=== PATIENT | male | born 1985 | race Two or more races ===

== ENCOUNTER 2016-08-27 23:44 | Emergency (ER) | payer SELFPAY | END 2016-08-28 00:45 | disposition left against medical advice (07) | LOC: ER 23:44 | DX: Z53.9 Procedure and treatment not carried out, unspecified reason (principal); R52 Pain, unspecified ==

== ENCOUNTER 2018-11-28 02:16 | Emergency (ER) | payer SELFPAY ==
[2018-11-28] MEDS ORDERED: NORMAL SALINE 1000 ML 1,000 ML IV ONE ×2 (03:05→04:45)
--- NOTE | 2018-11-28 03:53 | ER Document Report ---
ED General - General Chief Complaint: High Blood Sugar Stated Complaint: POSS OVERDOSE Time Seen by Provider: 11/28/18 02:30 Primary Care Provider: ANG COHN MD [Primary Care Provider] - Follow up in 3-5 days Notes: Patient is a 33-year-old male with history of opiate abuse disorder that presents to the emergency department for chief complaint of heroin overdose. Patient was apparently using heroin this evening, and had accidentally overdosed, was given 4 mg of intranasal Narcan, and 4 mg of IV Narcan. Patient is now alert and oriented, stating that he "almost ", he is not overdose in the past according to the patient, he did not do this intentionally, denies any suicidal homicidal ideations, denies any delusions, or hallucinations at this time. He denies having any chest pain, shortness of breath, difficulty breathing. He denies any use of other illicit drugs in the last several days. Denies any alcohol use this evening. Past Medical History: Opiate abuse disorder, hepatitis C Past Surgical History: Denies surgical history Social History: Admits to smoking cigarettes, and using heroin on a regular basis, denies regular alcohol use. Family History: Reviewed and noncontributory for presenting illness Allergies: Reviewed, see documented allergy list. REVIEW OF SYSTEMS: Other than noted above, the 12 point review of systems was reviewed with the patient and were negative, all pertinent findings are included in the HPI. PHYSICAL EXAMINATION: Vital signs reviewed, nursing noted reviewed. GENERAL: Patient is somnolent, but easily arousable, answering questions appropriately, no acute distress HEAD: Atraumatic, normocephalic. EYES: Eyes appear normal, extraocular movements intact, sclera anicteric, conjunctiva are normal. ENT: nares patent, oropharynx clear without exudates. Moist mucous membranes. NECK: Normal range of motion, supple without lymphadenopathy LUNGS: Breath sounds clear to auscultation bilaterally and equal. No wheezes rales or rhonchi. HEART: Regular rate and rhythm without murmurs ABDOMEN: Soft, nontender, normoactive bowel sounds. No rebound, guarding, or rigidity. No masses appreciated. EXTREMITIES: Nontender, good range of motion, no pitting or edema. NEUROLOGICAL: No focal neurological deficits. Moves all extremities spontane ously Motor and sensory grossly intact on exam. PSYCH: Normal mood, normal affect. SKIN: Warm, Dry, normal turgor, no rashes or lesions noted on exposed skin TRAVEL OUTSIDE OF THE [place] IN LAST 30 DAYS: No - Related Data Allergies/Adverse Reactions: acetaminophen [From Tylenol] Adverse Reaction (Verified 03/21/16 13:58) Generalized Itching Past Medical History - Social History Smoking Status: Current Every Day Smoker Family History: Reviewed & Not Pertinent Endocrine Medical History: Reports: Hx Diabetes Mellitus Type 2 Musculoskeletal Medical History: Reports Hx Musculoskeletal Trauma - Clavicle Traumatic Medical History: Reports: Hx Fractures - Clavicle, nose Past Surgical History: Reports: Hx Nose Surgery - Immunizations Hx Diphtheria, Pertussis, Tetanus Vaccination: No Hx Pneumococcal Vaccination: 06/04/14 Physical Exam - Vital signs Vitals: Resp Pulse Ox 16 93 11/28/18 02:22 11/28/18 02:22 Course - Re-evaluation Re-evalutation: Patient seen and examined vital signs reviewed. Laboratory data and/or imaging were ordered as appropriate for the patient's presenting symptoms and complaint, with consideration of any critical or life threatening conditions that may be associated with their obtained history and exam as noted above. Patient was treated with IV fluids, noted to be hyperglycemic, blood work was ordered. Results were reviewed when available and demonstrated hyperglycemia, without aci dosis, patient given 2 L of IV fluids, and 10 units of IV insulin The patient was re-evaluated and was stable, easily arousable, and agreeable to plan of care Evaluation was most consistent with heroin overdose, unintentional, and hyperglycemia, patient encouraged to use his diabetic medications, to avoid any illicit drugs in the future. Results were discussed with the patient at this point, after careful consideration I feel that that patient can be discharged from the emergency department, the patient was educated treatments and reasons to return to the emergency department based on their presumed diagnosis as noted above, they were advised to followup with a primary care physician in 2-3 days. Patient was agreeable to plan of care. *Note is created using voice recognition software and may contain spelling, syntax or grammatical errors. Laboratory 11/28/18 11/28/18 11/28/18 02:39 02:40 02:40 WBC 9.9 RBC 4.56 Hgb 13.9 Hct 41.1 MCV 90 MCH 30.5 MCHC 33.9 RDW 13.1 Plt Count 210 Seg Neutrophils % 73.0 Lymphocytes % 18.6 Monocytes % 7.0 Eosinophils % 1.1 Basophils % 0.3 Absolute Neutrophils 7.2 Absolute Lymphocytes 1.8 Absolute Monocytes 0.7 Absolute Eosinophils 0.1 Absolute Basophils 0.0 Sodium 132.4 L Potassium 4.0 Chloride 98 Carbon Dioxide 24 Anion Gap 10 BUN 11 Creatinine 0.94 Est GFR ( Amer) > 60 Est GFR (Non-Af Amer) > 60 Glucose 478 H* POC Glucose 431 H* Calcium 8.6 11/28/18 05:04 WBC RBC Hgb Hct MCV MCH MCHC RDW Plt Count Seg Neutrophils % Lymphocytes % Monocytes % Eosinophils % Basophils % Absolute Neutrophils Absolute Lymphocytes Absolute Monocytes Absolute Eosinophils Absolute Basophils Sodium Potassium Chloride Carbon Dioxide Anion Gap BUN Creatinine Est GFR ( Amer) Est GFR (Non-Af Amer) Glucose POC Glucose 400 H Calcium Chest X-Ray 11/28/18 03:05 IMPRESSION: 1. No acute pulmonary process identified. - Vital Signs Vital signs: Temp Pulse Resp BP Pulse Ox 98.1 F 17 102/55 L 97 11/28/18 03:07 11/28/18 04:01 11/28/18 04:01 11/28/18 04:01 - Laboratory Result Diagrams: 11/28/18 02:40 11/28/18 02:40 Laboratory results interpreted by me: 11/28/18 11/28/18 11/28/18 02:39 02:40 05:01 Sodium 132.4 L Glucose 478 H* POC Glucose 431 H* Urine Protein 30 H Urine Glucose (UA) >=500 H 11/28/18 05:04 Sodium Glucose POC Glucose 400 H Urine Protein Urine Glucose (UA) - EKG Interpretation by Me Additional EKG results interpreted by me: EKG demonstrates sinus rhythm with a ventricular rate of 87 bpm, normal axis, normal intervals, no evidence of acute ischemia in this EKG, no ST elevation, compared with prior EKG from 12/10/2015, at that time patient was noted to be tachycardic, otherwise no acute changes. Critical Care Note - Critical Care Note Total time excluding time spent on procedures (mins): 35 Comments: Critical care time 35 minutes exclusive from separate billable procedures for a patient requiring complex medical decision making, and high potential for clinical deterioration. In a patient now status post opiate overdose, after receiving IV Narcan, requiring close monitoring and repeat evaluations. Time spent obtaining history from patient or surrogate, discussions with consultants, development of treatment plan with patient or surrogate, evaluation of patient's response to treatment, examination of patient, ordering and performing treatments and interventions, ordering and review of laboratory studies, re- evaluation of patient's condition, ordering and review of radiographic studies and review of old charts Discharge - Discharge Clinical Impression: Opiate overdose, Hyperglycemia Condition: Stable Disposition: HOME, SELF-CARE Instructions: Instructions for Home Care Following a Drug Overdose ([facility]) Additional Instructions: Please take your diabetic medications, as previously directed and follow-up with the primary care physician, if you do not have one currently, one has been li sted with your paperwork. Please avoid using any illegal drugs, or any drugs that are not prescribed to you, or abuse any drugs that have been prescribed to you, as this can be fatal. Referrals: ANG COHN MD [Primary Care Provider] - Follow up in 3-5 days
--- NOTE | 2018-11-28 04:06 | RADIOLOGY REPORT (SQ) ---
EXAM DESCRIPTION: XR CHEST 1 VIEW COMPLETED DATE/TME: 11/28/2018 03:05 CLINICAL HISTORY: overdose COMPARISON: 02/09/2016 FINDINGS: Single frontal view of the chest. Cardiomediastinal silhouette: Normal size and contour. Lungs: No consolidation, pneumothorax, or pleural effusion. Bones: No acute osseous abnormality. Leads overlie the chest. Upper abdomen: No abnormality identified. IMPRESSION: 1. No acute pulmonary process identified.
[2018-11-28 04:24] LABS: ABSOLUTE EOSINOPHILS # (AUTO) 0.1 10^3/uL (0.0-0.6); ABSOLUTE LYMPHOCYTES (AUTO) 1.8 10^3/uL (0.5-4.7); ABSOLUTE MONOCYTES (AUTO) 0.7 10^3/uL (0.1-1.4); ABSOLUTE NEUT (AUTO) 7.2 10^3/uL (1.7-8.2); BASOPHILS % (AUTO) 0.3 % (0-2); EOSINOPHILS % (AUTO) 1.1 % (0-6); HEMATOCRIT 41.1 % (37.9-51.0); HEMOGLOBIN 13.9 g/dL (13.5-17.0); LYMPHOCYTES % (AUTO) 18.6 % (13-45); MEAN CORPUSCULAR HEMOGLOBIN 30.5 pg (27.0-33.4); MEAN CORPUSCULAR HGB CONC 33.9 g/dL (32.0-36.0); MEAN CORPUSCULAR VOLUME 90 fl (80-97); PLATELET COUNT 210 10^3/uL (150-450); RED BLOOD COUNT 4.56 10^6/uL (4.35-5.55); RED CELL DISTRIBUTION WIDTH 13.1 % (11.5-14.0); TOTAL CELLS COUNTED % (AUTO) 100 %; WHITE BLOOD COUNT 9.9 10^3/uL (4.0-10.5)
[2018-11-28 04:31] LABS: ANION GAP 10 (5-19); BLOOD UREA NITROGEN 11 mg/dL (7-20); CALCIUM 8.6 mg/dL (8.4-10.2); CARBON DIOXIDE 24 mmol/L (22-30); CHLORIDE 98 mmol/L (98-107)
[2018-11-28 04:39] LABS: GLUCOSE 478 mg/dL (75-110)
[2018-11-28] MEDS ORDERED: INSULIN REG, HUMAN 100 UNIT/ML 3 ML VIAL (PYX) IV ONE (04:45)
[2018-11-28 05:34] LABS: APPEARANCE,URINE CLEAR; BILIRUBIN,URINE NEGATIVE (NEGATIVE); COLOR,URINE STRAW; GLUCOSE, URINE >=500 mg/dL (NEGATIVE); KETONES,URINE NEGATIVE (NEGATIVE); LEUKOCYTE ESTERASE,URINE NEGATIVE (NEGATIVE); NITRITE,URINE NEGATIVE (NEGATIVE); PROTEIN,URINE 30 mg/dL (NEGATIVE); URINE SPECIFIC GRAVITY 1.035; UROBILINOGEN,URINE NEGATIVE mg/dL (<2.0)
[2018-11-28 05:50] LABS: URINE AMPHETAMINES SCREEN UNCONFIRMED POSITIVE; URINE BARBITURATES SCREEN NEGATIVE; URINE BENZODIAZEPINES SCREEN NEGATIVE; URINE COCAINE SCREEN NEGATIVE; URINE MARIJUANA (THC) SCREEN UNCONFIRMED POSITIVE; URINE METHADONE SCREEN NEGATIVE; URINE PHENCYCLIDINE SCREEN NEGATIVE
[2018-11-28 08:09] VITALS: BP 101/55
--- NOTE | 2018-11-29 20:36 | EKG REPORT ---
SEVERITY:- NORMAL ECG - SINUS RHYTHM : Confirmed by: Rainer Negron 29-Nov-2018 20:35:48
== END 2018-11-28 08:28 | disposition home or self-care (01) ==
LOC: ER 02:16
DX: T40.1X1A Poisoning by heroin, accidental (unintentional), initial encounter (principal); E11.65 Type 2 diabetes mellitus with hyperglycemia; F17.210 Nicotine dependence, cigarettes, uncomplicated
CPT/HCPCS: 93005; 99285; 96360; 36415; 82962; 85025; 80048; 81001; 80307; 71045; 93010; J1815; J7030; 96361

== ENCOUNTER 2018-12-03 12:15 | Emergency (ER) | payer SELFPAY ==
--- NOTE | 2018-12-03 12:33 | ER Document Report ---
HPI - HPI Time Seen by Provider: 12/03/18 12:31 Pain Level: 0 Notes: Patient is a 33-year-old male with a history of type 2 diabetes, Opiate abuse disorder (with recent OD), hepatitis C who presents complaining of feeling fatigue, increased thirst, and increased urination. Patient states that he has been out of his medicines for a while now. He is usually on Humulin 70/30 12 units twice a day as well as metformin 500 mg twice daily. He has been able to eat and drink without difficulty. He is having normal bowel movements. No other concerns or complaints at this time. Denies any headache, fever, neck pain, changes in vision/speech/mentation/hearing, URI, sore throat, chest pain, palpitations, syncope, cough, shortness of breath, wheeze, dyspnea, abdominal pain, nausea/vomiting/diarrhea, urinary retention, dysuria, hematuria, or rash. PHYSICAL EXAMINATION: GENERAL: Well-appearing, well-nourished and in no acute distress. HEAD: Atraumatic, normocephalic. EYES: Pupils equal round and reactive to light, extraocular movements intact, sclera anicteric, conjunctiva are normal. ENT: Nares patent and without discharge. oropharynx clear without exudates. No tonsilar hypertrophy or erythema. Moist mucous membranes. NECK: Normal range of motion, supple without lymphadenopathy LUNGS: Breath sounds clear to auscultation bilaterally and equal. No wheezes rales or rhonchi. HEART: Regular rate and rhythm without murmurs, rubs, gallops. ABDOMEN: Soft, nontender, nondistended abdomen. No guarding, no rebound. Normal bowel sounds present. No CVA tenderness bilaterally. Musculoskeletal: FROM to passive/active. Strength 5+/5. Extremities: No cyanosis, clubbing, or edema b/l. Peripheral pulses 2+. Capillary refill less than 3 seconds. NEUROLOGICAL: Cranial nerves grossly intact. Normal speech, normal gait. Normal sensory, motor exams PSYCH: Normal mood, normal affect. SKIN: Warm, Dry, normal turgor, no rashes or lesions noted. - REPRODUCTIVE Reproductive: DENIES: : Past Medical History - Social History Family History: Reviewed & Not Pertinent Endocrine Medical History: Reports: Hx Diabetes Mellitus Type 2 Renal/ Medical History: Denies: Hx Peritoneal Dialysis Musculoskeletal Medical History: Reports Hx Musculoskeletal Trauma - Clavicle Traumatic Medical History: Reports: Hx Fractures - Clavicle, nose Past Surgical History: Reports: Hx Nose Surgery - Immunizations Hx Diphtheria, Pertussis, Tetanus Vaccination: No Hx Pneumococcal Vaccination: 06/04/14 Vertical Provider Document - INFECTION CONTROL TRAVEL OUTSIDE OF THE [place] IN LAST 30 DAYS: No Course - Vital Signs Vital signs: Temp Pulse Resp BP Pulse Ox 97.5 F 80 16 135/62 H 96 12/03/18 12:21 12/03/18 12:21 12/03/18 12:21 12/03/18 12:21 12/03/18 12:21 Discharge - Discharge Referrals: ANG COHN MD [Primary Care Provider] - Follow up as needed
[2018-12-03] MEDS ORDERED: NORMAL SALINE 1000 ML 1,000 ML IV PRN (12:38)
--- NOTE | 2018-12-03 12:38 | ER Document Report ---
ED Medical Screen (RME) - General Chief Complaint: High Blood Sugar Stated Complaint: BLOOD SUGAR PROBLEMS Time Seen by Provider: 12/03/18 12:31 Primary Care Provider: ANG COHN MD [Primary Care Provider] - Follow up as needed TRAVEL OUTSIDE OF THE [place] IN LAST 30 DAYS: No - HPI Notes: 12/03/18 12:37 Patient is a 33-year-old male with a history of type 2 diabetes, Opiate abuse disorder (with recent OD), hepatitis C who presents complaining of feeling fatigue, increased thirst, and increased urination. Patient states that he has been out of his medicines for a while now. He is usually on Humulin 70/30 12 units twice a day as well as metformin 500 mg twice daily. He has been able to eat and drink without difficulty. He is having normal bowel movements. No other concerns or complaints at this time. Denies any headache, fever, neck pain, changes in vision/speech/mentation/hearing, URI, sore throat, chest pain, palpitations, syncope, cough, shortness of breath, wheeze, dyspnea, abdominal pain, nausea/vomiting/diarrhea, urinary retention, dysuria, hematuria, or rash. I have treated and performed a rapid initial assessment of this patient. A comprehensive ED assessment and evaluation of the patient, analysis of test results and completion of medical decision making process will be conducted by additional ED providers. PHYSICAL EXAMINATION: GENERAL: Well-appearing, well-nourished and in no acute distress. A&Ox4. Answers questions appropriately. LUNGS: Breath sounds clear to auscultation bilaterally and equal. No wheezes rales or rhonchi. HEART: Regular rate and rhythm without murmurs, rubs, gallops. ABDOMEN: Soft, nondistended abdomen. No guarding, no rebound. Normal bowel sounds present. No CVA tenderness bilaterally. Grossly nontender (cannot elicit thorough abd exam w/o bed, however). Extremities: No cyanosis, clubbing, or edema b/l. NEUROLOGICAL: Normal speech, normal gait. PSYCH: Normal mood, normal affect. - Related Data Allergies/Adverse Reactions: acetaminophen [From Tylenol] Adverse Reaction (Verified 03/21/16 13:58) Generalized Itching Past Medical History - Social History Family history: CAD, DM, Hyperlipidemia, Hypertension, Thyroid Disfunction Endocrine Medical History: Reports: Hx Diabetes Mellitus Type 2 Renal/ Medical History: Denies: Hx Peritoneal Dialysis Musculoskeltal Medical History: Reports Hx Musculoskeletal Trauma - Clavicle Traumatic Medical History: Reports: Hx Fractures - Clavicle, nose Past Surgical History: Reports: Hx Nose Surgery - Immunizations Hx Diphtheria, Pertussis, Tetanus Vaccination: No Physical Exam - Vital signs Vitals: Temp Pulse Resp BP Pulse Ox 97.5 F 80 16 135/62 H 96 12/03/18 12:21 12/03/18 12:21 12/03/18 12:21 12/03/18 12:21 12/03/18 12:21 Course - Vital Signs Vital signs: Temp Pulse Resp BP Pulse Ox 97.5 F 80 16 135/62 H 96 12/03/18 12:21 12/03/18 12:21 12/03/18 12:21 12/03/18 12:21 12/03/18 12:21 Doctor's Discharge - Discharge Referrals: ANG COHN MD [Primary Care Provider] - Follow up as needed
[2018-12-03 13:18] LABS: VENOUS BLOOD BASE EXCESS 3.8 mmol/L; VENOUS BLOOD HCO3 31.5 mmol/L (20-32); VENOUS BLOOD PCO2 60.2 mmHg (35-63); VENOUS BLOOD PH 7.34 (7.30-7.42)
[2018-12-03 13:20] LABS: APPEARANCE,URINE CLEAR; BILIRUBIN,URINE NEGATIVE (NEGATIVE); COLOR,URINE STRAW; GLUCOSE, URINE >=500 mg/dL (NEGATIVE); KETONES,URINE NEGATIVE (NEGATIVE); LEUKOCYTE ESTERASE,URINE NEGATIVE (NEGATIVE); NITRITE,URINE NEGATIVE (NEGATIVE); PROTEIN,URINE NEGATIVE (NEGATIVE); URINE SPECIFIC GRAVITY 1.038; UROBILINOGEN,URINE NEGATIVE mg/dL (<2.0)
[2018-12-03 13:21] LABS: ABSOLUTE EOSINOPHILS # (AUTO) 0.1 10^3/uL (0.0-0.6); ABSOLUTE LYMPHOCYTES (AUTO) 1.8 10^3/uL (0.5-4.7); ABSOLUTE MONOCYTES (AUTO) 0.5 10^3/uL (0.1-1.4); ABSOLUTE NEUT (AUTO) 4.1 10^3/uL (1.7-8.2); BASOPHILS % (AUTO) 0.7 % (0-2); EOSINOPHILS % (AUTO) 1.8 % (0-6); HEMATOCRIT 43.4 % (37.9-51.0); HEMOGLOBIN 14.7 g/dL (13.5-17.0); LYMPHOCYTES % (AUTO) 27.5 % (13-45); MEAN CORPUSCULAR HEMOGLOBIN 30.4 pg (27.0-33.4); MEAN CORPUSCULAR HGB CONC 33.8 g/dL (32.0-36.0); MEAN CORPUSCULAR VOLUME 90 fl (80-97); MONOCYTES % (AUTO) 7.7 % (3-13); PLATELET COUNT 255 10^3/uL (150-450); RED BLOOD COUNT 4.83 10^6/uL (4.35-5.55); RED CELL DISTRIBUTION WIDTH 12.9 % (11.5-14.0); SEGMENTED NEUTROPHILS % (AUTO) 62.3 % (42-78); TOTAL CELLS COUNTED % (AUTO) 100 %; WHITE BLOOD COUNT 6.6 10^3/uL (4.0-10.5)
[2018-12-03 13:43] LABS: ALANINE AMINOTRANSFERASE 32 U/L (21-72); ALBUMIN 4.1 g/dL (3.5-5.0); ALKALINE PHOSPHATASE 89 U/L (38-126); ANION GAP 9 (5-19); ASPARTATE AMINO TRANSFERASE 27 U/L (17-59); BILIRUBIN,DIRECT 0.2 mg/dL (0.0-0.4); BILIRUBIN,TOTAL 0.4 mg/dL (0.2-1.3); BLOOD UREA NITROGEN 12 mg/dL (7-20); CALCIUM 9.5 mg/dL (8.4-10.2); CARBON DIOXIDE 31 mmol/L (22-30); CHLORIDE 94 mmol/L (98-107); POTASSIUM 5.3 mmol/L (3.6-5.0); TOTAL PROTEIN 7.2 g/dL (6.3-8.2)
[2018-12-03 13:51] LABS: GLUCOSE 436 mg/dL (75-110)
--- NOTE | 2018-12-03 14:16 | ER Document Report ---
ED General - General Chief Complaint: High Blood Sugar Stated Complaint: BLOOD SUGAR PROBLEMS Time Seen by Provider: 12/03/18 12:31 Primary Care Provider: ANG COHN MD [Primary Care Provider] - Follow up tomorrow (call for appointment. ) Notes: Patient is a 33-year-old male with diabetes mellitus, type II that presents to the emergency department for chief complaint of lightheadedness, and elevated blood sugar. Patient states his been noncompliant with his medication for about 1 month, he was on 70/30 insulin 12 units twice daily, as well as metformin, he has not follow-up with his primary care in some time as well. He states that usually when his blood sugar is high, he is lightheaded, he denies having any nausea, vomiting, but has had some polyuria and polydipsia. Denies having any chest pain, shortness of breath, difficulty breathing. Patient was recently in the emergency department after an unintentional heroin overdose, since then he has not used any further heroin according to the patient. He has no other complaints at this time, and denies having any pain. Past Medical History: Diabetes mellitus Past Surgical History: Denies surgical history Social History: Admits to intermittent heroin use, denies alcohol use. Family History: Reviewed and noncontributory for presenting illness Allergies: Reviewed, see documented allergy list. REVIEW OF SYSTEMS: Other than noted above, the 12 point review of systems was reviewed with the patient and were negative, all pertinent findings are included in the HPI. PHYSICAL EXAMINATION: Vital signs reviewed, nursing noted reviewed. GENERAL: Well-appearing, well-nourished and in no acute distress. HEAD: Atraumatic, normocephalic. EYES: Eyes appear normal, extraocular movements intact, sclera anicteric, conjunctiva are normal. ENT: nares patent, oropharynx clear without exudates. Moist mucous membranes. NECK: Normal range of motion, supple without lymphadenopathy LUNGS: Breath sounds clear to auscultation bilaterally and equal. No wheezes rales or rhonchi. HEART: Regular rate and rhythm without murmurs ABDOMEN: Soft, nontender, normoactive bowel sounds. No rebound, guarding, or rigidity. No masses appreciated. EXTREMITIES: Nontender, good range of motion, no pitting or edema. NEUROLOGICAL: No focal neurological deficits. Moves all extremities spontaneously Motor and sensory grossly intact on exam. PSYCH: Normal mood, normal affect. SKIN: Warm, Dry, normal turgor, no rashes or lesions noted on exposed skin TRAVEL OUTSIDE OF THE [place] IN LAST 30 DAYS: No - Related Data Allergies/Adverse Reactions: acetaminophen [From Tylenol] Adverse Reaction (Verified 03/21/16 13:58) Generalized Itching Past Medical History - Social History Smoking Status: Never Smoker Chew tobacco use (# tins/day): No Frequency of alcohol use: Occasional Drug Abuse: Marijuana Family History: Reviewed & Not Pertinent Patient has suicidal ideation: No Patient has homicidal ideation: No Endocrine Medical History: Reports: Hx Diabetes Mellitus Type 2 Renal/ Medical History: Denies: Hx Peritoneal Dialysis Musculoskeletal Medical History: Reports Hx Musculoskeletal Trauma - Clavicle Traumatic Medical History: Reports: Hx Fractures - Clavicle, nose Past Surgical History: Reports: Hx Nose Surgery - Immunizations Hx Diphtheria, Pertussis, Tetanus Vaccination: No Hx Pneumococcal Vaccination: 06/04/14 Physical Exam - Vital signs Vitals: Temp Pulse Resp BP Pulse Ox 97.5 F 80 16 135/62 H 96 12/03/18 12:21 12/03/18 12:21 12/03/18 12:21 12/03/18 12:21 12/03/18 12:21 Course - Re-evaluation Re-evalutation: Patient seen and examined vital signs reviewed. Laboratory data and/or imaging were ordered as appropriate for the patient's presenting symptoms and complaint, with consideration of any critical or life threatening conditions that may be associated with their obtained history and ex am as noted above. Patient was treated with IV fluid bolusing, 2 L, and 6 units of IV insulin Results were reviewed when available and demonstrated hyperglycemia, without acidosis, normal anion gap The patient was re-evaluated and was improved clinically, his blood glucose came down to 211, advised that he start metformin again, given prescription, and follow-up with his primary care to resume insulin that he had been on in the past. Evaluation was most consistent with hyperglycemia in a diabetic patient Results were discussed with the patient at this point, after careful consideration I feel that that patient can be discharged from the emergency department, the patient was educated treatments and reasons to return to the emergency department based on their presumed diagnosis as noted above, they were advised to followup with a primary care physician in 2-3 days. Patient was agreeable to plan of care. *Note is created using voice recognition software and may contain spelling, syn tax or grammatical errors. Laboratory 12/03/18 12/03/18 12/03/18 12:36 12:55 12:55 WBC 6.6 RBC 4.83 Hgb 14.7 Hct 43.4 MCV 90 MCH 30.4 MCHC 33.8 RDW 12.9 Plt Count 255 Seg Neutrophils % 62.3 Lymphocytes % 27.5 Monocytes % 7.7 Eosinophils % 1.8 Basophils % 0.7 Absolute Neutrophils 4.1 Absolute Lymphocytes 1.8 Absolute Monocytes 0.5 Absolute Eosinophils 0.1 Absolute Basophils 0.0 VBG pH VBG pCO2 VBG HCO3 VBG Base Excess Sodium 134.0 L Potassium 5.3 H Chloride 94 L Carbon Dioxide 31 H Anion Gap 9 BUN 12 Creatinine 0.72 Est GFR ( Amer) > 60 Est GFR (Non-Af Amer) > 60 Glucose 436 H* POC Glucose 434 H* Calcium 9.5 Total Bilirubin 0.4 Direct Bilirubin 0.2 Neonat Total Bilirubin Not Reportable Neonat Direct Bilirubin Not Reportable Neonat Indirect Bili Not Reportable AST 27 ALT 32 Alkaline Phosphatase 89 Total Protein 7.2 Albumin 4.1 Urine Color Urine Appearance Urine pH Ur Specific [place] Urine Protein Urine Glucose (UA) Urine Ketones Urine Blood Urine Nitrite Urine Bilirubin Urine Urobilinogen Ur Leukocyte Esterase Urine WBC (Auto) Urine RBC (Auto) Squamous Epi Cells Auto Urine Mucus (Auto) Urine Ascorbic Acid 12/03/18 12/03/18 12/03/18 12:55 12:55 12:59 WBC RBC Hgb Hct MCV MCH MCHC RDW Plt Count Seg Neutrophils % Lymphocytes % Monocytes % Eosinophils % Basophils % Absolute Neutrophils Absolute Lymphocytes Absolute Monocytes Absolute Eosinophils Absolute Basophils VBG pH 7.34 VBG pCO2 60.2 VBG HCO3 31.5 VBG Base Excess 3.8 Sodium Potassium Chloride Carbon Dioxide Anion Gap BUN Creatinine Est GFR ( Amer) Est GFR (Non-Af Amer) Glucose POC Glucose 416 H* Calcium Total Bilirubin Direct Bilirubin Neonat Total Bilirubin Neonat Direct Bilirubin Neonat Indirect Bili AST ALT Alkaline Phosphatase Total Protein Albumin Urine Color STRAW Urine Appearance CLEAR Urine pH 5.0 Ur Specific [place] 1.038 Urine Protein NEGATIVE Urine Glucose (UA) >=500 H Urine Ketones NEGATIVE Urine Blood NEGATIVE Urine Nitrite NEGATIVE Urine Bilirubin NEGATIVE Urine Urobilinogen NEGATIVE Ur Leukocyte Esterase NEGATIVE Urine WBC (Auto) 1 Urine RBC (Auto) 0 Squamous Epi Cells Auto <1 Urine Mucus (Auto) RARE Urine Ascorbic Acid NEGATIVE 12/03/18 12/03/18 14:46 17:14 WBC RBC Hgb Hct MCV MCH MCHC RDW Plt Count Seg Neutrophils % Lymphocytes % Monocytes % Eosinophils % Basophils % Absolute Neutrophils Absolute Lymphocytes Absolute Monocytes Absolute Eosinophils Absolute Basophils VBG pH VBG pCO2 VBG HCO3 VBG Base Excess Sodium Potassium Chloride Carbon Dioxide Anion Gap BUN Creatinine Est GFR ( Amer) Est GFR (Non-Af Amer) Glucose POC Glucose 336 H 211 H Calcium Total Bilirubin Direct Bilirubin Neonat Total Bilirubin Neonat Direct Bilirubin Neonat Indirect Bili AST ALT Alkaline Phosphatase Total Protein Albumin Urine Color Urine Appearance Urine pH Ur Specific [place] Urine Protein Urine Glucose (UA) Urine Ketones Urine Blood Urine Nitrite Urine Bilirubin Urine Urobilinogen Ur Leukocyte Esterase Urine WBC (Auto) Urine RBC (Auto) Squamous Epi Cells Auto Urine Mucus (Auto) Urine Ascorbic Acid - Vital Signs Vital signs: Temp Pulse Resp BP Pulse Ox 98.2 F 58 L 16 108/73 100 12/03/18 16:20 12/03/18 16:20 12/03/18 16:20 12/03/18 16:20 12/03/18 16:20 - Laboratory Result Diagrams: 12/03/18 12:55 12/03/18 12:55 Laboratory results interpreted by me: 12/03/18 12/03/18 12/03/18 12:36 12:55 12:55 Sodium 134.0 L Potassium 5.3 H Chloride 94 L Carbon Dioxide 31 H Glucose 436 H* POC Glucose 434 H* Urine Glucose (UA) >=500 H 12/03/18 12/03/18 12/03/18 12:59 14:46 17:14 Sodium Potassium Chloride Carbon Dioxide Glucose POC Glucose 416 H* 336 H 211 H Urine Glucose (UA) Discharge - Discharge Clinical Impression: Hyperglycemia Condition: Stable Disposition: HOME, SELF-CARE Instructions: Hyperglycemia ([facility]) Additional Instructions: Please start taking the metformin as prescribed, then follow-up with Dr. Cohn, as you will need prescriptions for insulin, to better control your diabetes. Prescriptions: RX: Metformin HCl [Glucophage 500 mg Tablet] 500 mg PO BID #30 tablet Referrals: ANG COHN MD [Primary Care Provider] - Follow up tomorrow (call for appointment. )
[2018-12-03] MEDS ORDERED: INSULIN REG, HUMAN 100 UNIT/ML 3 ML VIAL (PYX) IV ONE (14:54)
[2018-12-03 16:22] VITALS: BP 108/73
== END 2018-12-03 15:20 | disposition home or self-care (01) ==
LOC: ER 12:15
DX: E11.65 Type 2 diabetes mellitus with hyperglycemia (principal); R42 Dizziness and giddiness; Z91.14 Patient's other noncompliance with medication regimen; F11.90 Opioid use, unspecified, uncomplicated
CPT/HCPCS: 99284; 96360; 36415; 82962; 85025; 80053; 81001; 82803; J1815; J7030

== ENCOUNTER 2019-04-03 23:27 | Inpatient (IN) | payer SELFPAY ==
[2019-04-04] MEDS ORDERED: NORMAL SALINE 1000 ML 1,000 ML IV ONE ×2 (01:35→02:59)
[2019-04-04] MEDS ORDERED: CLINDAMYCIN 600 MG/D5W RTU 600 MG/50 ML RTUPB IV ONE (01:35)
--- NOTE | 2019-04-04 01:48 | ER Document Report ---
ED Extremity Problem, Lower - General Chief Complaint: Abscess Stated Complaint: POSS SKIN INFECTION Time Seen by Provider: 04/04/19 01:22 Primary Care Provider: ANG COHN MD [Primary Care Provider] - Follow up as needed Mode of Arrival: Ambulatory Information source: Patient, Relative - Sister Notes: Patient is a 34-year-old male with history of diabetes presenting to the emergency department with concern for abscess to his right leg. He has a history of IV drug abuse and states that he was shooting up near this area. He denies any fevers. He reports that the abscess has been there for several days and has been draining. He also reports he has not been taking his insulin for quite some time. He denies any nausea, vomiting, diarrhea or recent illness. TRAVEL OUTSIDE OF THE [place] IN LAST 30 DAYS: No - Related Data Allergies/Adverse Reactions: aspirin Adverse Reaction (Verified 04/04/19 00:18) Past Medical History - General Information source: Patient - Social History Smoking Status: Current Every Day Smoker Frequency of alcohol use: None Drug Abuse: Marijuana Family History: Reviewed & Not Pertinent Patient has suicidal ideation: No Patient has homicidal ideation: No Endocrine Medical History: Reports: Hx Diabetes Mellitus Type 2 Renal/ Medical History: Denies: Hx Peritoneal Dialysis Musculoskeletal Medical History: Reports Hx Musculoskeletal Trauma - Clavicle Traumatic Medical History: Reports: Hx Fractures - Clavicle, nose Past Surgical History: Reports: Hx Nose Surgery - Immunizations Hx Diphtheria, Pertussis, Tetanus Vaccination: No Hx Pneumococcal Vaccination: 06/04/14 Review of Systems - Review of Systems Constitutional: denies: Fever EENT: No symptoms reported Cardiovascular: No symptoms reported Respiratory: No symptoms reported Gastrointestinal: No symptoms reported Genitourinary: No symptoms reported Male Genitourinary: No symptoms reported Musculoskeletal: No symptoms reported Skin: See HPI Physical Exam - Vital signs Vitals: Temp Pulse Resp BP Pulse Ox 98.5 F 118 H 18 131/78 H 95 04/03/19 23:32 04/03/19 23:32 04/03/19 23:32 04/03/19 23:32 04/03/19 23:32 - Notes Notes: PHYSICAL EXAMINATION: GENERAL: Disheveled. HEAD: Atraumatic, normocephalic. EYES: Pupils equal round and reactive to light, extraocular movements intact, sclera anicteric, conjunctiva are normal. ENT: Nares patent, oropharynx clear without exudates. Moist mucous membranes. NECK: Normal range of motion, supple without lymphadenopathy LUNGS: Breath sounds clear to auscultation bilaterally and equal. No wheezes rales or rhonchi. HEART: Regular rate and rhythm without murmurs ABDOMEN: Soft, nontender, nondistended abdomen. No guarding, no rebound. No masses appreciated. Musculoskeletal: Normal range of motion, no pitting or edema. No cyanosis. Strong dorsalis pedis pulse bilaterally. NEUROLOGICAL: Cranial nerves grossly intact. Slurred speech. Normal sensory, motor exams PSYCH: Appears to be under the influence of a substance. SKIN: Area of induration and erythema noted to right medial knee with extension up into right medial thigh. Course - Re-evaluation Re-evalutation: Laboratory 04/04/19 04/04/19 04/04/19 02:04 02:04 02:04 WBC 13.2 H RBC 4.56 Hgb 13.6 Hct 40.2 MCV 88 MCH 29.9 MCHC 33.9 RDW 12.4 Plt Count 313 Lymph % (Auto) 20.1 [place] % (Auto) 7.1 Eos % (Auto) 0.7 Baso % (Auto) 1.0 Absolute Neuts (auto) 9.4 H Absolute Lymphs (auto) 2.7 Absolute Monos (auto) 0.9 Absolute Eos (auto) 0.1 Absolute Basos (auto) 0.1 Seg Neutrophils % 71.1 VBG pH VBG pCO2 VBG HCO3 VBG Base Excess Sodium 135.2 L Potassium 4.0 Chloride 90 L Carbon Dioxide 34 H Anion Gap 11 BUN 13 Creatinine 0.77 Est GFR ( Amer) > 60 Est GFR (MDRD) Non-Af > 60 Glucose 558 H* POC Glucose Lactic Acid Cancelled Lactic Acid (Sepsis) Calcium 9.8 Total Bilirubin 0.8 Direct Bilirubin 0.2 Neonat Total Bilirubin Not Reportable Neonat Direct Bilirubin Not Reportable Neonat Indirect Bili Not Reportable AST 26 ALT 25 Alkaline Phosphatase 175 H Total Protein 7.5 Albumin 3.9 Urine Color Urine Appearance Urine pH Ur Specific [place] Urine Protein Urine Glucose (UA) Urine Ketones Urine Blood Urine Nitrite (Reflex) Urine Bilirubin Urine Urobilinogen Leukocyte Esterase Rfl Urine RBC (Auto) Urine WBC (Reflex) Urine Ascorbic Acid Urine Opiates Screen Urine Methadone Screen Ur Barbiturates Screen Ur Phencyclidine Scrn Ur Amphetamines Screen U Benzodiazepines Scrn Urine Cocaine Screen U Marijuana (THC) Screen Serum Alcohol 04/04/19 04/04/19 04/04/19 02:04 02:04 02:04 WBC RBC Hgb Hct MCV MCH MCHC RDW Plt Count Lymph % (Auto) [place] % (Auto) Eos % (Auto) Baso % (Auto) Absolute Neuts (auto) Absolute Lymphs (auto) Absolute Monos (auto) Absolute Eos (auto) Absolute Basos (auto) Seg Neutrophils % VBG pH 7.39 VBG pCO2 55.9 VBG HCO3 32.8 H VBG Base Excess 6.1 Sodium Potassium Chloride Carbon Dioxide Anion Gap BUN Creatinine Est GFR ( Amer) Est GFR (MDRD) Non-Af Glucose POC Glucose Lactic Acid Lactic Acid (Sepsis) 1.5 Calcium Total Bilirubin Direct Bilirubin Neonat Total Bilirubin Neonat Direct Bilirubin Neonat Indirect Bili AST ALT Alkaline Phosphatase Total Protein Albumin Urine Color Urine Appearance Urine pH Ur Specific [place] Urine Protein Urine Glucose (UA) Urine Ketones Urine Blood Urine Nitrite (Reflex) Urine Bilirubin Urine Urobilinogen Leukocyte Esterase Rfl Urine RBC (Auto) Urine WBC (Reflex) Urine Ascorbic Acid Urine Opiates Screen Urine Methadone Screen Ur Barbiturates Screen Ur Phencyclidine Scrn Ur Amphetamines Screen U Benzodiazepines Scrn Urine Cocaine Screen U Marijuana (THC) Screen Serum Alcohol < 10 04/04/19 04/04/19 04/04/19 03:31 03:31 05:34 WBC RBC Hgb Hct MCV MCH MCHC RDW Plt Count Lymph % (Auto) [place] % (Auto) Eos % (Auto) Baso % (Auto) Absolute Neuts (auto) Absolute Lymphs (auto) Absolute Monos (auto) Absolute Eos (auto) Absolute Basos (auto) Seg Neutrophils % VBG pH VBG pCO2 VBG HCO3 VBG Base Excess Sodium Potassium Chloride Carbon Dioxide Anion Gap BUN Creatinine Est GFR ( Amer) Est GFR (MDRD) Non-Af Glucose POC Glucose 335 H Lactic Acid Lactic Acid (Sepsis) Calcium Total Bilirubin Direct Bilirubin Neonat Total Bilirubin Neonat Direct Bilirubin Neonat Indirect Bili AST ALT Alkaline Phosphatase Total Protein Albumin Urine Color STRAW Urine Appearance CLEAR Urine pH 8.0 Ur Specific Alfred 1.031 Urine Protein NEGATIVE Urine Glucose (UA) >=500 H Urine Ketones TRACE H Urine Blood NEGATIVE Urine Nitrite (Reflex) NEGATIVE Urine Bilirubin NEGATIVE Urine Urobilinogen 2.0 H Leukocyte Esterase Rfl NEGATIVE Urine RBC (Auto) 0 Urine WBC (Reflex) 1 Urine Ascorbic Acid NEGATIVE Urine Opiates Screen UNCONFIRMED POSITIVE Urine Methadone Screen NEGATIVE Ur Barbiturates Screen NEGATIVE Ur Phencyclidine Scrn NEGATIVE Ur Amphetamines Screen UNCONFIRMED POSITIVE U Benzodiazepines Scrn NEGATIVE Urine Cocaine Screen NEGATIVE U Marijuana (THC) Screen UNCONFIRMED POSITIVE Serum Alcohol Knee X-Ray 04/04/19 01:36 IMPRESSION: No evidence of acute osseous injury involving the right knee. There is no radiopaque foreign body identified on this study. Patient with evidence of hyperglycemia without diabetic ketoacidosis. Patient was given 2 L of fluids as well as IV insulin. His blood glucose level has come down. He did appear to be acutely under the influence of some type of substance. His drug screen came back positive for opiates, amphetamines and marijuana. He he was given a dose of IV clindamycin here in the emergency department. X-ray shows no retained foreign body. CT lower extremity still pending. Plan to consult for admission. 04/04/19 07:55 Consulted hospitalist for admission of this patient, he came to the bedside and patient and family member stated that indeed Dr. Cohn was his last primary care provider. I went and spoke with the patient, patient reports he has not seen Dr. Cohn since at least 2014. I called on-call for Dr. Cohn which is Dr. Schrader and he said that this would be a hospitalist admission, Dr. Schrader also called to Dr. Cohn personally and Dr. Cohn said that this is not his patient at this time. 04/04/19 08:04 Hospitalist Don Day accepting patient for admission. - Vital Signs Vital signs: Temp Pulse Resp BP Pulse Ox 98.5 F 118 H 20 124/83 100 04/03/19 23:32 04/03/19 23:32 04/04/19 06:01 04/04/19 06:00 04/04/19 06:00 - Laboratory Result Diagrams: 04/04/19 02:04 04/04/19 02:04 Laboratory results interpreted by me: 04/04/19 04/04/19 04/04/19 02:04 02:04 02:04 WBC 13.2 H Absolute Neuts (auto) 9.4 H VBG HCO3 32.8 H Sodium 135.2 L Chloride 90 L Carbon Dioxide 34 H Glucose 558 H* POC Glucose Alkaline Phosphatase 175 H Urine Glucose (UA) Urine Ketones Urine Urobilinogen 04/04/19 04/04/19 03:31 05:34 WBC Absolute Neuts (auto) VBG HCO3 Sodium Chloride Carbon Dioxide Glucose POC Glucose 335 H Alkaline Phosphatase Urine Glucose (UA) >=500 H Urine Ketones TRACE H Urine Urobilinogen 2.0 H Discharge - Discharge Clinical Impression: IV drug user, Abscess of right leg, Hyperglycemia, Nonadherence to medication Uncontrolled diabetes mellitus Qualifiers: Diabetes mellitus type: type 2 Glycemic state: with hyperglycemia Qualified Code(s): E11.65 - Type 2 diabetes mellitus with hyperglycemia Condition: Stable Disposition: ADMITTED INPATIENT Admitting Provider: Irina (Hospitalist) - [facility] Unit Admitted: Medical Floor Referrals: ANG COHN MD [Primary Care Provider] - Follow up as needed
[2019-04-04 02:16] LABS: ABSOLUTE BASOPHILS # (AUTO) 0.1 10^3/uL (0.0-0.2); ABSOLUTE EOSINOPHILS # (AUTO) 0.1 10^3/uL (0.0-0.6); ABSOLUTE LYMPHOCYTES (AUTO) 2.7 10^3/uL (0.5-4.7); ABSOLUTE MONOCYTES (AUTO) 0.9 10^3/uL (0.1-1.4); ABSOLUTE NEUT (AUTO) 9.4 10^3/uL (1.7-8.2); EOSINOPHILS % (AUTO) 0.7 % (0-6); HEMATOCRIT 40.2 % (37.9-51.0); HEMOGLOBIN 13.6 g/dL (13.5-17.0); LYMPHOCYTES % (AUTO) 20.1 % (13-45); MEAN CORPUSCULAR HEMOGLOBIN 29.9 pg (27.0-33.4); MEAN CORPUSCULAR HGB CONC 33.9 g/dL (32.0-36.0); MEAN CORPUSCULAR VOLUME 88 fl (80-97); MONOCYTES % (AUTO) 7.1 % (3-13); PLATELET COUNT 313 10^3/uL (150-450); RED BLOOD COUNT 4.56 10^6/uL (4.35-5.55); RED CELL DISTRIBUTION WIDTH 12.4 % (11.5-14.0); SEGMENTED NEUTROPHILS % (AUTO) 71.1 % (42-78); TOTAL CELLS COUNTED % (AUTO) 100 %; WHITE BLOOD COUNT 13.2 10^3/uL (4.0-10.5)
[2019-04-04 02:20] LABS: VENOUS BLOOD BASE EXCESS 6.1 mmol/L; VENOUS BLOOD HCO3 32.8 mmol/L (20-32); VENOUS BLOOD PCO2 55.9 mmHg (35-63); VENOUS BLOOD PH 7.39 (7.30-7.42)
[2019-04-04 02:36] LABS: ALBUMIN 3.9 g/dL (3.5-5.0); ALKALINE PHOSPHATASE 175 U/L (38-126); ANION GAP 11 (5-19); ASPARTATE AMINO TRANSFERASE 26 U/L (17-59); BILIRUBIN,DIRECT 0.2 mg/dL (0.0-0.4); BILIRUBIN,TOTAL 0.8 mg/dL (0.2-1.3); BLOOD UREA NITROGEN 13 mg/dL (7-20); CALCIUM 9.8 mg/dL (8.4-10.2); CARBON DIOXIDE 34 mmol/L (22-30); CHLORIDE 90 mmol/L (98-107); TOTAL PROTEIN 7.5 g/dL (6.3-8.2)
[2019-04-04 02:47] LABS: GLUCOSE 558 mg/dL (75-110)
--- NOTE | 2019-04-04 02:47 | RADIOLOGY REPORT (SQ) ---
EXAM: X-ray knee two views CLINICAL DATA: 34-year-old male, evaluate for retained foreign body, needle TECHNICAL DATA: Two x-ray views of the right knee were performed on 04/04/2019 at 2:12 AM. COMPARISONS: None FINDINGS: There is no evidence of fracture or dislocation. There is no significant arthritis or degenerative change. No focal lytic or sclerotic bone lesions are seen. Bone mineralization is normal. No focal soft tissue abnormalities are identified. No definite radiopaque foreign body is identified within the soft tissues. There is no evidence of subcutaneous emphysema. IMPRESSION: No evidence of acute osseous injury involving the right knee. There is no radiopaque foreign body identified on this study.
[2019-04-04] MEDS ORDERED: INSULIN REG, HUMAN 100 UNIT/ML 3 ML VIAL (PYX) IV ONE ×2 (03:00→06:07)
[2019-04-04 04:12] LABS: APPEARANCE,URINE CLEAR; BILIRUBIN,URINE NEGATIVE (NEGATIVE); COLOR,URINE STRAW; GLUCOSE, URINE >=500 mg/dL (NEGATIVE); KETONES,URINE TRACE mg/dL (NEGATIVE); PROTEIN,URINE NEGATIVE (NEGATIVE); URINE SPECIFIC GRAVITY 1.031
[2019-04-04 04:34] LABS: URINE BARBITURATES SCREEN NEGATIVE; URINE BENZODIAZEPINES SCREEN NEGATIVE; URINE COCAINE SCREEN NEGATIVE; URINE METHADONE SCREEN NEGATIVE; URINE PHENCYCLIDINE SCREEN NEGATIVE
[2019-04-04 04:36] LABS: URINE AMPHETAMINES SCREEN UNCONFIRMED POSITIVE; URINE MARIJUANA (THC) SCREEN UNCONFIRMED POSITIVE
[2019-04-04] MEDS ORDERED: ONDANSETRON HCL INJ/PF 4 MG/2 ML SDV IV PRN (08:06)
[2019-04-04] MEDS ORDERED: ACETAMINOPHEN 325 MG TABLET PO PRN (08:06)
[2019-04-04] MEDS ORDERED: MAG HYDROX/AL HYDROX/SIMETH SUSP 30 ML UDCUP PO PRN (08:06)
[2019-04-04] MEDS ORDERED: VANCOMYCIN HCL 0 MG in DEXTROSE 5%-WATER 250 ML IV NR (08:15)
[2019-04-04] MEDS ORDERED: DEXTROSE 40% GEL 15 GM TUBE PO PRN ×4 (08:18→09:42)
[2019-04-04] MEDS ORDERED: DEXTROSE 50%-WATER 25 GM/50 ML DISP.SYRIN IV PRN ×4 (08:18→09:42)
[2019-04-04] MEDS ORDERED: GLUCAGON,HUMAN RECOMB 1 MG INJ IM PRN (08:18)
--- NOTE | 2019-04-04 08:18 | PDOC H&P ---
History of Present Illness Admission Date/PCP: 04/04/2019 No primary care Patient complains of: Abscess right lower extremity History of Present Illness: SUDHA BEGUM is a 34 year old male who presented to ER with history of IV drug abuse. Patient was concern for abscess in his right lower leg just above his knee on the lateral aspect. Patient is a noncompliant diabetic insulin-dependent. He has had no treatment to arrival no true aggravating factors. Past Medical History Cardiac Medical History: Reports: None Pulmonary Medical History: Reports: None EENT Medical History: Reports: None Neurological Medical History: Reports: None Endocrine Medical History: Reports: Diabetes Mellitus Type 2 Renal/ Medical History: Reports: None Malignancy Medical History: Reports: None GI Medical History: Reports: None Musculoskeltal Medical History: Reports: None Skin Medical History: Reports: None Psychiatric Medical History: Reports: None Traumatic Medical History: Reports: None Hematology: Reports: None Infectious Medical History: Reports: None Past Surgical History Past Surgical History: Reports: None Social History Information Source: Patient Lives with: Family Smoking Status: Current Every Day Smoker Frequency of Alcohol Use: None Hx Recreational Drug Use: Yes Drugs: Heroin, Marijuana Hx Prescription Drug Abuse: No - Advance Directive Resuscitation Status: Full Code Family History Family History: Reviewed & Not Pertinent Parental Family History Reviewed: Yes Children Family History Reviewed: Yes Sibling(s) Family History Reviewed.: Yes Medication/Allergy Allergies/Adverse Reactions: aspirin Adverse Reaction (Verified 04/04/19 00:18) Review of Systems Constitutional: ABSENT: chills, fever(s), headache(s), weight gain, weight loss Eyes: ABSENT: visual disturbances Ears: ABSENT: hearing changes Cardiovascular: ABSENT: chest pain, dyspnea on exertion, edema, orthropnea, palpitations Respiratory: ABSENT: cough, hemoptysis Gastrointestinal: ABSENT: abdominal pain, constipation, diarrhea, hematemesis, hematochezia, nausea, vomiting Genitourinary: ABSENT: dysuria, hematuria Musculoskeletal: ABSENT: joint swelling Integumentary: PRESENT: other - Abscess right lower extremity. ABSENT: rash, wounds Neurological: ABSENT: abnormal gait, abnormal speech, confusion, dizziness, focal weakness, syncope Psychiatric: ABSENT: anxiety, depression, homidical ideation, suicidal ideation Endocrine: ABSENT: cold intolerance, heat intolerance, polydipsia, polyuria Hematologic/Lymphatic: ABSENT: easy bleeding, easy bruising Physical Exam Vital Signs: Temp Pulse Resp BP Pulse Ox 98.5 F 118 H 20 124/83 100 04/03/19 23:32 04/03/19 23:32 04/04/19 06:01 04/04/19 06:00 04/04/19 06:00 Intake & Output 04/03/19 04/04/19 04/05/19 06:59 06:59 06:59 Intake Total 2049 Balance 2049 Weight 75.9 kg General appearance: PRESENT: no acute distress, well-developed, well-nourished Head exam: PRESENT: atraumatic, normocephalic Eye exam: PRESENT: conjunctiva pink, EOMI, PERRLA. ABSENT: scleral icterus Ear exam: PRESENT: normal external ear exam Mouth exam: PRESENT: moist, tongue midline Neck exam: ABSENT: carotid bruit, JVD, lymphadenopathy, thyromegaly Respiratory exam: PRESENT: clear to auscultation fran. ABSENT: rales, rhonchi, wheezes Cardiovascular exam: PRESENT: RRR. ABSENT: diastolic murmur, rubs, systolic murmur Pulses: PRESENT: normal dorsalis pedis pul Vascular exam: PRESENT: normal capillary refill GI/Abdominal exam: PRESENT: normal bowel sounds, soft. ABSENT: distended, guarding, mass, organolmegaly, rebound, tenderness Rectal exam: PRESENT: deferred Extremities exam: PRESENT: full ROM. ABSENT: calf tenderness, clubbing, pedal edema Neurological exam: PRESENT: alert, awake, oriented to person, oriented to place, oriented to time, oriented to situation, CN II-XII grossly intact. ABSENT: motor sensory deficit Psychiatric exam: PRESENT: appropriate affect, normal mood. ABSENT: homicidal ideation, suicidal ideation Skin exam: PRESENT: dry, intact, warm, other - Abscess about half inch in diameter with cellulitic area around on the medial aspect of right lower extremity just above his knee. ABSENT: cyanosis, rash Results Laboratory Results: 04/04/19 02:04 04/04/19 02:04 04/04/19 04/04/19 04/04/19 02:04 02:04 02:04 WBC 13.2 H RBC 4.56 Hgb 13.6 Hct 40.2 MCV 88 MCH 29.9 MCHC 33.9 RDW 12.4 Plt Count 313 Seg Neutrophils % 71.1 VBG pH VBG pCO2 VBG HCO3 VBG Base Excess Sodium 135.2 L Potassium 4.0 Chloride 90 L Carbon Dioxide 34 H Anion Gap 11 BUN 13 Creatinine 0.77 Est GFR ( Amer) > 60 Glucose 558 H* Lactic Acid Cancelled Calcium 9.8 Total Bilirubin 0.8 AST 26 Alkaline Phosphatase 175 H Total Protein 7.5 Albumin 3.9 Urine Color Urine Appearance Urine pH Ur Specific [place] Urine Protein Urine Glucose (UA) Urine Ketones Urine Blood Urine RBC (Auto) 04/04/19 04/04/19 02:04 03:31 WBC RBC Hgb Hct MCV MCH MCHC RDW Plt Count Seg Neutrophils % VBG pH 7.39 VBG pCO2 55.9 VBG HCO3 32.8 H VBG Base Excess 6.1 Sodium Potassium Chloride Carbon Dioxide Anion Gap BUN Creatinine Est GFR ( Amer) Glucose Lactic Acid Calcium Total Bilirubin AST Alkaline Phosphatase Total Protein Albumin Urine Color STRAW Urine Appearance CLEAR Urine pH 8.0 Ur Specific [place] 1.031 Urine Protein NEGATIVE Urine Glucose (UA) >=500 H Urine Ketones TRACE H Urine Blood NEGATIVE Urine RBC (Auto) 0 Impressions: Knee X-Ray 04/04/19 01:36 IMPRESSION: No evidence of acute osseous injury involving the right knee. There is no radiopaque foreign body identified on this study. Assessment and Plan - Diagnosis (1) Abscess of right leg Is this a current diagnosis for this admission?: Yes Plan: 04/04/2019-IV vancomycin and Zosyn per pharmacy dosing. Await cultures. Surgery has been consulted for possible surgical I&D. Knee does not look septic at this time. (2) Tobacco abuse Is this a current diagnosis for this admission?: Yes Plan: 04/04/2019-continue to educate about the positive benefits of smoking cessation (3) IV drug user Is this a current diagnosis for this admission?: Yes Plan: 04/04/2019-continue educated about the positive benefits of heroin cessation (4) Type 2 diabetes mellitus, uncontrolled Is this a current diagnosis for this admission?: Yes Plan: 04/04/[id number] blood sugars before meals and at bedtime sliding scale insulin. Carbohydrate controlled diet. A1c. Treat as appropriate - Time Time Spent with patient: 35 or more minutes - Inpatient Certification Based on my medical assessment, after consideration of the patient's comor bidities, presenting symptoms, or acuity I expect that the services needed warrant INPATIENT care.: Yes I certify that my determination is in accordance with my understanding of Medicare's requirements for reasonable and necessary INPATIENT services [42 CFR 412.3e].: Yes Medical Necessity: Need for IV Antibiotics
--- NOTE | 2019-04-04 08:29 | RADIOLOGY REPORT (SQ) ---
EXAM DESCRIPTION: CT RT LOWER EXTREMITY WITHOUT COMPLETED DATE/TIME: 04/04/2019 6:45 am REASON FOR STUDY: eval for abscess/osteomeylitis COMPARISON: Plain radiographs TECHNIQUE: Axial imaging performed through the right knee with reformatted coronal and sagittal imag ing windowed for bone and soft tissues. Images saved to PACS. 3D IMAGING: Were 3D images as MIP, SSD, or volume rendering performed at the work station? No All CT scanners at this facility use dose modulation, iterative reconstruction, and/or weight based d osing when appropriate to reduce radiation dose to as low as reasonably achievable (ALARA). [facility]: Dose Right [facility]: CareDose [facility]: Dose Right [facility]: Teradose 4D [facility]: Smart MovingWorlds LIMITATIONS: CT is of limited value to assess for soft tissue abscess RADIATION DOSE: CT Rad equipment meets quality standard of care and radiation dose reduction techniq ues were employed. CTDIvol: 4.1 mGy. DLP: 110 mGy-cm. mGy. FINDINGS: SOFT TISSUES: There is generalized subcutaneous soft tissue swelling. There is a more foc alized area of soft tissue density at the level of the medial femoral condyles measuring 2.4 x 2.2 by 3.8 cm. This could possibly represent abscess. There is also a thin linear area of low density re p to the fascia of both the medial and lateral calf muscles. This concerning for deep soft tissue in fection. BONES: No acute fracture. No dislocation. No obvious areas of bone destruction. MINERALIZATION: Normal. OTHER: No other significant finding. IMPRESSION: Possible subcutaneous abscess medially. Somewhat worrisome the an area of low density deep to the fascia of both the medial and lateral calf muscles. Concerning for deep soft tissue infection. No osteomyelitis. COMMENT: Recommend MRI with contrast. TECHNICAL DOCUMENTATION: JOB ID: [id number] Quality ID # [id number]: Final reports with documentation of one or more dose reduction techniques (e.g., Au tomated exposure control, adjustment of the mA and/or kV according to patient size, use of iterative reconstruction technique) 2010 [employer]- All Rights Reserved Reading location - IP/workstation name: [email or web address]
--- NOTE | 2019-04-04 09:01 | PDOC CONSULTATION ---
Consultation Consult Date: 04/04/19 Provider Consulted: RITA GO Consult reason:: Evaluate right leg wound History of Present Illness Admission Date/PCP: 04/04/19 08:33 ANG COHN MD Patient complains of: Right leg pain History of Present Illness: SUDHA BEGUM is a 34 year old male with history of diabetes and IV drug abuse presenting with several day history of progressively worsening swelling and redness and pain at the right medial aspect of his leg just above the knee. Patient has had some drainage in the last day. Still has pain. No fever. No chills. Prior history of soft tissue infection in the past but he denies any history of MRSA. He denies injections into his right leg. Past Medical History Cardiac Medical History: Reports: None Pulmonary Medical History: Reports: None EENT Medical History: Reports: None Neurological Medical History: Reports: None Endocrine Medical History: Reports: Diabetes Mellitus Type 2 Renal/ Medical History: Reports: None Malignancy Medical History: Reports: None GI Medical History: Reports: None Musculoskeltal Medical History: Reports: None Skin Medical History: Reports: None Psychiatric Medical History: Reports: None Traumatic Medical History: Reports: None Hematology: Reports: None Infectious Medical History: Reports: None Past Surgical History Past Surgical History: Reports: None Social History Lives with: Family Smoking Status: Current Every Day Smoker Frequency of Alcohol Use: Rare Hx Recreational Drug Use: Yes Drugs: Heroin, Marijuana Hx Prescription Drug Abuse: No - Advance Directive Resuscitation Status: Full Code Family History Family History: Reviewed & Not Pertinent Parental Family History Reviewed: No Children Family History Reviewed: No Sibling(s) Family History Reviewed.: No Medication/Allergy Allergies/Adverse Reactions: aspirin Adverse Reaction (Verified 04/04/19 00:18) Physical Exam Vital Signs: Temp Pulse Resp BP Pulse Ox 98.5 F 118 H 20 124/83 100 04/03/19 23:32 04/03/19 23:32 04/04/19 06:01 04/04/19 06:00 04/04/19 06:00 Intake & Output 04/03/19 04/04/19 04/05/19 06:59 06:59 06:59 Intake Total 2049 Balance 2049 Weight 75.9 kg General appearance: PRESENT: no acute distress, cooperative Eye exam: PRESENT: conjunctiva pink Neck exam: PRESENT: other - Supple with no masses and no tenderness Respiratory exam: PRESENT: clear to auscultation fran Cardiovascular exam: PRESENT: RRR GI/Abdominal exam: PRESENT: other - Soft, nondistended, nontender to palpation Extremities exam: PRESENT: other - Right medial aspect of the leg just above the knee with approximately 8 cm region of erythema with central fluctuance and induration. Does not appear to be involving the knee joint with no ballotable patella and no swelling at the knee joint and no pain in the knee joint itself. Neurological exam: PRESENT: alert, awake Psychiatric exam: PRESENT: appropriate affect Results Laboratory Results: 04/04/19 02:04 04/04/19 02:04 04/04/19 04/04/19 04/04/19 02:04 02:04 02:04 WBC 13.2 H RBC 4.56 Hgb 13.6 Hct 40.2 MCV 88 MCH 29.9 MCHC 33.9 RDW 12.4 Plt Count 313 Seg Neutrophils % 71.1 VBG pH VBG pCO2 VBG HCO3 VBG Base Excess Sodium 135.2 L Potassium 4.0 Chloride 90 L Carbon Dioxide 34 H Anion Gap 11 BUN 13 Creatinine 0.77 Est GFR ( Amer) > 60 Glucose 558 H* Lactic Acid Cancelled Calcium 9.8 Total Bilirubin 0.8 AST 26 Alkaline Phosphatase 175 H Total Protein 7.5 Albumin 3.9 Urine Color Urine Appearance Urine pH Ur Specific [place] Urine Protein Urine Glucose (UA) Urine Ketones Urine Blood Urine RBC (Auto) 04/04/19 04/04/19 02:04 03:31 WBC RBC Hgb Hct MCV MCH MCHC RDW Plt Count Seg Neutrophils % VBG pH 7.39 VBG pCO2 55.9 VBG HCO3 32.8 H VBG Base Excess 6.1 Sodium Potassium Chloride Carbon Dioxide Anion Gap BUN Creatinine Est GFR ( Amer) Glucose Lactic Acid Calcium Total Bilirubin AST Alkaline Phosphatase Total Protein Albumin Urine Color STRAW Urine Appearance CLEAR Urine pH 8.0 Ur Specific [place] 1.031 Urine Protein NEGATIVE Urine Glucose (UA) >=500 H Urine Ketones TRACE H Urine Blood NEGATIVE Urine RBC (Auto) 0 Impressions: Knee X-Ray 04/04/19 01:36 IMPRESSION: No evidence of acute osseous injury involving the right knee. There is no radiopaque foreign body identified on this study. Lower Extremity CT 04/04/19 06:16 IMPRESSION: Possible subcutaneous abscess medially. Somewhat worrisome the an area of low density deep to the fascia of both the medial and lateral calf muscles. Concerning for deep soft tissue infection. No osteomyelitis. Assessment & Plan - Diagnosis (1) Abscess of right leg Is this a current diagnosis for this admission?: Yes Plan: Abscess of the right leg. We will plan surgical debridement in the operating room. Unfortunately patient ate and drank in the emergency department and therefore will need to wait till this afternoon to undergo surgery. In the meantime will be admitted on IV antibiotics. Discussed with the patient the risk and benefits of the procedure including risk of infection spreading, poor wound healing, bleeding, adjacent structure injury. Patient understands and agrees to proceed.
[2019-04-04] MEDS ORDERED: GLUCAGON,HUMAN RECOMB 1 MG INJ SUBCUT PRN (09:42)
[2019-04-04] MEDS ORDERED: INSULIN REG, HUMAN 100 UNIT/ML 3 ML VIAL (PYX) SUBCUT SCH ×2 (11:00→14:00)
[2019-04-04] MEDS: NORMAL SALINE 1000 ML 1,000 ML IV PRN ×2 (11:07→18:07)
[2019-04-04] MEDS: VANCOMYCIN HCL 1,000 MG in DEXTROSE 5%-WATER 250 ML IV SCH ×2 (11:08→18:05)
[2019-04-04] MEDS ORDERED: PIPERACILLIN SODIUM/TAZOBACTAM 3.375 GM in NORMAL SALINE 100 ML IV SCH (12:00)
[2019-04-04] MEDS ORDERED: LIDOCAINE 1%/EPINEPHRINE INJ 20 ML VIAL ONE ×2 (14:26→15:21)
[2019-04-04] MEDS ORDERED: BUPIVACAINE HCL 0.25 % INJ/PF (2.5 MG/1 ML) 30 ML VIAL ONE (14:26)
[2019-04-04] MEDS ORDERED: FENTANYL CITRATE INJ/PF 100 MCG/2 ML AMPUL ONE (14:43)
[2019-04-04] MEDS ORDERED: PROPOFOL INJ 200 MG/20 ML VIAL IV ONE (14:44)
[2019-04-04] MEDS ORDERED: MORPHINE SULFATE 10 MG/ML INJ ONE (14:44)
[2019-04-04] MEDS ORDERED: MIDAZOLAM 2 MG/2 ML INJ ONE (14:44)
[2019-04-04] MEDS ORDERED: ONDANSETRON HCL INJ/PF 4 MG/2 ML SDV ONE (14:44)
[2019-04-04] MEDS ORDERED: KETOROLAC TROMETHAMINE INJ/PF 30 MG/1 ML SDV IV PRN (15:47)
--- NOTE | 2019-04-04 15:47 | Operative Report ---
Operative Report DATE OF SURGERY: 04/04/19 PREOPERATIVE DIAGNOSIS: Right leg abscess POSTOPERATIVE DIAGNOSIS: Right leg abscess OPERATION: Right leg abscess debridement SURGEON: RITA GO ANESTHESIA: LMAC TISSUE REMOVED OR ALTERED: Pus sent for Gram stain and culture COMPLICATIONS: None ESTIMATED BLOOD LOSS: 5 cc INTRAOPERATIVE FINDINGS: Approximately 3 x 3 cm abscess cavity at the right leg just above the knee at the medial aspect with pus and debris. PROCEDURE: Informed consent was obtained. Patient was brought to the operating room placed on the operating table in the supine position. The procedure was done under LMAC. Patient's right leg was prepped and draped in usual sterile fashion. The region of infection involved just above the knee medially on the right leg. Local anesthetic was administered. A longitudinally oriented incision was made overlying the region of maximal fluctuance entering an approximately 3 x 3 cm abscess cavity filled with debris and pus. The pus was evacuated and swabbed for Gram stain and culture. The abscess cavity was then curetted. Hemostasis appeared to be reasonable. The abscess cavity was then irrigated and it was packed with gauze. Patient tolerated procedure well with no apparent complications and was taken to the recovery area in stable condition.
[2019-04-04] MEDS ORDERED: INFLUENZA QUAD (6MOS+) 2019-20 VAC 0.5 ML SYR IM ONE (17:07)
[2019-04-04] MEDS: PIPERACILLIN SODIUM/TAZOBACTAM 3.375 GM in NORMAL SALINE 100 ML IV SCH ×2 (17:48→22:04)
[2019-04-04] MEDS ORDERED: INSULIN REG, HUMAN 100 UNIT/ML 3 ML VIAL (PYX) SUBCUT ONE (18:00)
[2019-04-04] MEDS: OXYCODONE-ACETAMINOPHEN 5-325 MG TABLET PO PRN ×2 (18:14→23:53)
[2019-04-04] MEDS: INSULIN REG, HUMAN 100 UNIT/ML 3 ML VIAL (PYX) SUBCUT SCH (22:05)
[2019-04-05] MEDS: PIPERACILLIN SODIUM/TAZOBACTAM 3.375 GM in NORMAL SALINE 100 ML IV SCH ×4 (02:17→21:20)
[2019-04-05] MEDS: VANCOMYCIN HCL 1,000 MG in DEXTROSE 5%-WATER 250 ML IV SCH ×3 (05:43→21:33)
[2019-04-05] MEDS: OXYCODONE-ACETAMINOPHEN 5-325 MG TABLET PO PRN (05:43)
[2019-04-05 06:51] LABS: ANION GAP 8 (5-19); BLOOD UREA NITROGEN 12 mg/dL (7-20); CALCIUM 8.4 mg/dL (8.4-10.2); CARBON DIOXIDE 29 mmol/L (22-30); CHLORIDE 98 mmol/L (98-107); PHOSPHORUS 4.2 mg/dL (2.5-4.5); POTASSIUM 4.6 mmol/L (3.6-5.0)
[2019-04-05 07:00] LABS: GLUCOSE 420 mg/dL (75-110)
[2019-04-05 07:14] LABS: HEMATOCRIT 37.6 % (37.9-51.0); HEMOGLOBIN 12.7 g/dL (13.5-17.0); MEAN CORPUSCULAR HEMOGLOBIN 29.8 pg (27.0-33.4); MEAN CORPUSCULAR HGB CONC 33.8 g/dL (32.0-36.0); MEAN CORPUSCULAR VOLUME 88 fl (80-97); PLATELET COUNT 279 10^3/uL (150-450); RED BLOOD COUNT 4.26 10^6/uL (4.35-5.55); RED CELL DISTRIBUTION WIDTH 12.7 % (11.5-14.0); WHITE BLOOD COUNT 7.9 10^3/uL (4.0-10.5)
[2019-04-05 08:06] LABS: ABSOLUTE LYMPHOCYTES# (MANUAL) 1.8 10^3/uL (0.5-4.7); ABSOLUTE MONOCYTES # (MANUAL) 0.9 10^3/uL (0.1-1.4); BAND NEUTROPHILS % (MANUAL) 1 % (3-5); BASOPHILS % (MANUAL) 2 % (0-2); EOSINOPHILS % (MANUAL) 1 % (0-6); LYMPHOCYTES % (MANUAL) 23 % (13-45); MONOCYTES % (MANUAL) 11 % (3-13); PLATELET COMMENT ADEQUATE; RBC MORPHOLOGY COMMENT NORMO-CYTIC/CHROMIC; SEGMENTED NEUTROPHILS % (MAN) 62 % (42-78); TOTAL CELLS COUNTED 100
[2019-04-05] MEDS ORDERED: DEXTROSE 40% GEL 15 GM TUBE PO PRN ×2 (08:41)
[2019-04-05] MEDS ORDERED: DEXTROSE 50%-WATER 25 GM/50 ML DISP.SYRIN IV PRN ×2 (08:41)
[2019-04-05] MEDS ORDERED: GLUCAGON,HUMAN RECOMB 1 MG INJ IM PRN (08:41)
--- NOTE | 2019-04-05 08:45 | PDOC PROGRESS REPORT ---
Subjective Progress Note for:: 04/05/19 Subjective:: 04/05/2019-no complaints this a.m. Reason For Visit: CELLULITIS Physical Exam Vital Signs: Temp Pulse Resp BP Pulse Ox 97.6 F 81 16 122/70 99 04/05/19 08:13 04/05/19 08:13 04/05/19 08:13 04/05/19 08:13 04/05/19 08:13 Intake & Output 04/04/19 04/05/19 04/06/19 06:59 06:59 06:59 Intake Total 2049 6214 Output Total 2064 Balance 2049 1837 Weight 75.9 kg 81.3 kg General appearance: PRESENT: no acute distress, well-developed, well-nourished Head exam: PRESENT: atraumatic, normocephalic Eye exam: PRESENT: conjunctiva pink, EOMI, PERRLA. ABSENT: scleral icterus Ear exam: PRESENT: normal external ear exam Mouth exam: PRESENT: moist, tongue midline Neck exam: ABSENT: carotid bruit, JVD, lymphadenopathy, thyromegaly Respiratory exam: PRESENT: clear to auscultation fran. ABSENT: rales, rhonchi, wheezes Cardiovascular exam: PRESENT: RRR. ABSENT: diastolic murmur, rubs, systolic murmur Pulses: PRESENT: normal dorsalis pedis pul Vascular exam: PRESENT: normal capillary refill GI/Abdominal exam: PRESENT: normal bowel sounds, soft. ABSENT: distended, guarding, mass, organolmegaly, rebound, tenderness Rectal exam: PRESENT: deferred Extremities exam: PRESENT: full ROM. ABSENT: calf tenderness, clubbing, pedal edema Neurological exam: PRESENT: alert, awake, oriented to person, oriented to place, oriented to time, oriented to situation, CN II-XII grossly intact. ABSENT: motor sensory deficit Psychiatric exam: PRESENT: appropriate affect, normal mood. ABSENT: homicidal ideation, suicidal ideation Skin exam: PRESENT: dry, intact, warm, other - Open lesion to right medial aspect of lower leg just above the knee approximately 1 inch in length and 1/2 inch in depth. This was surgical I&D.. ABSENT: cyanosis, rash Results Laboratory Results: 04/05/19 04:32 04/05/19 04:32 04/05/19 04/05/19 04/05/19 04:32 04:32 04:32 WBC 7.9 Cancelled RBC 4.26 L Cancelled Hgb 12.7 L Cancelled Hct 37.6 L Cancelled MCV 88 Cancelled MCH 29.8 Cancelled MCHC 33.8 Cancelled RDW 12.7 Cancelled Plt Count 279 Cancelled Seg Neutrophils % Not Reportable Cancelled Sodium 134.8 L Potassium 4.6 Chloride 98 Carbon Dioxide 29 Anion Gap 8 BUN 12 Creatinine 0.63 Est GFR ( Amer) > 60 Glucose 420 H* Calcium 8.4 Phosphorus 4.2 Magnesium 1.7 Impressions: Knee X-Ray 04/04/19 01:36 IMPRESSION: No evidence of acute osseous injury involving the right knee. There is no radiopaque foreign body identified on this study. Lower Extremity CT 04/04/19 06:16 IMPRESSION: Possible subcutaneous abscess medially. Somewhat worrisome the an area of low density deep to the fascia of both the medial and lateral calf muscles. Concerning for deep soft tissue infection. No osteomyelitis. Assessment and Plan - Diagnosis (1) Abscess of right leg Is this a current diagnosis for this admission?: Yes Plan: 04/04/2019-IV vancomycin and Zosyn per pharmacy dosing. Await cultures. Surgery has been consulted for possible surgical I&D. Knee does not look septic at this time. 04/05/2019-vancomycin and Zosyn continues. Cultures await. Patient did undergo surgical I&D yesterday. Wound is clean dry and intact (2) Tobacco abuse Is this a current diagnosis for this admission?: Yes Plan: 04/04/2019-continue to educate about the positive benefits of smoking cessation 04/05/2019-continue tobacco cessation education (3) IV drug user Is this a current diagnosis for this admission?: Yes Plan: 04/04/2019-continue educated about the positive benefits of heroin cessation 04/05/2019-continue education about IV drug abuse cessation (4) Type 2 diabetes mellitus, uncontrolled Is this a current diagnosis for this admission?: Yes Plan: 04/04/[id number] blood sugars before meals and at bedtime sliding scale insulin. Carbohydrate controlled diet. A1c. Treat as appropriate 04/05/2019-A1c returned greater than 14. Patient remains in the 400 range on his blood sugars. Continue sliding scale of added metformin 500 mg p.o. twice daily and glipizide 5 mill grams p.o. twice daily. Patient has no insurance or other means to get long-acting insulin so on discharge I will place him on a sliding scale with 70/30 - Time Time Spent with patient: 15-24 minutes - Inpatient Certification Based on my medical assessment, after consideration of the patient's comorbidities, presenting symptoms, or acuity I expect that the services needed warrant INPATIENT care.: Yes I certify that my determination is in accordance with my understanding of Medicare's requirements for reasonable and necessary INPATIENT services [42 CFR 412.3e].: Yes Medical Necessity: Need for Pain Control, Need for IV Antibiotics
--- NOTE | 2019-04-05 08:54 | PDOC PROGRESS REPORT ---
Subjective Progress Note for:: 04/05/19 Subjective:: Feels better less pain. Reason For Visit: CELLULITIS Physical Exam Vital Signs: Temp Pulse Resp BP Pulse Ox 97.6 F 81 16 122/70 99 04/05/19 08:13 04/05/19 08:13 04/05/19 08:13 04/05/19 08:13 04/05/19 08:13 Intake & Output 04/04/19 04/05/19 04/06/19 06:59 06:59 06:59 Intake Total 2049 62 Output Total 2064 Balance 2049 4149 Weight 75.9 kg 81.3 kg General appearance: PRESENT: no acute distress, cooperative Respiratory exam: PRESENT: clear to auscultation fran Cardiovascular exam: PRESENT: RRR Extremities exam: PRESENT: other - Leg wound is clean. No purulent drainage. There is however surrounding erythema and induration. Packing was removed and redressed. Results Laboratory Results: 04/05/19 04:32 04/05/19 04:32 04/05/19 04/05/19 04/05/19 04:32 04:32 04:32 WBC 7.9 Cancelled RBC 4.26 L Cancelled Hgb 12.7 L Cancelled Hct 37.6 L Cancelled MCV 88 Cancelled MCH 29.8 Cancelled MCHC 33.8 Cancelled RDW 12.7 Cancelled Plt Count 279 Cancelled Seg Neutrophils % Not Reportable Cancelled Sodium 134.8 L Potassium 4.6 Chloride 98 Carbon Dioxide 29 Anion Gap 8 BUN 12 Creatinine 0.63 Est GFR ( Amer) > 60 Glucose 420 H* Calcium 8.4 Phosphorus 4.2 Magnesium 1.7 Impressions: Knee X-Ray 04/04/19 01:36 IMPRESSION: No evidence of acute osseous injury involving the right knee. There is no radiopaque foreign body identified on this study. Lower Extremity CT 04/04/19 06:16 IMPRESSION: Possible subcutaneous abscess medially. Somewhat worrisome the an area of low density deep to the fascia of both the medial and lateral calf muscles. Concerning for deep soft tissue infection. No osteomyelitis. Assessment & Plan - Diagnosis (1) Abscess of right leg Is this a current diagnosis for this admission?: Yes Plan: Status post debridement. Continue broad-spectrum antibiotics until cultures return. Patient still has significant cellulitic component in the surrounding tissues. Recommend keeping the patient in the hospital and at least until the cultures return. We will do normal saline wet-to-dry dressings. - Time Time Spent with patient: Less than 15 minutes
[2019-04-05] MEDS: INSULIN REG, HUMAN 100 UNIT/ML 3 ML VIAL (PYX) SUBCUT SCH ×4 (09:03→21:30)
--- NOTE | 2019-04-05 13:07 | Progress Note ---
Provider Note Provider Note: Physical exam performed on the patient. Right lower extremity is soft, without significant induration or tenderness to palpation. Specifically, the calf is without evidence of continued infection. Continue with antibiotics, blood sugar control, and observation.
[2019-04-05 13:52] LABS: VANCOMYCIN,TROUGH 7.6 ug/mL (5.0-20.0)
[2019-04-05] MEDS: NORMAL SALINE 1000 ML 1,000 ML IV PRN (14:18)
[2019-04-05] MEDS ORDERED: GLIPIZIDE 5 MG TABLET PO SCH (16:00)
[2019-04-05] MEDS: METFORMIN HCL 500 MG TABLET PO SCH (17:20)
[2019-04-05 20:02] LABS: VANCOMYCIN,TROUGH 10.5 ug/mL (5.0-20.0)
[2019-04-05] MEDS: VANCOMYCIN HCL 1,250 MG in DEXTROSE 5%-WATER 250 ML IV SCH (22:26)
[2019-04-06] MEDS: PIPERACILLIN SODIUM/TAZOBACTAM 3.375 GM in NORMAL SALINE 100 ML IV SCH (03:26)
[2019-04-06] MEDS: VANCOMYCIN HCL 1,250 MG in DEXTROSE 5%-WATER 250 ML IV SCH (05:28)
[2019-04-06] MEDS: NORMAL SALINE 1000 ML 1,000 ML IV PRN ×2 (05:31→18:41)
[2019-04-06 06:58] LABS: HEMATOCRIT 41.4 % (37.9-51.0); HEMOGLOBIN 13.9 g/dL (13.5-17.0); MEAN CORPUSCULAR HEMOGLOBIN 29.9 pg (27.0-33.4); MEAN CORPUSCULAR HGB CONC 33.5 g/dL (32.0-36.0); MEAN CORPUSCULAR VOLUME 89 fl (80-97); PLATELET COUNT 316 10^3/uL (150-450); RED BLOOD COUNT 4.64 10^6/uL (4.35-5.55); RED CELL DISTRIBUTION WIDTH 12.8 % (11.5-14.0); WHITE BLOOD COUNT 8.6 10^3/uL (4.0-10.5)
[2019-04-06 07:16] LABS: ANION GAP 10 (5-19); BLOOD UREA NITROGEN 11 mg/dL (7-20); CALCIUM 9.5 mg/dL (8.4-10.2); CARBON DIOXIDE 29 mmol/L (22-30); CHLORIDE 97 mmol/L (98-107); POTASSIUM 4.5 mmol/L (3.6-5.0)
[2019-04-06 07:26] LABS: GLUCOSE 409 mg/dL (75-110)
[2019-04-06] MEDS: INSULIN REG, HUMAN 100 UNIT/ML 3 ML VIAL (PYX) SUBCUT SCH ×4 (08:12→21:30)
[2019-04-06] MEDS: METFORMIN HCL 500 MG TABLET PO SCH ×2 (08:12→17:18)
--- NOTE | 2019-04-06 08:45 | PDOC DISCHARGE SUMMARY ---
Impression - Admit/DC Date/PCP Admission Date/Primary Care Provider: 04/04/19 08:33 ANG COHN MD Discharge Date: 04/06/19 - Discharge Diagnosis (1) Abscess of right leg Is this a current diagnosis for this admission?: Yes (2) Tobacco abuse Is this a current diagnosis for this admission?: Yes (3) IV drug user Is this a current diagnosis for this admission?: Yes (4) Type 2 diabetes mellitus, uncontrolled Is this a current diagnosis for this admission?: Yes - Additional Information Resuscitation Status: Full Code Discharge Diet: As Tolerated Discharge Activity: Activity As Tolerated Referrals: [facility] [Provider Group] ANG COHN MD [Primary Care Provider] - Follow up as needed Prescriptions: Glipizide [Glipizide Xl] 5 mg PO BID #60 tab.er.24 Levofloxacin [Levaquin 750 mg Tablet] 750 mg PO DAILY #10 tab Metformin HCl 1,000 mg PO BID #120 tablet Home Medications: Glipizide [Glipizide Xl] 5 mg PO BID #60 tab.er.24 04/06/19 Levofloxacin [Levaquin 750 mg Tablet] 750 mg PO DAILY #10 tab 04/06/19 Metformin HCl 1,000 mg PO BID #120 tablet 04/06/19 History of Present Illiness History of Present Illness: SUDHA BEGUM is a 34 year old male who presented to ER with history of IV drug abuse. Patient was concern for abscess in his right lower leg just above his knee on the lateral aspect. Patient is a noncompliant diabetic insulin- dependent. He has had no treatment to arrival no true aggravating factors. Hospital Course Hospital Course: Patient is a 34-year-old known IV drug abuser. Presented to the ER with a abscess of the right lower extremity in the lateral aspect just above his knee. He was placed on medical surgical floor started on IV vancomycin and Zosyn. Patient underwent surgical I&D with cultures returning showing susceptibility to Levaquin. At this time patient will be sent home with Levaquin 750 mg p.o. daily x10 days. Patient also shows poor glucose control with type 2 diabetes mellitus. His A1c was greater than 14. Patient is noncompliant with me dications. I did place patient on metformin 1000 mill grams p.o. twice daily, glipizide XL 5 mg p.o. twice daily and patient will follow-up with primary care and be placed on appropriate insulin therapy for which patient cannot afford as he has no insurance at this time. Patient need to continue aggressive therapy to get his blood sugar under control. I have also educated patient on bleach baths at home to help decrease the chance of further abscesses. Patient states agrees with plan of hand and understanding of instructions. Physical Exam Vital Signs: Temp Pulse Resp BP Pulse Ox 98.7 F 83 17 113/81 99 04/05/19 23:12 04/05/19 23:12 04/05/19 23:12 04/05/19 23:12 04/05/19 19:38 Intake & Output 04/05/19 04/06/19 04/07/19 06:59 06:59 06:59 Intake Total 6214 3810 Output Total 2065 Balance 4149 3810 Weight 81.3 kg 82.2 kg General appearance: PRESENT: no acute distress, well-developed, well-nourished Head exam: PRESENT: atraumatic, normocephalic Eye exam: PRESENT: conjunctiva pink, EOMI, PERRLA. ABSENT: scleral icterus Ear exam: PRESENT: normal external ear exam Mouth exam: PRESENT: moist, tongue midline Neck exam: ABSENT: carotid bruit, JVD, lymphadenopathy, thyromegaly Respiratory exam: PRESENT: clear to auscultation fran. ABSENT: rales, rhonchi, wheezes Cardiovascular exam: PRESENT: RRR. ABSENT: diastolic murmur, rubs, systolic murmur Pulses: PRESENT: normal dorsalis pedis pul Vascular exam: PRESENT: normal capillary refill GI/Abdominal exam: PRESENT: normal bowel sounds, soft. ABSENT: distended, guarding, mass, organolmegaly, rebound, tenderness Rectal exam: PRESENT: deferred Extremities exam: PRESENT: full ROM. ABSENT: calf tenderness, clubbing, pedal edema Neurological exam: PRESENT: alert, awake, oriented to person, oriented to place, oriented to time, oriented to situation, CN II-XII grossly intact. ABSENT: motor sensory deficit Psychiatric exam: PRESENT: appropriate affect, normal mood. ABSENT: homicidal ideation, suicidal ideation Skin exam: PRESENT: dry, intact, warm, other - Draining abscess right lower extremity lateral just above his knee probably 1 inch in length by about half inch in depth.. ABSENT: cyanosis, rash Results Laboratory Results: WBC 8.6 10^3/uL (4.0-10.5) 04/06/19 06:28 RBC 4.64 10^6/uL (4.35-5.55) 04/06/19 06:28 Hgb 13.9 g/dL (13.5-17.0) 04/06/19 06:28 Hct 41.4 % (37.9-51.0) 04/06/19 06:28 MCV 89 fl (80-97) 04/06/19 06:28 MCH 29.9 pg (27.0-33.4) 04/06/19 06:28 MCHC 33.5 g/dL (32.0-36.0) 04/06/19 06:28 RDW 12.8 % (11.5-14.0) 04/06/19 06:28 Plt Count 316 10^3/uL (150-450) 04/06/19 06:28 Lymph % (Auto) Cancelled 04/05/19 04:32 Lymph % (Auto) Not Reportable 04/05/19 04:32 Pepin % (Auto) Cancelled 04/05/19 04:32 Pepin % (Auto) Not Reportable 04/05/19 04:32 Eos % (Auto) Cancelled 04/05/19 04:32 Eos % (Auto) Not Reportable 04/05/19 04:32 Baso % (Auto) Cancelled 04/05/19 04:32 Baso % (Auto) Not Reportable 04/05/19 04:32 Absolute Neuts (auto) Cancelled 04/05/19 04:32 Absolute Neuts (auto) Not Reportable 04/05/19 04:32 Absolute Lymphs (auto) Cancelled 04/05/19 04:32 Absolute Lymphs (auto) Not Reportable 04/05/19 04:32 Absolute Monos (auto) Cancelled 04/05/19 04:32 Absolute Monos (auto) Not Reportable 04/05/19 04:32 Absolute Eos (auto) Cancelled 04/05/19 04:32 Absolute Eos (auto) Not Reportable 04/05/19 04:32 Absolute Basos (auto) Cancelled 04/05/19 04:32 Absolute Basos (auto) Not Reportable 04/05/19 04:32 Total Counted 100 04/05/19 04:32 Seg Neutrophils % Cancelled 04/05/19 04:32 Seg Neutrophils % Not Reportable 04/05/19 04:32 Seg Neuts % (Manual) 62 % (42-78) 04/05/19 04:32 Band Neutrophils % 1 % (3-5) L 04/05/19 04:32 Lymphocytes % (Manual) 23 % (13-45) 04/05/19 04:32 Monocytes % (Manual) 11 % (3-13) 04/05/19 04:32 Eosinophils % (Manual) 1 % (0-6) 04/05/19 04:32 Basophils % (Manual) 2 % (0-2) 04/05/19 04:32 Abs Neuts (Manual) 5.0 10^3/uL (1.7-8.2) 04/05/19 04:32 Abs Lymphs (Manual) 1.8 10^3/uL (0.5-4.7) 04/05/19 04:32 Abs Monocytes (Manual) 0.9 10^3/uL (0.1-1.4) 04/05/19 04:32 Absolute Eos (Manual) 0.1 10^3/uL (0.0-0.6) 04/05/19 04:32 Abs Basophils (Manual) 0.2 10^3/uL (0.0-0.2) 04/05/19 04:32 Platelet Estimate Cancelled 04/05/19 04:32 Platelet Comment ADEQUATE 04/05/19 04:32 RBC Morph Comment NORMO-CYTIC/CHROMIC 04/05/19 04:32 VBG pH 7.39 (7.30-7.42) 04/04/19 02:04 VBG pCO2 55.9 mmHg (35-63) 04/04/19 02:04 VBG HCO3 32.8 mmol/L (20-32) H 04/04/19 02:04 VBG Base Excess 6.1 mmol/L 04/04/19 02:04 Sodium 135.6 mmol/L (137-145) L 04/06/19 06:28 Potassium 4.5 mmol/L (3.6-5.0) 04/06/19 06:28 Chloride 97 mmol/L (98-107) L 04/06/19 06:28 Carbon Dioxide 29 mmol/L (22-30) 04/06/19 06:28 Anion Gap 10 (5-19) 04/06/19 06:28 BUN 11 mg/dL (7-20) 04/06/19 06:28 Creatinine 0.78 mg/dL (0.52-1.25) 04/06/19 06:28 Est GFR ( Amer) > 60 (>60) 04/06/19 06:28 Est GFR (MDRD) Non-Af > 60 (>60) 04/06/19 06:28 Glucose 409 mg/dL (75-110) H* 04/06/19 06:28 POC Glucose 362 mg/dL (70-110) H 04/06/19 06:39 Hemoglobin A1c % > 14.0 % (4.7-6.0) H 04/05/19 04:32 Lactic Acid Cancelled 04/04/19 02:04 Lactic Acid (Sepsis) 1.5 mmol/L (0.7-2.1) 04/04/19 02:04 Calcium 9.5 mg/dL (8.4-10.2) 04/06/19 06:28 Phosphorus 4.2 mg/dL (2.5-4.5) 04/05/19 04:32 Magnesium 1.7 mg/dL (1.6-2.3) 04/05/19 04:32 Total Bilirubin 0.8 mg/dL (0.2-1.3) 04/04/19 02:04 Direct Bilirubin 0.2 mg/dL (0.0-0.4) 04/04/19 02:04 Neonat Total Bilirubin Not Reportable 04/04/19 02:04 Neonat Direct Bilirubin Not Reportable 04/04/19 02:04 Neonat Indirect Bili Not Reportable 04/04/19 02:04 AST 26 U/L (17-59) 04/04/19 02:04 ALT 25 U/L (<50) 04/04/19 02:04 Alkaline Phosphatase 175 U/L (38-126) H 04/04/19 02:04 Total Protein 7.5 g/dL (6.3-8.2) 04/04/19 02:04 Albumin 3.9 g/dL (3.5-5.0) 04/04/19 02:04 Urine Color STRAW 04/04/19 03:31 Urine Appearance CLEAR 04/04/19 03:31 Urine pH 8.0 (5.0-9.0) 04/04/19 03:31 Ur Specific [place] 1.031 04/04/19 03:31 Urine Protein NEGATIVE mg/dL (NEGATIVE) 04/04/19 03:31 Urine Glucose (UA) >=500 mg/dL (NEGATIVE) H 04/04/19 03:31 Urine Ketones TRACE mg/dL (NEGATIVE) H 04/04/19 03:31 Urine Blood NEGATIVE (NEGATIVE) 04/04/19 03:31 Urine Nitrite (Reflex) NEGATIVE (NEGATIVE) 04/04/19 03:31 Urine Bilirubin NEGATIVE (NEGATIVE) 04/04/19 03:31 Urine Urobilinogen 2.0 mg/dL (<2.0) H 04/04/19 03:31 Leukocyte Esterase Rfl NEGATIVE (NEGATIVE) 04/04/19 03:31 Urine RBC (Auto) 0 /HPF 04/04/19 03:31 Urine WBC (Reflex) 1 /HPF 04/04/19 03:31 Urine Ascorbic Acid NEGATIVE (NEGATIVE) 04/04/19 03:31 Time Trough Drawn 191604/05/19 19:17 Vancomycin Trough 10.5 ug/mL (5.0-20.0) 04/05/19 19:17 Urine Opiates Screen UNCONFIRMED POSITIVE 04/04/19 03:31 Urine Methadone Screen NEGATIVE 04/04/19 03:31 Ur Barbiturates Screen NEGATIVE 04/04/19 03:31 Ur Phencyclidine Scrn NEGATIVE 04/04/19 03:31 Ur Amphetamines Screen UNCONFIRMED POSITIVE 04/04/19 03:31 U Benzodiazepines Scrn NEGATIVE 04/04/19 03:31 Urine Cocaine Screen NEGATIVE 04/04/19 03:31 U Marijuana (THC) Screen UNCONFIRMED POSITIVE 04/04/19 03:31 Serum Alcohol < 10 mg/dL (NONE DETECTED) 04/04/19 02:04 Slides for Path Review Cancelled 04/05/19 04:32 Impressions: Knee X-Ray 04/04/19 01:36 IMPRESSION: No evidence of acute osseous injury involving the right knee. There is no radiopaque foreign body identified on this study. Lower Extremity CT 04/04/19 06:16 IMPRESSION: Possible subcutaneous abscess medially. Somewhat worrisome the an area of low density deep to the fascia of both the medial and lateral calf muscles. Concerning for deep soft tissue infection. No osteomyelitis. Plan Time Spent: Greater than 30 Minutes Stroke Is this a Stroke Patient?: No Acute Heart Failure - Is this a Heart Failure Patient?: No
--- NOTE | 2019-04-06 09:15 | PDOC PROGRESS REPORT ---
Subjective Progress Note for:: 04/06/19 Subjective:: No complaints Reason For Visit: CELLULITIS Physical Exam Vital Signs: Temp Pulse Resp BP Pulse Ox 98.7 F 83 17 113/81 99 04/05/19 23:12 04/05/19 23:12 04/05/19 23:12 04/05/19 23:12 04/05/19 19:38 Intake & Output 04/05/19 04/06/19 04/07/19 06:59 06:59 06:59 Intake Total 6214 3810 Output Total 2065 Balance 4149 3810 Weight 81.3 kg 82.2 kg Extremities exam: PRESENT: other - Wound with no purulent drainage with no fluctuance however patient still has surrounding erythema and induration. Results Laboratory Results: 04/06/19 06:28 04/06/19 06:28 04/06/19 04/06/19 06:28 06:28 WBC 8.6 RBC 4.64 Hgb 13.9 Hct 41.4 MCV 89 MCH 29.9 MCHC 33.5 RDW 12.8 Plt Count 316 Sodium 135.6 L Potassium 4.5 Chloride 97 L Carbon Dioxide 29 Anion Gap 10 BUN 11 Creatinine 0.78 Est GFR ( Amer) > 60 Glucose 409 H* Calcium 9.5 04/04/19 15:21 Knee - Abscess Gram Stain - Final 04/04/19 15:21 Knee - Abscess Wound Culture - Final Strep Mitis/Oralis Grp Prevotella Species Anaerococcus (Peptostrep) Sp. 04/04/19 00:40 Knee - Abscess Gram Stain - Final 04/04/19 00:40 Knee - Abscess Wound Culture - Final Strep Mitis/Oralis Grp Prevotella Species Anaerococcus (Peptostrep) Sp. Impressions: Knee X-Ray 04/04/19 01:36 IMPRESSION: No evidence of acute osseous injury involving the right knee. There is no radiopaque foreign body identified on this study. Lower Extremity CT 04/04/19 06:16 IMPRESSION: Possible subcutaneous abscess medially. Somewhat worrisome the an area of low density deep to the fascia of both the medial and lateral calf muscles. Concerning for deep soft tissue infection. No osteomyelitis. Assessment & Plan - Diagnosis (1) Abscess of right leg Is this a current diagnosis for this admission?: Yes Plan: Abscess has resolved but he still has significant cellulitic component. Based on his cultures Levaquin was added. Hopefully he has response. Recommend discharging patient home when the erythema and induration show evidence of improvement. Nothing more to add from surgery standpoint. Recommend washing the wound once a day at home gently with soap and water and applying antibiotic ointment and a Band-Aid. Recommend follow-up at [facility] in 1 week. Surgical service signing off. Please call us for any questions or concerns. - Time Time Spent with patient: Less than 15 minutes
[2019-04-06] MEDS: LEVOFLOXACIN 750 MG/D5W RTU 750 MG/150 ML RTUPB IV SCH (09:17)
[2019-04-07 05:34] LABS: HEMATOCRIT 36.9 % (37.9-51.0); HEMOGLOBIN 12.4 g/dL (13.5-17.0); MEAN CORPUSCULAR HEMOGLOBIN 29.9 pg (27.0-33.4); MEAN CORPUSCULAR HGB CONC 33.7 g/dL (32.0-36.0); MEAN CORPUSCULAR VOLUME 89 fl (80-97); PLATELET COUNT 306 10^3/uL (150-450); RED BLOOD COUNT 4.16 10^6/uL (4.35-5.55); RED CELL DISTRIBUTION WIDTH 12.8 % (11.5-14.0)
[2019-04-07 05:57] LABS: ANION GAP 5 (5-19); BLOOD UREA NITROGEN 12 mg/dL (7-20); CALCIUM 8.5 mg/dL (8.4-10.2); CARBON DIOXIDE 26 mmol/L (22-30); CHLORIDE 103 mmol/L (98-107); GLUCOSE 290 mg/dL (75-110); POTASSIUM 4.6 mmol/L (3.6-5.0)
[2019-04-07] MEDS: NORMAL SALINE 1000 ML 1,000 ML IV PRN (06:14)
[2019-04-07] MEDS: INSULIN REG, HUMAN 100 UNIT/ML 3 ML VIAL (PYX) SUBCUT SCH (08:05)
[2019-04-07] MEDS: METFORMIN HCL 500 MG TABLET PO SCH (08:05)
[2019-04-07] MEDS: LEVOFLOXACIN 750 MG/D5W RTU 750 MG/150 ML RTUPB IV SCH (09:23)
[2019-04-07 10:50] VITALS: BP 131/78
== END 2019-04-07 12:17 | disposition home or self-care (01) | DRG 603 ==
LOC: ER 23:27 → EH 04-04 08:33 → 4N 04-04 16:03
PROVIDERS: ADMIT Internal Medicine; ATTEND Internal Medicine
PROC: 0HDKXZZ Extraction of Right Lower Leg Skin, External Approach (ICD-10-PCS; principal; 2019-04-04 15:00)
PROC: 3E0234Z Introduction of Serum, Toxoid and Vaccine into Muscle, Percutaneous Approach (ICD-10-PCS; 2019-04-07)
DX: L02.415 Cutaneous abscess of right lower limb (principal); E11.65 Type 2 diabetes mellitus with hyperglycemia; F12.10 Cannabis abuse, uncomplicated; F17.210 Nicotine dependence, cigarettes, uncomplicated; B95.4 Other streptococcus as the cause of diseases classified elsewhere; B96.89 Other specified bacterial agents as the cause of diseases classified elsewhere; Z23 Encounter for immunization; Z91.14 Patient's other noncompliance with medication regimen
CPT/HCPCS: 00400; 36415; 80048; 80053; 80202; 80307; 81001; 82803; 82962; 83036; 83605; 83735; 84100; 85025; 85027; 87040; 87070; 87075; 87077; 87186; 87205; 90686; 96360; 96361; 99285; J1815; J1885; J1956; J2250; J2270; J2405; J2543; J2704; J3010; J3370; J3490; J7030; J7050; J7060

== ENCOUNTER 2019-09-27 13:14 | Inpatient (IN) | payer OTHER ==
[2019-09-27] MEDS ORDERED: VANCOMYCIN HCL INJ 1000 MG VIAL IV ONE (13:29)
[2019-09-27] MEDS ORDERED: NORMAL SALINE IV ONE (13:29)
--- NOTE | 2019-09-27 13:35 | ER Document Report ---
ED Medical Screen (RME) - General Stated Complaint: LEFT ARM PAIN Time Seen by Provider: 09/27/19 13:24 Primary Care Provider: ANG COHN MD [Primary Care Provider] - Follow up as needed Mode of Arrival: Medic Information source: Patient, Emergency Med Personnel Notes: 34-year-old diabetic IV drug user presents to the emergency department with reports he just did not feel well. Patient is a poor historian at this time. patient reports he last injected into his left thenar area today. Left arm swollen with erythema, tight. He injected into his left antecubital arm yesterday. Patient reports he uses heroin. Patient also has darkening area to his right medial foot. He reports he is extremely thirsty. Heart rate in the 130s. Patient had temperature of 102.5 per EMS and was provided with 975 mg of Tylenol and bolus of 500 ml normal saline. Accu-Chek in PIT is reading high I have greeted and performed a rapid initial assessment of this patient. A comprehensive ED assessment and evaluation of the patient, analysis of test results and completion of the medical decision making process will be conducted by additional ED providers. TRAVEL OUTSIDE OF THE [place] IN LAST 30 DAYS: No - Related Data Allergies/Adverse Reactions: acetaminophen Adverse Reaction (Verified 04/04/19 14:47) Past Medical History - Social History Family history: CAD, DM, Hyperlipidemia, Hypertension, Thyroid Disfunction Endocrine Medical History: Reports: Hx Diabetes Mellitus Type 2 Renal/ Medical History: Denies: Hx Peritoneal Dialysis Musculoskeltal Medical History: Reports Hx Musculoskeletal Trauma - Clavicle Psychiatric Medical History: Reports: Hx Depression Traumatic Medical History: Reports: Hx Fractures - Clavicle, nose Past Surgical History: Reports: Hx Nose Surgery - Immunizations Hx Diphtheria, Pertussis, Tetanus Vaccination: No Physical Exam - Vital signs Vitals: Temp Pulse Resp BP Pulse Ox 101.4 F H 128 H 16 141/79 H 96 09/27/19 13:18 09/27/19 13:18 09/27/19 13:18 09/27/19 13:18 09/27/19 13:18 Course - Vital Signs Vital signs: Temp Pulse Resp BP Pulse Ox 101.4 F H 128 H 16 141/79 H 96 09/27/19 13:18 09/27/19 13:18 09/27/19 13:18 09/27/19 13:18 09/27/19 13:18 Doctor's Discharge - Discharge Referrals: ANG COHN MD [Primary Care Provider] - Follow up as needed
[2019-09-27] MEDS ORDERED: PIPERACILLIN/TAZOBACTAM 3.375 GM VIAL IV ONE (14:01)
[2019-09-27] MEDS ORDERED: ACETAMINOPHEN 325 MG TABLET PO ONE (14:04)
--- NOTE | 2019-09-27 14:07 | ER Document Report ---
ED General - General Chief Complaint: High Blood Sugar Stated Complaint: LEFT ARM PAIN Time Seen by Provider: 09/27/19 13:24 Primary Care Provider: ANG COHN MD [Primary Care Provider] - Follow up as needed Mode of Arrival: Medic Notes: HPI: 34-year-old male who states he has not taken his insulin for 2 weeks until today and states that he has been injecting methamphetamine to his left arm and has had some left arm swelling and a fever. He denies any headache, chest pain, abdominal pain, cough, leg swelling, vomiting, or diarrhea. He has not checked his sugar recently. ROS: See HPI All other review of systems reviewed and otherwise negative Reviewed vital signs and nursing note as charted by RN. PHYSICAL EXAM: CONSTITUTIONAL: Patient is sleeping but arousable. He does answer questions appropriately. HEAD: Normocephalic; atraumatic EYES: PERRL; Conjunctivae clear, sclerae non-icteric; no nystagmus ENT: Normal nose; no rhinorrhea; moist mucous membranes; pharynx without lesions noted NECK: Supple without meningismus; non-tender; no cervical lymphadenopathy, no masses CARD: Tachycardic and regular; no murmurs; symmetric distal pulses RESP: Normal chest excursion without splinting or tachypnea; breath sounds clear and equal bilaterally; no wheezes, no rhonchi, no rales ABD/GI: Normal bowel sounds; non-distended; soft, non-tender; no palpable organo megaly or masses BACK: The back appears normal and is non-tender to palpation EXT: Patient has some erythema with tenderness with no fluctuance or induration to the left proximal forearm. Injection sites are present. It is not circumferential and does not past the antecubital fossa and does not extend to the wrist. Strong distal pulses are present to both upper and lower extremities SKIN: See above NEURO: CN 2-12 intact; 5/5 bilateral upper and lower extremity strength with sensation intact to light touch PSYCH: The patient's mood and manner are appropriate. Grooming and personal hygiene are appropriate. TRAVEL OUTSIDE OF THE [place] IN LAST 30 DAYS: No - Related Data Allergies/Adverse Reactions: acetaminophen Adverse Reaction (Verified 04/04/19 14:47) Past Medical History - General Information source: Patient, Emergency Med Personnel - Social History Smoking Status: Current Every Day Smoker Frequency of alcohol use: None Drug Abuse: Heroin Family History: Reviewed & Not Pertinent Patient has homicidal ideation: No Endocrine Medical History: Reports: Hx Diabetes Mellitus Type 2 Renal/ Medical History: Denies: Hx Peritoneal Dialysis Musculoskeletal Medical History: Reports Hx Musculoskeletal Trauma - Clavicle Psychiatric Medical History: Reports: Hx Depression Traumatic Medical History: Reports: Hx Fractures - Clavicle, nose Past Surgical History: Reports: Hx Nose Surgery - Immunizations Hx Diphtheria, Pertussis, Tetanus Vaccination: No Hx Pneumococcal Vaccination: 06/04/14 Physical Exam - Vital signs Vitals: Temp Pulse Resp BP Pulse Ox 101.4 F H 128 H 16 141/79 H 96 09/27/19 13:18 09/27/19 13:18 09/27/19 13:18 09/27/19 13:18 09/27/19 13:18 Course - Re-evaluation Re-evalutation: Given the above history and physical, sepsis protocol was ordered, vancomycin and Zosyn will provided, fluids and repeat Accu-Cheks as well as acetaminophen were given. Blood cultures have been sent. I have ordered an ultrasound of the extremity to evaluate for an abscess although I do believe this is most likely cellulitis. 09/27/19 14:08 EKG showed a heart of 114, sinus tachycardia, normal axis, no ST elevation or depression 09/27/19 15:19 Labs as recorded. The patient's glucose as recorded. I will start the patient on insulin drip. Antibiotics have been provided. I did consult the general surgeon to evaluate the arm. Patient will be admitted to the hospitalist. - Vital Signs Vital signs: Temp Pulse Resp BP Pulse Ox 101.4 F H 128 H 16 141/79 H 95 09/27/19 13:23 09/27/19 13:18 09/27/19 13:18 09/27/19 13:18 09/27/19 13:53 - Laboratory Result Diagrams: 09/27/19 14:07 09/27/19 14:07 Laboratory results interpreted by me: 09/27/19 09/27/19 14:07 14:07 WBC 17.9 H Seg Neuts % (Manual) 89 H Lymphocytes % (Manual) 2 L Abs Neuts (Manual) 16.8 H Abs Lymphs (Manual) 0.4 L Sodium 126.6 L Potassium 5.4 H Chloride 92 L Glucose 810 H* AST 16 L Critical Care Note - Critical Care Note Total time excluding time spent on procedures (mins): 45 Discharge - Discharge Clinical Impression: Hyperglycemia, Abscess of left arm, IV drug abuse Fever Qualifiers: Fever type: unspecified Qualified Code(s): R50.9 - Fever, unspecified Condition: Fair Disposition: ADMITTED OBSERVATION Admitting Provider: Alex (Hospitalist) Unit Admitted: Telemetry - She recently underwent Referrals: ANG COHN MD [Primary Care Provider] - Follow up as needed
[2019-09-27 14:28] LABS: HEMOGLOBIN 13.6 g/dL (13.5-17.0); MEAN CORPUSCULAR HEMOGLOBIN 31.1 pg (27.0-33.4); MEAN CORPUSCULAR HGB CONC 33.3 g/dL (32.0-36.0); MEAN CORPUSCULAR VOLUME 94 fl (80-97); PLATELET COUNT 232 10^3/uL (150-450); RED BLOOD COUNT 4.38 10^6/uL (4.35-5.55); RED CELL DISTRIBUTION WIDTH 12.7 % (11.5-14.0); WHITE BLOOD COUNT 17.9 10^3/uL (4.0-10.5)
[2019-09-27 14:32] LABS: VENOUS BLOOD BASE EXCESS 0.5 mmol/L; VENOUS BLOOD HCO3 25.7 mmol/L (20-32); VENOUS BLOOD PCO2 43.3 mmHg (35-63); VENOUS BLOOD PH 7.39 (7.30-7.42)
[2019-09-27 14:38] LABS: PROTHROMBIN TIME 15.3 SEC (11.4-15.4)
[2019-09-27 14:46] LABS: ALBUMIN 3.5 g/dL (3.5-5.0); ALKALINE PHOSPHATASE 125 U/L (38-126); ANION GAP 8 (5-19); ASPARTATE AMINO TRANSFERASE 16 U/L (17-59); BILIRUBIN,TOTAL 0.9 mg/dL (0.2-1.3); BLOOD UREA NITROGEN 14 mg/dL (7-20); CALCIUM 8.8 mg/dL (8.4-10.2); CARBON DIOXIDE 27 mmol/L (22-30); CHLORIDE 92 mmol/L (98-107); POTASSIUM 5.4 mmol/L (3.6-5.0); TOTAL PROTEIN 6.6 g/dL (6.3-8.2)
[2019-09-27 14:59] LABS: GLUCOSE 810 mg/dL (75-110)
[2019-09-27 15:00] LABS: ABSOLUTE LYMPHOCYTES# (MANUAL) 0.4 10^3/uL (0.5-4.7); ABSOLUTE MONOCYTES # (MANUAL) 0.7 10^3/uL (0.1-1.4); BAND NEUTROPHILS % (MANUAL) 5 % (3-5); BASOPHILS % (MANUAL) 0 % (0-2); EOSINOPHILS % (MANUAL) 0 % (0-6); LYMPHOCYTES % (MANUAL) 2 % (13-45); MONOCYTES % (MANUAL) 4 % (3-13); SEGMENTED NEUTROPHILS % (MAN) 89 % (42-78); TOTAL CELLS COUNTED 100
[2019-09-27 15:01] LABS: ANISOCYTOSIS SLIGHT; PLATELET COMMENT ADEQUATE; POLYCHROMASIA SLIGHT
[2019-09-27] MEDS ORDERED: NORMAL SALINE 100 ML with INSULIN REGULAR, HUMAN 100 UNIT IV PRN ×4 (15:05→16:07)
--- NOTE | 2019-09-27 15:20 | RADIOLOGY REPORT (SQ) ---
EXAM DESCRIPTION: U/S EXTREMITY NONVASCULAR LTD IMAGES COMPLETED DATE/TIME: 09/27/2019 3:11 pm REASON FOR STUDY: 19; left arm; evel abscess COMPARISON: None. TECHNIQUE: Dynamic and static grayscale images acquired of the localized site of clinical concern an d recorded on PACS. Additional selected color Doppler and spectral images recorded. SITE OF CONCERN: LEFT ANTECUBITAL FOSSA LIMITATIONS: None. FINDINGS: SKIN AND SUBCUTANEOUS TISSUES: Subcutaneous edema. No focal fluid collection. DEEP SOFT TISSUES/MUSCLES: No masses. No fluid collections. No edema. VASCULAR: Probable nonocclusive thrombus in the cephalic vein. Recommend dedicated upper extremity v enous duplex. Only limited images the vessels were submitted. OTHER: No other significant finding. IMPRESSION: Diffuse subcutaneous oedema. No focal abscess. Suspect nonocclusive SVT. Recommend de dicated left upper extremity venous duplex. TECHNICAL DOCUMENTATION: JOB ID: [id number] 2010 [facility]- All Rights Reserved Reading location - IP/workstation name: [email or web address]
[2019-09-27] MEDS ORDERED: INSULIN REG, HUMAN 100 UNIT/ML 3 ML VIAL (PYX) ONE (15:47)
[2019-09-27] MEDS ORDERED: ONDANSETRON HCL INJ/PF 4 MG/2 ML SDV IV PRN (15:52)
[2019-09-27] MEDS ORDERED: ALBUTEROL SULFATE 0.083% NEB 2.5 MG/3 ML AMPUL NEB PRN (15:52)
[2019-09-27] MEDS ORDERED: PROMETHAZINE HCL INJ 25 MG/1 ML VIAL IV PRN (15:52)
[2019-09-27] MEDS ORDERED: MAG HYDROX/AL HYDROX/SIMETH SUSP 30 ML UDCUP PO PRN (15:52)
[2019-09-27] MEDS ORDERED: VANCOMYCIN HCL 0 MG in DEXTROSE 5%-WATER 250 ML IV NR (16:00)
[2019-09-27] MEDS ORDERED: DEXTROSE 40% GEL 15 GM TUBE PO PRN ×4 (16:07→18:18)
[2019-09-27] MEDS ORDERED: GLUCAGON,HUMAN RECOMB 1 MG INJ IM PRN ×2 (16:07→18:18)
[2019-09-27] MEDS ORDERED: DEXTROSE 50%-WATER 25 GM/50 ML DISP.SYRIN IV PRN ×4 (16:07→18:18)
[2019-09-27] MEDS ORDERED: INSULIN REG, HUMAN 100 UNIT/ML 3 ML VIAL (PYX) IV ONE (16:08)
--- NOTE | 2019-09-27 16:15 | PDOC H&P ---
History of Present Illness Admission Date/PCP: 09/27/19 15:48 ANG COHN MD Patient complains of: Left arm abscess History of Present Illness: SUDHA BEGUM is a 34 year old male with a past medical history of uncontrolled diabetes mellitus, IV drug use, tobacco use, medication noncompliance who presented to the emergency department with complaint of left arm edema and erythema x2 days after attempting to inject methamphetamines. He reports that he ran out of his diabetic medications several weeks ago after being released from residential. He admits to polydipsia but denies polyuria. Patient emergency department shows temperature 101.4, tachycardia 128, hypertension 141/79, leukocytosis 17.9, hyponatremia 126.6, hyperkalemia 5.4, and glucose 810. Ultrasound demonstrated diffuse subcutaneous edema. Bedside ultrasound by Dr. Ignacio confirms fluid collection; will need operative intervention after hyperglycemia is corrected. Patient is provided IV fluids, placed on insulin drip, and referred to the hospital service for admission and management of the above-stated complaints 5. Past Medical History Cardiac Medical History: Reports: None Pulmonary Medical History: Reports: None EENT Medical History: Reports: None Neurological Medical History: Reports: None Endocrine Medical History: Reports: Diabetes Mellitus Type 2 Renal/ Medical History: Reports: None Malignancy Medical History: Reports: None GI Medical History: Reports: None Psychiatric Medical History: Reports: Depression, Substance Abuse, Tobacco Dependency Traumatic Medical History: Reports: None Hematology: Reports: None Infectious Medical History: Reports: None Past Surgical History Past Surgical History: Reports: None Social History Information Source: Patient Smoking Status: Current Every Day Smoker Frequency of Alcohol Use: None Hx Recreational Drug Use: Yes Drugs: Heroin, Marijuana, Methadone Hx Prescription Drug Abuse: No - Advance Directive Resuscitation Status: Full Code Family History Family History: Reviewed & Not Pertinent Parental Family History Reviewed: Yes Children Family History Reviewed: Yes Sibling(s) Family History Reviewed.: Yes Medication/Allergy Home Medications: Glipizide [Glipizide Xl] 5 mg PO BID #60 tab.er.24 04/06/19 Levofloxacin [Levaquin 750 mg Tablet] 750 mg PO DAILY #10 tab 04/06/19 Metformin HCl 1,000 mg PO BID #120 tablet 04/06/19 Cephalexin Monohydrate [Keflex 500 mg Capsule] 500 mg PO Q6H 7 Days capsule 04/24/19 Glipizide [Glipizide Xl] 5 mg PO DAILY #30 tab.er.24 04/24/19 Metformin HCl [Glucophage 500 mg Tablet] 500 mg PO BID #60 tablet 04/24/19 Mupirocin [Bactroban 2% Ointment 22 gm] 1 applic TP TID #22 gm 04/24/19 Sulfamethoxazole/Trimethoprim [Bactrim Ds Tablet] 1 each PO BID #20 tablet 04/24/19 Allergies/Adverse Reactions: acetaminophen Adverse Reaction (Verified 04/04/19 14:47) Review of Systems Constitutional: PRESENT: fever(s). ABSENT: chills, headache(s), weight gain, weight loss Eyes: ABSENT: visual disturbances Ears: ABSENT: hearing changes Cardiovascular: ABSENT: chest pain, dyspnea on exertion, edema, orthropnea, palpitations Respiratory: ABSENT: cough, hemoptysis Gastrointestinal: ABSENT: abdominal pain, constipation, diarrhea, hematemesis, hematochezia, nausea, vomiting Genitourinary: ABSENT: dysuria, hematuria Musculoskeletal: ABSENT: joint swelling Integumentary: PRESENT: as per HPI, erythema, lesions, other - edema. ABSENT: rash, wounds Neurological: ABSENT: abnormal gait, abnormal speech, confusion, dizziness, focal weakness, syncope Psychiatric: ABSENT: anxiety, depression, homidical ideation, suicidal ideation Endocrine: ABSENT: cold intolerance, heat intolerance, polydipsia, polyuria Hematologic/Lymphatic: ABSENT: easy bleeding, easy bruising Physical Exam Vital Signs: Temp Pulse Resp BP Pulse Ox 101.4 F H 128 H 16 141/79 H 95 09/27/19 13:23 09/27/19 13:18 09/27/19 13:18 09/27/19 13:18 09/27/19 13:53 Intake & Output 09/26/19 09/27/19 09/28/19 06:59 06:59 06:59 Output Total 595 Balance -595 Weight 77.3 kg General appearance: PRESENT: cooperative, disheveled, well-developed, well- nourished, other - acutely ill appearing Head exam: PRESENT: atraumatic, normocephalic Eye exam: PRESENT: conjunctiva pink, EOMI, PERRLA. ABSENT: scleral icterus Mouth exam: PRESENT: dry mucosa, tongue midline Teeth exam: PRESENT: dental caries, poor dentation Respiratory exam: PRESENT: clear to auscultation fran, symmetrical, unlabored. ABSENT: rales, rhonchi, wheezes Cardiovascular exam: PRESENT: RRR, +S1, +S2, tachycardia. ABSENT: diastolic murmur, rubs, systolic murmur Pulses: PRESENT: normal dorsalis pedis pul Vascular exam: PRESENT: normal capillary refill Extremities exam: PRESENT: full ROM, tenderness - LUE. ABSENT: calf tenderness, clubbing, pedal edema Neurological exam: PRESENT: alert, awake, oriented to person, oriented to place, oriented to time, oriented to situation, CN II-XII grossly intact. ABSENT: motor sensory deficit Psychiatric exam: PRESENT: appropriate affect, normal mood. ABSENT: homicidal ideation, suicidal ideation Skin exam: PRESENT: dry, erythema - kaylie to LUE, warm. ABSENT: cyanosis, intact, rash Results Laboratory Results: 09/27/19 14:07 09/27/19 14:07 09/27/19 09/27/19 09/27/19 14:07 14:07 14:07 WBC 17.9 H RBC 4.38 Hgb 13.6 Hct 41.0 MCV 94 MCH 31.1 MCHC 33.3 RDW 12.7 Plt Count 232 Seg Neutrophils % Not Reportable VBG pH 7.39 VBG pCO2 43.3 VBG HCO3 25.7 VBG Base Excess 0.5 Sodium 126.6 L Potassium 5.4 H Chloride 92 L Carbon Dioxide 27 Anion Gap 8 BUN 14 Creatinine 0.74 Est GFR ( Amer) > 60 Glucose 810 H* Lactic Acid Calcium 8.8 Total Bilirubin 0.9 AST 16 L Alkaline Phosphatase 125 Total Protein 6.6 Albumin 3.5 09/27/19 14:07 WBC RBC Hgb Hct MCV MCH MCHC RDW Plt Count Seg Neutrophils % VBG pH VBG pCO2 VBG HCO3 VBG Base Excess Sodium Potassium Chloride Carbon Dioxide Anion Gap BUN Creatinine Est GFR ( Amer) Glucose Lactic Acid 1.6 Calcium Total Bilirubin AST Alkaline Phosphatase Total Protein Albumin Impressions: Extremity Ultrasound 09/27/19 14:01 IMPRESSION: Diffuse subcutaneous oedema. No focal abscess. Suspect non occlusive SVT. Recommend dedicated left upper extremity venous duplex. Assessment and Plan - Diagnosis (1) Abscess of left arm Is this a current diagnosis for this admission?: Yes Plan: Blood cultures pending. Patient is admitted to medical floor on continuous cardiac telemetry. He is empirically placed on IV vancomycin and Zosyn. Surgery is consulted; Dr. Ignacio intends to take the patient to the OR once hyperglycemia is corrected. Antiemetics and analgesics as needed. (2) Type 2 diabetes mellitus, uncontrolled Qualifiers: Glycemic state: with hyperglycemia Qualified Code(s): E11.65 - Type 2 diabetes mellitus with hyperglycemia Is this a current diagnosis for this admission?: Yes Plan: Glucose 810. Patient reports that he is on metformin as well as 70/30. States he has not taken his medications for several days; has run out. Has not seen a provider since he was released from residential. Holding oral medications while admitted. We will check A1c with a.m. lab work. Currently n.p.o. pending surgical intervention. Insulin 10 units IV x1 followed by insulin drip to obtain quick glucose control or surgical clearance. Accu-Cheks hourly. Hypoglycemia protocol in place. Registered dietitian and clinical staff educator consulted. (3) IV drug abuse Is this a current diagnosis for this admission?: Yes Plan: Counseled cessation. Observe for withdrawal. Supportive care. (4) Hyperglycemia Is this a current diagnosis for this admission?: Yes Plan: Management as above. (5) Fever Qualifiers: Fever type: unspecified Qualified Code(s): R50.9 - Fever, unspecified Is this a current diagnosis for this admission?: Yes Plan: Secondary to #1 - Time Time Spent with patient: 35 or more minutes Medications reviewed and adjusted accordingly: Yes Anticipated discharge: Home Within: within 48 hours
[2019-09-27] MEDS: NORMAL SALINE 1000 ML 1,000 ML IV PRN (16:45)
[2019-09-27] MEDS: PIPERACILLIN SODIUM/TAZOBACTAM 3.375 GM in NORMAL SALINE 100 ML IV SCH ×2 (17:05→23:09)
[2019-09-27 17:13] LABS: APPEARANCE,URINE CLEAR; BILIRUBIN,URINE NEGATIVE (NEGATIVE); COLOR,URINE STRAW; GLUCOSE, URINE >=500 mg/dL (NEGATIVE); KETONES,URINE TRACE mg/dL (NEGATIVE); LEUKOCYTE ESTERASE,URINE NEGATIVE (NEGATIVE); NITRITE,URINE NEGATIVE (NEGATIVE); PROTEIN,URINE NEGATIVE (NEGATIVE); UROBILINOGEN,URINE NEGATIVE mg/dL (<2.0)
[2019-09-27 17:25] LABS: URINE AMPHETAMINES SCREEN NEGATIVE; URINE BARBITURATES SCREEN NEGATIVE; URINE BENZODIAZEPINES SCREEN NEGATIVE; URINE COCAINE SCREEN NEGATIVE; URINE MARIJUANA (THC) SCREEN NEGATIVE; URINE METHADONE SCREEN NEGATIVE; URINE PHENCYCLIDINE SCREEN NEGATIVE
--- NOTE | 2019-09-27 18:43 | PDOC CONSULTATION ---
Consultation Consult Date: 09/27/19 Provider Consulted: SURGICAL SURGICALIST Consult reason:: Deep space abscess left arm History of Present Illness Admission Date/PCP: 09/27/19 15:48 ANG COHN MD History of Present Illness: SUDHA BEGUM is a 34 year old male seen in consultation at the request of the hospitalist service. He is a known IV drug abuser. Recently (today) he injected methamphetamine and heroin. He has a history of withdrawals in the past. Over the last 24 hours he has noted increasing pain and swelling in the left antecubital fossa. He reports pain with movement of his hand, and extension of his arm. He rates his pain is 10 out of 10. It is sharp and st abbing. He denies paresthesias of his fingers or hand. He does report fevers and chills. He denies chest pain, shortness of breath, nausea, vomiting, melena, hematochezia, hematemesis, dizziness, orthostasis, blurry vision, fatigue. The patient is a diabetic, and currently has a blood sugar of 800. Past Medical History Endocrine Medical History: Reports: Diabetes Mellitus Type 2 Psychiatric Medical History: Reports: Depression Social History Smoking Status: Current Every Day Smoker Frequency of Alcohol Use: None Hx Recreational Drug Use: Yes Drugs: Heroin, Marijuana, Methadone, Other - Methamphetamine Hx Prescription Drug Abuse: No Family History Family History: Reviewed & Not Pertinent Parental Family History Reviewed: Yes Children Family History Reviewed: Yes Sibling(s) Family History Reviewed.: Yes Medication/Allergy Home Medications: Glipizide [Glipizide Xl] 5 mg PO BID #60 tab.er.24 04/06/19 Levofloxacin [Levaquin 750 mg Tablet] 750 mg PO DAILY #10 tab 04/06/19 Metformin HCl 1,000 mg PO BID #120 tablet 04/06/19 Cephalexin Monohydrate [Keflex 500 mg Capsule] 500 mg PO Q6H 7 Days capsule 04/24/19 Glipizide [Glipizide Xl] 5 mg PO DAILY #30 tab.er.24 04/24/19 Metformin HCl [Glucophage 500 mg Tablet] 500 mg PO BID #60 tablet 04/24/19 Mupirocin [Bactroban 2% Ointment 22 gm] 1 applic TP TID #22 gm 04/24/19 Sulfamethoxazole/Trimethoprim [Bactrim Ds Tablet] 1 each PO BID #20 tablet 04/24/19 Allergies/Adverse Reactions: acetaminophen Adverse Reaction (Verified 04/04/19 14:47) Review of Systems Constitutional: PRESENT: chills, fever(s). ABSENT: fatigue, headache(s), weakness Eyes: ABSENT: visual disturbances Ears: ABSENT: hearing changes Nose, Mouth, and Throat: ABSENT: sore throat Cardiovascular: ABSENT: chest pain Respiratory: ABSENT: cough Gastrointestinal: ABSENT: abdominal pain, diarrhea, hematemesis, hematochezia, melena, nausea, vomiting Genitourinary: ABSENT: dysuria Musculoskeletal: ABSENT: back pain Integumentary: PRESENT: erythema - left antecubital fossa Neurological: ABSENT: confusion, convulsions, dizziness Psychiatric: PRESENT: depression Endocrine: ABSENT: cold intolerance, heat intolerance Hematologic/Lymphatic: ABSENT: easy bleeding, easy bruising Physical Exam Vital Signs: Temp Pulse Resp BP Pulse Ox 101.4 F H 128 H 16 141/79 H 95 09/27/19 13:23 09/27/19 13:18 09/27/19 13:18 09/27/19 13:18 09/27/19 13:53 Intake & Output 09/26/19 09/27/19 09/28/19 06:59 06:59 06:59 Output Total 595 Balance -595 Weight 77.3 kg General appearance: PRESENT: cooperative, disheveled, mild distress - Left arm pain Head exam: PRESENT: atraumatic, normocephalic Eye exam: PRESENT: EOMI, PERRLA. ABSENT: scleral icterus Mouth exam: PRESENT: moist, neck supple Neck exam: ABSENT: meningismus, tenderness, thyromegaly, tracheal deviation Respiratory exam: PRESENT: unlabored. ABSENT: chest wall tenderness, tachypnea, wheezes Cardiovascular exam: ABSENT: tachycardia Vascular exam: ABSENT: pallor GI/Abdominal exam: PRESENT: soft. ABSENT: distended, tenderness Rectal exam: PRESENT: deferred Extremities exam: PRESENT: other - Erythema and tenderness in the left antecubital fossa. No obvious fluctuance. Motor and sensory function appeared normal. Mild to moderate amount of pain with passive motion. No swelling to indicate compartment syndrome. Musculoskeletal exam: ABSENT: deformity Neurological exam: PRESENT: alert, awake, oriented to person, oriented to place, oriented to time, oriented to situation Psychiatric exam: PRESENT: other - Psychomotor depression, consistent with intoxication.. ABSENT: agitated, anxious Focused psych exam: ABSENT: delusional Skin exam: PRESENT: erythema - Left arm, see above.. ABSENT: cyanosis, jaundice Results Laboratory Results: 09/27/19 14:07 09/27/19 14:07 09/27/19 09/27/19 09/27/19 14:07 14:07 14:07 WBC 17.9 H RBC 4.38 Hgb 13.6 Hct 41.0 MCV 94 MCH 31.1 MCHC 33.3 RDW 12.7 Plt Count 232 Seg Neutrophils % Not Reportable VBG pH 7.39 VBG pCO2 43.3 VBG HCO3 25.7 VBG Base Excess 0.5 Sodium 126.6 L Potassium 5.4 H Chloride 92 L Carbon Dioxide 27 Anion Gap 8 BUN 14 Creatinine 0.74 Est GFR ( Amer) > 60 Glucose 810 H* Lactic Acid Calcium 8.8 Total Bilirubin 0.9 AST 16 L Alkaline Phosphatase 125 Total Protein 6.6 Albumin 3.5 09/27/19 14:07 WBC RBC Hgb Hct MCV MCH MCHC RDW Plt Count Seg Neutrophils % VBG pH VBG pCO2 VBG HCO3 VBG Base Excess Sodium Potassium Chloride Carbon Dioxide Anion Gap BUN Creatinine Est GFR ( Amer) Glucose Lactic Acid 1.6 Calcium Total Bilirubin AST Alkaline Phosphatase Total Protein Albumin Impressions: Extremity Ultrasound 09/27/19 14:01 IMPRESSION: Diffuse subcutaneous oedema. No focal abscess. Suspect nonocclusive SVT. Recommend dedicated left upper extremity venous duplex. Assessment & Plan - Diagnosis (1) Abscess of left arm Is this a current diagnosis for this admission?: Yes (2) IV drug abuse Is this a current diagnosis for this admission?: Yes - Plan Summary Plan Summary: This is a 34-year-old male with an abscess of the left antecubital fossa, re lated to intravenous drug abuse. The patient currently appears intoxicated. He is a diabetic, and his blood sugars are greater than 800. I have discussed the case with the hospitalist service. I have recommended admission to their service with management of his blood sugars. He does not appear to be in acute distress with an immediately threatened extremity. His motor and sensory function is intact. His pulses are normal. He has no excessive swelling or tension, consistent with compartment syndrome. It is prudent to treat his blood sugars, in an effort to reduce them to approximately 250. Plan for surgical intervention once his blood sugars are under control. Continue with n.p.o. for now. Broad-spectrum antibiotics (recommend Vanco and Zosyn).
[2019-09-27] MEDS ORDERED: INSULIN LISPRO 100 UNIT/ML 3 ML VIAL SUBCUT ONE (18:45)
--- NOTE | 2019-09-27 18:51 | EKG REPORT ---
SEVERITY:- OTHERWISE NORMAL ECG - SINUS TACHYCARDIA : Confirmed by: Darlene Rosa MD 27-Sep-2019 18:50:46
[2019-09-27] MEDS: FAMOTIDINE 20 MG TABLET PO SCH (21:12)
[2019-09-27] MEDS: HEPARIN SOD (PORCINE) 5,000 UNIT/ML 1 ML VIAL SUBCUT SCH (21:21)
[2019-09-27] MEDS: VANCOMYCIN HCL 1,250 MG in DEXTROSE 5%-WATER 250 ML IV SCH (21:21)
[2019-09-27] MEDS: INSULIN LISPRO 100 UNIT/ML 3 ML VIAL SUBCUT SCH (23:08)
[2019-09-28] MEDS: OXYCODONE HCL IR 5 MG TABLET PO PRN ×4 (00:11→21:56)
[2019-09-28] MEDS: NORMAL SALINE 1000 ML 1,000 ML IV PRN (02:46)
[2019-09-28] MEDS: HEPARIN SOD (PORCINE) 5,000 UNIT/ML 1 ML VIAL SUBCUT SCH ×3 (05:00→21:56)
[2019-09-28] MEDS: INSULIN LISPRO 100 UNIT/ML 3 ML VIAL SUBCUT SCH ×4 (05:10→21:56)
[2019-09-28] MEDS: PIPERACILLIN SODIUM/TAZOBACTAM 3.375 GM in NORMAL SALINE 100 ML IV SCH ×4 (05:11→23:46)
[2019-09-28] MEDS: VANCOMYCIN HCL 1,250 MG in DEXTROSE 5%-WATER 250 ML IV SCH ×3 (06:07→21:56)
[2019-09-28 06:44] LABS: HEMATOCRIT 38.9 % (37.9-51.0); HEMOGLOBIN 13.2 g/dL (13.5-17.0); MEAN CORPUSCULAR HEMOGLOBIN 30.9 pg (27.0-33.4); PLATELET COUNT 203 10^3/uL (150-450); RED BLOOD COUNT 4.27 10^6/uL (4.35-5.55); RED CELL DISTRIBUTION WIDTH 12.7 % (11.5-14.0); WHITE BLOOD COUNT 15.4 10^3/uL (4.0-10.5)
[2019-09-28 06:45] LABS: MEAN CORPUSCULAR VOLUME 91 fl (80-97)
[2019-09-28 06:48] LABS: ANION GAP 9 (5-19); BLOOD UREA NITROGEN 12 mg/dL (7-20); CALCIUM 8.1 mg/dL (8.4-10.2); CARBON DIOXIDE 22 mmol/L (22-30); CHLORIDE 104 mmol/L (98-107); GLUCOSE 241 mg/dL (75-110)
[2019-09-28 06:51] LABS: POTASSIUM 4.3 mmol/L (3.6-5.0)
[2019-09-28 07:02] LABS: ABSOLUTE LYMPHOCYTES# (MANUAL) 1.4 10^3/uL (0.5-4.7); ABSOLUTE MONOCYTES # (MANUAL) 0.9 10^3/uL (0.1-1.4); BASOPHILS % (MANUAL) 0 % (0-2); EOSINOPHILS % (MANUAL) 1 % (0-6); LYMPHOCYTES % (MANUAL) 9 % (13-45); MONOCYTES % (MANUAL) 6 % (3-13); SEGMENTED NEUTROPHILS % (MAN) 84 % (42-78); TOTAL CELLS COUNTED 100
[2019-09-28 07:03] LABS: PLATELET COMMENT ADEQUATE; RBC MORPHOLOGY COMMENT NORMO-CYTIC/CHROMIC
[2019-09-28] MEDS ORDERED: BUPIVACAINE HCL 0.25 % INJ/PF (2.5 MG/1 ML) 30 ML VIAL ONE (07:17)
[2019-09-28] MEDS ORDERED: LIDOCAINE 1% INJ-PF (10 MG/ML) 30 ML SDV ONE (07:17)
[2019-09-28] MEDS ORDERED: FENTANYL CITRATE INJ/PF 100 MCG/2 ML AMPUL ONE (07:39)
[2019-09-28] MEDS ORDERED: HYDROMORPHONE HCL INJ/PF 2 MG/ML AMPULE ONE (07:39)
[2019-09-28] MEDS ORDERED: MIDAZOLAM 2 MG/2 ML INJ ONE (07:39)
[2019-09-28] MEDS ORDERED: KETOROLAC TROMETHAMINE 60 MG/2 ML SDV ONE (07:39)
[2019-09-28] MEDS ORDERED: ONDANSETRON HCL INJ/PF 4 MG/2 ML SDV ONE (07:40)
[2019-09-28] MEDS ORDERED: PROPOFOL INJ 200 MG/20 ML VIAL IV ONE (07:40)
[2019-09-28] MEDS ORDERED: MEPERIDINE HCL/PF INJ 25 MG/1 ML DISP.SYRIN IV PRN (08:27)
[2019-09-28] MEDS ORDERED: FENTANYL CITRATE INJ/PF 100 MCG/2 ML AMPUL IV PRN ×3 (08:27)
[2019-09-28] MEDS ORDERED: DIPHENHYDRAMINE HCL 50 MG/ML VIAL IV PRN (08:27)
[2019-09-28] MEDS ORDERED: OXYCODONE-ACETAMINOPHEN 5-325 MG TABLET PO PRN ×2 (08:27)
[2019-09-28] MEDS ORDERED: MORPHINE SULFATE 10 MG/ML INJ IV PRN (08:27)
[2019-09-28] MEDS ORDERED: PROMETHAZINE HCL INJ 25 MG/1 ML VIAL IV PRN ×2 (08:27)
[2019-09-28] MEDS ORDERED: ONDANSETRON HCL INJ/PF 4 MG/2 ML SDV IV PRN (08:27)
--- NOTE | 2019-09-28 08:56 | Operative Report ---
Operative Report DATE OF SURGERY: 09/28/19 PREOPERATIVE DIAGNOSIS: 1. Intravenous drug abuse. 2. Septic left upper extr emity soft tissue infection. 3. Uncontrolled diabetes mellitus POSTOPERATIVE DIAGNOSIS: Same with. 1. Soft tissue infection involving subcutaneous tissue, and brachial radialis, and biceps brachii fascia at the antecubital fossa. 2. Thrombosis of the left median cubital vein OPERATION: 1. Focused ultrasound left upper extremity, and ultrasonography of the left antecubital vein. 2. Transverse thinning of the antecubital fossa, debridement of cutaneous fluid pockets, opening of biceps brachii and brachioradialis fascia, irrigation and packing of compartments SURGEON: IMTIAZ SHEFFIELD ANESTHESIA: GA TISSUE REMOVED OR ALTERED: Fluid sent for Gram stain culture and sensitivity COMPLICATIONS: None ESTIMATED BLOOD LOSS: 25 cc INTRAOPERATIVE FINDINGS: See below PROCEDURE: Patient was taken to the main operating room and general anesthesia was induced. The left arm was exposed, prepped and draped in sterile fashion. Surgical plan surgical timeout were conducted. The findings were significant for swollen erythematous elevation to the skin and soft tissue distal to the antecubital fossa on the left side. There was no kaden ulcer or abscess coming to ahead. Focused ultrasound left upper extremity revealed diffuse edema in the subcutaneous tissue, and fluid below the fascia however there was no focal dominant consolidated fluid collection. The majority of the edema was just distal to the antecubital fossa. Therefore a 3 and half to 4 cm transverse incision was made just distal to the antecubital crease. The skin and subcutaneous tissue oozed a seropurulent material. Dermal bleeders were cauterized as encountered. The median cubital vein, superficial nerve, and surrounding tissue were noted to be grossly intact.. There was no obvious pus coming from the vein. I opened the fascia to the brachioradialis laterally, and opened up the biceps brachii fascial medially and proximal to our incision. This enabled me to Tenuate my index finger up the arm over the biceps brachii muscle medially and laterally, as well as over the radialis laterally and distally. Again no pus only watery fluid. I also insinuated my finger distally on the medial side of the incision along the flexor muscle groups and there was no pus here; all of these pockets were irrigated vigorously. I dissected out the median cubital vein and its associated branches; I then brought onto the field the ultrasound and interrogated the median cubital vein. It appeared thrombosed. I therefore dissected out the vein for a distance of 3 cm, and carefully inspected for any evidence of violation, opening or kaden pus. There appeared to be no puncture, or disruption of the vein to inspection; branches to the median cubital vein were also intact and not violated.. Therefore I did not see a indication to excise the vein although certainly septic thrombophlebitis would be in the differential gnosis. At this point I felt the exploration, and debridement was sufficient. All 4 pockets above and below the fascia were packed with a continuous 1 inch iodoform packing. 4 x 4's placed over the principal incision, and the arm wrapped with Kerlix and placed on pillows. Patient tolerated procedure well, extubated, taken recovery room in stable condition.
[2019-09-28] MEDS ORDERED: SUCCINYLCHOLINE CHLORIDE INJ 200 MG/10 ML VIAL ONE (09:55)
[2019-09-28] MEDS: FAMOTIDINE 20 MG TABLET PO SCH ×2 (09:58→21:56)
[2019-09-28] MEDS: DOCUSATE SODIUM 100 MG CAPSULE PO SCH ×2 (09:58→18:11)
[2019-09-28] MEDS: NICOTINE 21 MG/24 HR PATCH.TD24 TD SCH (09:58)
[2019-09-28] MEDS ORDERED: DEXTROSE 40% GEL 15 GM TUBE PO PRN ×2 (12:42)
[2019-09-28] MEDS ORDERED: DEXTROSE 50%-WATER 25 GM/50 ML DISP.SYRIN IV PRN ×2 (12:42)
[2019-09-28] MEDS ORDERED: GLUCAGON,HUMAN RECOMB 1 MG INJ IM PRN (12:42)
--- NOTE | 2019-09-28 12:47 | PDOC PROGRESS REPORT ---
Subjective Progress Note for:: 09/28/19 Subjective:: SUDHA BEGUM is a 34 year old male with a past medical history of uncontrolled diabetes mellitus, IV drug use, tobacco use, medication noncompliance who was admitted 09/27/2019 with hyperglycemia and a left antecubital fossa abscess related to IV drug use. Patient was seen on morning rounds following return from surgery. He was resting in bed, comfortably, on room air. Sleeping soundly; woke easily ehen I said his name, open his eyes made eye contact, and then quickly fell back to sleep. He does appear comfortable and is not noted to be in any acute distress. Nursing reports mild tachycardia and low-grade temperature 99.8. No other concerns at this time. Reason For Visit: LEFT ANTECUBITAL ABCESS,HYPERGLYCEMIA Physical Exam Vital Signs: Temp Pulse Resp BP Pulse Ox 99.8 F 105 H 16 119/76 98 09/28/19 10:26 09/28/19 10:26 09/28/19 10:26 09/28/19 10:26 09/28/19 10:26 Intake & Output 09/27/19 09/28/19 09/29/19 06:59 06:59 06:59 Intake Total 3720 1500 Output Total 1795 10 Balance 1925 1490 Weight 72.5 kg General appearance: PRESENT: no acute distress, well-developed, well-nourished Head exam: PRESENT: atraumatic, normocephalic Eye exam: PRESENT: conjunctiva pink, EOMI, PERRLA. ABSENT: scleral icterus Mouth exam: PRESENT: moist, tongue midline Teeth exam: PRESENT: dental caries, poor dentation Respiratory exam: PRESENT: symmetrical, unlabored, wheezes - Slight expiratory wheeze. ABSENT: rales, rhonchi Cardiovascular exam: PRESENT: RRR, +S1, +S2, tachycardia - HR 106. ABSENT: diastolic murmur, rubs, systolic murmur Pulses: PRESENT: normal dorsalis pedis pul Vascular exam: PRESENT: normal capillary refill Extremities exam: PRESENT: full ROM. ABSENT: calf tenderness, clubbing, pedal edema Neurological exam: PRESENT: alert, awake, oriented to person, oriented to place, oriented to time, oriented to situation, CN II-XII grossly intact. ABSENT: motor sensory deficit Psychiatric exam: PRESENT: appropriate affect, normal mood. ABSENT: homicidal ideation, suicidal ideation Skin exam: PRESENT: dry, warm, other - s/p surgical incision and drainage of abscess to left AC; postop dressing intact. Slight erythema and edema to forearm and hand.. ABSENT: cyanosis, rash Results Laboratory Results: 09/28/19 06:06 09/28/19 06:06 09/27/19 09/27/19 09/27/19 14:07 14:07 14:07 WBC 17.9 H RBC 4.38 Hgb 13.6 Hct 41.0 MCV 94 MCH 31.1 MCHC 33.3 RDW 12.7 Plt Count 232 Seg Neutrophils % Not Reportable VBG pH 7.39 VBG pCO2 43.3 VBG HCO3 25.7 VBG Base Excess 0.5 Sodium 126.6 L Potassium 5.4 H Chloride 92 L Carbon Dioxide 27 Anion Gap 8 BUN 14 Creatinine 0.74 Est GFR ( Amer) > 60 Glucose 810 H* Lactic Acid Calcium 8.8 Total Bilirubin 0.9 AST 16 L Alkaline Phosphatase 125 Total Protein 6.6 Albumin 3.5 Urine Color Urine Appearance Urine pH Ur Specific Mcfarlan Urine Protein Urine Glucose (UA) Urine Ketones Urine Blood Urine Nitrite Ur Leukocyte Esterase Urine WBC (Auto) Urine RBC (Auto) 09/27/19 09/27/19 09/27/19 14:07 14:07 16:20 WBC RBC Hgb Hct MCV MCH MCHC RDW Plt Count Seg Neutrophils % VBG pH VBG pCO2 VBG HCO3 VBG Base Excess Sodium Potassium Chloride Carbon Dioxide Anion Gap BUN Creatinine Est GFR ( Amer) Glucose Lactic Acid 1.6 1.6 Calcium Total Bilirubin AST Alkaline Phosphatase Total Protein Albumin Urine Color STRAW Urine Appearance CLEAR Urine pH 5.0 Ur Specific Mcfarlan 1.030 Urine Protein NEGATIVE Urine Glucose (UA) >=500 H Urine Ketones TRACE H Urine Blood NEGATIVE Urine Nitrite NEGATIVE Ur Leukocyte Esterase NEGATIVE Urine WBC (Auto) 0 Urine RBC (Auto) 1 09/27/19 09/28/19 09/28/19 19:49 06:06 06:06 WBC 15.4 H RBC 4.27 L Hgb 13.2 L Hct 38.9 MCV 91 MCH 30.9 MCHC 34.0 RDW 12.7 Plt Count 203 Seg Neutrophils % Not Reportable VBG pH VBG pCO2 VBG HCO3 VBG Base Excess Sodium 135.2 L Potassium 4.3 D Chloride 104 Carbon Dioxide 22 Anion Gap 9 BUN 12 Creatinine 0.58 Est GFR ( Amer) > 60 Glucose 241 H Lactic Acid 3.1 H Calcium 8.1 L Total Bilirubin AST Alkaline Phosphatase Total Protein Albumin Urine Color Urine Appearance Urine pH Ur Specific Mcfarlan Urine Protein Urine Glucose (UA) Urine Ketones Urine Blood Urine Nitrite Ur Leukocyte Esterase Urine WBC (Auto) Urine RBC (Auto) 09/28/19 11:35 WBC RBC Hgb Hct MCV MCH MCHC RDW Plt Count Seg Neutrophils % VBG pH VBG pCO2 VBG HCO3 VBG Base Excess Sodium Potassium Chloride Carbon Dioxide Anion Gap BUN Creatinine Est GFR ( Amer) Glucose Lactic Acid 0.7 Calcium Total Bilirubin AST Alkaline Phosphatase Total Protein Albumin Urine Color Urine Appearance Urine pH Ur Specific Mcfarlan Urine Protein Urine Glucose (UA) Urine Ketones Urine Blood Urine Nitrite Ur Leukocyte Esterase Urine WBC (Auto) Urine RBC (Auto) 09/27/19 16:20 Blood Blood Culture (PCR) - Final Strep Pyogenes (Grp A) 09/27/19 14:07 Blood Blood Culture (PCR) - Final Strep Pyogenes (Grp A) Impressions: Extremity Ultrasound 09/27/19 14:01 IMPRESSION: Diffuse subcutaneous oedema. No focal abscess. Suspect nonocclusive SVT. Recommend dedicated left upper extremity venous duplex. Assessment and Plan - Diagnosis (1) Abscess of left arm Is this a current diagnosis for this admission?: Yes Plan: s/p surgical I&D Blood cultures show strep pyogenes. Blood culture (09/28/2019) pending Wound culture (09/28/2019) pending Patient is admitted to medical floor on continuous cardiac telemetry. He was empirically placed on IV vancomycin and Zosyn. Surgery is consulted; appreciate their assistance. Antiemetics and analgesics as needed. (2) Type 2 diabetes mellitus, uncontrolled Qualifiers: Glycemic state: with hyperglycemia Qualified Code(s): E11.65 - Type 2 diabetes mellitus with hyperglycemia Is this a current diagnosis for this admission?: Yes Plan: Patient reports that he is on metformin as well as 70/30. States he has not taken his medications for several days; has run out. Has not seen a provider since he was released from [facility]. A1C 10.4% Advance to consistent carb diet. Start Lantus 10 units nightly. Accu-Cheks AC at bedtime with Humalog for sliding scale coverage. Hypoglycemia protocol in place. Registered dietitian and special education paraeducator consulted. (3) IV drug abuse Is this a current diagnosis for this admission?: Yes Plan: Counseled cessation. Observe for withdrawal. Supportive care. (4) Hyperglycemia Is this a current diagnosis for this admission?: Yes Plan: Improved. bgl 810->240s Management as above. (5) Fever Qualifiers: Fever type: unspecified Qualified Code(s): R50.9 - Fever, unspecified Is this a current diagnosis for this admission?: Yes Plan: Secondary to #1 - Time Time Spent with patient: 15-24 minutes Medications reviewed and adjusted accordingly: Yes Anticipated discharge: Home
[2019-09-28] MEDS ORDERED: INSULIN GLARGINE,HUM.REC.ANLOG 1,000 UNIT/10 ML VIAL SUBCUT SCH (22:00)
[2019-09-29] MEDS: HEPARIN SOD (PORCINE) 5,000 UNIT/ML 1 ML VIAL SUBCUT SCH ×3 (05:11→21:28)
[2019-09-29] MEDS: PIPERACILLIN SODIUM/TAZOBACTAM 3.375 GM in NORMAL SALINE 100 ML IV SCH (05:12)
[2019-09-29] MEDS: VANCOMYCIN HCL 1,250 MG in DEXTROSE 5%-WATER 250 ML IV SCH (05:12)
[2019-09-29] MEDS: OXYCODONE HCL IR 5 MG TABLET PO PRN ×2 (05:12→20:02)
[2019-09-29 06:40] LABS: HEMATOCRIT 39.4 % (37.9-51.0); HEMOGLOBIN 13.3 g/dL (13.5-17.0); MEAN CORPUSCULAR HEMOGLOBIN 30.6 pg (27.0-33.4); MEAN CORPUSCULAR HGB CONC 33.8 g/dL (32.0-36.0); MEAN CORPUSCULAR VOLUME 91 fl (80-97); PLATELET COUNT 210 10^3/uL (150-450); RED BLOOD COUNT 4.34 10^6/uL (4.35-5.55); WHITE BLOOD COUNT 14.1 10^3/uL (4.0-10.5)
[2019-09-29 07:02] LABS: ANION GAP 10 (5-19); BLOOD UREA NITROGEN 10 mg/dL (7-20); CALCIUM 7.8 mg/dL (8.4-10.2); CARBON DIOXIDE 22 mmol/L (22-30); CHLORIDE 99 mmol/L (98-107); GLUCOSE 226 mg/dL (75-110); POTASSIUM 4.1 mmol/L (3.6-5.0)
[2019-09-29 07:10] LABS: VANCOMYCIN,TROUGH < 5.0 ug/mL (5.0-20.0)
[2019-09-29] MEDS: INSULIN LISPRO 100 UNIT/ML 3 ML VIAL SUBCUT SCH ×4 (08:27→21:28)
[2019-09-29] MEDS: NICOTINE 21 MG/24 HR PATCH.TD24 TD SCH (09:09)
[2019-09-29] MEDS: CEFTRIAXONE 2 GM/D5W RTU 2 GM/50 ML RTUPB IV SCH (09:09)
[2019-09-29] MEDS: DOCUSATE SODIUM 100 MG CAPSULE PO SCH ×2 (09:09→17:48)
[2019-09-29] MEDS: FAMOTIDINE 20 MG TABLET PO SCH ×2 (09:09→21:29)
[2019-09-29] MEDS ORDERED: KETOROLAC TROMETHAMINE INJ/PF 30 MG/1 ML SDV ONE (10:12)
[2019-09-29] MEDS: KETOROLAC TROMETHAMINE INJ/PF 30 MG/1 ML SDV IV PRN (10:25)
--- NOTE | 2019-09-29 11:43 | PDOC PROGRESS REPORT ---
Subjective Progress Note for:: 09/29/19 Reason For Visit: LEFT ANTECUBITAL ABCESS,HYPERGLYCEMIA Pain controlled, minimal physical activity; no fever overnight. Physical Exam Vital Signs: Temp Pulse Resp BP Pulse Ox 98.8 F 96 16 112/62 99 09/29/19 10:58 09/29/19 10:58 09/29/19 10:58 09/29/19 10:58 09/29/19 07:37 Intake & Output 09/28/19 09/29/19 09/30/19 06:59 06:59 06:59 Intake Total 3720 5800 370 Output Total 1795 3910 500 Balance 1925 1890 -130 Weight 72.5 kg 72.6 kg General appearance: PRESENT: no acute distress Musculoskeletal exam: PRESENT: other - Left upper extremity examined. Edema and erythema markedly resolved; moderate amount of edema in hand; range of motion of fingers improved. Dressing removed and packing removed. Tolerated reasonably well. No foul smell or drainage. Wound irrigated out, then cavity lined with Xeroform then gauze, Kerlix wrap Results Laboratory Results: 09/29/19 06:08 09/29/19 06:08 09/28/19 09/29/19 09/29/19 11:35 06:08 06:08 WBC 14.1 H RBC 4.34 L Hgb 13.3 L Hct 39.4 MCV 91 MCH 30.6 MCHC 33.8 RDW 13.0 Plt Count 210 Sodium 131.4 L Potassium 4.1 Chloride 99 Carbon Dioxide 22 Anion Gap 10 BUN 10 Creatinine 0.47 L Est GFR ( Amer) > 60 Glucose 226 H Lactic Acid 0.7 Calcium 7.8 L 09/29/19 06:08 WBC RBC Hgb Hct MCV MCH MCHC RDW Plt Count Sodium Potassium Chloride Carbon Dioxide Anion Gap BUN Creatinine 0.49 L Est GFR ( Amer) > 60 Glucose Lactic Acid Calcium 09/27/19 16:20 Blood Blood Culture (PCR) - Final Strep Pyogenes (Grp A) 09/27/19 16:20 Blood Blood Culture - Final Group A Beta Streptococcus 09/27/19 14:07 Blood Blood Culture (PCR) - Final Strep Pyogenes (Grp A) 09/27/19 14:07 Blood Blood Culture - Final Group A Beta Streptococcus Impressions: Extremity Ultrasound 09/27/19 14:01 IMPRESSION: Diffuse subcutaneous oedema. No focal abscess. Suspect nonocclusive SVT. Recommend dedicated left upper extremity venous duplex. Assessment & Plan - Diagnosis (1) Abscess of left arm Plan: Impression: 1 day status post incision drainage packing left upper extremity antecubital soft tissue infection with fasciitis, clinically improved; growing strep pyogenes, and Staphylococcus, on vancomycin and penicillin, tolerated dressing change well Plan: 1. Increase range of motion of arm; shower; continue IV antibiotics today. 2. We will change dressing tomorrow; if arm continues to improve, anticipate discharge home in the next 24 hours 3. I reviewed the above with nursing staff and hospitalist, as well as patient. - Time Time Spent: 30 to 50 Minutes
--- NOTE | 2019-09-29 15:15 | PDOC PROGRESS REPORT ---
Subjective Progress Note for:: 09/29/19 Subjective:: SUDHA BEGUM is a 34 year old male with a past medical history of uncontrolled diabetes mellitus, IV drug use, tobacco use, medication noncompliance who was admitted 09/27/2019 with hyperglycemia and a left antecubital fossa abscess related to IV drug use. Patient was seen on morning rounds. He was resting in bed, comfortably, on room air. Sleeping soundly; woke easily when I said his name. He reports his pain is well controlled by current regiment. He denies fever, chest pain, dyspnea, abdominal pain, nausea and vomiting. TMax 100.0/24 hrs, 101.7/48 hrs He has no questions or concerns at this time. No concerns per nursing. Reason For Visit: LEFT ANTECUBITAL ABCESS,HYPERGLYCEMIA Physical Exam Vital Signs: Temp Pulse Resp BP Pulse Ox 98.8 F 96 16 112/62 99 09/29/19 10:58 09/29/19 10:58 09/29/19 10:58 09/29/19 10:58 09/29/19 07:37 Intake & Output 09/28/19 09/29/19 09/30/19 06:59 06:59 06:59 Intake Total 3720 5800 370 Output Total 1795 3910 500 Balance 1925 1890 -130 Weight 72.5 kg 72.6 kg General appearance: PRESENT: no acute distress, well-developed, well-nourished Head exam: PRESENT: atraumatic, normocephalic Eye exam: PRESENT: conjunctiva pink, EOMI, PERRLA. ABSENT: scleral icterus Mouth exam: PRESENT: moist, tongue midline Respiratory exam: PRESENT: clear to auscultation fran. ABSENT: rales, rhonchi, wheezes Cardiovascular exam: PRESENT: RRR. ABSENT: diastolic murmur, rubs, systolic murmur Vascular exam: PRESENT: normal capillary refill Extremities exam: PRESENT: tenderness - LUE, +1 edema - LUE. ABSENT: calf tenderness, clubbing, pedal edema Neurological exam: PRESENT: alert, awake, oriented to person, oriented to place, oriented to time, oriented to situation, CN II-XII grossly intact. ABSENT: motor sensory deficit Psychiatric exam: PRESENT: appropriate affect, normal mood. ABSENT: homicidal ideation, suicidal ideation Skin exam: PRESENT: dry, warm. ABSENT: cyanosis, rash Results Laboratory Results: 09/29/19 06:08 09/29/19 06:08 09/29/19 09/29/19 09/29/19 06:08 06:08 06:08 WBC 14.1 H RBC 4.34 L Hgb 13.3 L Hct 39.4 MCV 91 MCH 30.6 MCHC 33.8 RDW 13.0 Plt Count 210 Sodium 131.4 L Potassium 4.1 Chloride 99 Carbon Dioxide 22 Anion Gap 10 BUN 10 Creatinine 0.47 L 0.49 L Est GFR ( Amer) > 60 > 60 Glucose 226 H Calcium 7.8 L 09/27/19 16:20 Blood Blood Culture (PCR) - Final Strep Pyogenes (Grp A) 09/27/19 16:20 Blood Blood Culture - Final Group A Beta Streptococcus 09/27/19 14:07 Blood Blood Culture (PCR) - Final Strep Pyogenes (Grp A) 09/27/19 14:07 Blood Blood Culture - Final Group A Beta Streptococcus Impressions: Extremity Ultrasound 09/27/19 14:01 IMPRESSION: Diffuse subcutaneous oedema. No focal abscess. Suspect nonocclusive SVT. Recommend dedicated left upper extremity venous duplex. Assessment and Plan - Diagnosis (1) Abscess of left arm Is this a current diagnosis for this admission?: Yes Plan: s/p surgical I&D Blood cultures show strep pyogenes. Blood culture (09/28/2019) NGTD Wound culture (09/28/2019) NGTD Patient is admitted to medical floor on continuous cardiac telemetry. He was empirically placed on IV vancomycin and Zosyn; have transitioned to Rocephin given culture results. Plan to d/c on Keflex. Surgery is consulted; appreciate their assistance. Antiemetics and analgesics as needed. (2) Type 2 diabetes mellitus, uncontrolled Qualifiers: Glycemic state: with hyperglycemia Qualified Code(s): E11.65 - Type 2 diabetes mellitus with hyperglycemia Is this a current diagnosis for this admission?: Yes Plan: Patient reports that he is on metformin as well as 70/30. States he has not ta scott his medications for several days; has run out. Has not seen a provider since he was released from [facility]. A1C 10.4% Advance to consistent carb diet. Start Lantus 12 units nightly. Accu-Cheks AC at bedtime with Humalog for sliding scale coverage. Hypoglycemia protocol in place. Registered dietitian and ict educator consulted. (3) IV drug abuse Is this a current diagnosis for this admission?: Yes Plan: Counseled cessation. Observe for withdrawal. Supportive care. (4) Hyperglycemia Is this a current diagnosis for this admission?: Yes Plan: Improved. bgl 810->240s Management as above. (5) Fever Qualifiers: Fever type: unspecified Qualified Code(s): R50.9 - Fever, unspecified Is this a current diagnosis for this admission?: Yes Plan: Secondary to #1 - Time Time Spent with patient: 15-24 minutes Medications reviewed and adjusted accordingly: Yes Anticipated discharge: Home Within: within 48 hours
[2019-09-29] MEDS ORDERED: BUTALB/ACETAMINOPHEN/CAFFEINE 1 TAB EACH PO PRN (16:31)
--- NOTE | 2019-09-29 17:57 | CDI QUERY ---
<JUAN ECHEVARRIA - Last Filed: 09/29/19 17:56> CDI Query CDI Review: Dear Provider: To better reflect your patients severity of illness, morbidity, and resource utilization Please specify and document in the Progress Notes and Discharge Summary if you are monitoring / treating / evaluating any of the following conditions: Query Clinical indicators Please indicate if the diagnosis of septic thrombophlebitis was: Confirmed Ruled out Unable to determine Other Per Operative Note: certainly septic thrombophlebitis would be in the differential diagnosis. The terms probable, suspected, likely, possible or still to be ruled out may be used if you are unable to determine the exact nature of a condition. Thank you for your consideration, Clinical Documentation Physician Advisors SHIVA Ventura RN, BSN RN Office [phone] Office [phone] <DIDI KING - Last Filed: 09/30/19 07:59> CDI Query CDI Review: I am unable to determine; this query could best be answered by Dr. Hussein's. He did tell me that on his surgical exam the vein appeared intact and so did not see need to excise it; however, thrombophlebitis remained a consideration.
[2019-09-29] MEDS ORDERED: INSULIN GLARGINE,HUM.REC.ANLOG 1,000 UNIT/10 ML VIAL SUBCUT SCH (22:00)
[2019-09-30] MEDS: OXYCODONE HCL IR 5 MG TABLET PO PRN ×3 (02:29→22:50)
[2019-09-30] MEDS: HEPARIN SOD (PORCINE) 5,000 UNIT/ML 1 ML VIAL SUBCUT SCH ×3 (05:07→22:45)
[2019-09-30] MEDS: KETOROLAC TROMETHAMINE INJ/PF 30 MG/1 ML SDV IV PRN ×2 (05:07→17:22)
[2019-09-30 05:17] LABS: HEMATOCRIT 35.9 % (37.9-51.0); HEMOGLOBIN 12.6 g/dL (13.5-17.0); MEAN CORPUSCULAR HEMOGLOBIN 31.3 pg (27.0-33.4); MEAN CORPUSCULAR VOLUME 89 fl (80-97); PLATELET COUNT 182 10^3/uL (150-450); RED BLOOD COUNT 4.02 10^6/uL (4.35-5.55); RED CELL DISTRIBUTION WIDTH 12.9 % (11.5-14.0); WHITE BLOOD COUNT 13.6 10^3/uL (4.0-10.5)
[2019-09-30 05:39] LABS: ANION GAP 8 (5-19); BLOOD UREA NITROGEN 11 mg/dL (7-20); CALCIUM 7.8 mg/dL (8.4-10.2); CARBON DIOXIDE 23 mmol/L (22-30); CHLORIDE 101 mmol/L (98-107); GLUCOSE 240 mg/dL (75-110); POTASSIUM 3.8 mmol/L (3.6-5.0)
[2019-09-30] MEDS: INSULIN LISPRO 100 UNIT/ML 3 ML VIAL SUBCUT SCH ×4 (07:59→22:44)
[2019-09-30] MEDS: CEFTRIAXONE 2 GM/D5W RTU 2 GM/50 ML RTUPB IV SCH (09:34)
[2019-09-30] MEDS: DOCUSATE SODIUM 100 MG CAPSULE PO SCH ×2 (09:40→17:22)
[2019-09-30] MEDS: FAMOTIDINE 20 MG TABLET PO SCH ×2 (09:40→22:45)
[2019-09-30] MEDS: NICOTINE 21 MG/24 HR PATCH.TD24 TD SCH (09:46)
--- NOTE | 2019-09-30 10:42 | PDOC PROGRESS REPORT ---
Subjective Progress Note for:: 09/30/19 Reason For Visit: LEFT ANTECUBITAL ABCESS,HYPERGLYCEMIA Physical Exam Vital Signs: Temp Pulse Resp BP Pulse Ox 97.8 F 98 19 121/64 96 09/30/19 08:07 09/30/19 08:07 09/30/19 08:07 09/30/19 08:07 09/30/19 08:07 Intake & Output 09/29/19 09/30/19 10/01/19 06:59 06:59 06:59 Intake Total 5800 1460 Output Total 3910 2675 Balance 1890 -1215 Weight 72.6 kg 72.6 kg Results Laboratory Results: 09/30/19 05:05 09/30/19 05:05 09/30/19 09/30/19 05:05 05:05 WBC 13.6 H RBC 4.02 L Hgb 12.6 L Hct 35.9 L MCV 89 MCH 31.3 MCHC 35.0 RDW 12.9 Plt Count 182 Sodium 132.3 L Potassium 3.8 Chloride 101 Carbon Dioxide 23 Anion Gap 8 BUN 11 Creatinine 0.39 L Est GFR ( Amer) > 60 Glucose 240 H Calcium 7.8 L 09/28/19 08:13 Arm - Left Gram Stain - Final 09/27/19 16:20 Blood Blood Culture (PCR) - Final Strep Pyogenes (Grp A) 09/27/19 16:20 Blood Blood Culture - Final Group A Beta Streptococcus 09/27/19 14:07 Blood Blood Culture (PCR) - Final Strep Pyogenes (Grp A) 09/27/19 14:07 Blood Blood Culture - Final Group A Beta Streptococcus Impressions: Extremity Ultrasound 09/27/19 14:01 IMPRESSION: Diffuse subcutaneous oedema. No focal abscess. Suspect nonocclusive SVT. Recommend dedicated left upper extremity venous duplex. Assessment & Plan - Diagnosis (1) Abscess of left arm Is this a current diagnosis for this admission?: Yes (2) IV drug abuse Is this a current diagnosis for this admission?: Yes - Plan Summary Plan Summary: 34 y/o M s/p I&D of a left arm abscess. He is doing well. He is afebrile. His wound looks good. He will need dressing changes BID (will have nurses teach him how to change the dressing). OK to shower. He should followup with [facility] in 7-10 days. Transition to oral antibiotics. Surgery will sign off at this time. Further medical workup and treatment per Hospitalist service. Please renotify with any question or concerns.
--- NOTE | 2019-09-30 13:29 | PDOC PROGRESS REPORT ---
Subjective Progress Note for:: 09/30/19 Subjective:: SUDHA BEGUM is a 34 year old male with a past medical history of uncontrolled diabetes mellitus, IV drug use, tobacco use, medication noncompliance who was admitted 09/27/2019 with hyperglycemia and a left antecubital fossa abscess related to IV drug use. Patient was seen on morning rounds. He was resting in bed, comfortably, on room air. Sleeping soundly; woke easily when I said his name. He reports his pain is well controlled by current regiment; happy that edema has improved and mobility is increased. Overall, feeling much better. He denies fever, chest pain, dyspnea, abdominal pain, nausea and vomiting. TMax 99.0/24 hrs, 100.0/48 hrs He has no questions or concerns at this time. No concerns per nursing. Reason For Visit: LEFT ANTECUBITAL ABCESS,HYPERGLYCEMIA Physical Exam Vital Signs: Temp Pulse Resp BP Pulse Ox 98.9 F 92 16 110/64 99 09/30/19 11:23 09/30/19 11:23 09/30/19 11:23 09/30/19 11:23 09/30/19 11:23 Intake & Output 09/29/19 09/30/19 10/01/19 06:59 06:59 06:59 Intake Total 5800 1460 120 Output Total 3910 2675 575 Balance 3147 -5781 -995 Weight 72.6 kg 72.6 kg General appearance: PRESENT: no acute distress, well-developed, well-nourished Head exam: PRESENT: atraumatic, normocephalic Eye exam: PRESENT: conjunctiva pink, EOMI, PERRLA. ABSENT: scleral icterus Mouth exam: PRESENT: moist, tongue midline Respiratory exam: PRESENT: clear to auscultation fran, symmetrical, unlabored. ABSENT: rales, rhonchi, wheezes Cardiovascular exam: PRESENT: RRR. ABSENT: diastolic murmur, rubs, systolic murmur Vascular exam: PRESENT: normal capillary refill Extremities exam: PRESENT: full ROM, tenderness - Left arm, +1 edema - LUE. ABSENT: calf tenderness, clubbing, pedal edema Neurological exam: PRESENT: alert, awake, oriented to person, oriented to place, oriented to time, oriented to situation, CN II-XII grossly intact. ABSENT: motor sensory deficit Psychiatric exam: PRESENT: appropriate affect, normal mood. ABSENT: homicidal ideation, suicidal ideation Skin exam: PRESENT: dry, warm. ABSENT: cyanosis, rash Results Laboratory Results: 09/30/19 05:05 09/30/19 05:05 09/30/19 09/30/19 05:05 05:05 WBC 13.6 H RBC 4.02 L Hgb 12.6 L Hct 35.9 L MCV 89 MCH 31.3 MCHC 35.0 RDW 12.9 Plt Count 182 Sodium 132.3 L Potassium 3.8 Chloride 101 Carbon Dioxide 23 Anion Gap 8 BUN 11 Creatinine 0.39 L Est GFR ( Amer) > 60 Glucose 240 H Calcium 7.8 L 09/28/19 08:13 Arm - Left Gram Stain - Final Impressions: Extremity Ultrasound 09/27/19 14:01 IMPRESSION: Diffuse subcutaneous oedema. No focal abscess. Suspect nonocclusive SVT. Recommend dedicated left upper extremity venous duplex. Assessment and Plan - Diagnosis (1) Bacteremia Is this a current diagnosis for this admission?: Yes Plan: r/t to abscess from IVDU Blood cultures show strep pyogenes. Blood culture (09/28/2019) NGTD Will evaluate for endocarditis; VINAYAK ordered. Continue Rocephin 2 gm daily Infectious disease is consulted. (2) Abscess of left arm Is this a current diagnosis for this admission?: Yes Plan: s/p surgical I&D Blood cultures show strep pyogenes. Blood culture (09/28/2019) NGTD Wound culture (09/28/2019) show group B beta strep and gram-positive cocci in clusters Patient is admitted to medical floor on continuous cardiac telemetry. He was empirically placed on IV vancomycin and Zosyn; have transitioned to Rocephin given culture results. Surgery is consulted; appreciate their assistance. Wound care per surgery's recommendations. Antiemetics and analgesics as needed. (3) Type 2 diabetes mellitus, uncontrolled Qualifiers: Glycemic state: with hyperglycemia Qualified Code(s): E11.65 - Type 2 diabetes mellitus with hyperglycemia Is this a current diagnosis for this admission?: Yes Plan: Patient reports that he is on metformin as well as 70/30. States he has not taken his medications for several days; has run out. Has not seen a provider since he was released from nursing home. A1C 10.4% Advance to consistent carb diet. Start Lantus 14 units nightly. Accu-Cheks AC at bedtime with Humalog for sliding scale coverage. Hypoglycemia protocol in place. Registered dietitian and cephalometric analyst consulted. (4) IV drug abuse Is this a current diagnosis for this admission?: Yes Plan: Counseled cessation. Observe for withdrawal. Supportive care. (5) Hyperglycemia Is this a current diagnosis for this admission?: Yes Plan: Improved. bgl 810->240s Management as above. (6) Fever Qualifiers: Fever type: unspecified Qualified Code(s): R50.9 - Fever, unspecified Is this a current diagnosis for this admission?: Yes Plan: Resolved. Secondary to #1 - Time Time Spent with patient: 25-34 minutes Medications reviewed and adjusted accordingly: Yes - Inpatient Certification Based on my medical assessment, after consideration of the patient's comorbidities, presenting symptoms, or acuity I expect that the services needed warrant INPATIENT care.: Yes I certify that my determination is in accordance with my understanding of Medicare's requirements for reasonable and necessary INPATIENT services [42 CFR 412.3e].: Yes Medical Necessity: Need for IV Antibiotics, Risk of Complication if Not Cared For in Hospital
[2019-09-30] MEDS: INSULIN GLARGINE,HUM.REC.ANLOG 1,000 UNIT/10 ML VIAL SUBCUT SCH (22:45)
[2019-10-01] MEDS: KETOROLAC TROMETHAMINE INJ/PF 30 MG/1 ML SDV IV PRN ×3 (04:35→21:27)
[2019-10-01 06:23] LABS: HEMATOCRIT 35.3 % (37.9-51.0); HEMOGLOBIN 12.2 g/dL (13.5-17.0); MEAN CORPUSCULAR HEMOGLOBIN 31.2 pg (27.0-33.4); MEAN CORPUSCULAR HGB CONC 34.7 g/dL (32.0-36.0); MEAN CORPUSCULAR VOLUME 90 fl (80-97); PLATELET COUNT 252 10^3/uL (150-450); RED BLOOD COUNT 3.92 10^6/uL (4.35-5.55); RED CELL DISTRIBUTION WIDTH 12.8 % (11.5-14.0)
[2019-10-01] MEDS: OXYCODONE HCL IR 5 MG TABLET PO PRN ×2 (06:28→17:24)
[2019-10-01] MEDS: HEPARIN SOD (PORCINE) 5,000 UNIT/ML 1 ML VIAL SUBCUT SCH ×3 (06:28→21:24)
[2019-10-01] MEDS: INSULIN LISPRO 100 UNIT/ML 3 ML VIAL SUBCUT SCH ×4 (08:17→21:23)
[2019-10-01] MEDS: CEFTRIAXONE 2 GM/D5W RTU 2 GM/50 ML RTUPB IV SCH (10:04)
[2019-10-01] MEDS: FAMOTIDINE 20 MG TABLET PO SCH ×2 (10:05→21:22)
[2019-10-01] MEDS: NICOTINE 21 MG/24 HR PATCH.TD24 TD SCH (10:05)
[2019-10-01] MEDS: DOCUSATE SODIUM 100 MG CAPSULE PO SCH ×2 (10:08→17:24)
--- NOTE | 2019-10-01 10:09 | PDOC PROGRESS REPORT ---
Subjective Progress Note for:: 10/01/19 Subjective:: Resting comfortably. Patient reports dressing on his left arm changed earlier today. Does not report significant discomfort. Reason For Visit: LEFT ANTECUBITAL ABCESS,HYPERGLYCEMIA Physical Exam Vital Signs: Temp Pulse Resp BP Pulse Ox 98.2 F 101 H 16 118/68 99 10/01/19 07:52 10/01/19 07:52 10/01/19 07:52 10/01/19 07:52 10/01/19 07:52 Intake & Output 09/30/19 10/01/19 10/02/19 06:59 06:59 06:59 Intake Total 1460 1570 Output Total 2675 1975 Balance -1215 -405 Weight 72.6 kg 72.6 kg General appearance: PRESENT: no acute distress, cooperative, well-developed, well-nourished Head exam: PRESENT: atraumatic, normocephalic Eye exam: PRESENT: conjunctiva pink. ABSENT: scleral icterus Ear exam: PRESENT: normal external ear exam. ABSENT: bleeding, drainage Mouth exam: PRESENT: dry mucosa, tongue midline Neck exam: ABSENT: carotid bruit, JVD, lymphadenopathy Respiratory exam: PRESENT: rales - Faint rales left base, symmetrical, unlabored. ABSENT: accessory muscle use, prolonged expiratory phas, rhonchi, tachypnea, wheezes Cardiovascular exam: PRESENT: RRR, +S1, +S2, systolic murmur - 3/6. ABSENT: diastolic murmur, irregular rhythm GI/Abdominal exam: PRESENT: normal bowel sounds, soft. ABSENT: distended, guarding, tenderness Rectal exam: PRESENT: deferred Gentrourinary exam: ABSENT: indwelling catheter Extremities exam: PRESENT: other - Still with 1+ edema left hand. ABSENT: pedal edema Musculoskeletal exam: PRESENT: ambulatory, normal inspection. ABSENT: deformity Neurological exam: PRESENT: alert, awake, oriented to person, oriented to place, oriented to time, oriented to situation, CN II-XII grossly intact. ABSENT: altered, motor sensory deficit Psychiatric exam: PRESENT: appropriate affect, normal mood. ABSENT: agitated, anxious Focused psych exam: ABSENT: delusional, paranoid, restlessness Skin exam: PRESENT: other - Dressing left elbow/forearm Results Laboratory Results: 10/01/19 05:26 09/30/19 05:05 10/01/19 05:26 WBC 10.0 RBC 3.92 L Hgb 12.2 L Hct 35.3 L MCV 90 MCH 31.2 MCHC 34.7 RDW 12.8 Plt Count 252 09/28/19 08:13 Arm - Left Gram Stain - Final 09/28/19 08:13 Arm - Left Wound Culture - Final Staphylococcus Epidermidis Group A Beta Streptococcus No Anaerobic Organisms Impressions: Extremity Ultrasound 09/27/19 14:01 IMPRESSION: Diffuse subcutaneous oedema. No focal abscess. Suspect nonocclusive SVT. Recommend dedicated left upper extremity venous duplex. Assessment and Plan - Diagnosis (1) Abscess of left arm Is this a current diagnosis for this admission?: Yes Plan: s/p surgical I&D Blood cultures show strep pyogenes. Blood culture (09/28/2019) NGTD Wound culture (09/28/2019) show group B beta strep and gram-positive cocci in clusters Patient is admitted to medical floor on continuous cardiac telemetry. He was empirically placed on IV vancomycin and Zosyn; have transitioned to Rocephin given culture results. Surgery is consulted; appreciate their assistance. Wound care per surgery's recommendations. Antiemetics and analgesics as needed. 10/01/2019 Surgically debrided. Continue twice daily dressing changes. Continue antibiotics therapy as outlined above. Strep pyogenes appears to be the offen ding organism as it was found in blood and urine cultures. (2) Bacteremia Is this a current diagnosis for this admission?: Yes Plan: r/t to abscess from IVDU Blood cultures show strep pyogenes. Blood culture (09/28/2019) NGTD Will evaluate for endocarditis; VINAYAK ordered. Continue Rocephin 2 gm daily Infectious disease is consulted. 10/01/2019 Repeat blood cultures are negative so far. Transesophageal echocardiogram is still pending. This will help determine the length of treatment. (3) Infection due to Streptococcus pyogenes Is this a current diagnosis for this admission?: Yes Plan: 10/01/2019 Isolated in the wound and blood cultures. Based on the sensitivities the antibiotic regimen and is been changed to ceftriaxone. Once a transesophageal echocardiogram is obtained will be able to determine length of treatment. (4) Uncontrolled diabetes mellitus Qualifiers: Diabetes mellitus type: other specified (including EMELY) Glycemic state: with hyperglycemia Qualified Code(s): E13.65 - Other specified diabetes mellitus with hyperglycemia Is this a current diagnosis for this admission?: Yes Plan: 10/01/2019 Still with uncontrolled glucose levels. I have added a dose of Lantus to the morning regimen in addition to the evening Lantus. Continue to monitor Accu- Cheks and adjust dosing based on sliding scale requirements. (5) Leukocytosis Qualifiers: Leukocytosis type: unspecified Qualified Code(s): D72.829 - Elevated white blood cell count, unspecified Is this a current diagnosis for this admission?: Yes Plan: 10/01/2019 Secondary to streptococcal infection. Resolved with antibiotics. - Time Time Spent with patient: 15-24 minutes Medications reviewed and adjusted accordingly: Yes
[2019-10-01] MEDS: INSULIN GLARGINE,HUM.REC.ANLOG 1,000 UNIT/10 ML VIAL SUBCUT SCH ×2 (11:36→21:23)
[2019-10-02] MEDS: HEPARIN SOD (PORCINE) 5,000 UNIT/ML 1 ML VIAL SUBCUT SCH (05:15)
[2019-10-02 05:56] LABS: ABSOLUTE EOSINOPHILS # (AUTO) 0.1 10^3/uL (0.0-0.6); ABSOLUTE LYMPHOCYTES (AUTO) 2.2 10^3/uL (0.5-4.7); ABSOLUTE NEUT (AUTO) 5.4 10^3/uL (1.7-8.2); BASOPHILS % (AUTO) 0.2 % (0-2); EOSINOPHILS % (AUTO) 1.6 % (0-6); HEMATOCRIT 35.4 % (37.9-51.0); HEMOGLOBIN 12.3 g/dL (13.5-17.0); LYMPHOCYTES % (AUTO) 24.5 % (13-45); MEAN CORPUSCULAR HEMOGLOBIN 31.2 pg (27.0-33.4); MEAN CORPUSCULAR HGB CONC 34.8 g/dL (32.0-36.0); MEAN CORPUSCULAR VOLUME 90 fl (80-97); MONOCYTES % (AUTO) 11.6 % (3-13); PLATELET COUNT 312 10^3/uL (150-450); RED BLOOD COUNT 3.95 10^6/uL (4.35-5.55); SEGMENTED NEUTROPHILS % (AUTO) 62.1 % (42-78); TOTAL CELLS COUNTED % (AUTO) 100 %; WHITE BLOOD COUNT 8.8 10^3/uL (4.0-10.5)
[2019-10-02 06:18] LABS: ALBUMIN 2.5 g/dL (3.5-5.0); ANION GAP 6 (5-19); BLOOD UREA NITROGEN 14 mg/dL (7-20); CALCIUM 8.4 mg/dL (8.4-10.2); CARBON DIOXIDE 32 mmol/L (22-30); CHLORIDE 98 mmol/L (98-107); GLUCOSE 302 mg/dL (75-110); POTASSIUM 3.8 mmol/L (3.6-5.0)
[2019-10-02 06:35] LABS: C-REACTIVE PROTEIN 135.4 mg/L (<10.0)
[2019-10-02] MEDS: OXYCODONE HCL IR 5 MG TABLET PO PRN (07:46)
[2019-10-02] MEDS: INSULIN LISPRO 100 UNIT/ML 3 ML VIAL SUBCUT SCH ×2 (08:21→11:29)
[2019-10-02] MEDS: DOCUSATE SODIUM 100 MG CAPSULE PO SCH (10:03)
[2019-10-02] MEDS: FAMOTIDINE 20 MG TABLET PO SCH (10:03)
[2019-10-02] MEDS: CEFTRIAXONE 2 GM/D5W RTU 2 GM/50 ML RTUPB IV SCH (10:03)
[2019-10-02] MEDS: NICOTINE 21 MG/24 HR PATCH.TD24 TD SCH (10:04)
[2019-10-02] MEDS: INSULIN GLARGINE,HUM.REC.ANLOG 1,000 UNIT/10 ML VIAL SUBCUT SCH (10:04)
--- NOTE | 2019-10-02 11:16 | Progress Note ---
Provider Note Provider Note: [facility] ID Telephone Advice Consultation Chart reviewed. This is a 34-year-old man with history of poorly controlled DM and active IVDU who was admitted due to pain on his left arm. He had fever, chills after injecting amphetamines on his left antecubital area. The arm was swollen and painful. He was septic on admission with fever, tachycardia, leukocytosis. Blood cultures on 09/26 positive for Streptococcus pyogenes. Repat blood cultures from 09/27 remain negative. He has an US of the arm and showed a non occlusive superficial thrombus on left median cubital vein. He was evaluated by surgery and had I&D done on 09/27. There was fasciitis and questionable septic thrombophlebitis. Cultures from the tissue are positive for GAS as well. VINAYAK has been ordered to rule out endocarditis. He was initially on vancomcyin and zosyn, currently on ceftriaxone. ID consulted for recommendations. PMH: DM IVDU Depression Allergies acetaminophen Adverse Reaction (Verified 04/04/19 14:47) Medications: No Home Medications 09/27/19 Vital Signs: Temp Pulse Resp BP Pulse Ox 98.4 F 74 17 122/74 100 10/02/19 07:26 10/02/19 07:26 10/02/19 07:26 10/02/19 07:26 10/02/19 07:26 Intake & Output 10/01/19 10/02/19 10/03/19 06:59 06:59 06:59 Intake Total 1570 170 Output Total 1975 1350 Balance -405 -1180 Weight 72.6 kg 72.6 kg Weight/Height Weight 72.6 kg Height 5 ft 7 in Laboratories: 10/02/19 05:40 10/02/19 05:40 MCV 90 fl (80-97) 10/02/19 05:40 MCH 31.2 pg (27.0-33.4) 10/02/19 05:40 MCHC 34.8 g/dL (32.0-36.0) 10/02/19 05:40 RDW 13.0 % (11.5-14.0) 10/02/19 05:40 Seg Neutrophils % 62.1 % (42-78) 10/02/19 05:40 VBG pH 7.39 (7.30-7.42) 09/27/19 14:07 VBG pCO2 43.3 mmHg (35-63) 09/27/19 14:07 VBG HCO3 25.7 mmol/L (20-32) 09/27/19 14:07 VBG Base Excess 0.5 mmol/L 09/27/19 14:07 Chloride 98 mmol/L (98-107) 10/02/19 05:40 Carbon Dioxide 32 mmol/L (22-30) H 10/02/19 05:40 Anion Gap 6 (5-19) 10/02/19 05:40 Est GFR ( Amer) > 60 (>60) 10/02/19 05:40 Glucose 302 mg/dL (75-110) H 10/02/19 05:40 Lactic Acid 0.7 mmol/L (0.7-2.1) 09/28/19 11:35 Calcium 8.4 mg/dL (8.4-10.2) 10/02/19 05:40 Total Bilirubin 0.9 mg/dL (0.2-1.3) 09/27/19 14:07 AST 16 U/L (17-59) L 09/27/19 14:07 Alkaline Phosphatase 125 U/L (38-126) 09/27/19 14:07 C-Reactive Protein 135.4 mg/L (<10.0) H 10/02/19 05:40 Total Protein 6.6 g/dL (6.3-8.2) 09/27/19 14:07 Albumin 2.5 g/dL (3.5-5.0) L 10/02/19 05:40 Urine Color STRAW 09/27/19 14:07 Urine Appearance CLEAR 09/27/19 14:07 Urine pH 5.0 (5.0-9.0) 09/27/19 14:07 Ur Specific Burton 1.030 09/27/19 14:07 Urine Protein NEGATIVE mg/dL (NEGATIVE) 09/27/19 14:07 Urine Glucose (UA) >=500 mg/dL (NEGATIVE) H 09/27/19 14:07 Urine Ketones TRACE mg/dL (NEGATIVE) H 09/27/19 14:07 Urine Blood NEGATIVE (NEGATIVE) 09/27/19 14:07 Urine Nitrite NEGATIVE (NEGATIVE) 09/27/19 14:07 Ur Leukocyte Esterase NEGATIVE (NEGATIVE) 09/27/19 14:07 Urine WBC (Auto) 0 /HPF 09/27/19 14:07 Urine RBC (Auto) 1 /HPF 09/27/19 14:07 09/28/19 08:13 Arm - Left Gram Stain - Final 09/28/19 08:13 Arm - Left Wound Culture - Final Staphylococcus Epidermidis Group A Beta Streptococcus No Anaerobic Organisms Microbiology: Blood cultures: 09/26 GAS 09/27 NGTD Wound Culture: 09/27 GAS, Staphylococcus epidermidis Radiology: Extremity Ultrasound 09/27/19 14:01 IMPRESSION: Diffuse subcutaneous edema. No focal abscess. Suspect nonocclusive SVT. Recommend dedicated left upper extremity venous duplex. Assessment and Recommendations: Case evaluated due to GAS bacteremia in the setting of active IVDU with left antecubital fossa abscess with the same organism probably complicated by septic thrombophlebitis (superficial thrombus). A VINAYAK is still pending to rule out endocarditis. He is doing clinically better per notes afebrile and HD stable now, leukocytosis has resolved. Hyperglycemia still a problem. Due to this c ase being so complex, will recommend a minimum of 4 weeks of ceftriaxone 2g Iv daily. If VINAYAK is positive, he will need 6 weeks of therapy. He is actively using drugs, not a candidate for PICC line - home infusion due to high risk. Unfortunately not good oral beta lactams or other oral alternative safe to be given during that prolonged course. Please with updates or questions. Flaca Manzo MD [facility] ID [phone]
[2019-10-02 13:49] VITALS: BP 93/56
--- NOTE | 2019-10-02 13:58 | Left Against Medical Advice ---
Against Medical Advice Admission Date/Time: 09/27/19 15:48 Primary Care Provider: ANG COHN MD Date of Patient Emigration: 10/02/19 - Diagnosis: (1) Abscess of left arm Is this a current diagnosis for this admission?: Yes (2) Bacteremia Is this a current diagnosis for this admission?: Yes (3) Infection due to Streptococcus pyogenes Is this a current diagnosis for this admission?: Yes (4) Uncontrolled diabetes mellitus Is this a current diagnosis for this admission?: Yes (5) Leukocytosis Is this a current diagnosis for this admission?: Yes - Summary: Summary: Please see Admission and Progress Notes as well. SUDHA BEGUM is a 34 M, who LEFT AGAINST MEDICAL ADVICE. The Patient was admitted on 09/27/19 15:48. The patient developed a worsening antecubital/forearm abscess secondary to intravenous drug use. This required surgical intervention with incision, drainage and extensive irrigation. The group A strep was not only isolated from the abscess but also the patient's blood. He did have a heart murmur when this was worrisome for endocarditis. We were able to obtain an echocardiogram prior to the patient's leaving. There is no gross evidence of valve vegetation. The infectious disease recommendation as well as long-term IV antibiotics of 6 weeks duration with a negative echocardiogram. This was explained to the patient. I explained that you have not received antibiotics for a long enough period of time. He states that he would follow-up with Dr. Cohn, who is his primary care provider. Because of the extreme risk of severe complications I did provide a prescription for ampicillin. I explained that his primary care provider can assess the data and make further recommendations at the follow-up appointment. The patient understood all of these risks but in fact decided to leave AGAINST MEDICAL ADVICE anyway.
--- NOTE | 2019-10-02 16:10 | XCELERA REPORT ---
[address] [address] Transthoracic Echocardiogram Report Name: SUDHA BEGUM Age: 34 yrs Gender: Male : 1985 Patient Status: Inpatient Patient Location: [facility]^A Study Date: 10/02/2019 10:03 AM History: IVDU Bacteremia Height: 67 in Weight: 160 lb BSA: 1.8 m2 Procedure: A complete two-dimensional transthoracic echocardiogram was performed (2D, M-mode, spectral and color flow Doppler). The study was technically adequate with some images being suboptimal in quality. Reason For Study: IVDU, bacteremia Previous Evaluation: No previous studies were available. History: IVDU Bacteremia. Ordering Physician: DIDI KING Performed By: Irene Hurst Interpretation Summary Left ventricular systolic function is normal. The Ejection Fraction estimate is 55-60% The right ventricle is normal in size and function. There is a trace amount of mitral regurgitation There is no aortic valve stenosis There is a mild amount of tricuspid regurgitation There is no pericardial effusion. No vegetation seen on this exam. Can consider VINAYAK if indicated clinically. MMode/2D Measurements & Calculations RVDd: 3.9 cm LVIDd: 5.0 cm FS: 32.7 % Ao root diam: 3.0 cm IVSd: 0.82 cm LVIDs: 3.4 cm EDV(Teich): 117.4 ml Ao root area: 7.1 cm2 LVPWd: 0.80 cm ESV(Teich): 45.9 ml EF(Teich): 60.9 % Doppler Measurements & Calculations MV E max yohana: MV dec slope: Ao V2 max: LV V1 max P.9 cm/sec 372.1 cm/sec2 118.0 cm/sec 3.7 mmHg MV A max yohana: MV dec time: 0.17 secAo max P.6 mmHgLV V1 max: 75.4 cm/sec 95.7 cm/sec MV E/A: 0.82 PA V2 max: PI end-d yohana: TR max yohana: 77.7 cm/sec 109.4 cm/sec 204.1 cm/sec PA max P.4 mmHg TR max P.7 mmHg Left Ventricle The left ventricle is grossly normal size. There is normal left ventricular wall thickness. Left ventricular systolic function is normal. The Ejection Fraction estimate is 55-60%. Doppler measurements suggest normal left ventricular diastolic function. No regional wall motion abnormalities noted. Right Ventricle The right ventricle is normal in size and function. Atria The right atrium is normal. The left atrium is borderline dilated. The interatrial septum is intact with no evidence for an atrial septal defect. There is no Doppler evidence for an interatrial shunt. Mitral Valve The mitral valve is grossly normal. There is no vegetation seen on the mitral valve. There is a trace amount of mitral regurgitation. Aortic Valve The aortic valve opens well. The aortic valve is normal in structure and function. The aortic valve is trileaflet. There is no aortic valvular vegetation. There is no aortic valve stenosis. No aortic regurgitation is present. Tricuspid Valve The tricuspid valve is normal in structure and function. There is no tricuspid valve vegetation. There is a mild amount of tricuspid regurgitation. Right ventricular systolic pressure is estimated to be within upper limit of normal. Pulmonic Valve The pulmonic valve is normal in structure and function. There is a trace amount of pulmonic regurgitation. Great Vessels The aortic root is normal size. Effusions There is no pericardial effusion. : DIDI KING Anil
== END 2019-10-02 14:08 | disposition left against medical advice (07) | DRG 580 ==
LOC: ER 13:14 → EH 15:48 → OBSVTOIN 15:48 → 4S 17:34
PROVIDERS: ADMIT Internal Medicine; ATTEND Hospitalist
PROC: 0K980ZZ Drainage of Left Upper Arm Muscle, Open Approach (ICD-10-PCS; principal; 2019-09-28 08:00)
DX: L02.414 Cutaneous abscess of left upper limb (principal); R78.81 Bacteremia; E87.1 Hypo-osmolality and hyponatremia; I82.612 Acute embolism and thrombosis of superficial veins of left upper extremity; B95.0 Streptococcus, group A, as the cause of diseases classified elsewhere; F12.10 Cannabis abuse, uncomplicated; E87.5 Hyperkalemia; E11.65 Type 2 diabetes mellitus with hyperglycemia; Z53.29 Procedure and treatment not carried out because of patient's decision for other reasons; F15.10 Other stimulant abuse, uncomplicated; F19.10 Other psychoactive substance abuse, uncomplicated; F32.9 Major depressive disorder, single episode, unspecified; F17.200 Nicotine dependence, unspecified, uncomplicated; Z20.828 Contact with and (suspected) exposure to other viral communicable diseases; I10 Essential (primary) hypertension; K02.9 Dental caries, unspecified; R01.1 Cardiac murmur, unspecified; Z79.84 Long term (current) use of oral hypoglycemic drugs; Z88.6 Allergy status to analgesic agent; Z91.14 Patient's other noncompliance with medication regimen
CPT/HCPCS: 36415; 400; 76882; 80048; 80053; 80202; 80307; 81001; 82040; 82565; 82803; 82962; 83036; 83605; 85025; 85027; 85610; 85652; 86140; 87040; 87070; 87075; 87077; 87150; 87186; 87205; 87635; 93005; 93010; 93306; 96361; 96365; 96368; 99291; G0378; J0330; J0696; J1170; J1644; J1815; J1885; J2250; J2405; J2543; J2704; J3010; J3370; J3490; J7030; J7050; J7060

== ENCOUNTER 2019-11-04 17:07 | Emergency (ER) | payer SELFPAY ==
[2019-11-04 18:09] LABS: ABSOLUTE BASOPHILS # (AUTO) 0.1 10^3/uL (0.0-0.2); ABSOLUTE LYMPHOCYTES (AUTO) 1.2 10^3/uL (0.5-4.7); ABSOLUTE MONOCYTES (AUTO) 0.7 10^3/uL (0.1-1.4); ABSOLUTE NEUT (AUTO) 10.5 10^3/uL (1.7-8.2); BASOPHILS % (AUTO) 0.5 % (0-2); EOSINOPHILS % (AUTO) 0.3 % (0-6); HEMATOCRIT 37.6 % (37.9-51.0); HEMOGLOBIN 12.4 g/dL (13.5-17.0); LYMPHOCYTES % (AUTO) 9.3 % (13-45); MEAN CORPUSCULAR HEMOGLOBIN 30.1 pg (27.0-33.4); MEAN CORPUSCULAR VOLUME 92 fl (80-97); MONOCYTES % (AUTO) 5.8 % (3-13); PLATELET COUNT 248 10^3/uL (150-450); RED BLOOD COUNT 4.11 10^6/uL (4.35-5.55); RED CELL DISTRIBUTION WIDTH 13.2 % (11.5-14.0); SEGMENTED NEUTROPHILS % (AUTO) 84.1 % (42-78); TOTAL CELLS COUNTED % (AUTO) 100 %; WHITE BLOOD COUNT 12.5 10^3/uL (4.0-10.5)
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
[2019-11-04 18:22] LABS: ALBUMIN 3.5 g/dL (3.5-5.0); ALKALINE PHOSPHATASE 123 U/L (38-126); ANION GAP 7 (5-19); ASPARTATE AMINO TRANSFERASE 66 U/L (17-59); BILIRUBIN,TOTAL 0.6 mg/dL (0.2-1.3); BLOOD UREA NITROGEN 11 mg/dL (7-20); CALCIUM 8.9 mg/dL (8.4-10.2); CARBON DIOXIDE 29 mmol/L (22-30); CHLORIDE 96 mmol/L (98-107); POTASSIUM 4.5 mmol/L (3.6-5.0); TOTAL PROTEIN 6.6 g/dL (6.3-8.2)
[2019-11-04 18:27] LABS: ACETAMINOPHEN < 10 ug/mL (10-30); ALCOHOL < 10 mg/dL (NONE DETECTED); SALICYLATE < 1.0 mg/dL (2.0-20.0)
[2019-11-04 18:29] LABS: GLUCOSE 575 mg/dL (75-110)
[2019-11-04 18:34] LABS: URINE BARBITURATES SCREEN NEGATIVE; URINE BENZODIAZEPINES SCREEN NEGATIVE; URINE COCAINE SCREEN NEGATIVE; URINE METHADONE SCREEN NEGATIVE; URINE PHENCYCLIDINE SCREEN NEGATIVE
[2019-11-04 18:37] LABS: APPEARANCE,URINE CLEAR; BILIRUBIN,URINE NEGATIVE (NEGATIVE); COLOR,URINE STRAW; GLUCOSE, URINE >=500 mg/dL (NEGATIVE); KETONES,URINE NEGATIVE (NEGATIVE); LEUKOCYTE ESTERASE,URINE NEGATIVE (NEGATIVE); NITRITE,URINE NEGATIVE (NEGATIVE); PROTEIN,URINE NEGATIVE (NEGATIVE); URINE AMPHETAMINES SCREEN UNCONFIRMED POSITIVE; URINE MARIJUANA (THC) SCREEN UNCONFIRMED POSITIVE; URINE SPECIFIC GRAVITY 1.025; UROBILINOGEN,URINE NEGATIVE mg/dL (<2.0)
[2019-11-04] MEDS ORDERED: INSULIN REG, HUMAN 100 UNIT/ML 3 ML VIAL (PYX) IV ONE (19:23)
[2019-11-04 21:11] VITALS: BP 123/91
--- NOTE | 2019-11-06 02:26 | EKG REPORT ---
SEVERITY:- OTHERWISE NORMAL ECG - SINUS TACHYCARDIA : Confirmed by: Darlene Rosa MD 06-Nov-2019 02:26:30
== END 2019-11-04 21:10 | disposition home or self-care (01) ==
LOC: ER 17:07
DX: T50.904A Poisoning by unspecified drugs, medicaments and biological substances, undetermined, initial encounter (principal); Y92.818 Other transport vehicle as the place of occurrence of the external cause; F11.10 Opioid abuse, uncomplicated; S00.11XA Contusion of right eyelid and periocular area, initial encounter; S00.81XA Abrasion of other part of head, initial encounter; X58.XXXA Exposure to other specified factors, initial encounter; R53.1 Weakness; R00.0 Tachycardia, unspecified; E11.65 Type 2 diabetes mellitus with hyperglycemia; F17.210 Nicotine dependence, cigarettes, uncomplicated; Z79.84 Long term (current) use of oral hypoglycemic drugs
CPT/HCPCS: 93005; 99285; 96374; 36415; 82962; 80307 ×4; 85025; 80053; 81001; 93010; J1815

== ENCOUNTER 2019-11-07 22:00 | Inpatient (IN) | payer OTHER ==
[2019-11-07] MEDS ORDERED: NORMAL SALINE 1000 ML 1,000 ML IV ONE ×2 (22:09→23:36)
[2019-11-07 22:55] LABS: ABSOLUTE BASOPHILS # (AUTO) 0.1 10^3/uL (0.0-0.2); ABSOLUTE LYMPHOCYTES (AUTO) 1.1 10^3/uL (0.5-4.7); ABSOLUTE MONOCYTES (AUTO) 1.1 10^3/uL (0.1-1.4); ABSOLUTE NEUT (AUTO) 13.1 10^3/uL (1.7-8.2); BASOPHILS % (AUTO) 0.9 % (0-2); EOSINOPHILS % (AUTO) 0.2 % (0-6); HEMATOCRIT 44.2 % (37.9-51.0); HEMOGLOBIN 14.8 g/dL (13.5-17.0); LYMPHOCYTES % (AUTO) 7.2 % (13-45); MEAN CORPUSCULAR HEMOGLOBIN 30.5 pg (27.0-33.4); MEAN CORPUSCULAR HGB CONC 33.5 g/dL (32.0-36.0); MEAN CORPUSCULAR VOLUME 91 fl (80-97); MONOCYTES % (AUTO) 7.4 % (3-13); PLATELET COUNT 303 10^3/uL (150-450); RED BLOOD COUNT 4.85 10^6/uL (4.35-5.55); RED CELL DISTRIBUTION WIDTH 13.1 % (11.5-14.0); SEGMENTED NEUTROPHILS % (AUTO) 84.3 % (42-78); TOTAL CELLS COUNTED % (AUTO) 100 %; WHITE BLOOD COUNT 15.6 10^3/uL (4.0-10.5)
[2019-11-07 22:56] LABS: VENOUS BLOOD BASE EXCESS 4.5 mmol/L; VENOUS BLOOD PCO2 59.6 mmHg (35-63); VENOUS BLOOD PH 7.35 (7.30-7.42)
[2019-11-07 23:08] LABS: ALBUMIN 3.9 g/dL (3.5-5.0); ALKALINE PHOSPHATASE 153 U/L (38-126); ANION GAP 11 (5-19); ASPARTATE AMINO TRANSFERASE 23 U/L (17-59); BILIRUBIN,DIRECT 0.2 mg/dL (0.0-0.4); BILIRUBIN,TOTAL 0.8 mg/dL (0.2-1.3); BLOOD UREA NITROGEN 16 mg/dL (7-20); CALCIUM 9.8 mg/dL (8.4-10.2); CARBON DIOXIDE 31 mmol/L (22-30); CHLORIDE 87 mmol/L (98-107); CREATINE KINASE 33 U/L (55-170); POTASSIUM 5.7 mmol/L (3.6-5.0); TOTAL PROTEIN 7.9 g/dL (6.3-8.2)
[2019-11-07 23:19] LABS: GLUCOSE 642 mg/dL (75-110)
[2019-11-07 23:20] LABS: APPEARANCE,URINE CLEAR; BILIRUBIN,URINE NEGATIVE (NEGATIVE); COLOR,URINE STRAW; CREATINE KINASE MB 0.28 ng/mL (<4.55); GLUCOSE, URINE >=500 mg/dL (NEGATIVE); KETONES,URINE 20 mg/dL (NEGATIVE); LEUKOCYTE ESTERASE,URINE NEGATIVE (NEGATIVE); NITRITE,URINE NEGATIVE (NEGATIVE); PROTEIN,URINE NEGATIVE (NEGATIVE); TROPONIN I < 0.012 ng/mL; URINE SPECIFIC GRAVITY 1.031; UROBILINOGEN,URINE NEGATIVE mg/dL (<2.0)
[2019-11-07] MEDS ORDERED: INSULIN REG, HUMAN 100 UNIT/ML 3 ML VIAL (PYX) IV ONE (23:35)
--- NOTE | 2019-11-07 23:49 | RADIOLOGY REPORT (SQ) ---
XR CHEST 2 VIEWS HISTORY: Chest pain. COMPARISON: 11/28/2018 FINDINGS: The heart size is within normal limits. There is no pulmonary vascular congestion. There is a focal opacity in the left midlung zone. No pleural effusions or pneumothorax is seen. The bony structures are preserved. IMPRESSION: Focal opacity in the left lung which may represent edema or infection.
[2019-11-08] MEDS ORDERED: CEFTRIAXONE 1 GM/D5W RTU 1 GM/50 ML RTUPB IV ONE (00:11)
[2019-11-08] MEDS ORDERED: AZITHROMYCIN INJ 500 MG VIAL IV ONE (00:11)
[2019-11-08] MEDS ORDERED: NORMAL SALINE 500 ML IV ONE (00:44)
[2019-11-08] MEDS ORDERED: KETOROLAC TROMETHAMINE INJ/PF 30 MG/1 ML SDV IV ONE (00:49)
[2019-11-08] MEDS ORDERED: ACETAMINOPHEN 325 MG TABLET PO ONE (00:49)
--- NOTE | 2019-11-08 00:53 | ER Document Report ---
ED General - General Chief Complaint: High Blood Sugar Stated Complaint: CHEST WALL PAIN Time Seen by Provider: 11/07/19 22:50 Primary Care Provider: ANG COHN MD [Primary Care Provider] - Follow up as needed TRAVEL OUTSIDE OF THE [place] IN LAST 30 DAYS: No - HPI Notes: Patient is a 34-year-old male who presents to the emergency department for evaluation of chest pain, elevated glucose, coughing. The patient was actually seen here the other day for heroin overdose. He was revived by EMS. He left AGAINST MEDICAL ADVICE. He states that since then he said some lower sternal chest pain. It sharp. Is worse when you touch it, is worse with deep breaths, is worse with cough. He states he was told he did not receive CPR, no report of that was given to him or to ED provider here. The patient is unsure as to whether or not he has had some fevers. He has been feeling hot and cold. He admits he used heroin earlier today to try and help him with his pain, he states he may have also injected some ice at that time. - Related Data Allergies/Adverse Reactions: acetaminophen Adverse Reaction (Verified 11/07/19 22:39) Home Medications: INSULIN, METFORMIN Past Medical History - General Information source: Patient - Social History Smoking Status: Current Every Day Smoker Frequency of alcohol use: None Drug Abuse: Heroin Family History: Reviewed & Not Pertinent Patient has homicidal ideation: No Endocrine Medical History: Reports: Hx Diabetes Mellitus Type 2 Renal/ Medical History: Denies: Hx Peritoneal Dialysis GI Medical History: Reports: Hx Hepatitis Musculoskeletal Medical History: Reports Hx Musculoskeletal Trauma - Clavicle Psychiatric Medical History: Reports: Hx Depression Traumatic Medical History: Reports: Hx Fractures - Clavicle, nose Past Surgical History: Reports: Hx Nose Surgery, Other - Arm abscess I&D in the OR - Immunizations Hx Diphtheria, Pertussis, Tetanus Vaccination: No Hx Pneumococcal Vaccination: 06/04/14 Review of Systems - Review of Systems Constitutional: See HPI Cardiovascular: See HPI Respiratory: See HPI -: Yes All other systems reviewed and negative Physical Exam - Vital signs Vitals: Temp 98.7 F 11/07/19 22:01 - Notes Notes: This is a 34-year-old male who appears older than his stated age. He is extremely disheveled. He is in a moderate amount of distress. He is lying right lateral recumbent on the bed, intermittently moaning out, but awakes to verbal stimulus, cooperative with examiner. Vital signs reviewed, please refer to chart. Head is normocephalic, atraumatic. Pupils equal round, reactive to light. Neck is supple without meningismus. Heart is regular rate and rhythm. Lungs are clear to auscultation bilaterally. He is markedly tender over the xiphoid process and the inferior sternum, without crepitance. Abdomen is soft, globally tender without rebound or guarding, normoactive bowel sounds throughout. Extremities without cyanosis, clubbing. Posterior calves are nontender. Peripheral pulses are equal. Skin is warm and dry. He has a healing wound in the left antecubital region, consistent with an old abscess. No signs of surrounding cellulitis. Patient is awake, alert, neurological exam is nonfocal. Course - Re-evaluation Re-evalutation: 11/08/19 00:58 Patient presents to the emergency department for evaluation. He had laboratory investigations as ordered. Chest x-ray shows findings consistent with a pneumonia. He had blood cultures. He was given a 2.5 L normal saline bolus. He is given Rocephin and Zithromax. His chest wall pain is clearly musculoskeletal, but it is likely contributing to his pneumonia. I explained to the patient I am happy to treat him with nonnarcotic medications, but he would not be receiving narcotics on the hospital. He voiced understanding to this. Patient's glucose was found to be 640. He is awake and alert, I do not have a high suspicion for hyperosmolar syndrome. He is also hyperkalemic. He is given IV push of insulin. He is not acidotic. This is in hopes of or shifting the potassium. Repeat BMP is ordered. The patient states he is a patient of Dr. Cohn, but is in fact not seen him in over 4 years. I did verify that he is not his patient with Dr. Cohn. I will contact medicine for further care. 11/08/19 01:[address] Arevalo. He will admit the patient for further care. BMP is pending at this time. - Vital Signs Vital signs: Temp Pulse Resp BP Pulse Ox 98.7 F 21 H 130/72 H 97 11/07/19 22:01 11/07/19 23:01 11/07/19 23:01 11/07/19 23:01 - Laboratory Result Diagrams: 11/07/19 22:19 11/07/19 22:19 Laboratory results interpreted by me: 11/07/19 11/07/19 11/07/19 22:19 22:19 22:19 WBC 15.6 H Lymph % (Auto) 7.2 L Absolute Neuts (auto) 13.1 H Seg Neutrophils % 84.3 H Sodium 128.8 L Potassium 5.7 H Chloride 87 L Carbon Dioxide 31 H Glucose 642 H* Alkaline Phosphatase 153 H Creatine Kinase 33 L Urine Glucose (UA) >=500 H Urine Ketones 20 H Urine Blood SMALL H - Diagnostic Test Radiology reviewed: Reports reviewed Radiology results interpreted by me: 11/08/19 01:02 Chest X-Ray 11/07/19 00:00 IMPRESSION: Focal opacity in the left lung which may represent edema or infection. - EKG Interpretation by Me Additional EKG results interpreted by me: 11/08/19 01:08 Sinus tachycardia with a rate of 102 bpm. Normal axis and intervals. No acute ST changes concerning for ischemia or infarction. Discharge - Discharge Clinical Impression: Hyperkalemia Sepsis Qualifiers: Sepsis type: sepsis due to unspecified organism Sepsis acute organ dysfunction status: without acute organ dysfunction Qualified Code(s): A41.9 - Sepsis, unspecified organism Type 2 diabetes mellitus, uncontrolled Qualifiers: Glycemic state: with hyperglycemia Qualified Code(s): E11.65 - Type 2 diabetes mellitus with hyperglycemia Pneumonia Qualifiers: Pneumonia type: due to unspecified organism Laterality: left Lung location: unspecified part of lung Qualified Code(s): J18.9 - Pneumonia, unspecified organism Hyperglycemia due to type 2 diabetes mellitus Qualifiers: Diabetes mellitus fpc insulin use: with fpc use Qualified Code(s): E11.65 - Type 2 diabetes mellitus with hyperglycemia Condition: Stable Disposition: ADMITTED INPATIENT Admitting Provider: Irina (Hospitalist) Unit Admitted: Telemetry Referrals: ANG COHN MD [Primary Care Provider] - Follow up as needed
[2019-11-08 01:31] LABS: ANION GAP 9 (5-19); BLOOD UREA NITROGEN 10 mg/dL (7-20); CALCIUM 7.5 mg/dL (8.4-10.2); CARBON DIOXIDE 26 mmol/L (22-30); CHLORIDE 99 mmol/L (98-107); GLUCOSE 385 mg/dL (75-110)
[2019-11-08 01:37] LABS: POTASSIUM 3.6 mmol/L (3.6-5.0)
--- NOTE | 2019-11-08 02:14 | PDOC H&P ---
History of Present Illness Admission Date/PCP: ANG COHN MD History of Present Illness: SUDHA BEGUM is a 34 year old male past medical history of heroin abuse, uncontrolled diabetes, medication noncompliance, left upper extremity abscess, bacteremia, sepsis, pneumonia. Last admission here at [facility] on 09/27/2019, diagnosed with left arm abscess, Streptococcus pyogenes bacteremia was started on IV antibiotics but unfortunately left AMA on 10/02/2019. Last ED admission was 11/04/2019 for heroin overdose was sent home after receiving Narcan. Today he is presenting ED complaining of left-sided chest pain, productive cough and fever. Chest pain is left-sided, sharp, nonradiating, worse with breathing and movement, better with rest, 5/10 intensity scale. Denies any vision changes, headache, nausea, vomiting, abdominal pain, diarrhea, constipation, rash, dysuria, hematuria, joint pain, joint swelling, oral lesions or ulcers. In ED was noted to have leukocytosis, hyperglycemia, hyperkalemia, hyponatremia, with chest x-ray showing focal opacity in the left lung. Past Medical History Endocrine Medical History: Reports: Diabetes Mellitus Type 2 GI Medical History: Reports: Hepatitis Psychiatric Medical History: Reports: Depression Past Surgical History Past Surgical History: Reports: Other - Arm abscess I&D in the OR Social History Smoking Status: Current Every Day Smoker Frequency of Alcohol Use: None Hx Recreational Drug Use: Yes Drugs: Heroin, Marijuana, Methadone, Other Hx Prescription Drug Abuse: No Family History Family History: Reviewed & Not Pertinent Parental Family History Reviewed: Yes Children Family History Reviewed: Yes Sibling(s) Family History Reviewed.: Yes Medication/Allergy Home Medications: Ampicillin Trihydrate [Princepen 500 mg Capsule] 1 cap PO QID #40 cap 10/02/19 Allergies/Adverse Reactions: acetaminophen Adverse Reaction (Verified 11/07/19 22:39) Review of Systems Review of Systems: as per hpi Physical Exam Vital Signs: Temp Pulse Resp BP Pulse Ox 98.7 F 21 H 130/72 H 97 11/07/19 22:01 11/07/19 23:01 11/07/19 23:01 11/07/19 23:01 Intake & Output 11/06/19 11/07/19 11/08/19 06:59 06:59 06:59 Intake Total 1050 Balance 1050 Weight 77.111 kg General appearance: PRESENT: mild distress, well-developed, well-nourished Head exam: PRESENT: atraumatic, normocephalic Respiratory exam: PRESENT: clear to auscultation fran, tachypnea. ABSENT: rales, rhonchi, wheezes Cardiovascular exam: PRESENT: RRR, tachycardia. ABSENT: diastolic murmur, rubs, systolic murmur GI/Abdominal exam: PRESENT: normal bowel sounds, soft. ABSENT: distended, guarding, mass, organolmegaly, rebound, tenderness Extremities exam: PRESENT: full ROM. ABSENT: calf tenderness, clubbing, pedal edema Neurological exam: PRESENT: alert, awake, oriented to person, oriented to place, oriented to time, oriented to situation, CN II-XII grossly intact. ABSENT: mot or sensory deficit Skin exam: PRESENT: other - Multiple scabs bilateral upper extremity. Results Laboratory Results: 11/07/19 22:19 11/08/19 00:45 11/07/19 11/07/19 11/07/19 22:19 22:19 22:19 WBC 15.6 H RBC 4.85 Hgb 14.8 Hct 44.2 MCV 91 MCH 30.5 MCHC 33.5 RDW 13.1 Plt Count 303 Seg Neutrophils % 84.3 H VBG pH VBG pCO2 VBG HCO3 VBG Base Excess Sodium 128.8 L Potassium 5.7 H Chloride 87 L Carbon Dioxide 31 H Anion Gap 11 BUN 16 Creatinine 0.61 Est GFR ( Amer) > 60 Glucose 642 H* Lactic Acid 2.0 Calcium 9.8 Total Bilirubin 0.8 AST 23 Alkaline Phosphatase 153 H Total Protein 7.9 Albumin 3.9 Urine Color Urine Appearance Urine pH Ur Specific [place] Urine Protein Urine Glucose (UA) Urine Ketones Urine Blood Urine Nitrite Ur Leukocyte Esterase Urine WBC (Auto) Urine RBC (Auto) 11/07/19 11/07/19 11/08/19 22: 22: 00:45 WBC RBC Hgb Hct MCV MCH MCHC RDW Plt Count Seg Neutrophils % VBG pH 7.35 VBG pCO2 59.6 VBG HCO3 32.0 VBG Base Excess 4.5 Sodium 133.8 L Potassium 3.6 D Chloride 99 Carbon Dioxide 26 Anion Gap 9 BUN 10 Creatinine 0.47 L Est GFR ( Amer) > 60 Glucose 385 H Lactic Acid Calcium 7.5 L Total Bilirubin AST Alkaline Phosphatase Total Protein Albumin Urine Color STRAW Urine Appearance CLEAR Urine pH 6.0 Ur Specific [place] 1.031 Urine Protein NEGATIVE Urine Glucose (UA) >=500 H Urine Ketones 20 H Urine Blood SMALL H Urine Nitrite NEGATIVE Ur Leukocyte Esterase NEGATIVE Urine WBC (Auto) 1 Urine RBC (Auto) 1 11/07/19 11/07/19 22:19 22:19 Creatine Kinase 33 L CK-MB (CK-2) 0.28 Troponin I < 0.012 Impressions: Chest X-Ray 11/07/19 00:00 IMPRESSION: Focal opacity in the left lung which may represent edema or infection. Assessment and Plan - Diagnosis (1) Pneumonia Qualifiers: Pneumonia type: due to unspecified organism Laterality: left Lung location: unspecified part of lung Qualified Code(s): J18.9 - Pneumonia, unspecified organism Is this a current diagnosis for this admission?: Yes Plan: Given history of recent hospitalization likely healthcare associated pneumonia. Admit to telemetry, broad-spectrum empiric IV antibiotic, blood culture, sputum culture. (2) Heroin abuse Is this a current diagnosis for this admission?: Yes Plan: History of heavy heroin abuse. Last heroin abuse 11/08/2019. Monitor for withdrawal, monitor vitals, supportive measures. (3) Hyponatremia Is this a current diagnosis for this admission?: Yes Plan: Pseudohyponatremia most likely due to hyperglycemia. Monitor procedure, correct underlying hyperglycemia. (4) Uncontrolled diabetes mellitus Qualifiers: Diabetes mellitus type: type 2 Is this a current diagnosis for this admission?: Yes Plan: History of uncontrolled diabetes due to noncompliance. Basal, prandial and correctional insulin. Hypoglycemia protocol. Accu-Chek. Diabetic education. (5) Hyperkalemia Is this a current diagnosis for this admission?: Yes Plan: No acute EKG change. Admit to telemetry. Hyperkalemia protocol. (6) Leukocytosis Qualifiers: Leukocytosis type: unspecified Qualified Code(s): D72.829 - Elevated white blood cell count, unspecified Is this a current diagnosis for this admission?: Yes Plan: Given history of recurrent bacteremia and medication noncompliance endocarditis is a possibility. Note. Patient was admitted last month with a Streptococcus mitis bacteremia, 2D echo negative for any vegetation, unfortunate patient left AMA. Broad-spectrum empiric IV antibiotics. Blood culture. 2D echo to rule out endocarditis.
[2019-11-08] MEDS ORDERED: SODIUM POLYSTYRENE SULFONATE 15 GM/60 ML PO ONE (02:15)
[2019-11-08] MEDS ORDERED: VANCOMYCIN HCL 0 MG in DEXTROSE 5%-WATER 250 ML IV NR (02:15)
[2019-11-08] MEDS ORDERED: GLUCAGON,HUMAN RECOMB 1 MG INJ IM PRN (02:16)
[2019-11-08] MEDS ORDERED: DEXTROSE 50%-WATER 25 GM/50 ML DISP.SYRIN IV PRN ×2 (02:16)
[2019-11-08] MEDS ORDERED: DEXTROSE 40% GEL 15 GM TUBE PO PRN ×2 (02:16)
[2019-11-08] MEDS ORDERED: MAGNESIUM HYDROXIDE SUSP 30 ML UDCUP PO PRN (02:18)
[2019-11-08] MEDS ORDERED: PROMETHAZINE HCL INJ 25 MG/1 ML VIAL IV PRN (02:18)
[2019-11-08] MEDS ORDERED: ONDANSETRON HCL INJ/PF 4 MG/2 ML SDV IV PRN (02:18)
[2019-11-08] MEDS ORDERED: MAG HYDROX/AL HYDROX/SIMETH SUSP 30 ML UDCUP PO PRN (02:18)
[2019-11-08] MEDS ORDERED: IPRATROPIUM/ALBUTEROL 0.5-2.5 MG/3 ML AMPUL NEB PRN (02:18)
[2019-11-08] MEDS ORDERED: TRAMADOL HCL 50 MG TABLET PO PRN (02:22)
[2019-11-08] MEDS ORDERED: PIPERACILLIN/TAZOBACTAM 3.375 GM VIAL IV PRN (02:40)
[2019-11-08] MEDS ORDERED: VANCOMYCIN HCL INJ 1000 MG VIAL IV PRN (02:43)
[2019-11-08] MEDS ORDERED: PIPERACILLIN/TAZOBACTAM 4.5 GM VIAL IV PRN (02:45)
[2019-11-08] MEDS ORDERED: INSULIN GLARGINE,HUM.REC.ANLOG 1,000 UNIT/10 ML VIAL SUBCUT ONE (02:45)
[2019-11-08] MEDS ORDERED: VANCOMYCIN HCL 1,500 MG in DEXTROSE 5%-WATER 250 ML IV ONE (04:00)
[2019-11-08] MEDS: NORMAL SALINE 1000 ML 1,000 ML IV PRN ×2 (04:41→17:29)
[2019-11-08] MEDS ORDERED: VANCOMYCIN HCL INJ 500 MG VIAL ONE (05:03)
[2019-11-08] MEDS ORDERED: VANCOMYCIN HCL INJ 1000 MG VIAL ONE (05:03)
[2019-11-08] MEDS ORDERED: PIPERACILLIN/TAZOBACTAM 4.5 GM VIAL IV ONE (05:03)
[2019-11-08] MEDS: PIPERACILLIN SODIUM/TAZOBACTAM 4.5 GM in NORMAL SALINE 100 ML IV SCH ×4 (05:38→20:34)
[2019-11-08] MEDS: INSULIN REG, HUMAN 100 UNIT/ML 3 ML VIAL (PYX) SUBCUT SCH ×4 (07:44→21:45)
[2019-11-08] MEDS: KETOROLAC TROMETHAMINE INJ/PF 30 MG/1 ML SDV IV PRN ×3 (10:31→23:44)
[2019-11-08] MEDS: DOCUSATE SODIUM 100 MG/10 ML UDC PO SCH (10:31)
[2019-11-08] MEDS: FAMOTIDINE 20 MG TABLET PO SCH ×2 (10:31→21:46)
[2019-11-08] MEDS: ENOXAPARIN SODIUM INJ 40 MG/0.4 ML DISP.SYRIN SUBCUT SCH (10:32)
[2019-11-08] MEDS: VANCOMYCIN HCL 1,000 MG in DEXTROSE 5%-WATER 250 ML IV SCH ×2 (13:39→21:46)
[2019-11-08 15:49] LABS: URINE AMPHETAMINES SCREEN NEGATIVE; URINE BARBITURATES SCREEN NEGATIVE; URINE BENZODIAZEPINES SCREEN NEGATIVE; URINE COCAINE SCREEN NEGATIVE; URINE MARIJUANA (THC) SCREEN NEGATIVE; URINE METHADONE SCREEN NEGATIVE; URINE PHENCYCLIDINE SCREEN NEGATIVE
--- NOTE | 2019-11-08 18:20 | Progress Note ---
Provider Note Provider Note: SUDHA BEGUM is a 34 year old male past medical history of heroin abuse, uncontrolled diabetes, medication noncompliance, left upper extremity abscess, bacteremia, sepsis, pneumonia admitted early this morning by the technician telecommunication systems. H&P, overnight events, vital signs, laboratory results, imaging studies, and orders reviewed. Agree with the plan of care as established by the previous provider. The patient's blood cultures (4/4 bottles) are now positive with gram-positive cocci in clusters; presumed MRSA. Patient has already been placed on IV Zosyn and vancomycin. Briefly discussed with patient; all questions answered No new concerns.
[2019-11-08] MEDS ORDERED: INSULIN GLARGINE,HUM.REC.ANLOG 1,000 UNIT/10 ML VIAL (PYX) SUBCUT ONE ×3 (22:00→23:49)
--- NOTE | 2019-11-08 22:14 | EKG REPORT ---
SEVERITY:- OTHERWISE NORMAL ECG - SINUS TACHYCARDIA : Confirmed by: Darlene Rosa MD 08-Nov-2019 22:13:03
[2019-11-09] MEDS: LORAZEPAM INJ 2 MG/1 ML VIAL IV PRN ×2 (02:23→23:58)
[2019-11-09] MEDS: PIPERACILLIN SODIUM/TAZOBACTAM 4.5 GM in NORMAL SALINE 100 ML IV SCH ×4 (02:23→21:36)
[2019-11-09] MEDS: NORMAL SALINE 1000 ML 1,000 ML IV PRN ×2 (04:25→14:01)
[2019-11-09] MEDS: VANCOMYCIN HCL 1,000 MG in DEXTROSE 5%-WATER 250 ML IV SCH ×4 (05:41→23:58)
[2019-11-09 07:12] LABS: ABSOLUTE BASOPHILS # (AUTO) 0.1 10^3/uL (0.0-0.2); ABSOLUTE EOSINOPHILS # (AUTO) 0.1 10^3/uL (0.0-0.6); ABSOLUTE LYMPHOCYTES (AUTO) 1.8 10^3/uL (0.5-4.7); ABSOLUTE MONOCYTES (AUTO) 0.9 10^3/uL (0.1-1.4); ABSOLUTE NEUT (AUTO) 11.4 10^3/uL (1.7-8.2); BASOPHILS % (AUTO) 0.4 % (0-2); EOSINOPHILS % (AUTO) 0.5 % (0-6); HEMATOCRIT 36.6 % (37.9-51.0); LYMPHOCYTES % (AUTO) 12.6 % (13-45); MEAN CORPUSCULAR HEMOGLOBIN 29.8 pg (27.0-33.4); MEAN CORPUSCULAR HGB CONC 33.6 g/dL (32.0-36.0); MEAN CORPUSCULAR VOLUME 89 fl (80-97); MONOCYTES % (AUTO) 6.4 % (3-13); PLATELET COUNT 277 10^3/uL (150-450); RED BLOOD COUNT 4.12 10^6/uL (4.35-5.55); RED CELL DISTRIBUTION WIDTH 13.4 % (11.5-14.0); SEGMENTED NEUTROPHILS % (AUTO) 80.1 % (42-78); TOTAL CELLS COUNTED % (AUTO) 100 %; WHITE BLOOD COUNT 14.2 10^3/uL (4.0-10.5)
[2019-11-09 07:13] LABS: HEMOGLOBIN 12.3 g/dL (13.5-17.0)
[2019-11-09 07:23] LABS: ALBUMIN 2.7 g/dL (3.5-5.0); ALKALINE PHOSPHATASE 87 U/L (38-126); ANION GAP 8 (5-19); ASPARTATE AMINO TRANSFERASE 20 U/L (17-59); BILIRUBIN,TOTAL 0.6 mg/dL (0.2-1.3); BLOOD UREA NITROGEN 12 mg/dL (7-20); CALCIUM 7.8 mg/dL (8.4-10.2); CARBON DIOXIDE 24 mmol/L (22-30); CHLORIDE 101 mmol/L (98-107); GLUCOSE 288 mg/dL (75-110); POTASSIUM 3.6 mmol/L (3.6-5.0); TOTAL PROTEIN 6.1 g/dL (6.3-8.2)
[2019-11-09] MEDS: KETOROLAC TROMETHAMINE INJ/PF 30 MG/1 ML SDV IV PRN ×2 (07:37→17:11)
[2019-11-09] MEDS: INSULIN REG, HUMAN 100 UNIT/ML 3 ML VIAL (PYX) SUBCUT SCH ×4 (07:40→21:37)
[2019-11-09] MEDS ORDERED: IBUPROFEN 600 MG TABLET PO ONE (09:21)
[2019-11-09] MEDS ORDERED: INSULIN GLARGINE,HUM.REC.ANLOG 1,000 UNIT/10 ML VIAL SUBCUT SCH (10:00)
[2019-11-09] MEDS: DOCUSATE SODIUM 100 MG/10 ML UDC PO SCH (10:58)
[2019-11-09] MEDS: FAMOTIDINE 20 MG TABLET PO SCH ×2 (10:58→21:38)
[2019-11-09] MEDS: ENOXAPARIN SODIUM INJ 40 MG/0.4 ML DISP.SYRIN SUBCUT SCH (11:02)
[2019-11-09] MEDS: INSULIN GLARGINE,HUM.REC.ANLOG 1,000 UNIT/10 ML VIAL SUBCUT SCH (11:04)
[2019-11-09 14:06] LABS: VANCOMYCIN,TROUGH 6.9 ug/mL (5.0-20.0)
--- NOTE | 2019-11-09 18:06 | PDOC PROGRESS REPORT ---
Subjective Progress Note for:: 11/09/19 Subjective:: SUDHA BEGUM is a 34 year old male past medical history of heroin abuse, uncontrolled diabetes, medication noncompliance, left upper extremity abscess, bacteremia, sepsis, pneumonia admitted pneumonia, bacteremia, and concern for endocarditis. Patient was seen on morning rounds. He was found resting in bed, comfortably, on room air. He reports continued intermittent chest discomfort, though overall improved. He reports subjective fever/chills. Denies chest pain, palpitations, dyspnea, orthopnea, abdominal pain, nausea vomiting diarrhea. He has no other questions or concerns at this time. No concerns per nursing. Reason For Visit: PNEUMONIA, HYPERKALEMIA, HYPERGLYCEMIA Physical Exam Vital Signs: Temp Pulse Resp BP Pulse Ox 98.7 F 81 14 113/68 98 11/09/19 16:00 11/09/19 16:00 11/09/19 16:00 11/09/19 16:00 11/09/19 16:00 Intake & Output 11/08/19 11/09/19 11/10/19 06:59 06:59 06:59 Intake Total 0 4172 2051 Output Total 1800 425 Balance 2049 2372 1626 Weight 73.5 kg 73.5 kg General appearance: PRESENT: no acute distress, cooperative, well-developed, well-nourished, other - Diaphoretic Head exam: PRESENT: atraumatic, normocephalic Eye exam: PRESENT: conjunctiva pink, EOMI, PERRLA. ABSENT: scleral icterus Mouth exam: PRESENT: moist, tongue midline Respiratory exam: PRESENT: clear to auscultation fran, symmetrical, unlabored. ABSENT: rales, rhonchi, wheezes Cardiovascular exam: PRESENT: RRR, +S1, +S2. ABSENT: diastolic murmur, rubs, systolic murmur Pulses: PRESENT: normal dorsalis pedis pul Vascular exam: PRESENT: normal capillary refill Extremities exam: PRESENT: full ROM. ABSENT: calf tenderness, clubbing, pedal edema Musculoskeletal exam: PRESENT: ambulatory Neurological exam: PRESENT: alert, awake, oriented to person, oriented to place, oriented to time, oriented to situation, CN II-XII grossly intact. ABSENT: motor sensory deficit Psychiatric exam: PRESENT: appropriate affect, normal mood. ABSENT: homicidal ideation, suicidal ideation Skin exam: PRESENT: dry, intact, warm. ABSENT: cyanosis, rash Results Laboratory Results: 11/09/19 06:36 11/09/19 13:25 11/09/19 11/09/19 11/09/19 06:36 06:36 13:25 WBC 14.2 H RBC 4.12 L Hgb 12.3 L D Hct 36.6 L MCV 89 MCH 29.8 MCHC 33.6 RDW 13.4 Plt Count 277 Seg Neutrophils % 80.1 H Sodium 132.9 L Potassium 3.6 Chloride 101 Carbon Dioxide 24 Anion Gap 8 BUN 12 Creatinine 0.53 0.59 Est GFR ( Amer) > 60 > 60 Glucose 288 H Calcium 7.8 L Magnesium 1.7 Total Bilirubin 0.6 AST 20 Alkaline Phosphatase 87 Total Protein 6.1 L Albumin 2.7 L 11/08/19 00:45 Blood Blood Culture (PCR) - Final Staphylococcus Aureus 11/07/19 22:19 Blood Blood Culture (PCR) - Final Staphylococcus Aureus 11/07/19 23:20 Blood Blood Culture (PCR) - Final Staphylococcus Aureus 11/07/19 11/07/19 22:19 22:19 Creatine Kinase 33 L CK-MB (CK-2) 0.28 Troponin I < 0.012 Impressions: Chest X-Ray 11/07/19 00:00 IMPRESSION: Focal opacity in the left lung which may represent edema or infection. Assessment and Plan - Diagnosis (1) Pneumonia Qualifiers: Pneumonia type: due to unspecified organism Laterality: left Lung location: unspecified part of lung Qualified Code(s): J18.9 - Pneumonia, unspecified organism Is this a current diagnosis for this admission?: Yes Plan: Improved; maintaining oxygen saturations on room air. Clear lung sounds. Given history of recent hospitalization likely healthcare associated pneumonia. Must also consider MRSA pneumonia given patient positive blood cultures. Sputum cultures not obtained; he denies sputum production. Admit to telemetry Continue IV vancomycin and Zosyn. Continue supplemental oxygen as needed to maintain saturations. As needed nebulizer treatments. Encourage pulmonary toilet with incentive spirometer, flutter valve, and early ambulation. (2) MRSA bacteremia Is this a current diagnosis for this admission?: Yes Plan: Blood cultures (3 sets) positive for MRSA We will obtain repeat cultures tomorrow; he will have been on 48 hours ant ibiotic therapy at that time. Echocardiogram pending. Continue IV Zosyn and vancomycin. Anticipate discontinuing Zosyn tomorrow if he remains clinically improved. (3) Heroin abuse Is this a current diagnosis for this admission?: Yes Plan: History of heavy heroin abuse. Last heroin abuse 11/08/2019. Monitor for withdrawal, monitor vitals, supportive measures. (4) Hyponatremia Is this a current diagnosis for this admission?: Yes Plan: Pseudohyponatremia most likely due to hyperglycemia. Monitor w/ chemistries, correct underlying hyperglycemia. (5) Uncontrolled diabetes mellitus Qualifiers: Diabetes mellitus type: type 2 Is this a current diagnosis for this admission?: Yes Plan: History of uncontrolled diabetes due to noncompliance. Basal, prandial and correctional insulin. Hypoglycemia protocol. Accu-Chek. Diabetic education. (6) Hyperkalemia Is this a current diagnosis for this admission?: Yes Plan: Resolved. No acute EKG change. Admit to telemetry. - Time Time Spent with patient: 25-34 minutes Medications reviewed and adjusted accordingly: Yes
[2019-11-10] MEDS: PIPERACILLIN SODIUM/TAZOBACTAM 4.5 GM in NORMAL SALINE 100 ML IV SCH ×2 (03:17→08:04)
[2019-11-10] MEDS: NORMAL SALINE 1000 ML 1,000 ML IV PRN (06:08)
[2019-11-10] MEDS: VANCOMYCIN HCL 1,000 MG in DEXTROSE 5%-WATER 250 ML IV SCH ×3 (06:08→17:08)
[2019-11-10 06:51] LABS: HEMATOCRIT 36.8 % (37.9-51.0); HEMOGLOBIN 12.4 g/dL (13.5-17.0); MEAN CORPUSCULAR HEMOGLOBIN 29.7 pg (27.0-33.4); MEAN CORPUSCULAR HGB CONC 33.7 g/dL (32.0-36.0); MEAN CORPUSCULAR VOLUME 88 fl (80-97); PLATELET COUNT 339 10^3/uL (150-450); RED BLOOD COUNT 4.18 10^6/uL (4.35-5.55); RED CELL DISTRIBUTION WIDTH 13.4 % (11.5-14.0); WHITE BLOOD COUNT 12.3 10^3/uL (4.0-10.5)
[2019-11-10] MEDS: INSULIN REG, HUMAN 100 UNIT/ML 3 ML VIAL (PYX) SUBCUT SCH ×4 (07:51→22:46)
[2019-11-10] MEDS: IBUPROFEN 600 MG TABLET PO PRN ×2 (07:55→23:38)
[2019-11-10] MEDS: INSULIN GLARGINE,HUM.REC.ANLOG 1,000 UNIT/10 ML VIAL SUBCUT SCH (10:08)
[2019-11-10] MEDS: DOCUSATE SODIUM 100 MG/10 ML UDC PO SCH (10:08)
[2019-11-10] MEDS: FAMOTIDINE 20 MG TABLET PO SCH ×2 (10:09→22:46)
[2019-11-10] MEDS: ENOXAPARIN SODIUM INJ 40 MG/0.4 ML DISP.SYRIN SUBCUT SCH (10:17)
[2019-11-10] MEDS ORDERED: OXYCODONE HCL IR 5 MG TABLET PO PRN (10:25)
[2019-11-10] MEDS ORDERED: BUPRENORPHINE HCL 2 MG SUBLINGUAL TABLET SL ONE (14:13)
--- NOTE | 2019-11-10 14:14 | PDOC PROGRESS REPORT ---
Subjective Progress Note for:: 11/10/19 Subjective:: SUDHA BEGUM is a 34 year old male past medical history of heroin abuse, uncontrolled diabetes, medication noncompliance, left upper extremity abscess, bacteremia, sepsis, pneumonia admitted pneumonia, bacteremia, and concern for endocarditis. Patient was seen on morning rounds. He was found resting in bed on room air. He reports continued intermittent chest discomfort, though overall improved. He reports subjective fever/chills; noted to be diaphoretic while under several blankets. Mild nausea without vomiting today. Denies palpitations, dyspnea, orthopnea, abdominal pain, nausea vomiting diarrhea. He has no other questions or concerns at this time. No concerns per nursing. Reason For Visit: PNEUMONIA, HYPERKALEMIA, HYPERGLYCEMIA Physical Exam Vital Signs: Temp Pulse Resp BP Pulse Ox 97.7 F 75 20 124/75 97 11/10/19 10:59 11/10/19 10:59 11/10/19 10:59 11/10/19 10:59 11/10/19 10:59 Intake & Output 11/09/19 11/10/19 11/11/19 06:59 06:59 06:59 Intake Total 4172 5527 350 Output Total 1800 2525 Balance 2372 3002 350 Weight 73.5 kg 80.1 kg General appearance: PRESENT: no acute distress, cooperative, well-developed, well-nourished Head exam: PRESENT: atraumatic, normocephalic Eye exam: PRESENT: conjunctiva pink, EOMI, PERRLA. ABSENT: scleral icterus Mouth exam: PRESENT: moist, tongue midline Respiratory exam: PRESENT: clear to auscultation fran, symmetrical, unlabored. ABSENT: rales, rhonchi, wheezes Cardiovascular exam: PRESENT: RRR, +S1, +S2. ABSENT: diastolic murmur, rubs, systolic murmur Vascular exam: PRESENT: normal capillary refill Extremities exam: PRESENT: full ROM. ABSENT: calf tenderness, clubbing, pedal edema Neurological exam: PRESENT: alert, awake, oriented to person, oriented to place, oriented to time, oriented to situation, CN II-XII grossly intact. ABSENT: motor sensory deficit Psychiatric exam: PRESENT: appropriate affect, normal mood. ABSENT: homicidal ideation, suicidal ideation Skin exam: PRESENT: intact, warm. ABSENT: cyanosis, rash Results Laboratory Results: 11/10/19 05:57 11/09/19 13:25 11/09/19 11/10/19 13:25 05:57 WBC 12.3 H RBC 4.18 L Hgb 12.4 L Hct 36.8 L MCV 88 MCH 29.7 MCHC 33.7 RDW 13.4 Plt Count 339 Creatinine 0.59 Est GFR ( Amer) > 60 11/08/19 00:45 Blood Blood Culture (PCR) - Final Staphylococcus Aureus 11/08/19 00:45 Blood Blood Culture - Final Mrsa (Meth Resis Staph Aureus) 11/07/19 22:19 Blood Blood Culture (PCR) - Final Staphylococcus Aureus 11/07/19 22:19 Blood Blood Culture - Final Mrsa (Meth Resis Staph Aureus) 11/07/19 23:20 Blood Blood Culture (PCR) - Final Staphylococcus Aureus 11/07/19 23:20 Blood Blood Culture - Final Mrsa (Meth Resis Staph Aureus) 11/07/19 11/07/19 22:19 22:19 Creatine Kinase 33 L CK-MB (CK-2) 0.28 Troponin I < 0.012 Impressions: Chest X-Ray 11/07/19 00:00 IMPRESSION: Focal opacity in the left lung which may represent edema or infection. Assessment and Plan - Diagnosis (1) Pneumonia Qualifiers: Pneumonia type: due to unspecified organism Laterality: left Lung location: unspecified part of lung Qualified Code(s): J18.9 - Pneumonia, unspecified organism Is this a current diagnosis for this admission?: Yes Plan: Improved; maintaining oxygen saturations on room air. Clear lung sounds. Given history of recent hospitalization likely healthcare associated pneumonia. Must also consider MRSA pneumonia given patient positive blood cultures. Sputum cultures not obtained; he denies sputum production. Admit to telemetry Continue IV vancomycin. Received 2 days of Zosyn. Continue supplemental oxygen as needed to maintain saturations. As needed nebulizer treatments. Encourage pulmonary toilet with incentive spirometer, flutter valve, and early ambulation. (2) MRSA bacteremia Is this a current diagnosis for this admission?: Yes Plan: Blood cultures (3 sets) positive for MRSA Repeat cultures (11/10/19) pending. Echocardiogram pending. Continue vancomycin. (3) Heroin abuse Is this a current diagnosis for this admission?: Yes Plan: History of heavy heroin abuse. Last heroin abuse 11/08/2019. Symptoms of withdrawal today; cold/shaking/chills with diaphoresis and nausea. Will start low dose subutex. (4) Hyponatremia Is this a current diagnosis for this admission?: Yes Plan: Pseudohyponatremia most likely due to hyperglycemia. Monitor w/ chemistries, correct underlying hyperglycemia. (5) Uncontrolled diabetes mellitus Qualifiers: Diabetes mellitus type: type 2 Is this a current diagnosis for this admission?: Yes Plan: History of uncontrolled diabetes due to noncompliance. A1C (09/28/19) 10.4% Basal, prandial and correctional insulin. Hypoglycemia protocol. Accu-Chek. Diabetic education. (6) Hyperkalemia Is this a current diagnosis for this admission?: Yes Plan: Resolved. No acute EKG change. Admit to telemetry. - Time Time Spent with patient: 25-34 minutes Medications reviewed and adjusted accordingly: Yes
[2019-11-10 17:49] LABS: VANCOMYCIN,TROUGH 10.4 ug/mL (5.0-20.0)
[2019-11-11] MEDS ORDERED: VANCOMYCIN HCL 1,000 MG in DEXTROSE 5%-WATER 250 ML IV SCH (03:00)
[2019-11-11] MEDS: VANCOMYCIN HCL 1,000 MG in DEXTROSE 5%-WATER 250 ML IV SCH (03:29)
[2019-11-11 05:36] LABS: HEMATOCRIT 35.3 % (37.9-51.0); HEMOGLOBIN 11.9 g/dL (13.5-17.0); MEAN CORPUSCULAR HEMOGLOBIN 30.2 pg (27.0-33.4); MEAN CORPUSCULAR HGB CONC 33.7 g/dL (32.0-36.0); MEAN CORPUSCULAR VOLUME 89 fl (80-97); PLATELET COUNT 353 10^3/uL (150-450); RED BLOOD COUNT 3.95 10^6/uL (4.35-5.55); RED CELL DISTRIBUTION WIDTH 13.3 % (11.5-14.0); WHITE BLOOD COUNT 9.5 10^3/uL (4.0-10.5)
[2019-11-11 06:05] LABS: ANION GAP 5 (5-19); BLOOD UREA NITROGEN 9 mg/dL (7-20); CALCIUM 8.3 mg/dL (8.4-10.2); CARBON DIOXIDE 30 mmol/L (22-30); CHLORIDE 99 mmol/L (98-107); GLUCOSE 337 mg/dL (75-110); POTASSIUM 3.9 mmol/L (3.6-5.0)
[2019-11-11] MEDS: INSULIN REG, HUMAN 100 UNIT/ML 3 ML VIAL (PYX) SUBCUT SCH ×4 (07:38→22:47)
[2019-11-11] MEDS: DOCUSATE SODIUM 100 MG/10 ML UDC PO SCH (09:21)
[2019-11-11] MEDS: BUPRENORPHINE HCL 2 MG SUBLINGUAL TABLET SL SCH (09:21)
[2019-11-11] MEDS: INSULIN GLARGINE,HUM.REC.ANLOG 1,000 UNIT/10 ML VIAL SUBCUT SCH (09:22)
[2019-11-11] MEDS: FAMOTIDINE 20 MG TABLET PO SCH ×2 (09:22→22:47)
[2019-11-11] MEDS: ENOXAPARIN SODIUM INJ 40 MG/0.4 ML DISP.SYRIN SUBCUT SCH (09:22)
[2019-11-11] MEDS: VANCOMYCIN HCL 1,250 MG in DEXTROSE 5%-WATER 250 ML IV SCH ×3 (09:22→20:48)
[2019-11-11] MEDS ORDERED: PROMETHAZINE HCL INJ 25 MG/1 ML VIAL IV PRN (10:30)
[2019-11-11] MEDS ORDERED: ONDANSETRON HCL INJ/PF 4 MG/2 ML SDV IV PRN (10:30)
--- NOTE | 2019-11-11 10:38 | PDOC PROGRESS REPORT ---
Subjective Progress Note for:: 11/11/19 Subjective:: No adverse events overnight. No new complaints. Vital signs been stable. Eating and drinking without difficulty. No fevers. Patient was resting comfortably in the room whenever I came in to see him. Reason For Visit: PNEUMONIA, HYPERKALEMIA, HYPERGLYCEMIA Physical Exam Vital Signs: Temp Pulse Resp BP Pulse Ox 97.9 F 95 16 104/54 L 96 11/11/19 08:08 11/11/19 09:13 11/11/19 09:13 11/11/19 08:08 11/11/19 09:13 Intake & Output 11/10/19 11/11/19 11/12/19 06:59 06:59 06:59 Intake Total 5527 2919 Output Total 2525 1600 Balance 3002 1319 Weight 80.1 kg 80.1 kg General appearance: PRESENT: no acute distress, cooperative, disheveled Respiratory exam: PRESENT: clear to auscultation fran, symmetrical, unlabored. ABSENT: accessory muscle use, chest wall tenderness, crackles, prolonged expiratory phas, rhonchi, tachypnea, wheezes Cardiovascular exam: PRESENT: RRR, +S1, +S2 Pulses: PRESENT: normal carotid pulses Vascular exam: PRESENT: normal capillary refill GI/Abdominal exam: PRESENT: normal bowel sounds, soft. ABSENT: distended, guarding, rebound, tenderness Extremities exam: ABSENT: clubbing, pedal edema Musculoskeletal exam: PRESENT: normal inspection. ABSENT: deformity Neurological exam: PRESENT: awake, oriented to person, oriented to place, oriented to situation Psychiatric exam: PRESENT: flat affect Skin exam: PRESENT: dry, warm Results Laboratory Results: 11/11/19 05:00 11/11/19 05:00 11/10/19 11/11/19 11/11/19 17:00 05:00 05:00 WBC 9.5 RBC 3.95 L Hgb 11.9 L Hct 35.3 L MCV 89 MCH 30.2 MCHC 33.7 RDW 13.3 Plt Count 353 Sodium 133.6 L Potassium 3.9 Chloride 99 Carbon Dioxide 30 Anion Gap 5 BUN 9 Creatinine 0.50 L 0.57 Est GFR ( Amer) > 60 > 60 Glucose 337 H Calcium 8.3 L 11/08/19 00:45 Blood Blood Culture (PCR) - Final Staphylococcus Aureus 07/03/20 00:45 Blood Blood Culture - Final Mrsa (Meth Resis Staph Aureus) 11/07/19 22:19 Blood Blood Culture (PCR) - Final Staphylococcus Aureus 11/07/19 22:19 Blood Blood Culture - Final Mrsa (Meth Resis Staph Aureus) 11/07/19 23:20 Blood Blood Culture (PCR) - Final Staphylococcus Aureus 11/07/19 23:20 Blood Blood Culture - Final Mrsa (Meth Resis Staph Aureus) 11/07/19 11/07/19 22:19 22:19 Creatine Kinase 33 L CK-MB (CK-2) 0.28 Troponin I < 0.012 Impressions: Chest X-Ray 11/07/19 00:00 IMPRESSION: Focal opacity in the left lung which may represent edema or infection. Assessment and Plan - Diagnosis (1) MRSA bacteremia Is this a current diagnosis for this admission?: Yes Plan: Currently on vancomycin. Echocardiogram is pending. Repeat cultures are negative for 24 hours. (2) Pneumonia Qualifiers: Pneumonia type: due to unspecified organism Laterality: left Lung location: unspecified part of lung Qualified Code(s): J18.9 - Pneumonia, unspecified organism Is this a current diagnosis for this admission?: Yes Plan: Empirically on vancomycin. Received 2 days of Zosyn. We will continue this regimen because he shows improvement in his lungs are clear and he is not on oxygen or short of breath. (3) Heroin abuse Is this a current diagnosis for this admission?: Yes Plan: History of heavy heroin abuse. Last use November 07. Low-dose Subutex was started for withdrawal symptoms. Currently no signs of withdrawal. (4) Hyperkalemia Is this a current diagnosis for this admission?: Yes Plan: Resolved (5) Hyponatremia Is this a current diagnosis for this admission?: Yes Plan: Now nearly normal (6) Type 2 diabetes mellitus, uncontrolled Qualifiers: Glycemic state: with hyperglycemia Qualified Code(s): E11.65 - Type 2 diabetes mellitus with hyperglycemia Is this a current diagnosis for this admission?: Yes Plan: He is on a sliding scale with a diabetic diet. May need to adjust his regimen further because his blood sugars are still somewhat elevated. - Time Time Spent with patient: 25-34 minutes
[2019-11-11] MEDS: NORMAL SALINE 1000 ML 1,000 ML IV PRN (14:41)
[2019-11-11] MEDS: KETOROLAC TROMETHAMINE INJ/PF 30 MG/1 ML SDV IV PRN (16:52)
--- NOTE | 2019-11-11 22:39 | XCELERA REPORT ---
[address] [address] Transthoracic Echocardiogram Report Name: SUDHA BEGUM Age: 34 yrs Gender: Male : 1985 Patient Status: Inpatient Patient Location: [facility]^A Study Date: 11/11/2019 09:57 AM History: Infective endocarditis Height: 67 in Weight: 170 lb BSA: 1.9 m2 Reason For Study: r/o endocarditis Previous Evaluation: A previous study was performed on 10/02/2019. History: Infective endocarditis. Ordering Physician: MAK CAMPBELL Performed By: Irene Hurst Interpretation Summary Left ventricular systolic function is normal. The Ejection Fraction estimate is 55-60% The right ventricle is normal in size and function. There is no mitral regurgitation noted. There is no aortic valve stenosis Possible vegetation seen on tricuspid valve There is no pericardial effusion. MMode/2D Measurements & Calculations RVDd: 4.0 cm LVIDd: 5.0 cm FS: 40.1 % Ao root diam: 3.0 cm IVSd: 0.89 cm LVIDs: 3.0 cm EDV(Teich): 119.9 ml Ao root area: 7.3 cm2 LVPWd: 0.91 cm ESV(Teich): 35.4 ml EF(Teich): 70.5 % Doppler Measurements & Calculations MV E max yohana: MV dec slope: Ao V2 max: LV V1 max P.9 cm/sec 378.0 cm/sec2 105.0 cm/sec 2.0 mmHg MV A max yoahna: MV dec time: 0.17 secAo max P.4 mmHgLV V1 max: 51.0 cm/sec 71.5 cm/sec MV E/A: 1.3 PA V2 max: PI end-d yohana: TR max yohana: 132.5 cm/sec 137.6 cm/sec 248.4 cm/sec PA max P.0 mmHg TR max P.7 mmHg Left Ventricle The left ventricle is normal in size. There is normal left ventricular wall thickness. Left ventricular systolic function is normal. The Ejection Fraction estimate is 55-60%. Doppler measurements suggest normal left ventricular diastolic function. No regional wall motion abnormalities noted. Right Ventricle The right ventricle is normal in size and function. Atria The right atrium is normal. The left atrium is borderline dilated. There is no Doppler evidence for an interatrial shunt. Mitral Valve The mitral valve is grossly normal. There is no vegetation seen on the mitral valve. There is no mitral valve stenosis. There is no mitral regurgitation noted. Aortic Valve The aortic valve is normal in structure and function. The aortic valve is trileaflet. The aortic valve opens well. There is no aortic valvular vegetation. There is no aortic valve stenosis. No aortic regurgitation is present. Tricuspid Valve The tricuspid valve is not well visualized, but is grossly normal. Possible vegetation seen on tricuspid valve. There is a trace amount of tricuspid regurgitation. Doppler findings do not suggest pulmonary hypertension. Normal PA Pressure. Pulmonic Valve The pulmonic valve is normal in structure and function. There is no vegetation on the pulmonic valve. There is a mild amount of pulmonic regurgitation. Great Vessels The aortic root is normal size. The inferior vena cava appeared small and collapsed with respiration (RAP 0-5 mmHg). Effusions There is no pericardial effusion. : MAK CAMPBELL Anil
[2019-11-12] MEDS: KETOROLAC TROMETHAMINE INJ/PF 30 MG/1 ML SDV IV PRN ×4 (00:12→22:07)
[2019-11-12] MEDS: NORMAL SALINE 1000 ML 1,000 ML IV PRN ×2 (03:12→14:33)
[2019-11-12] MEDS: VANCOMYCIN HCL 1,250 MG in DEXTROSE 5%-WATER 250 ML IV SCH ×4 (03:12→22:00)
[2019-11-12] MEDS: INSULIN REG, HUMAN 100 UNIT/ML 3 ML VIAL (PYX) SUBCUT SCH ×4 (08:05→22:08)
[2019-11-12] MEDS: ENOXAPARIN SODIUM INJ 40 MG/0.4 ML DISP.SYRIN SUBCUT SCH (09:11)
[2019-11-12] MEDS: DOCUSATE SODIUM 100 MG CAPSULE PO SCH (09:11)
[2019-11-12] MEDS: BUPRENORPHINE HCL 2 MG SUBLINGUAL TABLET SL SCH (09:11)
[2019-11-12] MEDS: FAMOTIDINE 20 MG TABLET PO SCH ×2 (09:11→22:08)
[2019-11-12] MEDS: INSULIN GLARGINE,HUM.REC.ANLOG 1,000 UNIT/10 ML VIAL SUBCUT SCH (09:13)
--- NOTE | 2019-11-12 12:30 | PDOC PROGRESS REPORT ---
Subjective Progress Note for:: 11/12/19 Subjective:: No adverse events overnight. No new complaints. Vital signs been stable. Eating and drinking without difficulty. No fevers. Reason For Visit: PNEUMONIA, HYPERKALEMIA, HYPERGLYCEMIA Physical Exam Vital Signs: Temp Pulse Resp BP Pulse Ox 99.2 F 70 16 123/66 99 11/12/19 11:17 11/12/19 11:17 11/12/19 11:17 11/12/19 11:17 11/12/19 11:17 Intake & Output 11/11/19 11/12/19 11/13/19 06:59 06:59 06:59 Intake Total 3919 4120 Output Total 1600 2500 Balance 2319 1620 Weight 80.1 kg 83.4 kg General appearance: PRESENT: no acute distress, cooperative, disheveled Respiratory exam: PRESENT: clear to auscultation fran, symmetrical, unlabored. ABSENT: accessory muscle use, chest wall tenderness, crackles, prolonged expiratory phas, rhonchi, tachypnea, wheezes Cardiovascular exam: PRESENT: RRR, +S1, +S2 Pulses: PRESENT: normal carotid pulses Vascular exam: PRESENT: normal capillary refill GI/Abdominal exam: PRESENT: normal bowel sounds, soft. ABSENT: distended, guarding, rebound, tenderness Extremities exam: ABSENT: clubbing, pedal edema Musculoskeletal exam: PRESENT: normal inspection. ABSENT: deformity Neurological exam: PRESENT: awake, oriented to person, oriented to place, oriented to situation Psychiatric exam: PRESENT: flat affect Skin exam: PRESENT: dry, warm Results Laboratory Results: 11/11/19 05:00 11/11/19 05:00 11/10/19 05:57 Blood Blood Culture (PCR) - Final Staphylococcus Aureus 11/07/19 11/07/19 22:19 22:19 Creatine Kinase 33 L CK-MB (CK-2) 0.28 Troponin I < 0.012 Impressions: Chest X-Ray 11/07/19 00:00 IMPRESSION: Focal opacity in the left lung which may represent edema or infection. Assessment and Plan - Diagnosis (1) MRSA bacteremia Is this a current diagnosis for this admission?: Yes Plan: Follow-up blood cultures were positive 1 out of 2. We will check cultures again tomorrow to assess for clearance so we can see whether or not we can get him a PICC line. 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 He will need 6 weeks of IV antibiotics. (4) Heroin abuse Is this a current diagnosis for this admission?: Yes Plan: Monitoring for signs of withdrawal, so far no such signs. He is on Subutex. (5) Hyperkalemia Is this a current diagnosis for this admission?: Yes Plan: Resolved (6) Hyponatremia Is this a current diagnosis for this admission?: Yes Plan: Now nearly normal (7) Type 2 diabetes mellitus, uncontrolled Qualifiers: Glycemic state: with hyperglycemia Qualified Code(s): E11.65 - Type 2 diabetes mellitus with hyperglycemia Is this a current diagnosis for this admission?: Yes Plan: Glucose control has improved - Time Time Spent with patient: 25-34 minutes
[2019-11-12 16:05] LABS: VANCOMYCIN,TROUGH 14.3 ug/mL (5.0-20.0)
[2019-11-13] MEDS: NORMAL SALINE 1000 ML 1,000 ML IV PRN ×2 (00:19→09:40)
[2019-11-13] MEDS: VANCOMYCIN HCL 1,250 MG in DEXTROSE 5%-WATER 250 ML IV SCH ×4 (03:44→23:16)
[2019-11-13] MEDS: KETOROLAC TROMETHAMINE INJ/PF 30 MG/1 ML SDV IV PRN ×2 (06:36→14:37)
[2019-11-13] MEDS: INSULIN REG, HUMAN 100 UNIT/ML 3 ML VIAL (PYX) SUBCUT SCH ×4 (07:36→22:50)
[2019-11-13] MEDS: BUPRENORPHINE HCL 2 MG SUBLINGUAL TABLET SL SCH (09:45)
[2019-11-13] MEDS: FAMOTIDINE 20 MG TABLET PO SCH ×2 (09:45→22:51)
[2019-11-13] MEDS: DOCUSATE SODIUM 100 MG CAPSULE PO SCH (09:45)
[2019-11-13] MEDS: INSULIN GLARGINE,HUM.REC.ANLOG 1,000 UNIT/10 ML VIAL SUBCUT SCH (09:47)
[2019-11-13] MEDS: ENOXAPARIN SODIUM INJ 40 MG/0.4 ML DISP.SYRIN SUBCUT SCH (09:48)
--- NOTE | 2019-11-13 16:17 | PDOC PROGRESS REPORT ---
Subjective Progress Note for:: 11/13/19 Subjective:: No adverse events overnight. No new complaints. Vital signs been stable. Eating and drinking without difficulty. No fevers. Reason For Visit: PNEUMONIA, HYPERKALEMIA, HYPERGLYCEMIA Physical Exam Vital Signs: Temp Pulse Resp BP Pulse Ox 98.8 F 80 16 128/57 H 96 11/13/19 11:51 11/13/19 11:51 11/13/19 11:51 11/13/19 11:51 11/13/19 11:51 Intake & Output 11/12/19 11/13/19 11/14/19 06:59 06:59 06:59 Intake Total 4120 5100 1592 Output Total 2500 3600 580 Balance 1620 1500 1012 Weight 83.4 kg 83.5 kg General appearance: PRESENT: no acute distress, cooperative, disheveled Respiratory exam: PRESENT: clear to auscultation fran, symmetrical, unlabored. ABSENT: accessory muscle use, chest wall tenderness, crackles, prolonged expiratory phas, rhonchi, tachypnea, wheezes Cardiovascular exam: PRESENT: RRR, +S1, +S2 Pulses: PRESENT: normal carotid pulses Vascular exam: PRESENT: normal capillary refill GI/Abdominal exam: PRESENT: normal bowel sounds, soft. ABSENT: distended, guar ding, rebound, tenderness Extremities exam: ABSENT: clubbing, pedal edema Musculoskeletal exam: PRESENT: normal inspection. ABSENT: deformity Neurological exam: PRESENT: awake, oriented to person, oriented to place, oriented to situation Psychiatric exam: PRESENT: flat affect Skin exam: PRESENT: dry, warm Results Laboratory Results: 11/11/19 05:00 11/11/19 05:00 11/10/19 05:57 Blood Blood Culture (PCR) - Final Staphylococcus Aureus 11/10/19 05:57 Blood Blood Culture - Final Mrsa (Meth Resis Staph Aureus) 11/07/19 11/07/19 22:19 22:19 Creatine Kinase 33 L CK-MB (CK-2) 0.28 Troponin I < 0.012 Impressions: Chest X-Ray 11/07/19 00:00 IMPRESSION: Focal opacity in the left lung which may represent edema or infection. Assessment and Plan - Diagnosis (1) MRSA bacteremia Is this a current diagnosis for this admission?: Yes Plan: Follow-up blood cultures were positive 1 out of 2. We have repeated in to see if he has cleared his bacteremia so that he can get a PICC line. (2) Pneumonia Qualifiers: Pneumonia type: due to unspecified organism Laterality: left Lung location: unspecified part of lung Qualified Code(s): J18.9 - Pneumonia, unspecified organism Is this a current diagnosis for this admission?: Yes Plan: Empirically on vancomycin. Received 2 days of Zosyn. We will continue this regimen because he shows improvement in his lungs are clear and he is not on oxygen or short of breath. 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 He will need 6 weeks of IV antibiotics. (4) Heroin abuse Is this a current diagnosis for this admission?: Yes Plan: Monitoring for signs of withdrawal, so far no such signs. He is on Subutex. (5) Hyperkalemia Is this a current diagnosis for this admission?: Yes Plan: Resolved (6) Hyponatremia Is this a current diagnosis for this admission?: Yes Plan: Now nearly normal (7) Type 2 diabetes mellitus, uncontrolled Qualifiers: Glycemic state: with hyperglycemia Qualified Code(s): E11.65 - Type 2 diabetes mellitus with hyperglycemia Is this a current diagnosis for this admission?: Yes Plan: Glucose control has improved - Time Time Spent with patient: 15-24 minutes
[2019-11-13] MEDS: IBUPROFEN 600 MG TABLET PO PRN (23:57)
[2019-11-14] MEDS: VANCOMYCIN HCL 1,250 MG in DEXTROSE 5%-WATER 250 ML IV SCH ×2 (02:26→10:27)
[2019-11-14] MEDS: INSULIN REG, HUMAN 100 UNIT/ML 3 ML VIAL (PYX) SUBCUT SCH ×4 (09:17→22:06)
[2019-11-14] MEDS: DOCUSATE SODIUM 100 MG CAPSULE PO SCH (10:26)
[2019-11-14] MEDS: KETOROLAC TROMETHAMINE INJ/PF 30 MG/1 ML SDV IV PRN ×2 (10:26→22:05)
[2019-11-14] MEDS: FAMOTIDINE 20 MG TABLET PO SCH ×2 (10:26→22:06)
[2019-11-14] MEDS: BUPRENORPHINE HCL 2 MG SUBLINGUAL TABLET SL SCH (10:26)
[2019-11-14] MEDS: ENOXAPARIN SODIUM INJ 40 MG/0.4 ML DISP.SYRIN SUBCUT SCH (10:26)
[2019-11-14] MEDS: INSULIN GLARGINE,HUM.REC.ANLOG 1,000 UNIT/10 ML VIAL SUBCUT SCH (10:27)
[2019-11-14] MEDS: NORMAL SALINE 1000 ML 1,000 ML IV PRN (10:27)
--- NOTE | 2019-11-14 14:31 | PDOC PROGRESS REPORT ---
Subjective Progress Note for:: 11/14/19 Subjective:: SUDHA BEGUM is a 34 year old male past medical history of heroin abuse, uncontrolled diabetes, medication noncompliance, left upper extremity abscess, bacteremia, sepsis, pneumonia admitted pneumonia, bacteremia, and concern for endocarditis. Patient was seen on morning rounds. He was found sitting up to the edge of the bed on room air; looking much better than last I saw him middle of last week. He reports occasional chest discomfort with deep inspiration and cough. Otherwise, he states that he is feeling well. He denies fever, chills, palpitation, dyspnea, orthopnea, abdominal pain, nausea vomiting diarrhea. He has no other questions or concerns at this time. No concerns per nursing. Reason For Visit: PNEUMONIA, HYPERKALEMIA, HYPERGLYCEMIA Physical Exam Vital Signs: Temp Pulse Resp BP Pulse Ox 97.3 F 63 16 119/67 98 11/14/19 11:58 11/14/19 11:58 11/14/19 11:58 11/14/19 11:58 11/14/19 11:58 Intake & Output 11/13/19 11/14/19 11/15/19 06:59 06:59 06:59 Intake Total 5100 4472 330 Output Total 3600 3430 1350 Balance 1500 1042 -1020 Weight 83.5 kg 84 kg 84 kg General appearance: PRESENT: no acute distress, cooperative, well-developed, well-nourished Head exam: PRESENT: atraumatic, normocephalic Eye exam: PRESENT: conjunctiva pink, EOMI, PERRLA. ABSENT: scleral icterus Mouth exam: PRESENT: moist, tongue midline Teeth exam: PRESENT: poor dentation Respiratory exam: PRESENT: clear to auscultation fran, symmetrical, unlabored. ABSENT: rales, rhonchi, wheezes Cardiovascular exam: PRESENT: RRR, +S1, +S2. ABSENT: diastolic murmur, rubs, systolic murmur Vascular exam: PRESENT: normal capillary refill Extremities exam: PRESENT: full ROM. ABSENT: calf tenderness, clubbing, pedal edema Musculoskeletal exam: PRESENT: ambulatory Neurological exam: PRESENT: alert, awake, oriented to person, oriented to place, oriented to time, oriented to situation, CN II-XII grossly intact. ABSENT: motor sensory deficit Psychiatric exam: PRESENT: appropriate affect, normal mood. ABSENT: homicidal ideation, suicidal ideation Skin exam: PRESENT: dry, intact, warm. ABSENT: cyanosis, rash Results Laboratory Results: 11/11/19 05:00 11/11/19 05:00 11/13/19 08:29 Blood Blood Culture (PCR) - Final Staphylococcus Aureus 11/13/19 08:43 Blood Blood Culture (PCR) - Final Staphylococcus Aureus 11/10/19 05:57 Blood Blood Culture (PCR) - Final Staphylococcus Aureus 11/10/19 05:57 Blood Blood Culture - Final Mrsa (Meth Resis Staph Aureus) 11/07/19 11/07/19 22:19 22:19 Creatine Kinase 33 L CK-MB (CK-2) 0.28 Troponin I < 0.012 Impressions: Chest X-Ray 11/07/19 00:00 IMPRESSION: Focal opacity in the left lung which may represent edema or infection. Assessment and Plan - Diagnosis (1) Pneumonia Qualifiers: Pneumonia type: due to unspecified organism Laterality: left Lung location: unspecified part of lung Qualified Code(s): J18.9 - Pneumonia, unspecified organism Is this a current diagnosis for this admission?: Yes Plan: Patient was empirically placed on IV vancomycin and Zosyn. He received 2 days of Zosyn and 6 days of vancomycin. Infectious disease consultation today; recommends transition to daptomycin. Continue to encourage pulmonary toilet with incentive spirometer, flutter valve, and ambulation. (2) MRSA bacteremia Is this a current diagnosis for this admission?: Yes Plan: Blood cultures continue to result MRSA (7 blood culture sets). Possible vegetation noted on tricuspid valve; will treat for endocarditis. Infectious disease consultation obtained today; recommends transition to IV daptomycin. We will need to repeat blood cultures in 48 hours to establish clearance. We will need to hold on PICC line for now. (3) Heroin abuse Is this a current diagnosis for this admission?: Yes Plan: Monitoring for signs of withdrawal, so far no such signs. Doing well on Subutex. (4) Hyponatremia Is this a current diagnosis for this admission?: Yes Plan: Now nearly normal (5) Uncontrolled diabetes mellitus Qualifiers: Diabetes mellitus type: type 2 Is this a current diagnosis for this admission?: Yes Plan: History of uncontrolled diabetes due to noncompliance. A1C (09/28/19) 10.4% Basal, prandial and correctional insulin. Hypoglycemia protocol. Accu-Chek. Diabetic education. 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 He will need 6 weeks of IV antibiotics. Cultures and antibiotics as above. - Time Time Spent with patient: 25-34 minutes Medications reviewed and adjusted accordingly: Yes Anticipated discharge: Home
[2019-11-14 15:20] LABS: HEMATOCRIT 36.4 % (37.9-51.0); MEAN CORPUSCULAR HEMOGLOBIN 29.6 pg (27.0-33.4); MEAN CORPUSCULAR HGB CONC 33.1 g/dL (32.0-36.0); MEAN CORPUSCULAR VOLUME 90 fl (80-97); PLATELET COUNT 580 10^3/uL (150-450); RED BLOOD COUNT 4.06 10^6/uL (4.35-5.55); RED CELL DISTRIBUTION WIDTH 13.4 % (11.5-14.0); WHITE BLOOD COUNT 9.6 10^3/uL (4.0-10.5)
[2019-11-14 15:42] LABS: BLOOD UREA NITROGEN 12 mg/dL (7-20); CALCIUM 8.6 mg/dL (8.4-10.2); CARBON DIOXIDE 30 mmol/L (22-30); CREATINE KINASE 28 U/L (55-170); GLUCOSE 315 mg/dL (75-110); POTASSIUM 5.2 mmol/L (3.6-5.0)
[2019-11-14 15:48] LABS: CHLORIDE 100 mmol/L (98-107)
[2019-11-14 15:52] LABS: ANION GAP 3 (5-19)
[2019-11-14] MEDS: DAPTOMYCIN IV SCH (16:36)
[2019-11-14] MEDS: NORMAL SALINE IV SCH (16:36)
[2019-11-15] MEDS: KETOROLAC TROMETHAMINE INJ/PF 30 MG/1 ML SDV IV PRN ×3 (08:08→23:53)
[2019-11-15] MEDS: INSULIN REG, HUMAN 100 UNIT/ML 3 ML VIAL (PYX) SUBCUT SCH ×4 (08:08→21:10)
--- NOTE | 2019-11-15 09:14 | Progress Note ---
Provider Note Provider Note: [facility] ID Telephone Advice Consultation Chart reviewed. Patient is a 34-year-old man with active IVDU who was recently admitted to the hospital in September due to Streptococcus pyogenes bacteremia associated with an arm abscess that was drained and superficial thrombophlebitis surrounding the abscess. Patient left AMA before completion of antibiotics (5 days of treatment). He returned to the hospital with chest pain. He was found bacteremic with MRSA, a TTE with possible vegetation in TV and chest imaging with a left lung opacity unclear if pneumonia, septic emboli or edema. He has been on vancomycin but he has not been able to achieve good trough. He currently requires 5g to keep a trough around 14. Blood cultures from 11/06, 11/07, 11/09 and 11/12 are all positive. ID consulted for recommendations. PMH: IVDU GAS bacteremia Left arm abscess and SVT PSH: I&D arm Allergies: acetaminophen Adverse Reaction (Verified 11/07/19 22:39) Medications: No Home Medications 11/08/19 Vital Signs: Temp Pulse Resp BP Pulse Ox 97.5 F 69 16 129/70 H 100 11/15/19 07:35 11/15/19 07:35 11/15/19 07:35 11/15/19 07:35 11/15/19 07:35 Intake & Output 11/14/19 11/15/19 11/16/19 06:59 06:59 06:59 Intake Total 4472 3205 Output Total 3430 3050 Balance 1042 155 Weight 84 kg 84 kg Weight/Height Weight 84 kg Height 5 ft 7 in Laboratories: 11/14/19 14:56 11/14/19 14:56 MCV 90 fl (80-97) 11/14/19 14:56 MCH 29.6 pg (27.0-33.4) 11/14/19 14:56 MCHC 33.1 g/dL (32.0-36.0) 11/14/19 14:56 RDW 13.4 % (11.5-14.0) 11/14/19 14:56 Seg Neutrophils % 80.1 % (42-78) H 11/09/19 06:36 VBG pH 7.35 (7.30-7.42) 11/07/19 22:19 VBG pCO2 59.6 mmHg (35-63) 11/07/19 22:19 VBG HCO3 32.0 mmol/L (20-32) 11/07/19 22:19 VBG Base Excess 4.5 mmol/L 11/07/19 22:19 Chloride 100 mmol/L (98-107) 11/14/19 14:56 Carbon Dioxide 30 mmol/L (22-30) 11/14/19 14:56 Anion Gap 3 (5-19) L 11/14/19 14:56 Est GFR ( Amer) > 60 (>60) 11/14/19 14:56 Glucose 315 mg/dL (75-110) H 11/14/19 14:56 Lactic Acid 2.0 mmol/L (0.7-2.1) 11/07/19 22:19 Calcium 8.6 mg/dL (8.4-10.2) 11/14/19 14:56 Magnesium 1.7 mg/dL (1.6-2.3) 11/09/19 06:36 Total Bilirubin 0.6 mg/dL (0.2-1.3) 11/09/19 06:36 AST 20 U/L (17-59) 11/09/19 06:36 Alkaline Phosphatase 87 U/L (38-126) 11/09/19 06:36 Total Protein 6.1 g/dL (6.3-8.2) L 11/09/19 06:36 Albumin 2.7 g/dL (3.5-5.0) L 11/09/19 06:36 Urine Color STRAW 11/07/19 22:19 Urine Appearance CLEAR 11/07/19 22:19 Urine pH 6.0 (5.0-9.0) 11/07/19 22:19 Ur Specific [place] 1.031 11/07/19 22:19 Urine Protein NEGATIVE mg/dL (NEGATIVE) 11/07/19 22:19 Urine Glucose (UA) >=500 mg/dL (NEGATIVE) H 11/07/19 22:19 Urine Ketones 20 mg/dL (NEGATIVE) H 11/07/19 22:19 Urine Blood SMALL (NEGATIVE) H 11/07/19 22:19 Urine Nitrite NEGATIVE (NEGATIVE) 11/07/19 22:19 Ur Leukocyte Esterase NEGATIVE (NEGATIVE) 11/07/19 22:19 Urine WBC (Auto) 1 /HPF 11/07/19 22:19 Urine RBC (Auto) 1 /HPF 11/07/19 22:19 11/07/19 11/07/19 11/14/19 22:19 22:19 14:56 Creatine Kinase 33 L 28 L CK-MB (CK-2) 0.28 Troponin I < 0.012 Microbiology: Blood cultures: 11/06 MRSA x 2 sets 7/3 MRSA x 1 set 7/5 MRSA x 1 set 7/8 MRSA x 2 sets Radiology: Chest X-Ray 11/07/19 00:00 IMPRESSION: Focal opacity in the left lung which may represent edema or infection. Assessment and Recommendations: Patient admitted with MRSA bacteremia, probable TV endocarditis with possible septic emboli in the setting of active intravenous drug use. He recently left AMA after presenting GAS bacteremia with abscess and septic thrombophlebitis. He has been on vancomycin but with subtherapeutic levels for which he continues bacteremic. Considering that he is a rapid metabolizer, daptomycin would be a better option for MRSA TV endocarditis. A dose of 8 mg/kg is recommended. He does have a lung opacity, if pneumonia, daptomycin will not treat it, would have to add linezolid. If the lung opacity represents edema or septic emboli, no additional therapy is needed. Will recommend to repeat blood cultures after 48 hr of daptomycin. A baseline CK is needed and it should be monitored throughout the treatment at least once a week. He is actively using drugs, home infusion not an option. Please rule out any other potential site of metastatic infection like discitis, VOM, psoas abscess, septic arthritis, etc. If persistently bacteremic despite daptomycin, may need a VINAYAK and CT surgery evaluation. He will need 6 weeks of antibiotic therapy. Please monitor CBC, CMP, CK, ESR, CRP weekly. Please call if questions. Flaca Manzo MD [facility] ID [phone]
[2019-11-15] MEDS ORDERED: INSULIN GLARGINE,HUM.REC.ANLOG 1,000 UNIT/10 ML VIAL (PYX) SUBCUT ONE (09:30)
[2019-11-15] MEDS: BUPRENORPHINE HCL 2 MG SUBLINGUAL TABLET SL SCH (09:33)
[2019-11-15] MEDS: DOCUSATE SODIUM 100 MG CAPSULE PO SCH (09:33)
[2019-11-15] MEDS: FAMOTIDINE 20 MG TABLET PO SCH ×2 (09:33→21:10)
[2019-11-15] MEDS: ENOXAPARIN SODIUM INJ 40 MG/0.4 ML DISP.SYRIN SUBCUT SCH (09:34)
[2019-11-15] MEDS ORDERED: INSULIN GLARGINE,HUM.REC.ANLOG 1,000 UNIT/10 ML VIAL SUBCUT SCH (10:00)
[2019-11-15] MEDS: NORMAL SALINE 1000 ML 1,000 ML IV PRN ×2 (10:39→21:12)
--- NOTE | 2019-11-15 15:06 | PDOC PROGRESS REPORT ---
Subjective Progress Note for:: 11/15/19 Subjective:: Patient reports feeling mild chest pressure and GARCIA Physical Exam Vital Signs: Temp Pulse Resp BP Pulse Ox 97.7 F 58 L 16 108/60 97 11/15/19 11:16 11/15/19 11:16 11/15/19 11:16 11/15/19 11:16 11/15/19 11:16 Intake & Output 11/14/19 11/15/19 11/16/19 06:59 06:59 06:59 Intake Total 4472 3205 Output Total 3430 3050 Balance 1042 155 Weight 84 kg 84 kg General appearance: PRESENT: no acute distress, cooperative, well-developed, we ll-nourished Head exam: PRESENT: normocephalic Eye exam: PRESENT: conjunctiva pink Mouth exam: PRESENT: moist Neck exam: PRESENT: full ROM. ABSENT: JVD, tracheal deviation Respiratory exam: PRESENT: clear to auscultation fran, symmetrical. ABSENT: accessory muscle use Cardiovascular exam: PRESENT: RRR, +S1, +S2, systolic murmur - II/ systolic mu rmur at apex, other Pulses: PRESENT: normal radial pulses Vascular exam: PRESENT: normal capillary refill GI/Abdominal exam: PRESENT: normal bowel sounds, soft. ABSENT: guarding, tenderness Rectal exam: PRESENT: deferred Extremities exam: ABSENT: calf tenderness Musculoskeletal exam: PRESENT: full ROM Neurological exam: PRESENT: alert, awake, oriented to person, oriented to place, oriented to time, oriented to situation, CN II-XII grossly intact Psychiatric exam: PRESENT: appropriate affect. ABSENT: agitated, anxious Focused psych exam: ABSENT: restlessness Skin exam: PRESENT: intact, normal color Results Laboratory Results: 11/14/19 14:56 11/14/19 14:56 11/14/19 11/14/19 14:56 14:56 WBC 9.6 RBC 4.06 L Hgb 12.0 L Hct 36.4 L MCV 90 MCH 29.6 MCHC 33.1 RDW 13.4 Plt Count 580 H Sodium 133.3 L Potassium 5.2 H Chloride 100 Carbon Dioxide 30 Anion Gap 3 L BUN 12 Creatinine 0.59 Est GFR ( Amer) > 60 Glucose 315 H Calcium 8.6 11/13/19 08:43 Blood Blood Culture (PCR) - Final Staphylococcus Aureus 11/13/19 08:29 Blood Blood Culture (PCR) - Final Staphylococcus Aureus 11/10/19 06:53 Blood Blood Culture - Final NO GROWTH IN 5 DAYS 11/07/19 11/07/19 11/14/19 22:19 22:19 14:56 Creatine Kinase 33 L 28 L CK-MB (CK-2) 0.28 Troponin I < 0.012 Impressions: Chest X-Ray 11/07/19 00:00 IMPRESSION: Focal opacity in the left lung which may represent edema or infection. Assessment and Plan - Diagnosis (1) IV drug abuse Is this a current diagnosis for this admission?: Yes Plan: Continue buprenorphine 4 mg sublingual daily Abstinence counseling (2) MRSA bacteremia Is this a current diagnosis for this admission?: Yes Plan: Blood cultures remain positive for MRSA ID consulted Per recommendations of ID antibiotics changed to daptomycin (3) Endocarditis due to Staphylococcus Is this a current diagnosis for this admission?: Yes Plan: Echocardiogram suggestive of tricuspid valve vegetation We will need total of 6 weeks of IV antibiotics Antibiotics as noted above (4) Tricuspid valve regurgitation Qualifiers: Cardiac valve disease etiology: nonrheumatic Qualified Code(s): I36.1 - Nonrheumatic tricuspid (valve) insufficiency Is this a current diagnosis for this admission?: Yes Plan: This is likely secondary to patient's tricuspid valve vegetation Continue supportive care (5) Uncontrolled diabetes mellitus Qualifiers: Diabetes mellitus type: type 2 Glycemic state: with hyperglycemia Qualified Code(s): E11.65 - Type 2 diabetes mellitus with hyperglycemia Is this a current diagnosis for this admission?: Yes Plan: Continue current basal insulin (glargine 36 units subcutaneous daily) Continue FSBS with SSI correction scale (6) Anemia Is this a current diagnosis for this admission?: Yes Plan: No treatment indicated at this time Continue to monitor (7) Thrombocytosis Is this a current diagnosis for this admission?: Yes Plan: No signs of thrombosis No treatment indicated at this time Continue to monitor - Time Time Spent with patient: 25-34 minutes Medications reviewed and adjusted accordingly: Yes
[2019-11-15] MEDS: NORMAL SALINE IV SCH (17:01)
[2019-11-15] MEDS: DAPTOMYCIN IV SCH (17:01)
[2019-11-16 02:39] LABS: ABSOLUTE BASOPHILS # (AUTO) 0.1 10^3/uL (0.0-0.2); ABSOLUTE EOSINOPHILS # (AUTO) 0.2 10^3/uL (0.0-0.6); ABSOLUTE LYMPHOCYTES (AUTO) 2.9 10^3/uL (0.5-4.7); ABSOLUTE MONOCYTES (AUTO) 0.9 10^3/uL (0.1-1.4); ABSOLUTE NEUT (AUTO) 6.2 10^3/uL (1.7-8.2); BASOPHILS % (AUTO) 0.6 % (0-2); EOSINOPHILS % (AUTO) 1.5 % (0-6); HEMATOCRIT 36.1 % (37.9-51.0); HEMOGLOBIN 12.1 g/dL (13.5-17.0); LYMPHOCYTES % (AUTO) 28.3 % (13-45); MEAN CORPUSCULAR HEMOGLOBIN 29.9 pg (27.0-33.4); MEAN CORPUSCULAR HGB CONC 33.7 g/dL (32.0-36.0); MEAN CORPUSCULAR VOLUME 89 fl (80-97); MONOCYTES % (AUTO) 8.4 % (3-13); PLATELET COUNT 606 10^3/uL (150-450); RED BLOOD COUNT 4.06 10^6/uL (4.35-5.55); RED CELL DISTRIBUTION WIDTH 13.5 % (11.5-14.0); SEGMENTED NEUTROPHILS % (AUTO) 61.2 % (42-78); TOTAL CELLS COUNTED % (AUTO) 100 %; WHITE BLOOD COUNT 10.2 10^3/uL (4.0-10.5)
--- NOTE | 2019-11-16 08:27 | PDOC PROGRESS REPORT ---
Subjective Progress Note for:: 11/16/19 Subjective:: Patient seen this morning in follow-up. At the time of visit patient resting quietly in bed. Denies chest pain, chest pressure, and SOB. States that he did not sleep well overnight because of unusual dreams and frequent wakening. Reason For Visit: Bacteremia, Endocarditis Physical Exam Vital Signs: Temp Pulse Resp BP Pulse Ox 98.6 F 70 17 129/75 H 100 11/15/19 23:47 11/16/19 02:00 11/15/19 23:47 11/15/19 23:47 11/15/19 23:47 Intake & Output 11/15/19 11/16/19 11/17/19 06:59 06:59 06:59 Intake Total 3205 3175 Output Total 3050 5575 Balance 155 -2400 Weight 84 kg 84 kg General appearance: PRESENT: no acute distress, cooperative, well-developed, well-nourished Head exam: PRESENT: atraumatic, normocephalic Eye exam: PRESENT: conjunctiva pink Mouth exam: PRESENT: moist, tongue midline Neck exam: PRESENT: full ROM. ABSENT: JVD Respiratory exam: PRESENT: clear to auscultation fran, symmetrical, unlabored. ABSENT: accessory muscle use Cardiovascular exam: PRESENT: RRR, +S1, +S2, systolic murmur, other - II/ systolic murmur at apex Pulses: PRESENT: normal carotid pulses, normal radial pulses Vascular exam: PRESENT: normal capillary refill GI/Abdominal exam: PRESENT: normal bowel sounds, soft. ABSENT: distended, guarding, rebound, rigid, tenderness Rectal exam: PRESENT: deferred Extremities exam: PRESENT: full ROM. ABSENT: calf tenderness Musculoskeletal exam: PRESENT: full ROM, normal inspection Neurological exam: PRESENT: alert, awake, oriented to person, oriented to place, oriented to time, oriented to situation, CN II-XII grossly intact Psychiatric exam: PRESENT: appropriate affect, normal mood. ABSENT: agitated, anxious, depressed Skin exam: PRESENT: dry, intact, normal color, other - Well-healed incision on LUE, site of former abscess Results Laboratory Results: 11/16/19 02:25 11/14/19 14:56 11/16/19 11/16/19 00:25 02:25 WBC Cancelled 10.2 RBC Cancelled 4.06 L Hgb Cancelled 12.1 L Hct Cancelled 36.1 L MCV Cancelled 89 MCH Cancelled 29.9 MCHC Cancelled 33.7 RDW Cancelled 13.5 Plt Count Cancelled 606 H Seg Neutrophils % Cancelled 61.2 11/13/19 08:43 Blood Blood Culture (PCR) - Final Staphylococcus Aureus 11/13/19 08:29 Blood Blood Culture (PCR) - Final Staphylococcus Aureus 11/10/19 06:53 Blood Blood Culture - Final NO GROWTH IN 5 DAYS 11/07/19 11/07/19 11/14/19 22:19 22:19 14:56 Creatine Kinase 33 L 28 L CK-MB (CK-2) 0.28 Troponin I < 0.012 Impressions: Chest X-Ray 11/07/19 00:00 IMPRESSION: Focal opacity in the left lung which may represent edema or infection. Assessment and Plan - Diagnosis (1) IV drug abuse Is this a current diagnosis for this admission?: Yes Plan: Continue buprenorphine 4 mg sublingual daily No signs of opioid withdrawal Reinforced abstinence counseling (2) MRSA bacteremia Is this a current diagnosis for this admission?: Yes Plan: Blood cultures remain positive for MRSA, last set 11/13/2019 ID input/assistance appreciated Per ID recommendations antibiotics changed to daptomycin Repeat cultures and a.m. 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 Is this a current diagnosis for this admission?: Yes Plan: Echocardiogram suggestive of tricuspid valve vegetation We will need total of 6 weeks of IV antibiotics once cultures negative Antibiotics as noted above (4) Tricuspid valve regurgitation Qualifiers: Cardiac valve disease etiology: nonrheumatic Qualified Code(s): I36.1 - Nonrheumatic tricuspid (valve) insufficiency Is this a current diagnosis for this admission?: Yes Plan: This is likely secondary to patient's tricuspid valve vegetation Continue supportive care Bacterial endocarditis treatment as noted above (5) Uncontrolled diabetes mellitus Qualifiers: Diabetes mellitus type: type 2 Glycemic state: with hyperglycemia Qualifi ed Code(s): E11.65 - Type 2 diabetes mellitus with hyperglycemia Is this a current diagnosis for this admission?: Yes Plan: Continue current basal insulin (glargine 36 units subcutaneous daily) Continue FSBS with SSI correction scale FS BS slightly low at 86 this a.m. (6) Anemia Is this a current diagnosis for this admission?: Yes Plan: No treatment indicated at this time Continue to monitor (7) Thrombocytosis Is this a current diagnosis for this admission?: Yes Plan: No signs of thrombosis Continue current DVT prophylaxis (enoxaparin 40 mg subcutaneous daily) Continue to monitor (8) Pneumonia Qualifiers: Pneumonia type: due to unspecified organism Laterality: left Lung location: unspecified part of lung Qualified Code(s): J18.9 - Pneumonia, unspecified organism Is this a current diagnosis for this admission?: Yes Plan: Patient was empirically placed on IV vancomycin and Zosyn, he received 2 days of Zosyn and 6 days of vancomycin Patient was transitioned to daptomycin per ID recommendations Continue aggressive pulmonary toilet Continue duo nebs every 6 hours PRN SOB Repeat CXR If CXR reveals persistent pneumonia will need to broaden antibiotic coverage - Time Time Spent with patient: 25-34 minutes
[2019-11-16] MEDS: KETOROLAC TROMETHAMINE INJ/PF 30 MG/1 ML SDV IV PRN ×2 (08:57→18:33)
[2019-11-16] MEDS ORDERED: INSULIN GLARGINE,HUM.REC.ANLOG 1,000 UNIT/10 ML VIAL SUBCUT SCH (10:00)
[2019-11-16] MEDS: INSULIN REG, HUMAN 100 UNIT/ML 3 ML VIAL (PYX) SUBCUT SCH ×4 (10:23→21:30)
[2019-11-16] MEDS: FAMOTIDINE 20 MG TABLET PO SCH ×2 (10:33→21:31)
[2019-11-16] MEDS: DOCUSATE SODIUM 100 MG CAPSULE PO SCH (10:33)
[2019-11-16] MEDS: ENOXAPARIN SODIUM INJ 40 MG/0.4 ML DISP.SYRIN SUBCUT SCH (10:33)
[2019-11-16] MEDS: INSULIN GLARGINE,HUM.REC.ANLOG 1,000 UNIT/10 ML VIAL SUBCUT SCH (10:34)
[2019-11-16] MEDS: BUPRENORPHINE HCL 2 MG SUBLINGUAL TABLET SL SCH (10:34)
--- NOTE | 2019-11-16 11:28 | RADIOLOGY REPORT (SQ) ---
EXAM DESCRIPTION: CHEST SINGLE VIEW IMAGES COMPLETED DATE/TIME: 11/16/2019 9:02 am REASON FOR STUDY: PNA COMPARISON: Chest radiographs 11/07/2019 EXAM PARAMETERS: NUMBER OF VIEWS: One view. TECHNIQUE: Single frontal radiographic view of the chest acquired. RADIATION DOSE: NA LIMITATIONS: None. FINDINGS: LUNGS AND PLEURA: Right pleural effusion. Patchy retrocardiac airspace opacities. MEDIASTINUM AND HILAR STRUCTURES: No masses. Contour normal. HEART AND VASCULAR STRUCTURES: Heart normal in size. Normal vasculature. BONES: No acute findings. HARDWARE: None in the chest. OTHER: No other significant finding. IMPRESSION: Right pleural effusion. Patchy retrocardiac airspace opacities. TECHNICAL DOCUMENTATION: JOB ID: [id number] 2010 [employer]- All Rights Reserved Reading location - IP/workstation name: [email or web address]
[2019-11-16] MEDS: NORMAL SALINE 1000 ML 1,000 ML IV PRN ×2 (12:35→19:20)
--- NOTE | 2019-11-16 18:17 | Progress Note ---
Provider Note Provider Note: CXR reviewed. Given findings of retrocardiac airspace disease will request CT of the chest without contrast for further evaluation.
[2019-11-16] MEDS: DAPTOMYCIN IV SCH (18:33)
[2019-11-16] MEDS: NORMAL SALINE IV SCH (18:33)
--- NOTE | 2019-11-16 23:05 | RADIOLOGY REPORT (SQ) ---
EXAM DESCRIPTION: CT CHEST WITHOUT IV CONTRAST COMPLETED DATE/TME: 11/16/2019 00:00 CLINICAL HISTORY: 34 years, Male, Possible PNA COMPARISON: Chest x-ray 11/16/2019. CT chest 06/16/2014 TECHNIQUE: 335 Images stored on PACS. All CT scanners at this facility use dose modulation, iterative reconstruction, and/or weight based dosing when appropriate to reduce radiation dose to as low as reasonably achievable (ALARA). [facility]: Dose Right [facility]: CareDose [facility]: Dose Right [facility]: Teradose 4D [facility]: [employer] LIMITATIONS: None. FINDINGS: Evaluation of the mediastinum and hilum limited due to lack of IV contrast. Heart size is normal. Small pericardial effusion. Limited evaluation of the upper abdomen is grossly unremarkable. Osseous structures are grossly intact. There are small bilateral pleural effusions, with suspected loculated components. Cavitary nodules seen on the prior CT have improved significantly. There are residual nodular foci bilaterally, the largest abutting the pleural surface in the posterior lateral left lung base. This measures approximately 2.1 x 2.2 cm. No pneumothorax. The visualized airways are patent. Diffuse anasarca. IMPRESSION: Small bilateral pleural effusions with suspected areas of loculation. Trace of pericardial fluid. Compared with the 2015 exam there has been significant improvement in multiple bilateral pulmonary nodules, some of which were cavitary. The largest residual nodule is in the lateral left lung base, as above measuring 2.2 x 2.1 cm. Some equivocal cavitation within this nodule. Findings could reflect septic emboli, with other etiologies including neoplastic, infectious/granulomatous/fungal disease also considered. TECHNICAL DOCUMENTATION: Quality ID # [id number]: Final reports with documentation of one or more dose reduction techniques (e.g., Automated exposure control, adjustment of the mA and/or kV according to patient size, use of iterative reconstruction technique) copyright 2011 [employer]- All Rights Reserved
[2019-11-17] MEDS: KETOROLAC TROMETHAMINE INJ/PF 30 MG/1 ML SDV IV PRN ×4 (00:03→23:29)
[2019-11-17] MEDS: NORMAL SALINE 1000 ML 1,000 ML IV PRN ×3 (05:34→23:30)
[2019-11-17 07:22] LABS: BLOOD UREA NITROGEN 15 mg/dL (7-20); CALCIUM 8.5 mg/dL (8.4-10.2); CARBON DIOXIDE 28 mmol/L (22-30); CHLORIDE 104 mmol/L (98-107); GLUCOSE 156 mg/dL (75-110); POTASSIUM 4.1 mmol/L (3.6-5.0)
[2019-11-17 07:30] LABS: ANION GAP 4 (5-19)
[2019-11-17] MEDS: INSULIN REG, HUMAN 100 UNIT/ML 3 ML VIAL (PYX) SUBCUT SCH ×4 (08:08→22:00)
[2019-11-17] MEDS: INSULIN GLARGINE,HUM.REC.ANLOG 1,000 UNIT/10 ML VIAL SUBCUT SCH (09:48)
[2019-11-17] MEDS: ENOXAPARIN SODIUM INJ 40 MG/0.4 ML DISP.SYRIN SUBCUT SCH (09:48)
[2019-11-17] MEDS: FAMOTIDINE 20 MG TABLET PO SCH ×2 (09:49→22:00)
[2019-11-17] MEDS: BUPRENORPHINE HCL 2 MG SUBLINGUAL TABLET SL SCH (09:49)
[2019-11-17] MEDS: DOCUSATE SODIUM 100 MG CAPSULE PO SCH (09:49)
--- NOTE | 2019-11-17 11:48 | PDOC PROGRESS REPORT ---
Subjective Progress Note for:: 11/17/19 Subjective:: Patient seen this a.m. in follow-up. Denies chest pain/pressure and SOB Reason For Visit: PNEUMONIA, HYPERKALEMIA, HYPERGLYCEMIA Physical Exam Vital Signs: Temp Pulse Resp BP Pulse Ox 97.9 F 70 16 140/82 H 98 11/17/19 09:08 11/17/19 09:08 11/17/19 09:08 11/17/19 09:08 11/17/19 09:08 Intake & Output 11/16/19 11/17/19 11/18/19 06:59 06:59 06:59 Intake Total 4175 3930 Output Total 5591 3450 Balance -1400 480 Weight 84 kg 81.7 kg General appearance: PRESENT: no acute distress, cooperative, well-developed, well-nourished Head exam: PRESENT: atraumatic, normocephalic Eye exam: PRESENT: conjunctiva pink Mouth exam: PRESENT: moist, tongue midline Neck exam: PRESENT: full ROM. ABSENT: JVD Respiratory exam: PRESENT: clear to auscultation fran, symmetrical, unlabored. ABSENT: accessory muscle use Cardiovascular exam: PRESENT: RRR, +S1, +S2, systolic murmur, other - II/ systolic murmur at apex Pulses: PRESENT: normal radial pulses Vascular exam: PRESENT: normal capillary refill GI/Abdominal exam: PRESENT: normal bowel sounds, soft. ABSENT: distended, tenderness Rectal exam: PRESENT: deferred Extremities exam: PRESENT: full ROM Neurological exam: PRESENT: alert, awake, oriented to person, oriented to place, oriented to time, oriented to situation, CN II-XII grossly intact Psychiatric exam: PRESENT: appropriate affect, normal mood. ABSENT: agitated, anxious Skin exam: PRESENT: dry, normal color, warm Results Laboratory Results: 11/16/19 02:25 11/17/19 06:50 11/17/19 06:50 Sodium 136.2 L Potassium 4.1 Chloride 104 Carbon Dioxide 28 Anion Gap 4 L BUN 15 Creatinine 0.60 Est GFR ( Amer) > 60 Glucose 156 H Calcium 8.5 11/13/19 08:43 Blood Blood Culture (PCR) - Final Staphylococcus Aureus 11/13/19 08:43 Blood Blood Culture - Final Mrsa (Meth Resis Staph Aureus) 11/13/19 08:29 Blood Blood Culture (PCR) - Final Staphylococcus Aureus 11/13/19 08:29 Blood Blood Culture - Final Mrsa (Meth Resis Staph Aureus) 11/07/19 11/07/19 11/14/19 22:19 22:19 14:56 Creatine Kinase 33 L 28 L CK-MB (CK-2) 0.28 Troponin I < 0.012 Impressions: Chest CT 11/16/19 00:00 IMPRESSION: Small bilateral pleural effusions with suspected areas of loculation. Trace of pericardial fluid. Compared with the 2015 exam there has been significant improvement in multiple bilateral pulmonary nodules, some of which were cavitary. The largest residual nodule is in the lateral left lung base, as above measuring 2.2 x 2.1 cm. Some equivocal cavitation within this nodule. Findings could reflect septic emboli, with other etiologies including neoplastic, infectious/granulomatous/fungal disease also considered. TECHNICAL DOCUMENTATION: Quality ID # [id number]: Final reports with documentation of one or more dose reduction techniques (e.g., Automated exposure control, adjustment of the mA and/or kV according to patient size, use of iterative reconstruction technique) copyright 2011 [employer]- All Rights Reserved Chest X-Ray 11/16/19 00:00 IMPRESSION: Right pleural effusion. Patchy retrocardiac airspace opacities. Assessment and Plan - Diagnosis (1) IV drug abuse Is this a current diagnosis for this admission?: Yes Plan: Continue buprenorphine 4 mg sublingual daily, patient continues to do well on this dose No signs of opioid withdrawal Abstinence counseling reinforced (2) MRSA bacteremia Is this a current diagnosis for this admission?: Yes Plan: Blood cultures remain positive for MRSA, last set 11/13/2019 ID input/assistance appreciated Per ID recommendations antibiotics changed to daptomycin Repeat cultures done this a.m. 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 Is this a current diagnosis for this admission?: Yes Plan: Echocardiogram suggestive of tricuspid valve vegetation Patient does have murmur consistent with TR We will need total of 6 weeks of IV antibiotics once cultures negative Antibiotics as noted above (4) Tricuspid valve regurgitation Qualifiers: Cardiac valve disease etiology: nonrheumatic Qualified Code(s): I36.1 - Nonrheumatic tricuspid (valve) insufficiency Is this a current diagnosis for this admission?: Yes Plan: This is likely secondary to patient's tricuspid valve vegetation Continue supportive care Bacterial endocarditis treatment as noted above (5) Uncontrolled diabetes mellitus Qualifiers: Diabetes mellitus type: type 2 Glycemic state: with hyperglycemia Qualified Code(s): E11.65 - Type 2 diabetes mellitus with hyperglycemia Is this a current diagnosis for this admission?: Yes Plan: Blood sugars labile with periodic borderline low Continue current basal insulin (glargine 36 units subcutaneous daily), no room to titrate at this time Continue FSBS with SSI correction scale (6) Anemia Is this a current diagnosis for this admission?: Yes Plan: H/H overall stable No treatment indicated at this time Monitor periodically (7) Thrombocytosis Is this a current diagnosis for this admission?: Yes Plan: No signs of thrombosis Continue current DVT prophylaxis (enoxaparin 40 mg subcutaneous daily) Monitor periodically (8) Pneumonia Qualifiers: Pneumonia type: due to unspecified organism Laterality: left Lung location: unspecified part of lung Qualified Code(s): J18.9 - Pneumonia, unsp ecified organism Is this a current diagnosis for this admission?: Yes Plan: Patient was empirically placed on IV vancomycin and Zosyn, he received 2 days of Zosyn and 6 days of vancomycin Patient was transitioned to daptomycin per ID recommendations Continue aggressive pulmonary toilet Continue duo nebs every 6 hours PRN SOB CXR reviewed CT chest reviewed, retrocardiac airspace disease noted on CXR likely 2/2 pulmonary infarct New current antibiotics at this time - Time Time Spent with patient: 25-34 minutes Medications reviewed and adjusted accordingly: Yes
[2019-11-17] MEDS: DAPTOMYCIN IV SCH (17:02)
[2019-11-17] MEDS: NORMAL SALINE IV SCH (17:02)
[2019-11-18 00:06] LABS: ABSOLUTE BASOPHILS # (AUTO) 0.1 10^3/uL (0.0-0.2); ABSOLUTE EOSINOPHILS # (AUTO) 0.1 10^3/uL (0.0-0.6); ABSOLUTE LYMPHOCYTES (AUTO) 2.9 10^3/uL (0.5-4.7); ABSOLUTE MONOCYTES (AUTO) 0.8 10^3/uL (0.1-1.4); BASOPHILS % (AUTO) 0.9 % (0-2); HEMATOCRIT 34.3 % (37.9-51.0); HEMOGLOBIN 11.5 g/dL (13.5-17.0); LYMPHOCYTES % (AUTO) 29.1 % (13-45); MEAN CORPUSCULAR HEMOGLOBIN 29.8 pg (27.0-33.4); MEAN CORPUSCULAR HGB CONC 33.5 g/dL (32.0-36.0); MEAN CORPUSCULAR VOLUME 89 fl (80-97); MONOCYTES % (AUTO) 8.1 % (3-13); PLATELET COUNT 573 10^3/uL (150-450); RED BLOOD COUNT 3.85 10^6/uL (4.35-5.55); RED CELL DISTRIBUTION WIDTH 13.5 % (11.5-14.0); SEGMENTED NEUTROPHILS % (AUTO) 60.9 % (42-78); TOTAL CELLS COUNTED % (AUTO) 100 %; WHITE BLOOD COUNT 9.8 10^3/uL (4.0-10.5)
[2019-11-18] MEDS: NORMAL SALINE 1000 ML 1,000 ML IV PRN ×2 (06:02→17:25)
--- NOTE | 2019-11-18 09:12 | PDOC PROGRESS REPORT ---
Subjective Progress Note for:: 11/18/19 Subjective:: Patient seen in follow-up. No complaints. Reason For Visit: IVDA, bacteremia, endocarditis Physical Exam Vital Signs: Temp Pulse Resp BP Pulse Ox 97.9 F 69 12 141/89 H 100 11/18/19 07:22 11/18/19 07:22 11/18/19 07:22 11/18/19 07:22 11/18/19 07:22 Intake & Output 11/17/19 11/18/19 11/19/19 06:59 06:59 06:59 Intake Total 3930 4346 Output Total 3450 3625 Balance 480 721 Weight 81.7 kg 79.7 kg General appearance: PRESENT: no acute distress, cooperative, well-developed, well-nourished Head exam: PRESENT: atraumatic, normocephalic Eye exam: PRESENT: conjunctiva pink Mouth exam: PRESENT: moist, tongue midline Neck exam: PRESENT: full ROM. ABSENT: JVD Respiratory exam: PRESENT: clear to auscultation fran, symmetrical, unlabored. ABSENT: accessory muscle use Cardiovascular exam: PRESENT: RRR, +S1, systolic murmur - II/ systolic at apex Pulses: PRESENT: normal carotid pulses, normal radial pulses Vascular exam: PRESENT: normal capillary refill GI/Abdominal exam: PRESENT: normal bowel sounds, soft. ABSENT: distended, tenderness Rectal exam: PRESENT: deferred Extremities exam: PRESENT: full ROM. ABSENT: calf tenderness, pedal edema Musculoskeletal exam: PRESENT: full ROM Neurological exam: PRESENT: alert, altered, awake, oriented to person, oriented to place, oriented to time, oriented to situation, CN II-XII grossly intact Psychiatric exam: PRESENT: appropriate affect, normal mood. ABSENT: agitated, anxious Skin exam: PRESENT: dry, warm Results Laboratory Results: 11/17/19 23:59 11/17/19 06:50 11/17/19 23:59 WBC 9.8 RBC 3.85 L Hgb 11.5 L Hct 34.3 L MCV 89 MCH 29.8 MCHC 33.5 RDW 13.5 Plt Count 573 H Seg Neutrophils % 60.9 11/07/19 11/07/19 11/14/19 22:19 22:19 14:56 Creatine Kinase 33 L 28 L CK-MB (CK-2) 0.28 Troponin I < 0.012 Impressions: Chest CT 11/16/19 00:00 IMPRESSION: Small bilateral pleural effusions with suspected areas of loculation. Trace of pericardial fluid. Compared with the 2015 exam there has been significant improvement in multiple bilateral pulmonary nodules, some of which were cavitary. The largest residual nodule is in the lateral left lung base, as above measuring 2.2 x 2.1 cm. Some equivocal cavitation within this nodule. Findings could reflect septic emboli, with other etiologies including neoplastic, infectious/granulomatous/fungal disease also considered. TECHNICAL DOCUMENTATION: Quality ID # [id number]: Final reports with documentation of one or more dose reduction techniques (e.g., Automated exposure control, adjustment of the mA and/or kV according to patient size, use of iterative reconstruction technique) copyright 2011 [employer]- All Rights Reserved Chest X-Ray 11/16/19 00:00 IMPRESSION: Right pleural effusion. Patchy retrocardiac airspace opacities. Assessment and Plan - Diagnosis (1) IV drug abuse Is this a current diagnosis for this admission?: Yes Plan: Continue buprenorphine 4 mg sublingual daily, patient continues to do well on this dose No signs of opioid withdrawal Today had a long discussion with patient regarding abstinence. Discussed lifestyle changes with patient as well as need for ongoing support once discha rged from the hospital. Introduced concept of Narcotics Anonymous as well as ongoing buprenorphine therapy and a Suboxone program. Patient seems motivated. (2) MRSA bacteremia Is this a current diagnosis for this admission?: Yes Plan: Blood cultures from 11/17/2019, NG at 24 hours -we will need pick placed once cultures are sterile for long-term antibiotic therapy ID input/assistance appreciated Per ID recommendations antibiotics have been changed to daptomycin Monitor CBC, CMP, CK, ESR, CRP weekly -ordered for tomorrow a.m. 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 Is this a current diagnosis for this admission?: Yes Plan: Echocardiogram suggestive of tricuspid valve vegetation Patient does have murmur consistent with TR We will need total of 6 weeks of IV antibiotics once cultures negative Antibiotics as noted above (4) Tricuspid valve regurgitation Qualifiers: Cardiac valve disease etiology: nonrheumatic Qualified Code(s): I36.1 - Nonrheumatic tricuspid (valve) insufficiency Is this a current diagnosis for this admission?: Yes Plan: This is likely secondary to patient's tricuspid valve vegetation Continue supportive care Bacterial endocarditis treatment as noted above (5) Uncontrolled diabetes mellitus Qualifiers: Diabetes mellitus type: type 2 Glycemic state: with hyperglycemia Qu alified Code(s): E11.65 - Type 2 diabetes mellitus with hyperglycemia Is this a current diagnosis for this admission?: Yes Plan: Blood sugar less labile over past 24 hours with no episodes of hypoglycemia Continue current basal insulin (glargine 36 units subcutaneous daily), if blood sugar remains above goal with no hypoglycemic episodes over the next 24 to 48 hours may consider titration of basal insulin Continue FSBS with SSI correction scale (6) Anemia Is this a current diagnosis for this admission?: Yes Plan: H/H overall stable No treatment indicated at this time Monitor periodically (7) Thrombocytosis Is this a current diagnosis for this admission?: Yes Plan: No signs of thrombosis Continue current DVT prophylaxis (enoxaparin 40 mg subcutaneous daily) Monitor periodically (8) Pneumonia Qualifiers: Pneumonia type: due to unspecified organism Laterality: left Lung location: unspecified part of lung Qualified Code(s): J18.9 - Pneumonia, unspecified organism Is this a current diagnosis for this admission?: Yes Plan: Patient was empirically placed on IV vancomycin and Zosyn, he received 2 days of Zosyn and 6 days of vancomycin Patient was transitioned to daptomycin per ID recommendations Continue aggressive pulmonary toilet Continue duo nebs every 6 hours PRN SOB CXR revealed retrocardiac airspace disease this is likely 2/2 pulmonary infarct which was noted on CT of the chest New current antibiotics at this time (9) Hyponatremia Is this a current diagnosis for this admission?: Yes Plan: Asymptomatic Overall improved, no treatment indicated at this time - Time Time Spent with patient: 25-34 minutes Medications reviewed and adjusted accordingly: Yes
[2019-11-18] MEDS: INSULIN REG, HUMAN 100 UNIT/ML 3 ML VIAL (PYX) SUBCUT SCH ×4 (10:13→21:47)
[2019-11-18] MEDS: BUPRENORPHINE HCL 2 MG SUBLINGUAL TABLET SL SCH (11:02)
[2019-11-18] MEDS: ENOXAPARIN SODIUM INJ 40 MG/0.4 ML DISP.SYRIN SUBCUT SCH (11:02)
[2019-11-18] MEDS: DOCUSATE SODIUM 100 MG CAPSULE PO SCH (11:02)
[2019-11-18] MEDS: FAMOTIDINE 20 MG TABLET PO SCH ×2 (11:02→21:48)
[2019-11-18] MEDS: INSULIN GLARGINE,HUM.REC.ANLOG 1,000 UNIT/10 ML VIAL SUBCUT SCH (11:03)
[2019-11-18] MEDS: KETOROLAC TROMETHAMINE INJ/PF 30 MG/1 ML SDV IV PRN ×2 (11:12→21:48)
[2019-11-18] MEDS: DAPTOMYCIN IV SCH (17:25)
[2019-11-18] MEDS: NORMAL SALINE IV SCH (17:25)
[2019-11-19 00:21] LABS: ABSOLUTE BASOPHILS # (AUTO) 0.1 10^3/uL (0.0-0.2); ABSOLUTE EOSINOPHILS # (AUTO) 0.1 10^3/uL (0.0-0.6); ABSOLUTE LYMPHOCYTES (AUTO) 2.6 10^3/uL (0.5-4.7); ABSOLUTE MONOCYTES (AUTO) 0.7 10^3/uL (0.1-1.4); ABSOLUTE NEUT (AUTO) 5.8 10^3/uL (1.7-8.2); BASOPHILS % (AUTO) 1.1 % (0-2); EOSINOPHILS % (AUTO) 1.1 % (0-6); HEMATOCRIT 34.9 % (37.9-51.0); HEMOGLOBIN 11.9 g/dL (13.5-17.0); LYMPHOCYTES % (AUTO) 28.2 % (13-45); MEAN CORPUSCULAR HEMOGLOBIN 30.2 pg (27.0-33.4); MEAN CORPUSCULAR HGB CONC 34.2 g/dL (32.0-36.0); MEAN CORPUSCULAR VOLUME 88 fl (80-97); MONOCYTES % (AUTO) 7.7 % (3-13); PLATELET COUNT 620 10^3/uL (150-450); RED BLOOD COUNT 3.96 10^6/uL (4.35-5.55); SEGMENTED NEUTROPHILS % (AUTO) 61.9 % (42-78); TOTAL CELLS COUNTED % (AUTO) 100 %; WHITE BLOOD COUNT 9.3 10^3/uL (4.0-10.5)
[2019-11-19 06:37] LABS: ABSOLUTE BASOPHILS # (AUTO) 0.1 10^3/uL (0.0-0.2); ABSOLUTE EOSINOPHILS # (AUTO) 0.1 10^3/uL (0.0-0.6); ABSOLUTE LYMPHOCYTES (AUTO) 2.7 10^3/uL (0.5-4.7); ABSOLUTE MONOCYTES (AUTO) 0.7 10^3/uL (0.1-1.4); ABSOLUTE NEUT (AUTO) 4.1 10^3/uL (1.7-8.2); EOSINOPHILS % (AUTO) 1.2 % (0-6); HEMATOCRIT 34.7 % (37.9-51.0); HEMOGLOBIN 11.9 g/dL (13.5-17.0); LYMPHOCYTES % (AUTO) 35.4 % (13-45); MEAN CORPUSCULAR HEMOGLOBIN 30.1 pg (27.0-33.4); MEAN CORPUSCULAR HGB CONC 34.1 g/dL (32.0-36.0); MEAN CORPUSCULAR VOLUME 88 fl (80-97); MONOCYTES % (AUTO) 9.4 % (3-13); PLATELET COUNT 628 10^3/uL (150-450); RED BLOOD COUNT 3.94 10^6/uL (4.35-5.55); RED CELL DISTRIBUTION WIDTH 13.8 % (11.5-14.0); TOTAL CELLS COUNTED % (AUTO) 100 %; WHITE BLOOD COUNT 7.8 10^3/uL (4.0-10.5)
[2019-11-19 07:01] LABS: ALBUMIN 2.9 g/dL (3.5-5.0); ALKALINE PHOSPHATASE 70 U/L (38-126); ANION GAP 6 (5-19); ASPARTATE AMINO TRANSFERASE 33 U/L (17-59); BILIRUBIN,TOTAL 0.3 mg/dL (0.2-1.3); BLOOD UREA NITROGEN 16 mg/dL (7-20); C-REACTIVE PROTEIN 22.9 mg/L (<10.0); CALCIUM 8.9 mg/dL (8.4-10.2); CARBON DIOXIDE 27 mmol/L (22-30); CHLORIDE 104 mmol/L (98-107); CREATINE KINASE 26 U/L (55-170); GLUCOSE 109 mg/dL (75-110); POTASSIUM 4.4 mmol/L (3.6-5.0); TOTAL PROTEIN 6.7 g/dL (6.3-8.2)
[2019-11-19 07:21] LABS: ERYTHROCYTE SEDIMENTATION RATE 64 mm/hr (0-15)
[2019-11-19] MEDS: INSULIN REG, HUMAN 100 UNIT/ML 3 ML VIAL (PYX) SUBCUT SCH ×4 (07:47→21:40)
[2019-11-19] MEDS: INSULIN GLARGINE,HUM.REC.ANLOG 1,000 UNIT/10 ML VIAL SUBCUT SCH (09:15)
[2019-11-19] MEDS: BUPRENORPHINE HCL 2 MG SUBLINGUAL TABLET SL SCH (09:15)
[2019-11-19] MEDS: FAMOTIDINE 20 MG TABLET PO SCH ×2 (09:15→21:41)
[2019-11-19] MEDS: ENOXAPARIN SODIUM INJ 40 MG/0.4 ML DISP.SYRIN SUBCUT SCH (09:15)
[2019-11-19] MEDS: KETOROLAC TROMETHAMINE INJ/PF 30 MG/1 ML SDV IV PRN ×2 (09:15→21:47)
[2019-11-19] MEDS: DOCUSATE SODIUM 100 MG CAPSULE PO SCH (09:15)
--- NOTE | 2019-11-19 12:00 | PDOC PROGRESS REPORT ---
Subjective Progress Note for:: 11/19/19 Subjective:: 34 year old male past medical history of heroin abuse, uncontrolled diabetes, medication noncompliance, left upper extremity abscess, bacteremia, sepsis, pneumonia. Last admission here at [facility] on 09/27/2019, diagnosed with left arm abscess, Streptococcus pyogenes bacteremia was started on IV antibiotics but unfortunately left AMA on 10/02/2019. Last ED admission was 11/04/2019 for heroin overdose was sent home after receiving Narcan. Today he is presenting ED complaining of left-sided chest pain, productive cough and fever. Chest pain is left-sided, sharp, nonradiating, worse with breathing and movement, better with rest, 5/10 intensity scale. Denies any vision changes, headache, nausea, vomiting, abdominal pain, diarrhea, constipation, rash, dysuria, hematuria, joint pain, joint swelling, oral lesions or ulcers. In ED was noted to have leukocytosis, hyperglycemia, hyperkalemia, hyponatremia, with chest x-ray showing focal opacity in the left lung. 11/[id number]-obaj-old male IV drug abuser admitted for sepsis. Found to have endocarditis. Presently on a daptomycin as per ID recommendations. Repeat blood cultures are negative so far. Plan is to wait for the culture reports until tomorrow prior to arranging for PICC line. Reason For Visit: PNEUMONIA, HYPERKALEMIA, HYPERGLYCEMIA Physical Exam Vital Signs: Temp Pulse Resp BP Pulse Ox 98.0 F 68 12 125/81 99 11/19/19 07:07 11/19/19 07:07 11/19/19 07:07 11/19/19 07:07 11/19/19 07:07 Intake & Output 11/18/19 11/19/19 11/20/19 06:59 06:59 06:59 Intake Total 4346 2 Output Total 3625 2175 Balance 721 -153 Weight 79.7 kg 79.7 kg General appearance: PRESENT: no acute distress, cooperative, well-developed Head exam: PRESENT: atraumatic Eye exam: PRESENT: PERRLA Teeth exam: PRESENT: poor dentation Neck exam: ABSENT: carotid bruit, JVD, lymphadenopathy, thyromegaly Respiratory exam: PRESENT: decreased breath sounds Cardiovascular exam: PRESENT: systolic murmur, tachycardia Pulses: PRESENT: normal dorsalis pedis pul GI/Abdominal exam: PRESENT: normal bowel sounds, soft. ABSENT: distended, guarding, mass, organolmegaly, rebound, tenderness Rectal exam: PRESENT: deferred Extremities exam: PRESENT: full ROM. ABSENT: calf tenderness, clubbing, pedal edema Neurological exam: PRESENT: alert, awake, oriented to person, oriented to place, oriented to time, oriented to situation, CN II-XII grossly intact. ABSENT: motor sensory deficit Psychiatric exam: PRESENT: appropriate affect, normal mood. ABSENT: homicidal ideation, suicidal ideation Results Laboratory Results: 11/19/19 05:40 11/19/19 05:40 11/18/19 11/19/19 11/19/19 23:45 05:40 05:40 WBC 9.3 7.8 RBC 3.96 L 3.94 L Hgb 11.9 L 11.9 L Hct 34.9 L 34.7 L MCV 88 88 MCH 30.2 30.1 MCHC 34.2 34.1 RDW 14.0 13.8 Plt Count 620 H 628 H Seg Neutrophils % 61.9 53.0 Sodium 136.8 L Potassium 4.4 Chloride 104 Carbon Dioxide 27 Anion Gap 6 BUN 16 Creatinine 0.59 Est GFR ( Amer) > 60 Glucose 109 Calcium 8.9 Total Bilirubin 0.3 AST 33 Alkaline Phosphatase 70 C-Reactive Protein 22.9 H Total Protein 6.7 Albumin 2.9 L 11/07/19 11/07/19 11/14/19 22:19 22:19 14:56 Creatine Kinase 33 L 28 L CK-MB (CK-2) 0.28 Troponin I < 0.012 11/19/19 05:40 Creatine Kinase 26 L CK-MB (CK-2) Troponin I Impressions: Chest CT 11/16/19 00:00 IMPRESSION: Small bilateral pleural effusions with suspected areas of loculation. Trace of pericardial fluid. Compared with the 2015 exam there has been significant improvement in multiple bilateral pulmonary nodules, some of which were cavitary. The largest residual nodule is in the lateral left lung base, as above measuring 2.2 x 2.1 cm. Some equivocal cavitation within this nodule. Findings could reflect septic emboli, with other etiologies including neoplastic, infectious/granulomatous/fungal disease also considered. TECHNICAL DOCUMENTATION: Quality ID # [id number]: Final reports with documentation of one or more dose reduction techniques (e.g., Automated exposure control, adjustment of the mA and/or kV according to patient size, use of iterative reconstruction technique) copyright 2011 [employer]- All Rights Reserved Chest X-Ray 11/16/19 00:00 IMPRESSION: Right pleural effusion. Patchy retrocardiac airspace opacities. Assessment and Plan - Diagnosis (1) IV drug abuse Is this a current diagnosis for this admission?: Yes Plan: Continue buprenorphine 4 mg sublingual daily, patient continues to do well on this dose No signs of opioid withdrawal Today had a long discussion with patient regarding abstinence. Discussed lifestyle changes with patient as well as need for ongoing support once discharged from the hospital. Introduced concept of Narcotics Anonymous as well as ongoing buprenorphine therapy and a Suboxone program. Patient seems motivated. 11/19/2019-patient has history of chronic IV drug abuse. Counseling was provided. (2) MRSA bacteremia Is this a current diagnosis for this admission?: Yes Plan: Blood cultures from 11/17/2019, NG at 24 hours -we will need pick placed once cultures are sterile for long-term antibiotic therapy ID input/assistance appreciated Per ID recommendations antibiotics have been changed to daptomycin Monitor CBC, CMP, CK, ESR, CRP weekly -ordered for tomorrow a.m. If cultures remain positive in spite of changing to daptomycin will likely need VINAYAK for further evaluation and possible CT surgery evaluation 11/19/2019-blood cultures from 11/13/2019+ for MRSA. VINAYAK was done found to have endocarditis. Patient need 6 weeks of IV antibiotic therapy. Repeat blood cultures from 11/16 no growth so far. Plan is to arrange for PICC line tomorrow. To continue IV daptomycin as per ID recommendations. Patient is afebrile vital signs are stable at this time. 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 Patient need at least 6 weeks of IV antibiotic therapy. Blood cultures from 11/16- so far. To arrange for PICC line tomorrow. 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 He is receiving IV daptomycin. Latest blood cultures are negative. Most likely to arrange for PICC line tomorrow. (5) Uncontrolled diabetes mellitus Qualifiers: Diabetes mellitus type: type 2 Glycemic state: with hyperglycemia Qualified Code(s): E11.65 - Type 2 diabetes mellitus with hyperglycemia Is this a current diagnosis for this admission?: Yes Plan: Blood sugar less labile over past 24 hours with no episodes of hypoglycemia Continue current basal insulin (glargine 36 units subcutaneous daily), if blood sugar remains above goal with no hypoglycemic episodes over the next 24 to 48 hours may consider titration of basal insulin Continue FSBS with SSI correction scale 11/19/19-blood sugar is 220. To continue insulin sliding scale before meals and at bedtime. He is also receiving Lantus 30 units subcu daily.
[2019-11-19] MEDS: NORMAL SALINE IV SCH (17:20)
[2019-11-19] MEDS: DAPTOMYCIN IV SCH (17:20)
[2019-11-20 00:04] LABS: ABSOLUTE BASOPHILS # (AUTO) 0.1 10^3/uL (0.0-0.2); ABSOLUTE EOSINOPHILS # (AUTO) 0.1 10^3/uL (0.0-0.6); ABSOLUTE MONOCYTES (AUTO) 0.8 10^3/uL (0.1-1.4); ABSOLUTE NEUT (AUTO) 5.8 10^3/uL (1.7-8.2); BASOPHILS % (AUTO) 0.5 % (0-2); EOSINOPHILS % (AUTO) 1.2 % (0-6); HEMATOCRIT 35.2 % (37.9-51.0); HEMOGLOBIN 11.9 g/dL (13.5-17.0); LYMPHOCYTES % (AUTO) 30.4 % (13-45); MEAN CORPUSCULAR HEMOGLOBIN 29.8 pg (27.0-33.4); MEAN CORPUSCULAR HGB CONC 33.7 g/dL (32.0-36.0); MEAN CORPUSCULAR VOLUME 88 fl (80-97); MONOCYTES % (AUTO) 8.7 % (3-13); PLATELET COUNT 608 10^3/uL (150-450); RED BLOOD COUNT 3.99 10^6/uL (4.35-5.55); RED CELL DISTRIBUTION WIDTH 13.7 % (11.5-14.0); SEGMENTED NEUTROPHILS % (AUTO) 59.2 % (42-78); TOTAL CELLS COUNTED % (AUTO) 100 %; WHITE BLOOD COUNT 9.7 10^3/uL (4.0-10.5)
[2019-11-20 06:22] LABS: ALKALINE PHOSPHATASE 68 U/L (38-126); ASPARTATE AMINO TRANSFERASE 39 U/L (17-59); BILIRUBIN,TOTAL 0.2 mg/dL (0.2-1.3); BLOOD UREA NITROGEN 15 mg/dL (7-20); CALCIUM 9.3 mg/dL (8.4-10.2); CHLORIDE 102 mmol/L (98-107); GLUCOSE 146 mg/dL (75-110); POTASSIUM 4.9 mmol/L (3.6-5.0); TOTAL PROTEIN 6.7 g/dL (6.3-8.2)
[2019-11-20 06:23] LABS: ABSOLUTE BASOPHILS # (AUTO) 0.1 10^3/uL (0.0-0.2); ABSOLUTE EOSINOPHILS # (AUTO) 0.1 10^3/uL (0.0-0.6); ABSOLUTE LYMPHOCYTES (AUTO) 2.4 10^3/uL (0.5-4.7); ABSOLUTE MONOCYTES (AUTO) 0.8 10^3/uL (0.1-1.4); ABSOLUTE NEUT (AUTO) 4.3 10^3/uL (1.7-8.2); BASOPHILS % (AUTO) 1.1 % (0-2); EOSINOPHILS % (AUTO) 1.5 % (0-6); HEMATOCRIT 35.4 % (37.9-51.0); LYMPHOCYTES % (AUTO) 31.4 % (13-45); MEAN CORPUSCULAR HEMOGLOBIN 29.9 pg (27.0-33.4); MEAN CORPUSCULAR HGB CONC 33.8 g/dL (32.0-36.0); MEAN CORPUSCULAR VOLUME 89 fl (80-97); MONOCYTES % (AUTO) 10.1 % (3-13); PLATELET COUNT 578 10^3/uL (150-450); RED CELL DISTRIBUTION WIDTH 13.4 % (11.5-14.0); SEGMENTED NEUTROPHILS % (AUTO) 55.9 % (42-78); TOTAL CELLS COUNTED % (AUTO) 100 %; WHITE BLOOD COUNT 7.7 10^3/uL (4.0-10.5)
[2019-11-20 06:27] LABS: ANION GAP 5 (5-19); CARBON DIOXIDE 29 mmol/L (22-30)
[2019-11-20] MEDS: INSULIN REG, HUMAN 100 UNIT/ML 3 ML VIAL (PYX) SUBCUT SCH ×4 (07:31→21:23)
[2019-11-20] MEDS: ENOXAPARIN SODIUM INJ 40 MG/0.4 ML DISP.SYRIN SUBCUT SCH (10:00)
[2019-11-20] MEDS: BUPRENORPHINE HCL 2 MG SUBLINGUAL TABLET SL SCH (10:02)
[2019-11-20] MEDS: FAMOTIDINE 20 MG TABLET PO SCH ×2 (10:02→22:47)
[2019-11-20] MEDS: DOCUSATE SODIUM 100 MG CAPSULE PO SCH (10:02)
[2019-11-20] MEDS: INSULIN GLARGINE,HUM.REC.ANLOG 1,000 UNIT/10 ML VIAL SUBCUT SCH (10:03)
[2019-11-20] MEDS: KETOROLAC TROMETHAMINE INJ/PF 30 MG/1 ML SDV IV PRN (10:07)
[2019-11-20] MEDS ORDERED: KETOROLAC TROMETHAMINE INJ/PF 30 MG/1 ML SDV IV PRN (12:30)
--- NOTE | 2019-11-20 12:32 | PDOC PROGRESS REPORT ---
Subjective Progress Note for:: 11/20/19 Subjective:: 34 year old male past medical history of heroin abuse, uncontrolled diabetes, medication noncompliance, left upper extremity abscess, bacteremia, sepsis, pneumonia. Last admission here at [facility] on 09/27/2019, diagnosed with left arm abscess, Streptococcus pyogenes bacteremia was started on IV antibiotics but unfortunately left AMA on 10/02/2019. Last ED admission was 11/04/2019 for heroin overdose was sent home after receiving Narcan. Today he is presenting ED complaining of left-sided chest pain, productive cough and fever. Chest pain is left-sided, sharp, nonradiating, worse with breathing and movement, better with rest, 5/10 intensity scale. Denies any vision changes, headache, nausea, vomiting, abdominal pain, diarrhea, constipation, rash, dysuria, hematuria, joint pain, joint swelling, oral lesions or ulcers. In ED was noted to have leukocytosis, hyperglycemia, hyperkalemia, hyponatremia, with chest x-ray showing focal opacity in the left lung. 11/19/[id number]-nmly-old male IV drug abuser admitted for sepsis. Found to have endocarditis. Presently on a daptomycin as per ID recommendations. Repeat blood cultures are negative so far. Plan is to wait for the culture reports until tomorrow prior to arranging for PICC line. 11/20/2019-patient is receiving IV antibiotic therapy for endocarditis. Presently on IV daptomycin. Repeat blood cultures are negative at 72 hours. Plan is to arrange for a PICC line. Plan is to give IV antibiotic therapy for 6 weeks from the day of cultures negative. Reason For Visit: PNEUMONIA, HYPERKALEMIA, HYPERGLYCEMIA Physical Exam Vital Signs: Temp Pulse Resp BP Pulse Ox 98.6 F 75 18 129/80 H 98 11/20/19 11:28 11/20/19 11:28 11/20/19 11:28 11/20/19 11:28 11/20/19 11:28 Intake & Output 11/19/19 11/20/19 11/21/19 06:59 06:59 06:59 Intake Total 2021 3585 Output Total 2175 2500 Balance -153 1085 Weight 79.7 kg 78.9 kg General appearance: PRESENT: no acute distress, well-developed Head exam: PRESENT: atraumatic Eye exam: PRESENT: PERRLA Mouth exam: PRESENT: moist, tongue midline Neck exam: ABSENT: carotid bruit, JVD, lymphadenopathy, thyromegaly Respiratory exam: PRESENT: decreased breath sounds Cardiovascular exam: PRESENT: systolic murmur GI/Abdominal exam: PRESENT: normal bowel sounds, soft. ABSENT: distended, guarding, mass, organolmegaly, rebound, tenderness Rectal exam: PRESENT: deferred Extremities exam: PRESENT: full ROM. ABSENT: calf tenderness, clubbing, pedal edema Neurological exam: PRESENT: alert, awake, oriented to person, oriented to place, oriented to time, oriented to situation, CN II-XII grossly intact. ABSENT: motor sensory deficit Psychiatric exam: PRESENT: appropriate affect, normal mood. ABSENT: homicidal ideation, suicidal ideation Results Laboratory Results: 11/20/19 04:46 11/20/19 04:46 11/19/19 11/20/19 11/20/19 23:53 04:46 04:46 WBC 9.7 7.7 RBC 3.99 L 4.00 L Hgb 11.9 L 12.0 L Hct 35.2 L 35.4 L MCV 88 89 MCH 29.8 29.9 MCHC 33.7 33.8 RDW 13.7 13.4 Plt Count 608 H 578 H Seg Neutrophils % 59.2 55.9 Sodium 136.4 L Potassium 4.9 Chloride 102 Carbon Dioxide 29 Anion Gap 5 BUN 15 Creatinine 0.61 Est GFR ( Amer) > 60 Glucose 146 H Calcium 9.3 Magnesium 1.6 Total Bilirubin 0.2 AST 39 Alkaline Phosphatase 68 Total Protein 6.7 Albumin 3.0 L 11/07/19 11/07/19 11/14/19 22:19 22:19 14:56 Creatine Kinase 33 L 28 L CK-MB (CK-2) 0.28 Troponin I < 0.012 11/19/19 05:40 Creatine Kinase 26 L CK-MB (CK-2) Troponin I Impressions: Chest CT 11/16/19 00:00 IMPRESSION: Small bilateral pleural effusions with suspected areas of loculation. Trace of pericardial fluid. Compared with the 2014 exam there has been significant improvement in multiple bilateral pulmonary nodules, some of which were cavitary. The largest residual nodule is in the lateral left lung base, as above measuring 2.2 x 2.1 cm. Some equivocal cavitation within this nodule. Findings could reflect septic emboli, with other etiologies including neoplastic, infectious/granulomatous/fungal disease also considered. TECHNICAL DOCUMENTATION: Quality ID # 436: Final reports with documentation of one or more dose reduction techniques (e.g., Automated exposure control, adjustment of the mA and/or kV according to patient size, use of iterative reconstruction technique) copyright 2011 [employer]- All Rights Reserved Chest X-Ray 11/16/19 00:00 IMPRESSION: Right pleural effusion. Patchy retrocardiac airspace opacities. Assessment and Plan - Diagnosis (1) IV drug abuse Is this a current diagnosis for this admission?: Yes Plan: Continue buprenorphine 4 mg sublingual daily, patient continues to do well on this dose No signs of opioid withdrawal Today had a long discussion with patient regarding abstinence. Discussed lifestyle changes with patient as well as need for ongoing support once discharged from the hospital. Introduced concept of Narcotics Anonymous as well as ongoing buprenorphine therapy and a Suboxone program. Patient seems motivated. 11/19/2019-patient has history of chronic IV drug abuse. Counseling was provided. 11/20/2019-patient has history of chronic IV drug abuse admitted for endocarditis. (2) MRSA bacteremia Is this a current diagnosis for this admission?: Yes Plan: Blood cultures from 11/17/2019, NG at 24 hours -we will need pick placed once cultures are sterile for long-term antibiotic therapy ID input/assistance appreciated Per ID recommendations antibiotics have been changed to daptomycin Monitor CBC, CMP, CK, ESR, CRP weekly -ordered for tomorrow a.m. If cultures remain positive in spite of changing to daptomycin will likely need VINAYAK for further evaluation and possible CT surgery evaluation 11/19/2019-blood cultures from 11/13/2019+ for MRSA. VINAYAK was done found to have endocarditis. Patient need 6 weeks of IV antibiotic therapy. Repeat blood cultures from 11/16 no growth so far. Plan is to arrange for PICC line tomorrow. To continue IV daptomycin as per ID recommendations. Patient is afebrile vital signs are stable at this time. 11/20/2019-initial cultures are positive for MRSA transesophageal echo indicates endocarditis. Patient is presently on IV daptomycin repeat blood cultures are negative at 72 hours. Plan is to arrange for PICC line for long-term IV antibiotic therapy. 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 Patient need at least 6 weeks of IV antibiotic therapy. Blood cultures from 11/16- so far. To arrange for PICC line tomorrow. 11/20/2019-patient is presently on IV daptomycin going for PICC line today plan is to give IV antibiotic therapy for 6 weeks from the day of blood cultures negative. 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 He is receiving IV daptomycin. Latest blood cultures are negative. Most likely to arrange for PICC line tomorrow. (5) Uncontrolled diabetes mellitus Qualifiers: Diabetes mellitus type: type 2 Glycemic state: with hyperglycemia Qualified Code(s): E11.65 - Type 2 diabetes mellitus with hyperglycemia Is this a current diagnosis for this admission?: Yes Plan: Blood sugar less labile over past 24 hours with no episodes of hypoglycemia Continue current basal insulin (glargine 36 units subcutaneous daily), if blood sugar remains above goal with no hypoglycemic episodes over the next 24 to 48 hours may consider titration of basal insulin Continue FSBS with SSI correction scale 11/19/19-blood sugar is 220. To continue insulin sliding scale before meals and at bedtime. He is also receiving Lantus 30 units subcu daily. 11/20/2019-blood sugar today is 129. Presently on insulin sliding scale before meals and at bedtime and receiving Lantus 30 units daily..
[2019-11-20] MEDS: DAPTOMYCIN IV SCH (17:05)
[2019-11-20] MEDS: NORMAL SALINE IV SCH (17:05)
[2019-11-20] MEDS: IBUPROFEN 600 MG TABLET PO PRN (22:47)
[2019-11-21] MEDS: INSULIN REG, HUMAN 100 UNIT/ML 3 ML VIAL (PYX) SUBCUT SCH ×4 (07:29→22:05)
[2019-11-21] MEDS: INSULIN GLARGINE,HUM.REC.ANLOG 1,000 UNIT/10 ML VIAL SUBCUT SCH (10:08)
[2019-11-21] MEDS: FAMOTIDINE 20 MG TABLET PO SCH ×2 (10:08→22:04)
[2019-11-21] MEDS: BUPRENORPHINE HCL 2 MG SUBLINGUAL TABLET SL SCH (10:08)
[2019-11-21] MEDS: DOCUSATE SODIUM 100 MG CAPSULE PO SCH (10:08)
[2019-11-21] MEDS: ENOXAPARIN SODIUM INJ 40 MG/0.4 ML DISP.SYRIN SUBCUT SCH (10:10)
[2019-11-21] MEDS: IBUPROFEN 600 MG TABLET PO PRN ×2 (10:14→22:05)
--- NOTE | 2019-11-21 12:21 | PDOC PROGRESS REPORT ---
Subjective Progress Note for:: 11/21/19 Subjective:: 34 year old male past medical history of heroin abuse, uncontrolled diabetes, medication noncompliance, left upper extremity abscess, bacteremia, sepsis, pneumonia. Last admission here at [facility] on 09/27/2019, diagnosed with left arm abscess, Streptococcus pyogenes bacteremia was started on IV antibiotics but unfortunately left AMA on 10/02/2019. Last ED admission was 11/04/2019 for heroin overdose was sent home after receiving Narcan. Today he is presenting ED complaining of left-sided chest pain, productive cough and fever. Chest pain is left-sided, sharp, nonradiating, worse with breathing and movement, better with rest, 5/10 intensity scale. Denies any vision changes, headache, nausea, vomiting, abdominal pain, diarrhea, constipation, rash, dysuria, hematuria, joint pain, joint swelling, oral lesions or ulcers. In ED was noted to have leukocytosis, hyperglycemia, hyperkalemia, hyponatremia, with chest x-ray showing focal opacity in the left lung. 11/19/[id number]-jhzp-old male IV drug abuser admitted for sepsis. Found to have endocarditis. Presently on a daptomycin as per ID recommendations. Repeat blood cultures are negative so far. Plan is to wait for the culture reports until tomorrow prior to arranging for PICC line. 11/20/2019-patient is receiving IV antibiotic therapy for endocarditis. Presently on IV daptomycin. Repeat blood cultures are negative at 72 hours. Plan is to arrange for a PICC line. Plan is to give IV antibiotic therapy for 6 weeks from the day of cultures negative. 11/21/2019-patient is receiving IV daptomycin for endocarditis. Is going for PICC line. He is going to receive IV antibiotic therapy for a total of 6 weeks while he was in the hospital. Reason For Visit: PNEUMONIA, HYPERKALEMIA, HYPERGLYCEMIA Physical Exam Vital Signs: Temp Pulse Resp BP Pulse Ox 98.7 F 64 16 124/65 100 11/20/19 22:51 11/21/19 07:28 11/21/19 07:28 11/21/19 07:28 11/21/19 07:28 Intake & Output 11/20/19 11/21/19 11/22/19 06:59 06:59 06:59 Intake Total 3635 3376 Output Total 8577 2900 Balance 1135 476 Weight 78.9 kg 78.6 kg General appearance: PRESENT: no acute distress, well-developed Head exam: PRESENT: atraumatic Eye exam: PRESENT: PERRLA Mouth exam: PRESENT: moist, tongue midline Teeth exam: PRESENT: poor dentation Neck exam: ABSENT: carotid bruit, JVD, lymphadenopathy, thyromegaly Respiratory exam: PRESENT: decreased breath sounds Cardiovascular exam: PRESENT: systolic murmur, tachycardia GI/Abdominal exam: PRESENT: normal bowel sounds, soft. ABSENT: distended, guarding, mass, organolmegaly, rebound, tenderness Rectal exam: PRESENT: deferred Extremities exam: PRESENT: full ROM. ABSENT: calf tenderness, clubbing, pedal edema Neurological exam: PRESENT: alert, awake, oriented to person, oriented to place, oriented to time, oriented to situation, CN II-XII grossly intact. ABSENT: motor sensory deficit Psychiatric exam: PRESENT: appropriate affect, normal mood. ABSENT: homicidal ideation, suicidal ideation Results Laboratory Results: 11/20/19 04:46 11/20/19 04:46 11/07/19 11/07/19 11/14/19 22:19 22:19 14:56 Creatine Kinase 33 L 28 L CK-MB (CK-2) 0.28 Troponin I < 0.012 11/19/19 05:40 Creatine Kinase 26 L CK-MB (CK-2) Troponin I Impressions: Chest CT 11/16/19 00:00 IMPRESSION: Small bilateral pleural effusions with suspected areas of loculation. Trace of pericardial fluid. Compared with the 2015 exam there has been significant improvement in multiple bilateral pulmonary nodules, some of which were cavitary. The largest residual nodule is in the lateral left lung base, as above measuring 2.2 x 2.1 cm. Some equivocal cavitation within this nodule. Findings could reflect septic emboli, with other etiologies including neoplastic, infectious/granulomatous/fungal disease also considered. TECHNICAL DOCUMENTATION: Quality ID # 436: Final reports with documentation of one or more dose reduction techniques (e.g., Automated exposure control, adjustment of the mA and/or kV according to patient size, use of iterative reconstruction technique) copyright 2011 [employer]- All Rights Reserved Chest X-Ray 11/16/19 00:00 IMPRESSION: Right pleural effusion. Patchy retrocardiac airspace opacities. Assessment and Plan - Diagnosis (1) IV drug abuse Is this a current diagnosis for this admission?: Yes Plan: Continue buprenorphine 4 mg sublingual daily, patient continues to do well on this dose No signs of opioid withdrawal Today had a long discussion with patient regarding abstinence. Discussed lifestyle changes with patient as well as need for ongoing support once discharged from the hospital. Introduced concept of Narcotics Anonymous as well as ongoing buprenorphine therapy and a Suboxone program. Patient seems motivated. 11/19/2019-patient has history of chronic IV drug abuse. Counseling was provided. 11/20/2019-patient has history of chronic IV drug abuse admitted for endocarditis. 11/21/2019-patient is receiving IV antibiotic therapy daptomycin for endocarditis. He is going for PICC line today. (2) MRSA bacteremia Is this a current diagnosis for this admission?: Yes Plan: Blood cultures from 11/17/2019, NG at 24 hours -we will need pick placed once cultures are sterile for long-term antibiotic therapy ID input/assistance appreciated Per ID recommendations antibiotics have been changed to daptomycin Monitor CBC, CMP, CK, ESR, CRP weekly -ordered for tomorrow a.m. If cultures remain positive in spite of changing to daptomycin will likely need VINAYAK for further evaluation and possible CT surgery evaluation 11/19/2019-blood cultures from 11/13/2019+ for MRSA. VINAYAK was done found to have endocarditis. Patient need 6 weeks of IV antibiotic therapy. Repeat blood cultures from 11/16 no growth so far. Plan is to arrange for PICC line tomorrow. To continue IV daptomycin as per ID recommendations. Patient is afebrile vital signs are stable at this time. 11/20/2019-initial cultures are positive for MRSA transesophageal echo indicates endocarditis. Patient is presently on IV daptomycin repeat blood cultures are negative at 72 hours. Plan is to arrange for PICC line for long-term IV antibiotic therapy. 11/21/2019-patient is on IV daptomycin plan is to give antibiotic therapy for total of 6 weeks. Latest blood cultures are negative. 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 Patient need at least 6 weeks of IV antibiotic therapy. Blood cultures from 11/16- so far. To arrange for PICC line tomorrow. 11/20/2019-patient is presently on IV daptomycin going for PICC line today plan is to give IV antibiotic therapy for 6 weeks from the day of blood cultures nick strauss. (4) Tricuspid valve regurgitation Qualifiers: Cardiac valve disease etiology: nonrheumatic Qualified Code(s): I36.1 - Non rheumatic tricuspid (valve) insufficiency Is this a current diagnosis for this admission?: Yes Plan: This is likely secondary to patient's tricuspid valve vegetation Continue supportive care Bacterial endocarditis treatment as noted above 11/19/2019-patient is a IV drug abuser found to have tricuspid valve vegetation. He is receiving IV daptomycin. Latest blood cultures are negative. Most likely to arrange for PICC line tomorrow. (5) Uncontrolled diabetes mellitus Qualifiers: Diabetes mellitus type: type 2 Glycemic state: with hyperglycemia Qualifi ed Code(s): E11.65 - Type 2 diabetes mellitus with hyperglycemia Is this a current diagnosis for this admission?: Yes Plan: Blood sugar less labile over past 24 hours with no episodes of hypoglycemia Continue current basal insulin (glargine 36 units subcutaneous daily), if blood sugar remains above goal with no hypoglycemic episodes over the next 24 to 48 hours may consider titration of basal insulin Continue FSBS with SSI correction scale 11/19/19-blood sugar is 220. To continue insulin sliding scale before meals and at bedtime. He is also receiving Lantus 30 units subcu daily. 11/20/2019-blood sugar today is 129. Presently on insulin sliding scale before meals and at bedtime and receiving Lantus 30 units daily..
--- NOTE | 2019-11-21 14:58 | RADIOLOGY REPORT (SQ) ---
EXAM DESCRIPTION: PICC INSERTION IMAGES COMPLETED DATE/TIME: 11/21/2019 2:31 pm REASON FOR STUDY: for group home iv antibiotics COMPARISON: None. FLUOROSCOPY TIME: 35 seconds of fluoroscopy was used. 1 images saved to PACS. TECHNIQUE: Fluoroscopic and ultrasound guided PICC placement. LIMITATIONS: None. PROCEDURE: After written consent and assessment were obtained, the patient was brought into the fluo roscopy room and placed supine on the table. Ultrasound evaluation of potential access sites were per formed. After successfully identifying a patent left brachial vein, the left arm was prepped and drap ed in a sterile fashion along with the ultrasound probe. The entry site was anesthetized with 1% lido cammy. A 21 gauge 7 cm needle was advanced through the skin and into the brachial vein under live ult rasound guidance. An ultrasound image was saved to PACS confirming access site. A .018 guide wire w as then inserted through the needle and into the venous system. The needle was then removed and an 11 blade scalpel was used to make a 1cm skin incision. A 5 fr peel-away sheath was advanced over the w richy and into the venous system. A measurement was then made using the existing wire and live fluorosc opic guidance. The wire was then removed and trimmed. The PICC was advanced through the peel-away she ath and into the venous system. The peel-away sheath was removed and the catheter was adhered to the patients arm with a stat lock. The catheter was then aspirated and flushed and a sterile bandage was placed over the access site. A fluoroscopic spot image was saved to PACS confirming the catheter tip within the superior vena cava. IMPRESSION: SUCCESSFUL PLACEMENT OF A 5 FR DUAL LUMEN 39 CM PICC IN THE LEFT BRACHIAL VEIN. COMMENT: Patient medication list reviewed: Yes- Quality ID# 130:Eligible professional attests to doc umenting in the medical record they obtained, updated, or reviewed the patient's current medications. . Quality ID 145: Final reports for procedures using fluoroscopy that document radiation exposure sonny cody, or exposure time and number of fluorographic images (if radiation exposure indices are not avail able) Quality ID #76: The patient was prepped and draped using maximum sterile barrier technique including cap, mask, sterile gown, sterile gloves, a large sterile sheet, hand hygiene, and 2% Chlorhexidine fo r cutaneous antisepsis. When ultrasound is used, sterile ultrasound techniques are followed requiring sterile gel and sterile probes. TECHNICAL DOCUMENTATION: JOB ID: [id number] 2010 [employer]- All Rights Reserved rev-09/22 Reading location - IP/workstation name: [id number]
[2019-11-21] MEDS: DAPTOMYCIN IV SCH (17:09)
[2019-11-21] MEDS: NORMAL SALINE IV SCH (17:09)
[2019-11-21] MEDS: NORMAL SALINE 10 ML SDV (SCHEDULED) IV SCH (22:09)
[2019-11-22 02:23] LABS: ABSOLUTE BASOPHILS # (AUTO) 0.1 10^3/uL (0.0-0.2); ABSOLUTE EOSINOPHILS # (AUTO) 0.1 10^3/uL (0.0-0.6); ABSOLUTE MONOCYTES (AUTO) 0.8 10^3/uL (0.1-1.4); BASOPHILS % (AUTO) 0.8 % (0-2); EOSINOPHILS % (AUTO) 1.4 % (0-6); HEMATOCRIT 35.8 % (37.9-51.0); HEMOGLOBIN 12.2 g/dL (13.5-17.0); LYMPHOCYTES % (AUTO) 25.1 % (13-45); MEAN CORPUSCULAR HEMOGLOBIN 30.1 pg (27.0-33.4); MEAN CORPUSCULAR HGB CONC 34.1 g/dL (32.0-36.0); MEAN CORPUSCULAR VOLUME 88 fl (80-97); MONOCYTES % (AUTO) 10.2 % (3-13); PLATELET COUNT 605 10^3/uL (150-450); RED BLOOD COUNT 4.06 10^6/uL (4.35-5.55); RED CELL DISTRIBUTION WIDTH 13.7 % (11.5-14.0); SEGMENTED NEUTROPHILS % (AUTO) 62.5 % (42-78); TOTAL CELLS COUNTED % (AUTO) 100 %
[2019-11-22] MEDS: INSULIN REG, HUMAN 100 UNIT/ML 3 ML VIAL (PYX) SUBCUT SCH ×4 (08:20→21:46)
[2019-11-22] MEDS: BUPRENORPHINE HCL 2 MG SUBLINGUAL TABLET SL SCH (10:03)
[2019-11-22] MEDS: DOCUSATE SODIUM 100 MG CAPSULE PO SCH (10:03)
[2019-11-22] MEDS: NORMAL SALINE 10 ML SDV (SCHEDULED) IV SCH ×2 (10:03→21:49)
[2019-11-22] MEDS: FAMOTIDINE 20 MG TABLET PO SCH ×2 (10:03→21:47)
[2019-11-22] MEDS: ENOXAPARIN SODIUM INJ 40 MG/0.4 ML DISP.SYRIN SUBCUT SCH (10:03)
[2019-11-22] MEDS: INSULIN GLARGINE,HUM.REC.ANLOG 1,000 UNIT/10 ML VIAL SUBCUT SCH (10:04)
[2019-11-22] MEDS: IBUPROFEN 600 MG TABLET PO PRN ×2 (10:09→23:28)
--- NOTE | 2019-11-22 11:06 | PDOC PROGRESS REPORT ---
Subjective Progress Note for:: 11/22/19 Subjective:: 34 year old male past medical history of heroin abuse, uncontrolled diabetes, medication noncompliance, left upper extremity abscess, bacteremia, sepsis, pneumonia. Last admission here at [facility] on 09/27/2019, diagnosed with left arm abscess, Streptococcus pyogenes bacteremia was started on IV antibiotics but unfortunately left AMA on 10/02/2019. Last ED admission was 11/04/2019 for heroin overdose was sent home after receiving Narcan. Today he is presenting ED complaining of left-sided chest pain, productive cough and fever. Chest pain is left-sided, sharp, nonradiating, worse with breathing and movement, better with rest, 5/10 intensity scale. Denies any vision changes, headache, nausea, vomiting, abdominal pain, diarrhea, constipation, rash, dysuria, hematuria, joint pain, joint swelling, oral lesions or ulcers. In ED was noted to have leukocytosis, hyperglycemia, hyperkalemia, hyponatremia, with chest x-ray showing focal opacity in the left lung. 11/19/[id number]-old male IV drug abuser admitted for sepsis. Found to have endocarditis. Presently on a daptomycin as per ID recommendations. Repeat blood cultures are negative so far. Plan is to wait for the culture reports until tomorrow prior to arranging for PICC line. 11/20/2019-patient is receiving IV antibiotic therapy for endocarditis. Presently on IV daptomycin. Repeat blood cultures are negative at 72 hours. Plan is to arrange for a PICC line. Plan is to give IV antibiotic therapy for 6 weeks from the day of cultures negative. 11/21/2019-patient is receiving IV daptomycin for endocarditis. Is going for PICC line. He is going to receive IV antibiotic therapy for a total of 6 weeks while he was in the hospital. 11/22/2019-patient received PICC line. Patient has IV daptomycin on board. Patient stay here for completion of the IV antibiotic therapy. Reason For Visit: PNEUMONIA, HYPERKALEMIA, HYPERGLYCEMIA Physical Exam Vital Signs: Temp Pulse Resp BP Pulse Ox 98.2 F 90 16 130/89 H 100 11/22/19 08:02 11/22/19 08:02 11/22/19 08:02 11/22/19 08:02 11/22/19 08:02 Intake & Output 11/21/19 11/22/1920 06:59 06:59 06:59 Intake Total 3376 2750 Output Total 2900 2450 Balance 476 300 Weight 78.6 kg 78.4 kg General appearance: PRESENT: no acute distress, well-developed Head exam: PRESENT: atraumatic Eye exam: PRESENT: PERRLA Mouth exam: PRESENT: moist, tongue midline Teeth exam: PRESENT: poor dentation Neck exam: ABSENT: carotid bruit, JVD, lymphadenopathy, thyromegaly Respiratory exam: PRESENT: decreased breath sounds Cardiovascular exam: PRESENT: systolic murmur, tachycardia GI/Abdominal exam: PRESENT: normal bowel sounds, soft. ABSENT: distended, guarding, mass, organolmegaly, rebound, tenderness Rectal exam: PRESENT: deferred Neurological exam: PRESENT: alert, awake, oriented to person, oriented to place, oriented to time, oriented to situation, CN II-XII grossly intact. ABSENT: motor sensory deficit Results Laboratory Results: 11/22/19 02:10 11/20/19 04:46 11/22/19 02:10 WBC 8.0 RBC 4.06 L Hgb 12.2 L Hct 35.8 L MCV 88 MCH 30.1 MCHC 34.1 RDW 13.7 Plt Count 605 H Seg Neutrophils % 62.5 11/17/19 07:47 Blood Blood Culture - Final NO GROWTH IN 5 DAYS 11/17/19 06:50 Blood Blood Culture - Final NO GROWTH IN 5 DAYS 11/07/19 11/07/19 11/14/19 22:19 22:19 14:56 Creatine Kinase 33 L 28 L CK-MB (CK-2) 0.28 Troponin I < 0.012 11/19/19 05:40 Creatine Kinase 26 L CK-MB (CK-2) Troponin I Impressions: Chest CT 11/16/19 00:00 IMPRESSION: Small bilateral pleural effusions with suspected areas of loculation. Trace of pericardial fluid. Compared with the 2015 exam there has been significant improvement in multiple bilateral pulmonary nodules, some of which were cavitary. The largest residual nodule is in the lateral left lung base, as above measuring 2.2 x 2.1 cm. Some equivocal cavitation within this nodule. Findings could reflect septic emboli, with other etiologies including neoplastic, infectious/granulomatous/fungal disease also considered. TECHNICAL DOCUMENTATION: Quality ID # 436: Final reports with documentation of one or more dose reduction techniques (e.g., Automated exposure control, adjustment of the mA and/or kV according to patient size, use of iterative reconstruction technique) copyright 2011 [employer]- All Rights Reserved Chest X-Ray 11/16/19 00:00 IMPRESSION: Right pleural effusion. Patchy retrocardiac airspace opacities. PICC Line Insertion 11/21/19 00:00 IMPRESSION: SUCCESSFUL PLACEMENT OF A 5 FR DUAL LUMEN 39 CM PICC IN THE LEFT BRACHIAL VEIN. Assessment and Plan - Diagnosis (1) IV drug abuse Is this a current diagnosis for this admission?: Yes Plan: Continue buprenorphine 4 mg sublingual daily, patient continues to do well on this dose No signs of opioid withdrawal Today had a long discussion with patient regarding abstinence. Discussed lifestyle changes with patient as well as need for ongoing support once discharged from the hospital. Introduced concept of Narcotics Anonymous as well as ongoing buprenorphine therapy and a Suboxone program. Patient seems motivated. 11/19/2019-patient has history of chronic IV drug abuse. Counseling was provided. 11/20/2019-patient has history of chronic IV drug abuse admitted for endocarditis. 11/21/2019-patient is receiving IV antibiotic therapy daptomycin for endocarditis. He is going for PICC line today. 11/22/2019-patient has a PICC line and is receiving IV daptomycin. He is going to be here in the hospital for completion of the antibiotic therapy. (2) MRSA bacteremia Is this a current diagnosis for this admission?: Yes Plan: Blood cultures from 11/17/2019, NG at 24 hours -we will need pick placed once cultures are sterile for long-term antibiotic therapy ID input/assistance appreciated Per ID recommendations antibiotics have been changed to daptomycin Monitor CBC, CMP, CK, ESR, CRP weekly -ordered for tomorrow a.m. If cultures remain positive in spite of changing to daptomycin will likely need VINAYAK for further evaluation and possible CT surgery evaluation 11/19/2019-blood cultures from 11/13/2019+ for MRSA. VINAYAK was done found to have endocarditis. Patient need 6 weeks of IV antibiotic therapy. Repeat blood cultures from 11/16 no growth so far. Plan is to arrange for PICC line tomorrow. To continue IV daptomycin as per ID recommendations. Patient is afebrile vital signs are stable at this time. 11/20/2019-initial cultures are positive for MRSA transesophageal echo indicates endocarditis. Patient is presently on IV daptomycin repeat blood cultures are negative at 72 hours. Plan is to arrange for PICC line for long-term IV antibiotic therapy. 11/21/2019-patient is on IV daptomycin plan is to give antibiotic therapy for total of 6 weeks. Latest blood cultures are negative. 11/22/2019-patient is receiving IV daptomycin and he is going to be here in the hospital for completion of the IV antibiotic therapy. 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 Patient need at least 6 weeks of IV antibiotic therapy. Blood cultures from 11/16- so far. To arrange for PICC line tomorrow. 11/20/2019-patient is presently on IV daptomycin going for PICC line today plan is to give IV antibiotic therapy for 6 weeks from the day of blood cultures negative. 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 He is receiving IV daptomycin. Latest blood cultures are negative. Most likely to arrange for PICC line tomorrow. (5) Uncontrolled diabetes mellitus Qualifiers: Diabetes mellitus type: type 2 Glycemic state: with hyperglycemia Qualified Code(s): E11.65 - Type 2 diabetes mellitus with hyperglycemia Is this a current diagnosis for this admission?: Yes Plan: Blood sugar less labile over past 24 hours with no episodes of hypoglycemia Continue current basal insulin (glargine 36 units subcutaneous daily), if blood sugar remains above goal with no hypoglycemic episodes over the next 24 to 48 hours may consider titration of basal insulin Continue FSBS with SSI correction scale 11/19/19-blood sugar is 220. To continue insulin sliding scale before meals and at bedtime. He is also receiving Lantus 30 units subcu daily. 11/20/2019-blood sugar today is 129. Presently on insulin sliding scale before meals and at bedtime and receiving Lantus 30 units daily.. 11/22/2019-latest blood sugar is 132. Plan is to continue the present management at this time. - Time Anticipated discharge: Home Within: Other - in 6 weeks
[2019-11-22] MEDS: NORMAL SALINE IV SCH (17:19)
[2019-11-22] MEDS: DAPTOMYCIN IV SCH (17:19)
[2019-11-23] MEDS: INSULIN REG, HUMAN 100 UNIT/ML 3 ML VIAL (PYX) SUBCUT SCH ×4 (07:56→23:04)
--- NOTE | 2019-11-23 09:42 | PDOC PROGRESS REPORT ---
Subjective Progress Note for:: 11/23/19 Subjective:: 34 year old male past medical history of heroin abuse, uncontrolled diabetes, medication noncompliance, left upper extremity abscess, bacteremia, sepsis, pneumonia. [facility], diagnosed with left arm abscess, Streptococcus pyogenes bacteremia was started on IV antibiotics but unfortunately left AMA on 10/02/2019. Last ED admission was 11/04/2019 for heroin overdose was sent home after receiving Narcan. Today he is presenting ED complaining of left-sided chest pain, productive cough and fever. Chest pain is left-sided, sharp, nonradiating, worse with breathing and movement, better with rest, 5/10 intensity scale. Denies any vision changes, headache, nausea, vomiting, abdominal pain, diarrhea, constipation, rash, dysuria, hematuria, joint pain, joint swelling, oral lesions or ulcers. In ED was noted to have leukocytosis, hyperglycemia, hyperkalemia, hyponatremia, with chest x-ray showing focal opacity in the left lung. 11/19/[id number]-mpvh-old male IV drug abuser admitted for sepsis. Found to have endocarditis. Presently on a daptomycin as per ID recommendations. Repeat blood cultures are negative so far. Plan is to wait for the culture reports until tomorrow prior to arranging for PICC line. 11/20/2019-patient is receiving IV antibiotic therapy for endocarditis. Presently on IV daptomycin. Repeat blood cultures are negative at 72 hours. Plan is to arrange for a PICC line. Plan is to give IV antibiotic therapy for 6 weeks from the day of cultures negative. 11/21/2019-patient is receiving IV daptomycin for endocarditis. Is going for PICC line. He is going to receive IV antibiotic therapy for a total of 6 weeks while he was in the hospital. 11/22/2019-patient received PICC line. Patient has IV daptomycin on board. Patient stay here for completion of the IV antibiotic therapy. 11/23/19-patient is receiving IV daptomycin and he has a PICC line. No acute events in the last 24 hours. Afebrile. Plan is to continue the antibiotic therapy in the hospital. Reason For Visit: PNEUMONIA, HYPERKALEMIA, HYPERGLYCEMIA Physical Exam Vital Signs: Temp Pulse Resp BP Pulse Ox 98.7 F 71 16 138/65 H 100 11/23/19 07:57 11/23/19 07:57 11/23/19 07:57 11/23/19 07:57 11/23/19 07:57 Intake & Output 11/22/19 11/23/19 11/24/19 06:59 06:59 06:59 Intake Total 2750 3175 Output Total 2450 3910 Balance 300 -735 Weight 78.4 kg 78.2 kg General appearance: PRESENT: no acute distress, well-developed Head exam: PRESENT: atraumatic Eye exam: PRESENT: PERRLA Mouth exam: PRESENT: moist, tongue midline Neck exam: ABSENT: carotid bruit, JVD, lymphadenopathy, thyromegaly Respiratory exam: PRESENT: clear to auscultation fran. ABSENT: rales, rhonchi, wheezes Cardiovascular exam: PRESENT: systolic murmur, tachycardia GI/Abdominal exam: PRESENT: normal bowel sounds, soft. ABSENT: distended, guarding, mass, organolmegaly, rebound, tenderness Rectal exam: PRESENT: deferred Extremities exam: PRESENT: full ROM. ABSENT: calf tenderness, clubbing, pedal edema Psychiatric exam: PRESENT: appropriate affect, normal mood. ABSENT: homicidal ideation, suicidal ideation Results Laboratory Results: 11/22/19 02:10 11/20/19 04:46 11/17/19 07:47 Blood Blood Culture - Final NO GROWTH IN 5 DAYS 11/17/19 06:50 Blood Blood Culture - Final NO GROWTH IN 5 DAYS 11/07/19 11/07/19 11/14/19 22:19 22:19 14:56 Creatine Kinase 33 L 28 L CK-MB (CK-2) 0.28 Troponin I < 0.012 11/19/19 05:40 Creatine Kinase 26 L CK-MB (CK-2) Troponin I Impressions: Chest CT 11/16/19 00:00 IMPRESSION: Small bilateral pleural effusions with suspected areas of loculation. Trace of pericardial fluid. Compared with the 2015 exam there has been significant improvement in multiple bilateral pulmonary nodules, some of which were cavitary. The largest residual nodule is in the lateral left lung base, as above measuring 2.2 x 2.1 cm. Some equivocal cavitation within this nodule. Findings could reflect septic emboli, with other etiologies including neoplastic, infectious/granulomatous/fungal disease also considered. TECHNICAL DOCUMENTATION: Quality ID # 436: Final reports with documentation of one or more dose reduction techniques (e.g., Automated exposure control, adjustment of the mA and/or kV according to patient size, use of iterative reconstruction technique) copyright 2011 [employer]- All Rights Reserved Chest X-Ray 11/16/19 00:00 IMPRESSION: Right pleural effusion. Patchy retrocardiac airspace opacities. PICC Line Insertion 11/21/19 00:00 IMPRESSION: SUCCESSFUL PLACEMENT OF A 5 FR DUAL LUMEN 39 CM PICC IN THE LEFT BRACHIAL VEIN. Assessment and Plan - Diagnosis (1) IV drug abuse Is this a current diagnosis for this admission?: Yes Plan: Continue buprenorphine 4 mg sublingual daily, patient continues to do well on this dose No signs of opioid withdrawal Today had a long discussion with patient regarding abstinence. Discussed lifestyle changes with patient as well as need for ongoing support once discharged from the hospital. Introduced concept of Narcotics Anonymous as well as ongoing buprenorphine therapy and a Suboxone program. Patient seems motivated. 11/19/2019-patient has history of chronic IV drug abuse. Counseling was pro vided. 11/20/2019-patient has history of chronic IV drug abuse admitted for endocarditis. 11/21/2019-patient is receiving IV antibiotic therapy daptomycin for endocarditis. He is going for PICC line today. 11/22/2019-patient has a PICC line and is receiving IV daptomycin. He is going to be here in the hospital for completion of the antibiotic therapy. 11/23/2019-patient is receiving daptomycin IV as per ID recommendations for endocarditis. Because of the history of IV drug abuse he is going to be in the hospital to complete the antibiotic therapy. (2) MRSA bacteremia Is this a current diagnosis for this admission?: Yes Plan: Blood cultures from 11/17/2019, NG at 24 hours -we will need pick placed once cultures are sterile for long-term antibiotic therapy ID input/assistance appreciated Per ID recommendations antibiotics have been changed to daptomycin Monitor CBC, CMP, CK, ESR, CRP weekly -ordered for tomorrow a.m. If cultures remain positive in spite of changing to daptomycin will likely need VINAYAK for further evaluation and possible CT surgery evaluation 11/19/2019-blood cultures from 11/13/2019+ for MRSA. VINAYAK was done found to have endocarditis. Patient need 6 weeks of IV antibiotic therapy. Repeat blood cultures from 11/16 no growth so far. Plan is to arrange for PICC line tomorrow. To continue IV daptomycin as per ID recommendations. Patient is afebrile vital signs are stable at this time. 11/20/2019-initial cultures are positive for MRSA transesophageal echo indicates endocarditis. Patient is presently on IV daptomycin repeat blood cultures are negative at 72 hours. Plan is to arrange for PICC line for long-term IV antibiotic therapy. 11/21/2019-patient is on IV daptomycin plan is to give antibiotic therapy for total of 6 weeks. Latest blood cultures are negative. 11/22/2019-patient is receiving IV daptomycin and he is going to be here in the hospital for completion of the IV antibiotic therapy. 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 Patient need at least 6 weeks of IV antibiotic therapy. Blood cultures from 11/16- so far. To arrange for PICC line tomorrow. 11/20/2019-patient is presently on IV daptomycin going for PICC line today plan is to give IV antibiotic therapy for 6 weeks from the day of blood cultures negative. 11/23/2019-patient has a PICC line. Latest blood cultures are negative. Patient is receiving IV daptomycin at this time. 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 He is receiving IV daptomycin. Latest blood cultures are negative. Most likely to arrange for PICC line tomorrow. (5) Uncontrolled diabetes mellitus Qualifiers: Diabetes mellitus type: type 2 Glycemic state: with hyperglycemia Qualified Code(s): E11.65 - Type 2 diabetes mellitus with hyperglycemia Is this a current diagnosis for this admission?: Yes Plan: Blood sugar less labile over past 24 hours with no episodes of hypoglycemia Continue current basal insulin (glargine 36 units subcutaneous daily), if blood sugar remains above goal with no hypoglycemic episodes over the next 24 to 48 hours may consider titration of basal insulin Continue FSBS with SSI correction scale 11/19/19-blood sugar is 220. To continue insulin sliding scale before meals and at bedtime. He is also receiving Lantus 30 units subcu daily. 11/20/2019-blood sugar today is 129. Presently on insulin sliding scale before meals and at bedtime and receiving Lantus 30 units daily.. 11/22/2019-latest blood sugar is 132. Plan is to continue the present management at this time. 11/23/2019-blood sugar this morning is 94. Within normal limits. To cut the Lantus to 25 units daily. - Time Anticipated discharge: Home Within: Other - in few weeks
[2019-11-23] MEDS: BUPRENORPHINE HCL 2 MG SUBLINGUAL TABLET SL SCH (11:22)
[2019-11-23] MEDS: IBUPROFEN 600 MG TABLET PO PRN (11:22)
[2019-11-23] MEDS: DOCUSATE SODIUM 100 MG CAPSULE PO SCH (11:22)
[2019-11-23] MEDS: FAMOTIDINE 20 MG TABLET PO SCH ×2 (11:22→23:04)
[2019-11-23] MEDS: NORMAL SALINE 10 ML SDV (SCHEDULED) IV SCH ×2 (11:23→23:44)
[2019-11-23] MEDS: ENOXAPARIN SODIUM INJ 40 MG/0.4 ML DISP.SYRIN SUBCUT SCH (11:23)
[2019-11-23] MEDS: INSULIN GLARGINE,HUM.REC.ANLOG 1,000 UNIT/10 ML VIAL SUBCUT SCH (11:23)
[2019-11-23] MEDS: NORMAL SALINE IV SCH (18:53)
[2019-11-23] MEDS: DAPTOMYCIN IV SCH (18:53)
[2019-11-24] MEDS: INSULIN REG, HUMAN 100 UNIT/ML 3 ML VIAL (PYX) SUBCUT SCH ×4 (07:57→21:56)
[2019-11-24] MEDS: IBUPROFEN 600 MG TABLET PO PRN ×2 (08:23→20:19)
--- NOTE | 2019-11-24 09:30 | PDOC PROGRESS REPORT ---
Subjective Progress Note for:: 11/24/19 Subjective:: 34 year old male past medical history of heroin abuse, uncontrolled diabetes, medication noncompliance, left upper extremity abscess, bacteremia, sepsis, pneumonia. Last admission here at [facility] on 09/27/2019, diagnosed with left arm abscess, Streptococcus pyogenes bacteremia was started on IV antibiotics but unfortunately left AMA on 10/02/2019. Last ED admission was 11/04/2019 for heroin overdose was sent home after receiving Narcan. Today he is presenting ED complaining of left-sided chest pain, productive cough and fever. Chest pain is left-sided, sharp, nonradiating, worse with breathing and movement, better with rest, 5/10 intensity scale. Denies any vision changes, headache, nausea, vomiting, abdominal pain, diarrhea, constipation, rash, dysuria, hematuria, joint pain, joint swelling, oral lesions or ulcers. In ED was noted to have leukocytosis, hyperglycemia, hyperkalemia, hyponatremia, with chest x-ray showing focal opacity in the left lung. 11/19/[id number]-ijby-old male IV drug abuser admitted for sepsis. Found to have endocarditis. Presently on a daptomycin as per ID recommendations. Repeat blood cultures are negative so far. Plan is to wait for the culture reports until tomorrow prior to arranging for PICC line. 11/20/2019-patient is receiving IV antibiotic therapy for endocarditis. Presently on IV daptomycin. Repeat blood cultures are negative at 72 hours. Plan is to arrange for a PICC line. Plan is to give IV antibiotic therapy for 6 weeks from the day of cultures negative. 11/21/2019-patient is receiving IV daptomycin for endocarditis. Is going for PICC line. He is going to receive IV antibiotic therapy for a total of 6 weeks while he was in the hospital. 11/22/2019-patient received PICC line. Patient has IV daptomycin on board. Patient stay here for completion of the IV antibiotic therapy. 11/23/19-patient is receiving IV daptomycin and he has a PICC line. No acute events in the last 24 hours. Afebrile. Plan is to continue the antibiotic therapy in the hospital. 11/24/2019-patient admitted with infective endocarditis VINAYAK confirmed it. As per ID recommendations patient is receiving IV daptomycin. He has a PICC line. Because of the history of IV drug abuse he needs to be in the hospital to comple te the antibiotic therapy course. Reason For Visit: PNEUMONIA, HYPERKALEMIA, HYPERGLYCEMIA Physical Exam Vital Signs: Temp Pulse Resp BP Pulse Ox 98.2 F 84 14 124/70 100 11/24/19 08:06 11/24/19 08:06 11/24/19 08:06 11/24/19 08:06 11/24/19 08:06 Intake & Output 11/23/19 11/24/19 11/25/19 06:59 06:59 06:59 Intake Total 3175 3221 Output Total 3910 1200 Balance -735 2021 Weight 78.2 kg 78.3 kg General appearance: PRESENT: no acute distress, cooperative, well-developed Head exam: PRESENT: atraumatic Eye exam: PRESENT: PERRLA Mouth exam: PRESENT: moist, tongue midline Neck exam: ABSENT: carotid bruit, JVD, lymphadenopathy, thyromegaly Respiratory exam: PRESENT: clear to auscultation fran. ABSENT: rales, rhonchi, wheezes Cardiovascular exam: PRESENT: RRR. ABSENT: diastolic murmur, rubs, systolic murmur GI/Abdominal exam: PRESENT: normal bowel sounds, soft. ABSENT: distended, guarding, mass, organolmegaly, rebound, tenderness Rectal exam: PRESENT: deferred Extremities exam: PRESENT: full ROM. ABSENT: calf tenderness, clubbing, pedal edema Neurological exam: PRESENT: alert, awake, oriented to person, oriented to place, oriented to time, oriented to situation, CN II-XII grossly intact. ABSENT: motor sensory deficit Psychiatric exam: PRESENT: appropriate affect, normal mood. ABSENT: homicidal ideation, suicidal ideation Results Laboratory Results: 11/22/19 02:10 11/20/19 04:46 11/07/19 11/07/19 11/14/19 22:19 22:19 14:56 Creatine Kinase 33 L 28 L CK-MB (CK-2) 0.28 Troponin I < 0.012 11/19/19 05:40 Creatine Kinase 26 L CK-MB (CK-2) Troponin I Impressions: Chest CT 11/16/19 00:00 IMPRESSION: Small bilateral pleural effusions with suspected areas of loculation. Trace of pericardial fluid. Compared with the 2015 exam there has been significant improvement in multiple bilateral pulmonary nodules, some of which were cavitary. The largest residual nodule is in the lateral left lung base, as above measuring 2.2 x 2.1 cm. Some equivocal cavitation within this nodule. Findings could reflect septic emboli, with other etiologies including neoplastic, infectious/granulomatous/fungal disease also considered. TECHNICAL DOCUMENTATION: Quality ID # [id number]: Final reports with documentation of one or more dose reduction techniques (e.g., Automated exposure control, adjustment of the mA and/or kV according to patient size, use of iterative reconstruction technique) copyright 2011 [employer]- All Rights Reserved Chest X-Ray 11/16/19 00:00 IMPRESSION: Right pleural effusion. Patchy retrocardiac airspace opacities. PICC Line Insertion 11/21/19 00:00 IMPRESSION: SUCCESSFUL PLACEMENT OF A 5 FR DUAL LUMEN 39 CM PICC IN THE LEFT BRACHIAL VEIN. Assessment and Plan - Diagnosis (1) IV drug abuse Is this a current diagnosis for this admission?: Yes Plan: Continue buprenorphine 4 mg sublingual daily, patient continues to do well on this dose No signs of opioid withdrawal Today had a long discussion with patient regarding abstinence. Discussed lifestyle changes with patient as well as need for ongoing support once discharged from the hospital. Introduced concept of Narcotics Anonymous as well as ongoing buprenorphine therapy and a Suboxone program. Patient seems motivated. 11/19/2019-patient has history of chronic IV drug abuse. Counseling was provided. 11/20/2019-patient has history of chronic IV drug abuse admitted for en docarditis. 11/21/2019-patient is receiving IV antibiotic therapy daptomycin for endocarditis. He is going for PICC line today. 11/22/2019-patient has a PICC line and is receiving IV daptomycin. He is going to be here in the hospital for completion of the antibiotic therapy. 11/23/2019-patient is receiving daptomycin IV as per ID recommendations for endocarditis. Because of the history of IV drug abuse he is going to be in the hospital to complete the antibiotic therapy. 05/26/2019-patient history of IV drug abuse admitted with infective endocarditis. VINAYAK was done indicate you have tricuspid valve involvement. Receiving daptomycin as per ID. Plan is to continue the antibiotic therapy here in the hospital because of the history of IV drug abuse. He has a PICC line. (2) MRSA bacteremia Is this a current diagnosis for this admission?: Yes Plan: Blood cultures from 11/17/2019, NG at 24 hours -we will need pick placed once cultures are sterile for long-term antibiotic therapy ID input/assistance appreciated Per ID recommendations antibiotics have been changed to daptomycin Monitor CBC, CMP, CK, ESR, CRP weekly -ordered for tomorrow a.m. If cultures remain positive in spite of changing to daptomycin will likely need VINAYAK for further evaluation and possible CT surgery evaluation 11/19/2019-blood cultures from 11/13/2019+ for MRSA. VINAYAK was done found to have endocarditis. Patient need 6 weeks of IV antibiotic therapy. Repeat blood cultures from 11/16 no growth so far. Plan is to arrange for PICC line tomorrow. To continue IV daptomycin as per ID recommendations. Patient is afebrile vital signs are stable at this time. 11/20/2019-initial cultures are positive for MRSA transesophageal echo indicates endocarditis. Patient is presently on IV daptomycin repeat blood cultures are negative at 72 hours. Plan is to arrange for PICC line for long-term IV antibiotic therapy. 11/21/2019-patient is on IV daptomycin plan is to give antibiotic therapy for total of 6 weeks. Latest blood cultures are negative. 11/22/2019-patient is receiving IV daptomycin and he is going to be here in the hospital for completion of the IV antibiotic therapy. 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 Patient need at least 6 weeks of IV antibiotic therapy. Blood cultures from 11/16- so far. To arrange for PICC line tomorrow. 11/20/2019-patient is presently on IV daptomycin going for PICC line today plan is to give IV antibiotic therapy for 6 weeks from the day of blood cultures negative. 11/23/2019-patient has a PICC line. Latest blood cultures are negative. Patient is receiving IV daptomycin at this time. 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 He is receiving IV daptomycin. Latest blood cultures are negative. Most likely to arrange for PICC line tomorrow. 11/24/2019-patient is receiving IV daptomycin plan is to keep him in the hospital to complete the antibiotic course. (5) Uncontrolled diabetes mellitus Qualifiers: Diabetes mellitus type: type 2 Glycemic state: with hyperglycemia Qualified Code(s): E11.65 - Type 2 diabetes mellitus with hyperglycemia Is this a current diagnosis for this admission?: Yes Plan: Blood sugar less labile over past 24 hours with no episodes of hypoglycemia Continue current basal insulin (glargine 36 units subcutaneous daily), if blood sugar remains above goal with no hypoglycemic episodes over the next 24 to 48 hours may consider titration of basal insulin Continue FSBS with SSI correction scale 11/19/19-blood sugar is 220. To continue insulin sliding scale before meals and at bedtime. He is also receiving Lantus 30 units subcu daily. 11/20/2019-blood sugar today is 129. Presently on insulin sliding scale before meals and at bedtime and receiving Lantus 30 units daily.. 11/22/2019-latest blood sugar is 132. Plan is to continue the present management at this time. 11/23/2019-blood sugar this morning is 94. Within normal limits. To cut the Lantus to 25 units daily. 11/24/2019-blood sugar is 113. Blood sugars are stable. - Time Anticipated discharge: Home Within: Other - 4-6 weeks
[2019-11-24] MEDS: BUPRENORPHINE HCL 2 MG SUBLINGUAL TABLET SL SCH (10:27)
[2019-11-24] MEDS: ENOXAPARIN SODIUM INJ 40 MG/0.4 ML DISP.SYRIN SUBCUT SCH (10:27)
[2019-11-24] MEDS: FAMOTIDINE 20 MG TABLET PO SCH ×2 (10:27→21:57)
[2019-11-24] MEDS: NORMAL SALINE 10 ML SDV (SCHEDULED) IV SCH ×2 (10:27→21:57)
[2019-11-24] MEDS: DOCUSATE SODIUM 100 MG CAPSULE PO SCH (10:27)
[2019-11-24] MEDS: INSULIN GLARGINE,HUM.REC.ANLOG 1,000 UNIT/10 ML VIAL SUBCUT SCH (10:28)
[2019-11-24] MEDS: NORMAL SALINE IV SCH (18:23)
[2019-11-24] MEDS: DAPTOMYCIN IV SCH (18:23)
[2019-11-25 06:21] LABS: ABSOLUTE BASOPHILS # (AUTO) 0.1 10^3/uL (0.0-0.2); ABSOLUTE EOSINOPHILS # (AUTO) 0.2 10^3/uL (0.0-0.6); ABSOLUTE LYMPHOCYTES (AUTO) 2.8 10^3/uL (0.5-4.7); ABSOLUTE MONOCYTES (AUTO) 0.7 10^3/uL (0.1-1.4); ABSOLUTE NEUT (AUTO) 3.7 10^3/uL (1.7-8.2); BASOPHILS % (AUTO) 0.9 % (0-2); EOSINOPHILS % (AUTO) 2.2 % (0-6); HEMATOCRIT 35.7 % (37.9-51.0); LYMPHOCYTES % (AUTO) 37.6 % (13-45); MEAN CORPUSCULAR HEMOGLOBIN 29.6 pg (27.0-33.4); MEAN CORPUSCULAR HGB CONC 33.5 g/dL (32.0-36.0); MEAN CORPUSCULAR VOLUME 88 fl (80-97); MONOCYTES % (AUTO) 9.1 % (3-13); PLATELET COUNT 381 10^3/uL (150-450); RED BLOOD COUNT 4.03 10^6/uL (4.35-5.55); RED CELL DISTRIBUTION WIDTH 13.6 % (11.5-14.0); SEGMENTED NEUTROPHILS % (AUTO) 50.2 % (42-78); TOTAL CELLS COUNTED % (AUTO) 100 %; WHITE BLOOD COUNT 7.4 10^3/uL (4.0-10.5)
[2019-11-25 06:54] LABS: ALBUMIN 3.5 g/dL (3.5-5.0); ALKALINE PHOSPHATASE 78 U/L (38-126); ASPARTATE AMINO TRANSFERASE 97 U/L (17-59); BILIRUBIN,TOTAL 0.4 mg/dL (0.2-1.3); BLOOD UREA NITROGEN 13 mg/dL (7-20); CALCIUM 9.2 mg/dL (8.4-10.2); CARBON DIOXIDE 32 mmol/L (22-30); CHLORIDE 104 mmol/L (98-107); GLUCOSE 121 mg/dL (75-110); POTASSIUM 4.2 mmol/L (3.6-5.0); TOTAL PROTEIN 7.4 g/dL (6.3-8.2)
[2019-11-25 07:00] LABS: ANION GAP 3 (5-19)
[2019-11-25] MEDS: INSULIN REG, HUMAN 100 UNIT/ML 3 ML VIAL (PYX) SUBCUT SCH ×4 (08:56→22:14)
--- NOTE | 2019-11-25 09:14 | PDOC PROGRESS REPORT ---
Subjective Progress Note for:: 11/25/19 Subjective:: 34 year old male past medical history of heroin abuse, uncontrolled diabetes, medication noncompliance, left upper extremity abscess, bacteremia, sepsis, pneumonia. Last admission here at [facility] on 09/27/2019, diagnosed with left arm abscess, Streptococcus pyogenes bacteremia was started on IV antibiotics but unfortunately left AMA on 10/02/2019. Last ED admission was 11/04/2019 for heroin overdose was sent home after receiving Narcan. Today he is presenting ED complaining of left-sided chest pain, productive cough and fever. Chest pain is left-sided, sharp, nonradiating, worse with breathing and movement, better with rest, 5/10 intensity scale. Denies any vision changes, headache, nausea, vomiting, abdominal pain, diarrhea, constipation, rash, dysuria, hematuria, joint pain, joint swelling, oral lesions or ulcers. In ED was noted to have leukocytosis, hyperglycemia, hyperkalemia, hyponatremia, with chest x-ray showing focal opacity in the left lung. 11/19/[id number]-eoal-old male IV drug abuser admitted for sepsis. Found to have endocarditis. Presently on a daptomycin as per ID recommendations. Repeat blood cultures are negative so far. Plan is to wait for the culture reports until tomorrow prior to arranging for PICC line. 11/20/2019-patient is receiving IV antibiotic therapy for endocarditis. Presently on IV daptomycin. Repeat blood cultures are negative at 72 hours. Plan is to arrange for a PICC line. Plan is to give IV antibiotic therapy for 6 weeks from the day of cultures negative. 11/21/2019-patient is receiving IV daptomycin for endocarditis. Is going for PICC line. He is going to receive IV antibiotic therapy for a total of 6 weeks while he was in the hospital. 11/22/2019-patient received PICC line. Patient has IV daptomycin on board. Patient stay here for completion of the IV antibiotic therapy. 11/23/19-patient is receiving IV daptomycin and he has a PICC line. No acute events in the last 24 hours. Afebrile. Plan is to continue the antibiotic therapy in the hospital. 11/24/2019-patient admitted with infective endocarditis VINAYAK confirmed it. As per ID recommendations patient is receiving IV daptomycin. He has a PICC line. Because of the history of IV drug abuse he needs to be in the hospital to comple te the antibiotic therapy course. 11/25/2019-patient is comfortably in the bed sleeping. Woke up and requesting double portion meals. No acute events in last 24 hours. Has a PICC line receiving IV daptomycin. Because of history of IV drug abuse he is going to be in the hospital to complete the antibiotic therapy. Reason For Visit: PNEUMONIA, HYPERKALEMIA, HYPERGLYCEMIA Physical Exam Vital Signs: Temp Pulse Resp BP Pulse Ox 98.2 F 65 16 116/63 100 11/25/19 07:48 11/25/19 07:48 11/25/19 07:48 11/25/19 07:48 11/25/19 07:48 Intake & Output 11/24/19 11/25/19 11/26/19 06:59 06:59 06:59 Intake Total 3221 1970 Output Total 1200 1250 Balance 2020 Weight 78.3 kg 77.3 kg General appearance: PRESENT: no acute distress, well-developed Head exam: PRESENT: atraumatic Eye exam: PRESENT: PERRLA Neck exam: ABSENT: carotid bruit, JVD, lymphadenopathy, thyromegaly Respiratory exam: PRESENT: decreased breath sounds Cardiovascular exam: PRESENT: systolic murmur, tachycardia GI/Abdominal exam: PRESENT: normal bowel sounds, soft. ABSENT: distended, guarding, mass, organolmegaly, rebound, tenderness Rectal exam: PRESENT: deferred Extremities exam: PRESENT: full ROM. ABSENT: calf tenderness, clubbing, pedal edema Neurological exam: PRESENT: alert, awake, oriented to person, oriented to place, oriented to time, oriented to situation, CN II-XII grossly intact. ABSENT: motor sensory deficit Psychiatric exam: PRESENT: appropriate affect, normal mood. ABSENT: homicidal ideation, suicidal ideation Skin exam: PRESENT: dry, intact, warm. ABSENT: cyanosis, rash Results Laboratory Results: 11/25/19 06:00 11/25/19 06:00 11/25/19 11/25/19 06:00 06:00 WBC 7.4 RBC 4.03 L Hgb 12.0 L Hct 35.7 L MCV 88 MCH 29.6 MCHC 33.5 RDW 13.6 Plt Count 381 Seg Neutrophils % 50.2 Sodium 138.7 Potassium 4.2 Chloride 104 Carbon Dioxide 32 H Anion Gap 3 L BUN 13 Creatinine 0.54 Est GFR ( Amer) > 60 Glucose 121 H Calcium 9.2 Magnesium 1.7 Total Bilirubin 0.4 AST 97 H Alkaline Phosphatase 78 Total Protein 7.4 Albumin 3.5 11/07/19 11/07/19 11/14/19 22:19 22:19 14:56 Creatine Kinase 33 L 28 L CK-MB (CK-2) 0.28 Troponin I < 0.012 11/19/19 05:40 Creatine Kinase 26 L CK-MB (CK-2) Troponin I Impressions: Chest CT 11/16/19 00:00 IMPRESSION: Small bilateral pleural effusions with suspected areas of loculation. Trace of pericardial fluid. Compared with the 2015 exam there has been significant improvement in multiple bilateral pulmonary nodules, some of which were cavitary. The largest residual nodule is in the lateral left lung base, as above measuring 2.2 x 2.1 cm. Some equivocal cavitation within this nodule. Findings could reflect septic emboli, with other etiologies including neoplastic, infectious/granulomatous/fungal disease also considered. TECHNICAL DOCUMENTATION: Quality ID # [id number]: Final reports with documentation of one or more dose reduction techniques (e.g., Automated exposure control, adjustment of the mA and/or kV according to patient size, use of iterative reconstruction technique) copyright 2011 [id number]- All Rights Reserved Chest X-Ray 11/16/19 00:00 IMPRESSION: Right pleural effusion. Patchy retrocardiac airspace opacities. PICC Line Insertion 11/21/19 00:00 IMPRESSION: SUCCESSFUL PLACEMENT OF A 5 FR DUAL LUMEN 39 CM PICC IN THE LEFT BRACHIAL VEIN. Assessment and Plan - Diagnosis (1) IV drug abuse Is this a current diagnosis for this admission?: Yes Plan: Continue buprenorphine 4 mg sublingual daily, patient continues to do well on this dose No signs of opioid withdrawal Today had a long discussion with patient regarding abstinence. Discussed lifestyle changes with patient as well as need for ongoing support once discharged from the hospital. Introduced concept of Narcotics Anonymous as well as ongoing buprenorphine therapy and a Suboxone program. Patient seems valentin vated. 11/19/2019-patient has history of chronic IV drug abuse. Counseling was provided. 11/20/2019-patient has history of chronic IV drug abuse admitted for endocarditis. 11/21/2019-patient is receiving IV antibiotic therapy daptomycin for endocarditis. He is going for PICC line today. 11/22/2019-patient has a PICC line and is receiving IV daptomycin. He is going to be here in the hospital for completion of the antibiotic therapy. 11/23/2019-patient is receiving daptomycin IV as per ID recommendations for endocarditis. Because of the history of IV drug abuse he is going to be in the hospital to complete the antibiotic therapy. 11/24/2019-patient history of IV drug abuse admitted with infective endocarditis. VINAYAK was done indicate you have tricuspid valve involvement. Receiving dapto mycin as per ID. Plan is to continue the antibiotic therapy here in the hospital because of the history of IV drug abuse. He has a PICC line. 11/25/2019-patient is receiving IV daptomycin for endocarditis. He is going to be in the hospital to complete the IV antibiotic therapy. (2) MRSA bacteremia Is this a current diagnosis for this admission?: Yes Plan: Blood cultures from 11/17/2019, NG at 24 hours -we will need pick placed once cultures are sterile for long-term antibiotic therapy ID input/assistance appreciated Per ID recommendations antibiotics have been changed to daptomycin Monitor CBC, CMP, CK, ESR, CRP weekly -ordered for tomorrow a.m. If cultures remain positive in spite of changing to daptomycin will likely need VINAYAK for further evaluation and possible CT surgery evaluation 11/19/2019-blood cultures from 11/13/2019+ for MRSA. VINAYAK was done found to have endocarditis. Patient need 6 weeks of IV antibiotic therapy. Repeat blood cultures from 11/16 no growth so far. Plan is to arrange for PICC line tomorrow. To continue IV daptomycin as per ID recommendations. Patient is afebrile vital signs are stable at this time. 11/20/2019-initial cultures are positive for MRSA transesophageal echo indicates endocarditis. Patient is presently on IV daptomycin repeat blood cultures are negative at 72 hours. Plan is to arrange for PICC line for long-term IV antibiotic therapy. 11/21/2019-patient is on IV daptomycin plan is to give antibiotic therapy for total of 6 weeks. Latest blood cultures are negative. 11/22/2019-patient is receiving IV daptomycin and he is going to be here in the hospital for completion of the IV antibiotic therapy. 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 Patient need at least 6 weeks of IV antibiotic therapy. Blood cultures from 11/16- so far. To arrange for PICC line tomorrow. 11/20/2019-patient is presently on IV daptomycin going for PICC line today plan is to give IV antibiotic therapy for 6 weeks from the day of blood cultures negative. 11/23/2019-patient has a PICC line. Latest blood cultures are negative. Patient is receiving IV daptomycin at this time. 11/25/2019-status post TTE was done found to have mitral valve vegetation. Receiving IV daptomycin. He has a PICC line. 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 He is receiving IV daptomycin. Latest blood cultures are negative. Most likely to arrange for PICC line tomorrow. 11/24/2019-patient is receiving IV daptomycin plan is to keep him in the hospital to complete the antibiotic course. (5) Uncontrolled diabetes mellitus Qualifiers: Diabetes mellitus type: type 2 Glycemic state: with hyperglycemia Qualified Code(s): E11.65 - Type 2 diabetes mellitus with hyperglycemia Is this a current diagnosis for this admission?: Yes Plan: Blood sugar less labile over past 24 hours with no episodes of hypoglycemia Continue current basal insulin (glargine 36 units subcutaneous daily), if blood sugar remains above goal with no hypoglycemic episodes over the next 24 to 48 hours may consider titration of basal insulin Continue FSBS with SSI correction scale 11/19/19-blood sugar is 220. To continue insulin sliding scale before meals and at bedtime. He is also receiving Lantus 30 units subcu daily. 11/20/2019-blood sugar today is 129. Presently on insulin sliding scale before meals and at bedtime and receiving Lantus 30 units daily.. 11/22/2019-latest blood sugar is 132. Plan is to continue the present management at this time. 11/23/2019-blood sugar this morning is 94. Within normal limits. To cut the Lantus to 25 units daily. 11/24/2019-blood sugar is 113. Blood sugars are stable. - Time Anticipated discharge: Home, Other - 3-4 weeks Within: Other - 3-4weeks
[2019-11-25] MEDS: FAMOTIDINE 20 MG TABLET PO SCH ×2 (09:40→22:16)
[2019-11-25] MEDS: DOCUSATE SODIUM 100 MG CAPSULE PO SCH (09:40)
[2019-11-25] MEDS: BUPRENORPHINE HCL 2 MG SUBLINGUAL TABLET SL SCH (09:40)
[2019-11-25] MEDS: ENOXAPARIN SODIUM INJ 40 MG/0.4 ML DISP.SYRIN SUBCUT SCH (09:40)
[2019-11-25] MEDS: INSULIN GLARGINE,HUM.REC.ANLOG 1,000 UNIT/10 ML VIAL SUBCUT SCH (09:41)
[2019-11-25] MEDS: NORMAL SALINE 10 ML SDV (SCHEDULED) IV SCH ×2 (09:42→22:16)
[2019-11-25] MEDS: IBUPROFEN 600 MG TABLET PO PRN (10:58)
[2019-11-25] MEDS: DAPTOMYCIN IV SCH (17:21)
[2019-11-25] MEDS: NORMAL SALINE IV SCH (17:21)
[2019-11-26] MEDS: IBUPROFEN 600 MG TABLET PO PRN ×2 (08:24→22:03)
[2019-11-26] MEDS: INSULIN REG, HUMAN 100 UNIT/ML 3 ML VIAL (PYX) SUBCUT SCH ×4 (08:24→21:56)
[2019-11-26] MEDS: DOCUSATE SODIUM 100 MG CAPSULE PO SCH (10:06)
[2019-11-26] MEDS: ENOXAPARIN SODIUM INJ 40 MG/0.4 ML DISP.SYRIN SUBCUT SCH (10:06)
[2019-11-26] MEDS: FAMOTIDINE 20 MG TABLET PO SCH ×2 (10:06→21:55)
[2019-11-26] MEDS: BUPRENORPHINE HCL 2 MG SUBLINGUAL TABLET SL SCH (10:06)
[2019-11-26] MEDS: NORMAL SALINE 10 ML SDV (AFTER EACH USE) IV PRN (10:07)
[2019-11-26] MEDS: INSULIN GLARGINE,HUM.REC.ANLOG 1,000 UNIT/10 ML VIAL SUBCUT SCH (10:07)
[2019-11-26] MEDS: NORMAL SALINE 10 ML SDV (SCHEDULED) IV SCH ×2 (10:07→21:56)
--- NOTE | 2019-11-26 16:36 | PDOC PROGRESS REPORT ---
Subjective Progress Note for:: 11/26/19 Subjective:: Her previous physician: " 34 year old male past medical history of heroin abuse, uncontrolled diabetes, medication noncompliance, left upper extremity abscess, bacteremia, sepsis, pneumonia. Last admission here at [facility] on 09/27/2019, diagnosed with left arm abscess, S treptococcus pyogenes bacteremia was started on IV antibiotics but unfortunately left AMA on 10/02/2019. Last ED admission was 11/04/2019 for heroin overdose was sent home after receiving Narcan. Today he is presenting ED complaining of left-sided chest pain, productive cough and fever. Chest pain is left-sided, sharp, nonradiating, worse with breathing and movement, better with rest, 5/10 intensity scale. Denies any vision changes, headache, nausea, vomiting, abdominal pain, diarrhea, constipation, rash, dysuria, hematuria, joint pain, joint swelling, oral lesions or ulcers. In ED was noted to have leukocytosis, hyperglycemia, hyperkalemia, hyponatremia, with chest x-ray showing focal opacity in the left lung. 11/[id number]-old male IV drug abuser admitted for sepsis. Found to have endocarditis. Presently on a daptomycin as per ID recommendations. Repeat blood cultures are negative so far. Plan is to wait for the culture reports until tomorrow prior to arranging for PICC line. 11/20/2019-patient is receiving IV antibiotic therapy for endocarditis. Presently on IV daptomycin. Repeat blood cultures are negative at 72 hours. Plan is to arrange for a PICC line. Plan is to give IV antibiotic therapy for 6 weeks from the day of cultures negative. 11/21/2019-patient is receiving IV daptomycin for endocarditis. Is going for PICC line. He is going to receive IV antibiotic therapy for a total of 6 weeks while he was in the hospital. 11/22/2019-patient received PICC line. Patient has IV daptomycin on board. Patient stay here for completion of the IV antibiotic therapy. 11/23/19-patient is receiving IV daptomycin and he has a PICC line. No acute events in the last 24 hours. Afebrile. Plan is to continue the antibiotic therapy in the hospital. 11/24/2019-patient admitted with infective endocarditis VINAYAK confirmed it. As per ID recommendations patient is receiving IV daptomycin. He has a PICC line. Because of the history of IV drug abuse he needs to be in the hospital to complete the antibiotic therapy course. 11/25/2019-patient is comfortably in the bed sleeping. Woke up and requesting double portion meals. No acute events in last 24 hours. Has a PICC line receiving IV daptomycin. Because of history of IV drug abuse he is going to be in the hospital to complete the antibiotic therapy." 11/26/2019 Patient has no new complaints today seems to be doing well overall. I had a long discussion with him regarding his drug abuse and his need for cessation. He states his sister who lives with him also abuses drugs and it will be very difficult for him to stop using drugs if he continues living with her. Antibiotics continue. Reason For Visit: PNEUMONIA, HYPERKALEMIA, HYPERGLYCEMIA Physical Exam Vital Signs: Temp Pulse Resp BP Pulse Ox 98.0 F 70 17 132/74 H 100 11/26/19 10:49 11/26/19 10:49 11/26/19 10:49 11/26/19 10:49 11/26/19 10:49 Intake & Output 11/25/19 11/26/19 11/27/19 06:59 06:59 06:59 Intake Total 6878 571 4178 Output Total 1250 1750 1050 Balance 720 -883 131 Weight 77.3 kg 77.3 kg General appearance: PRESENT: no acute distress, well-developed, well-nourished Head exam: PRESENT: atraumatic, normocephalic Eye exam: PRESENT: conjunctiva pink Mouth exam: PRESENT: moist Respiratory exam: PRESENT: clear to auscultation fran. ABSENT: rales, rhonchi, wheezes Cardiovascular exam: PRESENT: RRR. ABSENT: diastolic murmur, rubs, systolic mur mur GI/Abdominal exam: PRESENT: normal bowel sounds, soft. ABSENT: distended, guarding, mass, organolmegaly, rebound, tenderness Musculoskeletal exam: PRESENT: ambulatory Neurological exam: PRESENT: alert, awake, oriented to person, oriented to place, oriented to time, oriented to situation Skin exam: PRESENT: dry, intact, warm Results Laboratory Results: 11/25/19 06:00 11/25/19 06:00 11/07/19 11/07/19 11/14/19 22:19 22:19 14:56 Creatine Kinase 33 L 28 L CK-MB (CK-2) 0.28 Troponin I < 0.012 11/19/19 05:40 Creatine Kinase 26 L CK-MB (CK-2) Troponin I Impressions: Chest CT 11/16/19 00:00 IMPRESSION: Small bilateral pleural effusions with suspected areas of loculation. Trace of pericardial fluid. Compared with the 2015 exam there has been significant improvement in multiple bilateral pulmonary nodules, some of which were cavitary. The largest residual nodule is in the lateral left lung base, as above measuring 2.2 x 2.1 cm. Some equivocal cavitation within this nodule. Findings could reflect septic emboli, with other etiologies including neoplastic, infectious/granulomatous/fungal disease also considered. TECHNICAL DOCUMENTATION: Quality ID # 436: Final reports with documentation of one or more dose reduction techniques (e.g., Automated exposure control, adjustment of the mA and/or kV according to patient size, use of iterative reconstruction technique) copyright 2011 [employer]- All Rights Reserved Chest X-Ray 11/16/19 00:00 IMPRESSION: Right pleural effusion. Patchy retrocardiac airspace opacities. PICC Line Insertion 11/21/19 00:00 IMPRESSION: SUCCESSFUL PLACEMENT OF A 5 FR DUAL LUMEN 39 CM PICC IN THE LEFT BRACHIAL VEIN. 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 Patient need at least 6 weeks of IV antibiotic therapy. Blood cultures from 11/16- so far. To arrange for PICC line tomorrow. 11/20/2019-patient is presently on IV daptomycin going for PICC line today plan is to give IV antibiotic therapy for 6 weeks from the day of blood cultures negative. 11/23/2019-patient has a PICC line. Latest blood cultures are negative. Patient is receiving IV daptomycin at this time. 11/25/2019-status post TTE was done found to have mitral valve vegetation. Rece iving IV daptomycin. He has a PICC line." 11/26/2019 Reviewed prior imaging and labs. Continue IV daptomycin for total 6 weeks through PICC line in hospital (2) MRSA bacteremia Is this a current diagnosis for this admission?: Yes Plan: Per previous physician: "Blood cultures from 11/17/2019, NG at 24 hours -we will need pick placed once cultures are sterile for long-term antibiotic therapy ID input/assistance appreciated Per ID recommendations antibiotics have been changed to daptomycin Monitor CBC, CMP, CK, ESR, CRP weekly -ordered for tomorrow a.m. If cultures remain positive in spite of changing to daptomycin will likely need VINAYAK for further evaluation and possible CT surgery evaluation 11/19/2019-blood cultures from 11/13/2019+ for MRSA. VINAYAK was done found to have endocarditis. Patient need 6 weeks of IV antibiotic therapy. Repeat blood cultures from 11/16 no growth so far. Plan is to arrange for PICC line tomorrow. To continue IV daptomycin as per ID recommendations. Patient is afebrile vital signs are stable at this time. 11/20/2019-initial cultures are positive for MRSA transesophageal echo indicates endocarditis. Patient is presently on IV daptomycin repeat blood cultures are negative at 72 hours. Plan is to arrange for PICC line for long-term IV antibiotic therapy. 11/21/2019-patient is on IV daptomycin plan is to give antibiotic therapy for total of 6 weeks. Latest blood cultures are negative. 11/22/2019-patient is receiving IV daptomycin and he is going to be here in the hospital for completion of the IV antibiotic therapy." 11/25/2021 Blood cultures reviewed, MRSA positive (3) Tricuspid valve regurgitation Qualifiers: Cardiac valve disease etiology: nonrheumatic Qualified Code(s): I36.1 - Nonrheumatic tricuspid (valve) insufficiency Is this a current diagnosis for this admission?: Yes Plan: This is likely secondary to patient's tricuspid valve vegetation Continue supportive care Bacterial endocarditis treatment as noted above 11/19/2019-patient is a IV drug abuser found to have tricuspid valve vegetation. He is receiving IV daptomycin. Latest blood cultures are negative. Most likely to arrange for PICC line tomorrow. 11/24/2019-patient is receiving IV daptomycin plan is to keep him in the hospital to complete the antibiotic course. (4) Heroin abuse Is this a current diagnosis for this admission?: Yes (5) IV drug abuse Is this a current diagnosis for this admission?: Yes Plan: Per previous physician: "Continue buprenorphine 4 mg sublingual daily, patient continues to do well on this dose No signs of opioid withdrawal Today had a long discussion with patient regarding abstinence. Discussed lifestyle changes with patient as well as need for ongoing support once discharged from the hospital. Introduced concept of Narcotics Anonymous as well as ongoing buprenorphine therapy and a Suboxone program. Patient seems motiv ated. 11/19/2019-patient has history of chronic IV drug abuse. Counseling was provided. 11/20/2019-patient has history of chronic IV drug abuse admitted for endocarditis. 11/21/2019-patient is receiving IV antibiotic therapy daptomycin for endocarditis. He is going for PICC line today. 11/22/2019-patient has a PICC line and is receiving IV daptomycin. He is going to be here in the hospital for completion of the antibiotic therapy. 11/23/2019-patient is receiving daptomycin IV as per ID recommendations for endocarditis. Because of the history of IV drug abuse he is going to be in the hospital to complete the antibiotic therapy. 11/24/2019-patient history of IV drug abuse admitted with infective endocarditis. VINAYAK was done indicate you have tricuspid valve involvement. Receiving daptom ycin as per ID. Plan is to continue the antibiotic therapy here in the hospital because of the history of IV drug abuse. He has a PICC line. 11/25/2019-patient is receiving IV daptomycin for endocarditis. He is going to be in the hospital to complete the IV antibiotic therapy." 11/26/2019 Extensively counseled on IV drug abuse cessation (6) Uncontrolled diabetes mellitus Qualifiers: Diabetes mellitus type: type 2 Glycemic state: with hyperglycemia Qualified Code(s): E11.65 - Type 2 diabetes mellitus with hyperglycemia Is this a current diagnosis for this admission?: Yes Plan: Referring physician: "Blood sugar less labile over past 24 hours with no episodes of hypoglycemia Continue current basal insulin (glargine 36 units subcutaneous daily), if blood sugar remains above goal with no hypoglycemic episodes over the next 24 to 48 ho urs may consider titration of basal insulin Continue FSBS with SSI correction scale 11/19/19-blood sugar is 220. To continue insulin sliding scale before meals and at bedtime. He is also receiving Lantus 30 units subcu daily. 11/20/2019-blood sugar today is 129. Presently on insulin sliding scale before meals and at bedtime and receiving Lantus 30 units daily.. 11/22/2019-latest blood sugar is 132. Plan is to continue the present management at this time. 11/23/2019-blood sugar this morning is 94. Within normal limits. To cut the Lantus to 25 units daily. 11/24/2019-blood sugar is 113. Blood sugars are stable." 11/26/2019 Blood sugar primarily controlled though occasionally creeping up into the mid 200s, needs better diet control - Time Time Spent with patient: 15-24 minutes Medications reviewed and adjusted accordingly: Yes Anticipated discharge: Home Within: Other - When antibiotics completed - Inpatient Certification Based on my medical assessment, after consideration of the patient's comorbidities, presenting symptoms, or acuity I expect that the services needed warrant INPATIENT care.: Yes I certify that my determination is in accordance with my understanding of Medicare's requirements for reasonable and necessary INPATIENT services [42 CFR 412.3e].: Yes Medical Necessity: Significant Comorbidiites Make Outpatient Treatment Too Risky, Need Close Monitoring Due to Risk of Patient Decompensation, Need for IV Antibiotics, Risk of Complication if Not Cared For in Hospital, Risk of Diagnosis Which Will Require Inpatient Eval/Care/Monitoring
[2019-11-26] MEDS: DAPTOMYCIN IV SCH (17:02)
[2019-11-26] MEDS: NORMAL SALINE IV SCH (17:02)
[2019-11-27] MEDS: INSULIN REG, HUMAN 100 UNIT/ML 3 ML VIAL (PYX) SUBCUT SCH ×4 (07:43→21:50)
[2019-11-27] MEDS: FAMOTIDINE 20 MG TABLET PO SCH ×2 (10:39→21:50)
[2019-11-27] MEDS: BUPRENORPHINE HCL 2 MG SUBLINGUAL TABLET SL SCH (10:39)
[2019-11-27] MEDS: DOCUSATE SODIUM 100 MG CAPSULE PO SCH (10:39)
[2019-11-27] MEDS: INSULIN GLARGINE,HUM.REC.ANLOG 1,000 UNIT/10 ML VIAL SUBCUT SCH (10:40)
[2019-11-27] MEDS: ENOXAPARIN SODIUM INJ 40 MG/0.4 ML DISP.SYRIN SUBCUT SCH (10:41)
[2019-11-27] MEDS: NORMAL SALINE 10 ML SDV (SCHEDULED) IV SCH ×2 (10:43→21:50)
[2019-11-27] MEDS: IBUPROFEN 600 MG TABLET PO PRN ×2 (10:52→21:49)
--- NOTE | 2019-11-27 16:43 | PDOC PROGRESS REPORT ---
Subjective Progress Note for:: 11/27/19 Subjective:: Her previous physician: " 34 year old male past medical history of heroin abuse, uncontrolled diabetes, medication noncompliance, left upper extremity abscess, bacteremia, sepsis, pneumonia. Last admission here at [facility] on 09/27/2019, diagnosed with left arm abscess, S treptococcus pyogenes bacteremia was started on IV antibiotics but unfortunately left AMA on 10/02/2019. Last ED admission was 11/04/2019 for heroin overdose was sent home after receiving Narcan. Today he is presenting ED complaining of left-sided chest pain, productive cough and fever. Chest pain is left-sided, sharp, nonradiating, worse with breathing and movement, better with rest, 5/10 intensity scale. Denies any vision changes, headache, nausea, vomiting, abdominal pain, diarrhea, constipation, rash, dysuria, hematuria, joint pain, joint swelling, oral lesions or ulcers. In ED was noted to have leukocytosis, hyperglycemia, hyperkalemia, hyponatremia, with chest x-ray showing focal opacity in the left lung. 11/19/[id number]-ipuo-old male IV drug abuser admitted for sepsis. Found to have endocarditis. Presently on a daptomycin as per ID recommendations. Repeat blood cultures are negative so far. Plan is to wait for the culture reports until tomorrow prior to arranging for PICC line. 11/20/2019-patient is receiving IV antibiotic therapy for endocarditis. Presently on IV daptomycin. Repeat blood cultures are negative at 72 hours. Plan is to arrange for a PICC line. Plan is to give IV antibiotic therapy for 6 weeks from the day of cultures negative. 11/21/2019-patient is receiving IV daptomycin for endocarditis. Is going for PICC line. He is going to receive IV antibiotic therapy for a total of 6 weeks while he was in the hospital. 11/22/2019-patient received PICC line. Patient has IV daptomycin on board. Patient stay here for completion of the IV antibiotic therapy. 11/23/19-patient is receiving IV daptomycin and he has a PICC line. No acute events in the last 24 hours. Afebrile. Plan is to continue the antibiotic therapy in the hospital. 11/24/2019-patient admitted with infective endocarditis VINAYAK confirmed it. As per ID recommendations patient is receiving IV daptomycin. He has a PICC line. Because of the history of IV drug abuse he needs to be in the hospital to complete the antibiotic therapy course. 11/25/2019-patient is comfortably in the bed sleeping. Woke up and requesting double portion meals. No acute events in last 24 hours. Has a PICC line receiving IV daptomycin. Because of history of IV drug abuse he is going to be in the hospital to complete the antibiotic therapy." 11/26/2019 Patient has no new complaints today seems to be doing well overall. I had a long discussion with him regarding his drug abuse and his need for cessation. He states his sister who lives with him also abuses drugs and it will be very difficult for him to stop using drugs if he continues living with her. Antibiotics continue. 11/27/2019 Patient is doing well today and resting comfortably. He has no new complaints. He is tolerating his antibiotic treatment very well. Patient needs total 6 weeks from the date of his latest blood culture being negative. Continue to monitor. Reason For Visit: PNEUMONIA, HYPERKALEMIA, HYPERGLYCEMIA Physical Exam Vital Signs: Temp Pulse Resp BP Pulse Ox 97.5 F 76 16 122/78 100 11/27/19 07:01 11/27/19 07:01 11/27/19 07:01 11/27/19 07:01 11/27/19 07:01 Intake & Output 11/26/19 11/27/19 11/28/19 06:59 06:59 06:59 Intake Total 867 1452 120 Output Total 1750 2250 1225 Balance -883 -798 -1105 Weight 77.3 kg 77.3 kg General appearance: PRESENT: no acute distress, well-developed, well-nourished Head exam: PRESENT: atraumatic, normocephalic Eye exam: PRESENT: conjunctiva pink Mouth exam: PRESENT: moist Respiratory exam: PRESENT: clear to auscultation fran. ABSENT: rales, rhonchi, wheezes Cardiovascular exam: PRESENT: RRR. ABSENT: diastolic murmur, rubs, systolic murmur GI/Abdominal exam: PRESENT: normal bowel sounds, soft. ABSENT: distended, guarding, mass, organolmegaly, rebound, tenderness Neurological exam: PRESENT: alert, awake Psychiatric exam: PRESENT: appropriate affect, normal mood Skin exam: PRESENT: dry, intact, warm Results Laboratory Results: 11/25/19 06:00 11/25/19 06:00 11/07/19 11/07/19 11/14/19 22:19 22:19 14:56 Creatine Kinase 33 L 28 L CK-MB (CK-2) 0.28 Troponin I < 0.012 11/19/19 05:40 Creatine Kinase 26 L CK-MB (CK-2) Troponin I Impressions: Chest CT 11/16/19 00:00 IMPRESSION: Small bilateral pleural effusions with suspected areas of loculation. Trace of pericardial fluid. Compared with the 2015 exam there has been significant improvement in multiple bilateral pulmonary nodules, some of which were cavitary. The largest residual nodule is in the lateral left lung base, as above measuring 2.2 x 2.1 cm. Some equivocal cavitation within this nodule. Findings could reflect septic emboli, with other etiologies including neoplastic, infectious/granulomatous/fungal disease also considered. TECHNICAL DOCUMENTATION: Quality ID # [id number]: Final reports with documentation of one or more dose reduction techniques (e.g., Automated exposure control, adjustment of the mA and/or kV according to patient size, use of iterative reconstruction technique) copyright 2011 [employer]- All Rights Reserved Chest X-Ray 11/16/19 00:00 IMPRESSION: Right pleural effusion. Patchy retrocardiac airspace opacities. PICC Line Insertion 11/21/19 00:00 IMPRESSION: SUCCESSFUL PLACEMENT OF A 5 FR DUAL LUMEN 39 CM PICC IN THE LEFT BRACHIAL VEIN. 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 Patient need at least 6 weeks of IV antibiotic therapy. Blood cultures from 11/16- so far. To arrange for PICC line tomorrow. 11/20/2019-patient is presently on IV daptomycin going for PICC line today plan is to give IV antibiotic therapy for 6 weeks from the day of blood cultures negative. 11/23/2019-patient has a PICC line. Latest blood cultures are negative. Patient is receiving IV daptomycin at this time. 11/25/2019-status post TTE was done found to have mitral valve vegetation. Receiving IV daptomycin. He has a PICC line." 11/26/2019 Reviewed prior imaging and labs. Continue IV daptomycin for total 6 weeks through PICC line in hospital 11/26/2021 Antibiotics continue, patient tolerating these well, counseled on IV drug abuse cessation (2) MRSA bacteremia Is this a current diagnosis for this admission?: Yes (3) Tricuspid valve regurgitation Qualifiers: Cardiac valve disease etiology: nonrheumatic Qualified Code(s): I36.1 - Nonrheumatic tricuspid (valve) insufficiency Is this a current diagnosis for this admission?: Yes (4) Heroin abuse Is this a current diagnosis for this admission?: Yes (5) IV drug abuse Is this a current diagnosis for this admission?: Yes (6) Uncontrolled diabetes mellitus Qualifiers: Diabetes mellitus type: type 2 Glycemic state: with hyperglycemia Qualified Code(s): E11.65 - Type 2 diabetes mellitus with hyperglycemia Is this a current diagnosis for this admission?: Yes - Time Time Spent with patient: 15-24 minutes Medications reviewed and adjusted accordingly: Yes Anticipated discharge: Home Within: Other - When antibiotics complete - Inpatient Certification Based on my medical assessment, after consideration of the patient's comorbidities, presenting symptoms, or acuity I expect that the services needed warrant INPATIENT care.: Yes I certify that my determination is in accordance with my understanding of Medicare's requirements for reasonable and necessary INPATIENT services [42 CFR 412.3e].: Yes Medical Necessity: Significant Comorbidiites Make Outpatient Treatment Too Risk y, Need Close Monitoring Due to Risk of Patient Decompensation, Need for IV Antibiotics, Risk of Complication if Not Cared For in Hospital, Risk of Diagnosis Which Will Require Inpatient Eval/Care/Monitoring
[2019-11-27] MEDS: NORMAL SALINE IV SCH (17:41)
[2019-11-27] MEDS: DAPTOMYCIN IV SCH (17:41)
[2019-11-28] MEDS: INSULIN REG, HUMAN 100 UNIT/ML 3 ML VIAL (PYX) SUBCUT SCH ×4 (08:17→22:23)
[2019-11-28] MEDS: BUPRENORPHINE HCL 2 MG SUBLINGUAL TABLET SL SCH (11:22)
[2019-11-28] MEDS: DOCUSATE SODIUM 100 MG CAPSULE PO SCH (11:22)
[2019-11-28] MEDS: FAMOTIDINE 20 MG TABLET PO SCH ×2 (11:23→22:22)
[2019-11-28] MEDS: INSULIN GLARGINE,HUM.REC.ANLOG 1,000 UNIT/10 ML VIAL SUBCUT SCH (11:23)
[2019-11-28] MEDS: ENOXAPARIN SODIUM INJ 40 MG/0.4 ML DISP.SYRIN SUBCUT SCH (11:25)
[2019-11-28] MEDS: NORMAL SALINE 10 ML SDV (SCHEDULED) IV SCH ×2 (11:26→22:23)
[2019-11-28] MEDS: IBUPROFEN 600 MG TABLET PO PRN ×2 (11:36→22:22)
--- NOTE | 2019-11-28 13:45 | PDOC PROGRESS REPORT ---
Subjective Progress Note for:: 11/28/19 Subjective:: No adverse events overnight. No new complaints. Vital signs been stable. Eating and drinking without difficulty. No fevers. Reason For Visit: PNEUMONIA, HYPERKALEMIA, HYPERGLYCEMIA Physical Exam Vital Signs: Temp Pulse Resp BP Pulse Ox 98.5 F 21 L 17 109/66 100 11/28/19 11:20 11/28/19 11:20 11/28/19 11:20 11/28/19 11:20 11/28/19 11:20 Intake & Output 11/27/19 11/28/19 11/29/19 06:59 06:59 06:59 Intake Total 1452 1005 596 Output Total 2250 2300 600 Balance -798 -1295 -4 Weight 77.3 kg 77.8 kg General appearance: PRESENT: no acute distress, well-developed, well-nourished Head exam: PRESENT: atraumatic, normocephalic Eye exam: PRESENT: conjunctiva pink Mouth exam: PRESENT: moist Respiratory exam: PRESENT: clear to auscultation fran. ABSENT: rales, rhonchi, wheezes Cardiovascular exam: PRESENT: RRR. ABSENT: diastolic murmur, rubs, systolic murmur GI/Abdominal exam: PRESENT: normal bowel sounds, soft. ABSENT: distended, guarding, mass, organolmegaly, rebound, tenderness Neurological exam: PRESENT: alert, awake Psychiatric exam: PRESENT: appropriate affect, normal mood Skin exam: PRESENT: dry, intact, warm Results Laboratory Results: 11/25/19 06:00 11/25/19 06:00 11/07/19 11/07/19 11/14/19 22:19 22:19 14:56 Creatine Kinase 33 L 28 L CK-MB (CK-2) 0.28 Troponin I < 0.012 11/19/19 05:40 Creatine Kinase 26 L CK-MB (CK-2) Troponin I Impressions: Chest CT 11/16/19 00:00 IMPRESSION: Small bilateral pleural effusions with suspected areas of loculation. Trace of pericardial fluid. Compared with the 2014 exam there has been significant improvement in multiple bilateral pulmonary nodules, some of which were cavitary. The largest residual nodule is in the lateral left lung base, as above measuring 2.2 x 2.1 cm. Some equivocal cavitation within this nodule. Findings could reflect septic emboli, with other etiologies including neoplastic, infectious/granulomatous/fungal disease also considered. TECHNICAL DOCUMENTATION: Quality ID # [id number]: Final reports with documentation of one or more dose reduction techniques (e.g., Automated exposure control, adjustment of the mA and/or kV according to patient size, use of iterative reconstruction technique) copyright 2011 [employer]- All Rights Reserved Chest X-Ray 11/16/19 00:00 IMPRESSION: Right pleural effusion. Patchy retrocardiac airspace opacities. PICC Line Insertion 11/21/19 00:00 IMPRESSION: SUCCESSFUL PLACEMENT OF A 5 FR DUAL LUMEN 39 CM PICC IN THE LEFT BRACHIAL VEIN. Assessment and Plan - Diagnosis (1) MRSA bacteremia Is this a current diagnosis for this admission?: Yes Plan: His blood cultures drawn on 16 November were negative. His anticipated stop date for antibiotics is 28 December. 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 Is this a current diagnosis for this admission?: Yes Plan: Antibiotics until 28 December as previously noted (4) Heroin abuse Is this a current diagnosis for this admission?: Yes (5) Hyperkalemia Is this a current diagnosis for this admission?: Yes Plan: Resolved (6) Hyponatremia Is this a current diagnosis for this admission?: Yes Plan: Resolved (7) Type 2 diabetes mellitus, uncontrolled Qualifiers: Glycemic state: with hyperglycemia Qualified Code(s): E11.65 - Type 2 diabetes mellitus with hyperglycemia Is this a current diagnosis for this admission?: Yes Plan: Continue to adjust insulin coverage as needed - Time Time Spent with patient: 15-24 minutes Anticipated discharge: Home Within: Other
[2019-11-28] MEDS: DAPTOMYCIN IV SCH (18:37)
[2019-11-28] MEDS: NORMAL SALINE IV SCH (18:37)
[2019-11-29] MEDS: INSULIN REG, HUMAN 100 UNIT/ML 3 ML VIAL (PYX) SUBCUT SCH ×4 (07:29→22:04)
[2019-11-29] MEDS: IBUPROFEN 600 MG TABLET PO PRN ×2 (08:36→22:07)
[2019-11-29] MEDS: NORMAL SALINE 10 ML SDV (SCHEDULED) IV SCH ×2 (10:03→22:07)
[2019-11-29] MEDS: DOCUSATE SODIUM 100 MG CAPSULE PO SCH (10:03)
[2019-11-29] MEDS: NORMAL SALINE 10 ML SDV (AFTER EACH USE) IV PRN (10:03)
[2019-11-29] MEDS: BUPRENORPHINE HCL 2 MG SUBLINGUAL TABLET SL SCH (10:03)
[2019-11-29] MEDS: FAMOTIDINE 20 MG TABLET PO SCH ×2 (10:03→22:04)
[2019-11-29] MEDS: INSULIN GLARGINE,HUM.REC.ANLOG 1,000 UNIT/10 ML VIAL SUBCUT SCH (10:04)
[2019-11-29] MEDS: ENOXAPARIN SODIUM INJ 40 MG/0.4 ML DISP.SYRIN SUBCUT SCH (10:08)
--- NOTE | 2019-11-29 17:35 | PDOC PROGRESS REPORT ---
Subjective Progress Note for:: 11/29/19 Subjective:: No adverse events overnight. No new complaints. Vital signs been stable. Eating and drinking without difficulty. No fevers. Reason For Visit: PNEUMONIA, HYPERKALEMIA, HYPERGLYCEMIA Physical Exam Vital Signs: Temp Pulse Resp BP Pulse Ox 98.0 F 105 H 16 113/94 H 100 11/29/19 16:00 11/29/19 16:00 11/29/19 16:00 11/29/19 16:00 11/29/19 16:00 Intake & Output 11/28/19 11/29/19 11/30/19 06:59 06:59 06:59 Intake Total 1005 1006 240 Output Total 2300 900 400 Balance -1295 106 -160 Weight 77.8 kg 77.8 kg General appearance: PRESENT: no acute distress, well-developed, well-nourished Head exam: PRESENT: atraumatic, normocephalic Eye exam: PRESENT: conjunctiva pink Mouth exam: PRESENT: moist Respiratory exam: PRESENT: clear to auscultation fran. ABSENT: rales, rhonchi, wheezes Cardiovascular exam: PRESENT: RRR. ABSENT: diastolic murmur, rubs, systolic murmur GI/Abdominal exam: PRESENT: normal bowel sounds, soft. ABSENT: distended, guarding, mass, organolmegaly, rebound, tenderness Neurological exam: PRESENT: alert, awake Psychiatric exam: PRESENT: appropriate affect, normal mood Skin exam: PRESENT: dry, intact, warm Results Laboratory Results: 11/25/19 06:00 11/25/19 06:00 11/07/19 11/07/19 11/14/19 22:19 22:19 14:56 Creatine Kinase 33 L 28 L CK-MB (CK-2) 0.28 Troponin I < 0.012 11/19/19 05:40 Creatine Kinase 26 L CK-MB (CK-2) Troponin I Impressions: Chest CT 11/16/19 00:00 IMPRESSION: Small bilateral pleural effusions with suspected areas of loculation. Trace of pericardial fluid. Compared with the 2014 exam there has been significant improvement in multiple bilateral pulmonary nodules, some of which were cavitary. The largest residual nodule is in the lateral left lung base, as above measuring 2.2 x 2.1 cm. Some equivocal cavitation within this nodule. Findings could reflect septic emboli, with other etiologies including neoplastic, infectious/granulomatous/fungal disease also considered. TECHNICAL DOCUMENTATION: Quality ID # 436: Final reports with documentation of one or more dose reduction techniques (e.g., Automated exposure control, adjustment of the mA and/or kV according to patient size, use of iterative reconstruction technique) copyright 2011 [employer]- All Rights Reserved Chest X-Ray 11/16/19 00:00 IMPRESSION: Right pleural effusion. Patchy retrocardiac airspace opacities. PICC Line Insertion 11/21/19 00:00 IMPRESSION: SUCCESSFUL PLACEMENT OF A 5 FR DUAL LUMEN 39 CM PICC IN THE LEFT BRACHIAL VEIN. Assessment and Plan - Diagnosis (1) MRSA bacteremia Is this a current diagnosis for this admission?: Yes Plan: His blood cultures drawn on 16 November were negative. His anticipated stop date for antibiotics is 28 December. 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 Doing well on Subutex. (5) Hyperkalemia Is this a current diagnosis for this admission?: Yes Plan: Resolved (6) Hyponatremia Is this a current diagnosis for this admission?: Yes Plan: Resolved (7) Type 2 diabetes mellitus, uncontrolled Qualifiers: Glycemic state: with hyperglycemia Qualified Code(s): E11.65 - Type 2 diabetes mellitus with hyperglycemia Is this a current diagnosis for this admission?: Yes Plan: Continue to adjust insulin coverage as needed - Time Time Spent with patient: 15-24 minutes Anticipated Discharge Disposition: Home, Self Care Anticipated Discharge: Other
[2019-11-29] MEDS: DAPTOMYCIN IV SCH (17:53)
[2019-11-29] MEDS: NORMAL SALINE IV SCH (17:53)
[2019-11-30] MEDS: INSULIN REG, HUMAN 100 UNIT/ML 3 ML VIAL (PYX) SUBCUT SCH ×4 (08:18→22:07)
[2019-11-30] MEDS: DOCUSATE SODIUM 100 MG CAPSULE PO SCH (09:54)
[2019-11-30] MEDS: INSULIN GLARGINE,HUM.REC.ANLOG 1,000 UNIT/10 ML VIAL SUBCUT SCH (09:54)
[2019-11-30] MEDS: FAMOTIDINE 20 MG TABLET PO SCH ×2 (09:54→22:07)
[2019-11-30] MEDS: ENOXAPARIN SODIUM INJ 40 MG/0.4 ML DISP.SYRIN SUBCUT SCH (09:55)
[2019-11-30] MEDS: NORMAL SALINE 10 ML SDV (SCHEDULED) IV SCH ×2 (09:55→22:07)
[2019-11-30] MEDS: BUPRENORPHINE HCL 2 MG SUBLINGUAL TABLET SL SCH (09:55)
--- NOTE | 2019-11-30 16:27 | PDOC PROGRESS REPORT ---
Subjective Progress Note for:: 11/30/19 Subjective:: SUDHA BEGUM is a 34 year old male past medical history of heroin abuse, uncontrolled diabetes, medication noncompliance, left upper extremity abscess, bacteremia, sepsis, pneumonia. Last admission here at [facility] on 09/27/2019, diagnosed with left arm abscess, Strep tococcus pyogenes bacteremia was started on IV antibiotics but unfortunately left AMA on 10/02/2019. Last ED admission was 11/04/2019 for heroin overdose was sent home after receiving Narcan. Today he is presenting ED complaining of left-sided chest pain, productive cough and fever. Chest pain is left-sided, sharp, nonradiating, worse with breathing and movement, better with rest, 5/10 intensity scale. Denies any vision changes, headache, nausea, vomiting, abdominal pain, diarrhea, constipation, rash, dysuria, hematuria, joint pain, joint swelling, oral lesions or ulcers. In ED was noted to have leukocytosis, hyperglycemia, hyperkalemia, hyponatremia, with chest x-ray showing focal opacity in the left lung. 11/30/2019. Assumed care today. No acute events overnight. Patient is ambula tory and likes to walk in the hallways, saw him this morning, in no acute distress, ambulatory, p.o. tolerant, having normal bowel and bladder movement, denies any fever, chills, nausea, vomiting, diarrhea, constipation or any urinary symptoms. Reason For Visit: PNEUMONIA, HYPERKALEMIA, HYPERGLYCEMIA Physical Exam Vital Signs: Temp Pulse Resp BP Pulse Ox 98.2 F 111 H 16 125/69 95 11/30/19 11:53 11/30/19 11:53 11/30/19 11:53 11/30/19 11:53 11/30/19 11:53 Intake & Output 11/29/19 11/30/19 12/01/19 06:59 06:59 06:59 Intake Total 1006 1845 240 Output Total 900 4995 1000 Balance 106 900 -561 Weight 77.8 kg 77.6 kg General appearance: PRESENT: no acute distress, well-developed, well-nourished Head exam: PRESENT: atraumatic, normocephalic Respiratory exam: PRESENT: clear to auscultation fran. ABSENT: rales, rhonchi, wheezes Cardiovascular exam: PRESENT: RRR. ABSENT: diastolic murmur, rubs, systolic murmur GI/Abdominal exam: PRESENT: normal bowel sounds, soft. ABSENT: distended, guarding, mass, organolmegaly, rebound, tenderness Neurological exam: PRESENT: alert, awake, oriented to person, oriented to place, oriented to time, oriented to situation, CN II-XII grossly intact. ABSENT: motor sensory deficit Results Laboratory Results: 11/25/19 06:00 11/25/19 06:00 11/07/19 11/07/19 11/14/19 22:19 22:19 14:56 Creatine Kinase 33 L 28 L CK-MB (CK-2) 0.28 Troponin I < 0.012 11/19/19 05:40 Creatine Kinase 26 L CK-MB (CK-2) Troponin I Impressions: Chest CT 11/16/19 00:00 IMPRESSION: Small bilateral pleural effusions with suspected areas of loculation. Trace of pericardial fluid. Compared with the 2015 exam there has been significant improvement in multiple bilateral pulmonary nodules, some of which were cavitary. The largest residual nodule is in the lateral left lung base, as above measuring 2.2 x 2.1 cm. Some equivocal cavitation within this nodule. Findings could reflect septic emboli, with other etiologies including neoplastic, infectious/granulomatous/fungal disease also considered. TECHNICAL DOCUMENTATION: Quality ID # 436: Final reports with documentation of one or more dose reduction techniques (e.g., Automated exposure control, adjustment of the mA and/or kV according to patient size, use of iterative reconstruction technique) copyright 2011 [employer]- All Rights Reserved Chest X-Ray 11/16/19 00:00 IMPRESSION: Right pleural effusion. Patchy retrocardiac airspace opacities. PICC Line Insertion 11/21/19 00:00 IMPRESSION: SUCCESSFUL PLACEMENT OF A 5 FR DUAL LUMEN 39 CM PICC IN THE LEFT BRACHIAL VEIN. Assessment and Plan - Diagnosis (1) MRSA bacteremia Is this a current diagnosis for this admission?: Yes Plan: His blood cultures drawn on 16 November were negative. His anticipated stop date for antibiotics is 28 December. (2) Pneumonia Qualifiers: Pneumonia type: due to unspecified organism Laterality: left Lung location: unspecified part of lung Qualified Code(s): J18.9 - Pneumonia, unspecified organism Is this a current diagnosis for this admission?: Yes Plan: Resolved (3) Heroin abuse Is this a current diagnosis for this admission?: Yes Plan: Monitoring for signs of withdrawal, so far no such signs. Doing well on Subutex. (4) Hyponatremia Is this a current diagnosis for this admission?: Yes Plan: Resolved (5) Uncontrolled diabetes mellitus Qualifiers: Diabetes mellitus type: type 2 Glycemic state: with hyperglycemia Qualified Code(s): E11.65 - Type 2 diabetes mellitus with hyperglycemia Is this a current diagnosis for this admission?: Yes Plan: Improving. Continue diabetic diet, sliding scale, correctional and long-acting insulin. Accu-Cheks. Hypoglycemic protocol. (6) Hyperkalemia Is this a current diagnosis for this admission?: Yes Plan: Resolved - Time Time Spent with patient: 25-34 minutes Anticipated Discharge Disposition: Home, Self Care Anticipated Discharge: Other
[2019-11-30] MEDS ORDERED: SITAGLIPTIN PHOSPHATE 50 MG TABLET PO SCH (16:45)
[2019-11-30] MEDS ORDERED: METFORMIN HCL 500 MG TABLET PO SCH (17:00)
[2019-11-30] MEDS: DAPTOMYCIN IV SCH (17:13)
[2019-11-30] MEDS: NORMAL SALINE IV SCH (17:13)
[2019-11-30] MEDS: IBUPROFEN 600 MG TABLET PO PRN (22:08)
[2019-12-01] MEDS: NORMAL SALINE 10 ML SDV (AFTER EACH USE) IV PRN ×2 (06:07→10:46)
[2019-12-01 06:43] LABS: CHOLESTEROL 166.65 mg/dL (0-200); TRIGLYCERIDES 198 mg/dL (<150)
[2019-12-01 06:54] LABS: DIRECT LDL 84 mg/dL (<100)
[2019-12-01 06:57] LABS: VLDL CHOLESTEROL 39.6 mg/dL (10-31)
[2019-12-01] MEDS ORDERED: SITAGLIPTIN PHOSPHATE 50 MG TABLET PO SCH (08:00)
[2019-12-01] MEDS: INSULIN REG, HUMAN 100 UNIT/ML 3 ML VIAL (PYX) SUBCUT SCH ×4 (08:20→22:20)
[2019-12-01] MEDS: METFORMIN HCL 500 MG TABLET PO SCH ×2 (08:20→15:48)
[2019-12-01] MEDS ORDERED: INSULIN GLARGINE,HUM.REC.ANLOG 1,000 UNIT/10 ML VIAL SUBCUT SCH ×3 (10:00→22:00)
[2019-12-01] MEDS: BUPRENORPHINE HCL 2 MG SUBLINGUAL TABLET SL SCH (10:44)
[2019-12-01] MEDS: FAMOTIDINE 20 MG TABLET PO SCH ×2 (10:44→22:20)
[2019-12-01] MEDS: SITAGLIPTIN PHOSPHATE 50 MG TABLET PO SCH (10:44)
[2019-12-01] MEDS: ENOXAPARIN SODIUM INJ 40 MG/0.4 ML DISP.SYRIN SUBCUT SCH (10:45)
[2019-12-01] MEDS: DOCUSATE SODIUM 100 MG CAPSULE PO SCH (10:46)
[2019-12-01] MEDS: NORMAL SALINE 10 ML SDV (SCHEDULED) IV SCH ×2 (10:46→22:22)
--- NOTE | 2019-12-01 12:01 | PDOC PROGRESS REPORT ---
Subjective Progress Note for:: 12/01/19 Subjective:: SUDHA BEGUM is a 34 year old male past medical history of heroin abuse, uncontrolled diabetes, medication noncompliance, left upper extremity abscess, bacteremia, sepsis, pneumonia. Last admission here at [facility] on 09/27/2019, diagnosed with left arm abscess, Strep tococcus pyogenes bacteremia was started on IV antibiotics but unfortunately left AMA on 10/02/2019. Last ED admission was 11/04/2019 for heroin overdose was sent home after receiving Narcan. Today he is presenting ED complaining of left-sided chest pain, productive cough and fever. Chest pain is left-sided, sharp, nonradiating, worse with breathing and movement, better with rest, 5/10 intensity scale. Denies any vision changes, headache, nausea, vomiting, abdominal pain, diarrhea, constipation, rash, dysuria, hematuria, joint pain, joint swelling, oral lesions or ulcers. In ED was noted to have leukocytosis, hyperglycemia, hyperkalemia, hyponatremia, with chest x-ray showing focal opacity in the left lung. 11/30/2019. Assumed care today. No acute events overnight. Patient is ambula tory and likes to walk in the hallways, saw him this morning, in no acute distress, ambulatory, p.o. tolerant, having normal bowel and bladder movement, denies any fever, chills, nausea, vomiting, diarrhea, constipation or any urinary symptoms. 12/01/2019. Saw patient this morning, alert and oriented, cooperative with physical examination, denies any fever, chills, nausea, vomiting, diarrhea, c onstipation or urinary symptoms. Reason For Visit: PNEUMONIA, HYPERKALEMIA, HYPERGLYCEMIA Physical Exam Vital Signs: Temp Pulse Resp BP Pulse Ox 97.8 F 87 17 124/71 100 12/01/19 07:27 12/01/19 07:27 12/01/19 07:27 12/01/19 07:27 12/01/19 07:27 Intake & Output 11/30/19 12/01/19 12/02/19 06:59 06:59 06:59 Intake Total 1845 2109 Output Total 274 2200 Balance -900 -91 Weight 77.6 kg 77.5 kg General appearance: PRESENT: no acute distress, well-developed, well-nourished Head exam: PRESENT: atraumatic, normocephalic Respiratory exam: PRESENT: clear to auscultation fran. ABSENT: rales, rhonchi, wheezes Cardiovascular exam: PRESENT: RRR. ABSENT: diastolic murmur, rubs, systolic murmur GI/Abdominal exam: PRESENT: normal bowel sounds, soft. ABSENT: distended, guarding, mass, organolmegaly, rebound, tenderness Neurological exam: PRESENT: alert, awake, oriented to person, oriented to place, oriented to time, oriented to situation, CN II-XII grossly intact. ABSENT: motor sensory deficit Results Laboratory Results: 11/25/19 06:00 11/25/19 06:00 12/01/19 06:00 Triglycerides 198 H Cholesterol 166.65 LDL Cholesterol Direct 84 VLDL Cholesterol 39.6 H HDL Cholesterol 47 11/07/19 11/07/19 11/14/19 22:19 22:19 14:56 Creatine Kinase 33 L 28 L CK-MB (CK-2) 0.28 Troponin I < 0.012 11/19/19 05:40 Creatine Kinase 26 L CK-MB (CK-2) Troponin I Impressions: Chest CT 11/16/19 00:00 IMPRESSION: Small bilateral pleural effusions with suspected areas of loculation. Trace of pericardial fluid. Compared with the 2015 exam there has been significant improvement in multiple bilateral pulmonary nodules, some of which were cavitary. The largest residual nodule is in the lateral left lung base, as above measuring 2.2 x 2.1 cm. Some equivocal cavitation within this nodule. Findings could reflect septic emboli, with other etiologies including neoplastic, infectious/granulomatous/fungal disease also considered. TECHNICAL DOCUMENTATION: Quality ID # [id number]: Final reports with documentation of one or more dose reduction techniques (e.g., Automated exposure control, adjustment of the mA and/or kV according to patient size, use of iterative reconstruction technique) copyright 2011 [employer]- All Rights Reserved Chest X-Ray 11/16/19 00:00 IMPRESSION: Right pleural effusion. Patchy retrocardiac airspace opacities. PICC Line Insertion 11/21/19 00:00 IMPRESSION: SUCCESSFUL PLACEMENT OF A 5 FR DUAL LUMEN 39 CM PICC IN THE LEFT BRACHIAL VEIN. Assessment and Plan - Diagnosis (1) MRSA bacteremia Is this a current diagnosis for this admission?: Yes Plan: His blood cultures drawn on 16 November were negative. His anticipated stop date for antibiotics is 28 December. (2) Pneumonia Qualifiers: Pneumonia type: due to unspecified organism Laterality: left Lung location: unspecified part of lung Qualified Code(s): J18.9 - Pneumonia, unspecified organism Is this a current diagnosis for this admission?: Yes Plan: Resolved (3) Heroin abuse Is this a current diagnosis for this admission?: Yes Plan: Monitoring for signs of withdrawal, so far no such signs. Doing well on Subutex. (4) Hyponatremia Is this a current diagnosis for this admission?: Yes Plan: Resolved (5) Uncontrolled diabetes mellitus Qualifiers: Diabetes mellitus type: type 2 Glycemic state: with hyperglycemia Qualified Code(s): E11.65 - Type 2 diabetes mellitus with hyperglycemia Is this a current diagnosis for this admission?: Yes Plan: Uncontrolled. Hemoglobin A1c 11%. Continue diabetic diet, sliding scale, correctional and long-acting insulin. Accu-Cheks. Hypoglycemic protocol. Not sure patient will be compliant with his insulin injection as outpatient as he has history of IV drug abuse. Even though patient has hemoglobin A1c of 11% his kidney function is WNL and he will benefit from a combination of oral hypoglycemics and insulin regimen in the hope of controlling his his diabetes with oral hypoglycemics only in the future. Continue metformin 1000 mg p.o. twice daily. Sitagliptin 50 mg p.o. twice daily. Decrease Lantus dosage, adjust daily. (6) Hyperkalemia Is this a current diagnosis for this admission?: Yes Plan: Resolved - Time Time Spent with patient: 15-24 minutes Medications reviewed and adjusted accordingly: Yes Anticipated Discharge Disposition: Home, Self Care Anticipated Discharge: Other
[2019-12-01] MEDS ORDERED: METFORMIN HCL 500 MG TABLET PO SCH (17:00)
[2019-12-01] MEDS: NORMAL SALINE IV SCH (18:18)
[2019-12-01] MEDS: DAPTOMYCIN IV SCH (18:18)
[2019-12-01] MEDS: IBUPROFEN 600 MG TABLET PO PRN (22:20)
[2019-12-02] MEDS: INSULIN REG, HUMAN 100 UNIT/ML 3 ML VIAL (PYX) SUBCUT SCH ×4 (08:07→21:27)
[2019-12-02] MEDS: METFORMIN HCL 500 MG TABLET PO SCH ×2 (08:07→16:59)
[2019-12-02] MEDS: IBUPROFEN 600 MG TABLET PO PRN (10:10)
[2019-12-02] MEDS: DOCUSATE SODIUM 100 MG CAPSULE PO SCH (10:10)
[2019-12-02] MEDS: FAMOTIDINE 20 MG TABLET PO SCH ×2 (10:10→21:31)
[2019-12-02] MEDS: ENOXAPARIN SODIUM INJ 40 MG/0.4 ML DISP.SYRIN SUBCUT SCH (10:10)
[2019-12-02] MEDS: SITAGLIPTIN PHOSPHATE 50 MG TABLET PO SCH (10:11)
[2019-12-02] MEDS: NORMAL SALINE 10 ML SDV (SCHEDULED) IV SCH ×2 (10:11→21:31)
[2019-12-02] MEDS: NORMAL SALINE 10 ML SDV (AFTER EACH USE) IV PRN (10:12)
[2019-12-02] MEDS: BUPRENORPHINE HCL 2 MG SUBLINGUAL TABLET SL SCH (12:25)
--- NOTE | 2019-12-02 13:25 | PDOC PROGRESS REPORT ---
Subjective Progress Note for:: 12/02/19 Subjective:: SUDHA BEGUM is a 34 year old male past medical history of heroin abuse, uncontrolled diabetes, medication noncompliance, left upper extremity abscess, bacteremia, sepsis, pneumonia. Last admission here at [facility] on 09/27/2019, diagnosed with left arm abscess, Strep tococcus pyogenes bacteremia was started on IV antibiotics but unfortunately left AMA on 10/02/2019. Last ED admission was 11/04/2019 for heroin overdose was sent home after receiving Narcan. Today he is presenting ED complaining of left-sided chest pain, productive cough and fever. Chest pain is left-sided, sharp, nonradiating, worse with breathing and movement, better with rest, 5/10 intensity scale. Denies any vision changes, headache, nausea, vomiting, abdominal pain, diarrhea, constipation, rash, dysuria, hematuria, joint pain, joint swelling, oral lesions or ulcers. In ED was noted to have leukocytosis, hyperglycemia, hyperkalemia, hyponatremia, with chest x-ray showing focal opacity in the left lung. 11/30/2019. Assumed care today. No acute events overnight. Patient is ambula tory and likes to walk in the hallways, saw him this morning, in no acute distress, ambulatory, p.o. tolerant, having normal bowel and bladder movement, denies any fever, chills, nausea, vomiting, diarrhea, constipation or any urinary symptoms. 12/01/2019. Saw patient this morning, alert and oriented, cooperative with physical examination, denies any fever, chills, nausea, vomiting, diarrhea, c onstipation or urinary symptoms. 12/02/2019. Saw patient this morning, resting in bed comfortably no apparent distress, alert and oriented and cooperative with physical examination. Denies any fever, chills, nausea, vomiting, diarrhea, constipation or any urinary symptoms. Ambulatory, having normal bowel and bladder movements. Reason For Visit: PNEUMONIA, HYPERKALEMIA, HYPERGLYCEMIA Physical Exam Vital Signs: Temp Pulse Resp BP Pulse Ox 98.4 F 99 20 112/82 100 12/02/19 12:20 12/02/19 12:20 12/02/19 12:20 12/02/19 12:20 12/02/19 12:20 Intake & Output 12/01/19 12/02/19 12/03/19 06:59 06:59 06:59 Intake Total 2106 1370 Output Total 4021 6896 Balance -91 -305 Weight 77.5 kg 82.3 kg General appearance: PRESENT: no acute distress, well-developed, well-nourished Head exam: PRESENT: atraumatic, normocephalic Respiratory exam: PRESENT: clear to auscultation fran. ABSENT: rales, rhonchi, wheezes Cardiovascular exam: PRESENT: RRR. ABSENT: diastolic murmur, rubs, systolic murmur GI/Abdominal exam: PRESENT: normal bowel sounds, soft. ABSENT: distended, guarding, mass, organolmegaly, rebound, tenderness Neurological exam: PRESENT: alert, awake, oriented to person, oriented to place, oriented to time, oriented to situation, CN II-XII grossly intact. ABSENT: motor sensory deficit Results Laboratory Results: 11/25/19 06:00 11/25/19 06:00 11/07/19 11/07/19 11/14/19 22:19 22:19 14:56 Creatine Kinase 33 L 28 L CK-MB (CK-2) 0.28 Troponin I < 0.012 11/19/19 05:40 Creatine Kinase 26 L CK-MB (CK-2) Troponin I Impressions: Chest CT 11/16/19 00:00 IMPRESSION: Small bilateral pleural effusions with suspected areas of loculation. Trace of pericardial fluid. Compared with the 2014 exam there has been significant improvement in multiple bilateral pulmonary nodules, some of which were cavitary. The largest residual nodule is in the lateral left lung base, as above measuring 2.2 x 2.1 cm. Some equivocal cavitation within this nodule. Findings could reflect septic emboli, with other etiologies including neoplastic, infectious/granulomatous/fungal disease also considered. TECHNICAL DOCUMENTATION: Quality ID # [id number]: Final reports with documentation of one or more dose reduction techniques (e.g., Automated exposure control, adjustment of the mA and/or kV according to patient size, use of iterative reconstruction technique) copyright 2011 [employer]- All Rights Reserved Chest X-Ray 11/16/19 00:00 IMPRESSION: Right pleural effusion. Patchy retrocardiac airspace opacities. PICC Line Insertion 11/21/19 00:00 IMPRESSION: SUCCESSFUL PLACEMENT OF A 5 FR DUAL LUMEN 39 CM PICC IN THE LEFT BRACHIAL VEIN. Assessment and Plan - Diagnosis (1) MRSA bacteremia Is this a current diagnosis for this admission?: Yes Plan: His blood cultures drawn on 16 November were negative. His anticipated stop date for antibiotics is 28 December. (2) Pneumonia Qualifiers: Pneumonia type: due to unspecified organism Laterality: left Lung location: unspecified part of lung Qualified Code(s): J18.9 - Pneumonia, unspecified organism Is this a current diagnosis for this admission?: Yes Plan: Resolved (3) Heroin abuse Is this a current diagnosis for this admission?: Yes Plan: Monitoring for signs of withdrawal, so far no such signs. Doing well on Subutex. (4) Hyponatremia Is this a current diagnosis for this admission?: Yes Plan: Resolved (5) Uncontrolled diabetes mellitus Qualifiers: Diabetes mellitus type: type 2 Glycemic state: with hyperglycemia Qualified Code(s): E11.65 - Type 2 diabetes mellitus with hyperglycemia Is this a current diagnosis for this admission?: Yes Plan: Uncontrolled. Hemoglobin A1c 11%. Continue diabetic diet, sliding scale, correctional and long-acting insulin. Accu-Cheks. Hypoglycemic protocol. Not sure patient will be compliant with his insulin injection as outpatient as he has history of IV drug abuse. Even though patient has hemoglobin A1c of 11% his kidney function is WNL and he will benefit from a combination of oral hypoglycemics and insulin regimen in the hope of controlling his his diabetes with oral hypoglycemics only in the future. Continue metformin 1000 mg p.o. twice daily. Sitagliptin 50 mg p.o. twice daily. Glipizide 5 mg p.o. daily. Decrease Lantus dosage, adjust daily. (6) Hyperkalemia Is this a current diagnosis for this admission?: Yes Plan: Resolved - Time Time Spent with patient: 15-24 minutes Smoking Cessation Education: 3 to 10 minutes Anticipated Discharge Disposition: Home, Self Care Anticipated Discharge: Other
[2019-12-02] MEDS: GLIPIZIDE 5 MG TABLET PO SCH (16:59)
[2019-12-02] MEDS: IBUPROFEN 600 MG TABLET PO SCH ×2 (16:59→21:30)
[2019-12-02] MEDS: DAPTOMYCIN IV SCH (17:03)
[2019-12-02] MEDS: NORMAL SALINE IV SCH (17:03)
[2019-12-02] MEDS: INSULIN GLARGINE,HUM.REC.ANLOG 1,000 UNIT/10 ML VIAL SUBCUT SCH (21:31)
[2019-12-02] MEDS ORDERED: INSULIN GLARGINE,HUM.REC.ANLOG 1,000 UNIT/10 ML VIAL SUBCUT SCH (22:00)
[2019-12-03] MEDS: IBUPROFEN 600 MG TABLET PO SCH ×3 (05:23→21:34)
[2019-12-03] MEDS: INSULIN REG, HUMAN 100 UNIT/ML 3 ML VIAL (PYX) SUBCUT SCH ×4 (07:30→21:29)
[2019-12-03] MEDS: METFORMIN HCL 500 MG TABLET PO SCH ×2 (07:49→16:42)
[2019-12-03] MEDS: GLIPIZIDE 5 MG TABLET PO SCH ×2 (07:49→16:42)
[2019-12-03] MEDS: FAMOTIDINE 20 MG TABLET PO SCH ×2 (10:30→21:35)
[2019-12-03] MEDS: SITAGLIPTIN PHOSPHATE 50 MG TABLET PO SCH (10:30)
[2019-12-03] MEDS: BUPRENORPHINE HCL 2 MG SUBLINGUAL TABLET SL SCH (10:31)
[2019-12-03] MEDS: DOCUSATE SODIUM 100 MG CAPSULE PO SCH (10:31)
[2019-12-03] MEDS: NORMAL SALINE 10 ML SDV (AFTER EACH USE) IV PRN (10:31)
[2019-12-03] MEDS: ENOXAPARIN SODIUM INJ 40 MG/0.4 ML DISP.SYRIN SUBCUT SCH (10:31)
[2019-12-03] MEDS: NORMAL SALINE 10 ML SDV (SCHEDULED) IV SCH ×2 (10:31→21:35)
--- NOTE | 2019-12-03 12:25 | PDOC PROGRESS REPORT ---
Subjective Progress Note for:: 12/03/19 Subjective:: 34 year old male past medical history of heroin abuse, uncontrolled diabetes, medication noncompliance, left upper extremity abscess, bacteremia, sepsis, pneumonia. Last admission here at [facility] on 09/27/2019, diagnosed with left arm abscess, Streptococcus pyogenes bacteremia was started on IV antibiotics but unfortunately left AMA on 10/02/2019. Last ED admission was 11/04/2019 for heroin overdose was sent home after receiving Narcan. Today he is presenting ED complaining of left-sided chest pain, productive cough and fever. Chest pain is left-sided, sharp, nonradiating, worse with breathing and movement, better with rest, 5/10 intensity scale. Denies any vision changes, headache, nausea, vomiting, abdominal pain, diarrhea, constipation, rash, dysuria, hematuria, joint pain, joint swelling, oral lesions or ulcers. In ED was noted to have leukocytosis, hyperglycemia, hyperkalemia, hyponatremia, with chest x-ray showing focal opacity in the left lung. 11/[id number]-old male IV drug abuser admitted for sepsis. Found to have endocarditis. Presently on a daptomycin as per ID recommendations. Repeat blood cultures are negative so far. Plan is to wait for the culture reports until tomorrow prior to arranging for PICC line. 11/20/2019-patient is receiving IV antibiotic therapy for endocarditis. Presently on IV daptomycin. Repeat blood cultures are negative at 72 hours. Plan is to arrange for a PICC line. Plan is to give IV antibiotic therapy for 6 weeks from the day of cultures negative. 11/21/2019-patient is receiving IV daptomycin for endocarditis. Is going for PICC line. He is going to receive IV antibiotic therapy for a total of 6 weeks while he was in the hospital. 11/22/2019-patient received PICC line. Patient has IV daptomycin on board. Patient stay here for completion of the IV antibiotic therapy. 11/23/19-patient is receiving IV daptomycin and he has a PICC line. No acute events in the last 24 hours. Afebrile. Plan is to continue the antibiotic therapy in the hospital. 11/24/2019-patient admitted with infective endocarditis VINAYAK confirmed it. As per ID recommendations patient is receiving IV daptomycin. He has a PICC line. Because of the history of IV drug abuse he needs to be in the hospital to comple te the antibiotic therapy course. 11/25/2019-patient is comfortably in the bed sleeping. Woke up and requesting double portion meals. No acute events in last 24 hours. Has a PICC line receiving IV daptomycin. Because of history of IV drug abuse he is going to be in the hospital to complete the antibiotic therapy. 12/03/[id number]-old male with history of IV drug abuse receiving IV antibiotic therapy for endocarditis. Receiving IV daptomycin. Plan is to continue IV antibiotic therapy until December 28. Reason For Visit: PNEUMONIA, HYPERKALEMIA, HYPERGLYCEMIA Physical Exam Vital Signs: Temp Pulse Resp BP Pulse Ox 97.8 F 99 16 130/79 H 100 12/03/19 07:52 12/03/19 07:52 12/03/19 07:52 12/03/19 07:52 12/03/19 07:52 Intake & Output 12/02/19 12/03/19 12/04/19 06:59 06:59 06:59 Intake Total 1370 1910 Output Total 1675 1999 Balance -305 -90 Weight 82.3 kg 77.5 kg General appearance: PRESENT: no acute distress, well-developed Head exam: PRESENT: atraumatic Eye exam: PRESENT: PERRLA Mouth exam: PRESENT: moist, tongue midline Neck exam: ABSENT: carotid bruit, JVD, lymphadenopathy, thyromegaly Respiratory exam: PRESENT: clear to auscultation fran. ABSENT: rales, rhonchi, wheezes Cardiovascular exam: PRESENT: systolic murmur Pulses: PRESENT: normal dorsalis pedis pul GI/Abdominal exam: PRESENT: normal bowel sounds, soft. ABSENT: distended, guarding, mass, organolmegaly, rebound, tenderness Rectal exam: PRESENT: deferred Extremities exam: PRESENT: full ROM. ABSENT: calf tenderness, clubbing, pedal edema Neurological exam: PRESENT: alert, awake, oriented to person, oriented to place, oriented to time, oriented to situation, CN II-XII grossly intact. ABSENT: motor sensory deficit Psychiatric exam: PRESENT: appropriate affect, normal mood. ABSENT: homicidal ideation, suicidal ideation Results Laboratory Results: 11/25/19 06:00 11/25/19 06:00 11/07/19 11/07/19 11/14/19 22:19 22:19 14:56 Creatine Kinase 33 L 28 L CK-MB (CK-2) 0.28 Troponin I < 0.012 11/19/19 12/03/19 05:40 05:30 Creatine Kinase 26 L 77 CK-MB (CK-2) Troponin I Impressions: Chest CT 11/16/19 00:00 IMPRESSION: Small bilateral pleural effusions with suspected areas of loculation. Trace of pericardial fluid. Compared with the 2015 exam there has been significant improvement in multiple bilateral pulmonary nodules, some of which were cavitary. The largest residual nodule is in the lateral left lung base, as above measuring 2.2 x 2.1 cm. Some equivocal cavitation within this nodule. Findings could reflect septic emboli, with other etiologies including neoplastic, infectious/granulomatous/fungal disease also considered. TECHNICAL DOCUMENTATION: Quality ID # 436: Final reports with documentation of one or more dose reduction techniques (e.g., Automated exposure control, adjustment of the mA and/or kV according to patient size, use of iterative reconstruction technique) copyright 2011 [employer]- All Rights Reserved Chest X-Ray 11/16/19 00:00 IMPRESSION: Right pleural effusion. Patchy retrocardiac airspace opacities. PICC Line Insertion 11/21/19 00:00 IMPRESSION: SUCCESSFUL PLACEMENT OF A 5 FR DUAL LUMEN 39 CM PICC IN THE LEFT BRACHIAL VEIN. Assessment and Plan - Diagnosis (1) IV drug abuse Is this a current diagnosis for this admission?: Yes Plan: Per previous physician: "Continue buprenorphine 4 mg sublingual daily, patient continues to do well on this dose No signs of opioid withdrawal Today had a long discussion with patient regarding abstinence. Discussed lifestyle changes with patient as well as need for ongoing support once discharged from the hospital. Introduced concept of Narcotics Anonymous as well as ongoing buprenorphine therapy and a Suboxone program. Patient seems motivated. 11/19/2019-patient has history of chronic IV drug abuse. Counseling was provided. 11/20/2019-patient has history of chronic IV drug abuse admitted for endocarditis. 11/21/2019-patient is receiving IV antibiotic therapy daptomycin for endocarditis. He is going for PICC line today. 11/22/2019-patient has a PICC line and is receiving IV daptomycin. He is going to be here in the hospital for completion of the antibiotic therapy. 11/23/2019-patient is receiving daptomycin IV as per ID recommendations for endo carditis. Because of the history of IV drug abuse he is going to be in the hospital to complete the antibiotic therapy. 11/24/2019-patient history of IV drug abuse admitted with infective endocarditis. VINAYAK was done indicate you have tricuspid valve involvement. Receiving daptomycin as per ID. Plan is to continue the antibiotic therapy here in the hospital because of the history of IV drug abuse. He has a PICC line. 11/25/2019-patient is receiving IV daptomycin for endocarditis. He is going to be in the hospital to complete the IV antibiotic therapy." 11/26/2019 Extensively counseled on IV drug abuse cessation 12/03/2019-patient has history of IV drug abuse receiving IV daptomycin for endocarditis. Patient is going to complete antibiotic therapy on December 28. (2) MRSA bacteremia Is this a current diagnosis for this admission?: Yes Plan: His blood cultures drawn on 16 November were negative. His anticipated stop date for antibiotics is 28 December. 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 He is receiving IV daptomycin. Latest blood cultures are negative. Most likely to arrange for PICC line tomorrow. 11/24/2019-patient is receiving IV daptomycin plan is to keep him in the hospital to complete the antibiotic course. 12/03/2019-patient admitted for fevers found to have a tricuspid valve endocarditis with vegetation receiving daptomycin and plan is to complete the antibiotic therapy on December 28. He has a PICC line. (5) Uncontrolled diabetes mellitus Qualifiers: Diabetes mellitus type: type 2 Glycemic state: with hyperglycemia Qualified Code(s): E11.65 - Type 2 diabetes mellitus with hyperglycemia Is this a current diagnosis for this admission?: Yes Plan: Uncontrolled. Hemoglobin A1c 11%. Continue diabetic diet, sliding scale, correctional and long-acting insulin. Accu-Cheks. Hypoglycemic protocol. Not sure patient will be compliant with his insulin injection as outpatient as he has history of IV drug abuse. Even though patient has hemoglobin A1c of 11% his kidney function is WNL and he will benefit from a combination of oral hypoglycemics and insulin regimen in the hope of controlling his his diabetes with oral hypoglycemics only in the future. Continue metformin 1000 mg p.o. twice daily. Sitagliptin 50 mg p.o. twice daily. Glipizide 5 mg p.o. daily. Decrease Lantus dosage, adjust daily. 12/03/2019-patient's blood sugar today is 144. plan is to continue the present management. - Time Anticipated Discharge Disposition: Home, Self Care Anticipated Discharge: Other - dec 28
[2019-12-03] MEDS: DAPTOMYCIN IV SCH (17:02)
[2019-12-03] MEDS: NORMAL SALINE IV SCH (17:02)
[2019-12-03] MEDS: INSULIN GLARGINE,HUM.REC.ANLOG 1,000 UNIT/10 ML VIAL SUBCUT SCH (21:35)
[2019-12-04] MEDS: IBUPROFEN 600 MG TABLET PO SCH ×3 (06:39→22:18)
[2019-12-04] MEDS: INSULIN REG, HUMAN 100 UNIT/ML 3 ML VIAL (PYX) SUBCUT SCH ×4 (07:44→22:13)
[2019-12-04] MEDS: GLIPIZIDE 5 MG TABLET PO SCH ×2 (08:20→16:43)
[2019-12-04] MEDS: METFORMIN HCL 500 MG TABLET PO SCH ×2 (08:20→16:43)
[2019-12-04] MEDS: SITAGLIPTIN PHOSPHATE 50 MG TABLET PO SCH (09:53)
[2019-12-04] MEDS: NORMAL SALINE 10 ML SDV (SCHEDULED) IV SCH ×2 (09:54→22:19)
[2019-12-04] MEDS: BUPRENORPHINE HCL 2 MG SUBLINGUAL TABLET SL SCH (09:54)
[2019-12-04] MEDS: FAMOTIDINE 20 MG TABLET PO SCH ×2 (09:54→22:18)
[2019-12-04] MEDS: DOCUSATE SODIUM 100 MG CAPSULE PO SCH (09:55)
[2019-12-04] MEDS: ENOXAPARIN SODIUM INJ 40 MG/0.4 ML DISP.SYRIN SUBCUT SCH (09:55)
--- NOTE | 2019-12-04 12:34 | PDOC PROGRESS REPORT ---
Subjective Progress Note for:: 12/04/19 Subjective:: Patient is very comfortable. No pain and good appetite. He is here for skilled nursing IV antibiotics. MRSA bacteremia with possible endocarditis/septic emboli vs pneumonia Reason For Visit: PNEUMONIA, HYPERKALEMIA, HYPERGLYCEMIA Physical Exam Vital Signs: Temp Pulse Resp BP Pulse Ox 98.1 F 100 16 118/88 H 98 12/03/19 23:51 12/03/19 23:51 12/03/19 23:51 12/03/19 23:51 12/03/19 23:51 Intake & Output 12/03/19 12/04/19 12/05/19 06:59 06:59 06:59 Intake Total 1910 2715 Output Total 1999 2325 Balance -90 390 Weight 77.5 kg 77.5 kg General appearance: PRESENT: no acute distress, cooperative, well-developed Head exam: PRESENT: atraumatic, normocephalic Eye exam: PRESENT: conjunctiva pink. ABSENT: scleral icterus Ear exam: PRESENT: normal external ear exam. ABSENT: bleeding, drainage Mouth exam: PRESENT: moist, tongue midline Respiratory exam: PRESENT: clear to auscultation fran, symmetrical, unlabored. ABSENT: rales, rhonchi, tachypnea, wheezes Cardiovascular exam: PRESENT: RRR, +S1, +S2. ABSENT: bradycardia, diastolic murmur, systolic murmur, tachycardia GI/Abdominal exam: PRESENT: normal bowel sounds, soft. ABSENT: distended, guarding, tenderness Rectal exam: PRESENT: deferred Gentrourinary exam: ABSENT: indwelling catheter Extremities exam: PRESENT: full ROM. ABSENT: joint swelling, pedal edema Musculoskeletal exam: PRESENT: ambulatory, full ROM, normal inspection. ABSENT: deformity, dislocation Neurological exam: PRESENT: alert, awake, oriented to person, oriented to place, oriented to time, oriented to situation, CN II-XII grossly intact. ABSENT: motor sensory deficit Psychiatric exam: PRESENT: appropriate affect, normal mood. ABSENT: agitated, anxious Focused psych exam: ABSENT: delusional, paranoid, restlessness Skin exam: PRESENT: dry, normal color, warm. ABSENT: rash Results Laboratory Results: 11/25/19 06:00 11/25/19 06:00 11/07/19 11/07/19 11/14/19 22:19 22:19 14:56 Creatine Kinase 33 L 28 L CK-MB (CK-2) 0.28 Troponin I < 0.012 11/19/19 12/03/19 05:40 05:30 Creatine Kinase 26 L 77 CK-MB (CK-2) Troponin I Impressions: Chest CT 11/16/19 00:00 IMPRESSION: Small bilateral pleural effusions with suspected areas of loculation. Trace of pericardial fluid. Compared with the 2015 exam there has been significant improvement in multiple bilateral pulmonary nodules, some of which were cavitary. The largest residual nodule is in the lateral left lung base, as above measuring 2.2 x 2.1 cm. Some equivocal cavitation within this nodule. Findings could reflect septic emboli, with other etiologies including neoplastic, infectious/granulomatous/fungal disease also considered. TECHNICAL DOCUMENTATION: Quality ID # [id number]: Final reports with documentation of one or more dose reduction techniques (e.g., Automated exposure control, adjustment of the mA and/or kV according to patient size, use of iterative reconstruction technique) copyright 2011 [employer]- All Rights Reserved Chest X-Ray 11/16/19 00:00 IMPRESSION: Right pleural effusion. Patchy retrocardiac airspace opacities. PICC Line Insertion 11/21/19 00:00 IMPRESSION: SUCCESSFUL PLACEMENT OF A 5 FR DUAL LUMEN 39 CM PICC IN THE LEFT B RACHIAL VEIN. Assessment and Plan - Diagnosis (1) IV drug abuse Is this a current diagnosis for this admission?: Yes Plan: Per previous physician: "Continue buprenorphine 4 mg sublingual daily, patient continues to do well on this dose No signs of opioid withdrawal Today had a long discussion with patient regarding abstinence. Discussed lifestyle changes with patient as well as need for ongoing support once discharged from the hospital. Introduced concept of Narcotics Anonymous as well as ongoing buprenorphine therapy and a Suboxone program. Patient seems motivated. 11/19/2019-patient has history of chronic IV drug abuse. Counseling was provided. 11/20/2019-patient has history of chronic IV drug abuse admitted for endocarditis. 11/21/2019-patient is receiving IV antibiotic therapy daptomycin for endocarditis. He is going for PICC line today. 11/22/2019-patient has a PICC line and is receiving IV daptomycin. He is going to be here in the hospital for completion of the antibiotic therapy. 11/23/2019-patient is receiving daptomycin IV as per ID recommendations for en docarditis. Because of the history of IV drug abuse he is going to be in the hospital to complete the antibiotic therapy. 11/24/2019-patient history of IV drug abuse admitted with infective endocarditis. VINAYAK was done indicate you have tricuspid valve involvement. Receiving daptomycin as per ID. Plan is to continue the antibiotic therapy here in the hospital because of the history of IV drug abuse. He has a PICC line. 11/25/2019-patient is receiving IV daptomycin for endocarditis. He is going to be in the hospital to complete the IV antibiotic therapy." 11/26/2019 Extensively counseled on IV drug abuse cessation 12/03/2019-patient has history of IV drug abuse receiving IV daptomycin for endocarditis. Patient is going to complete antibiotic therapy on December 28. 12/03- Cause of endocarditis. Supportive care (2) Endocarditis due to Staphylococcus Is this a current diagnosis for this admission?: Yes Plan: Antibiotics until 28 December as previously noted 12/03- Weekly labs for monitoring daptomycin ordered for today inc cbc, cmp, esr. crp, ck (3) MRSA bacteremia Is this a current diagnosis for this admission?: Yes Plan: His blood cultures drawn on 16 November were negative. His anticipated stop date for antibiotics is 28 December. 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 He is receiving IV daptomycin. Latest blood cultures are negative. Most likely to arrange for PICC line tomorrow. 11/24/2019-patient is receiving IV daptomycin plan is to keep him in the hospital to complete the antibiotic course. 12/03/2019-patient admitted for fevers found to have a tricuspid valve endocarditis with vegetation receiving daptomycin and plan is to complete the antibiotic therapy on December 28. He has a PICC line. 12/03- TR likely due to endocarditis (5) Uncontrolled diabetes mellitus Qualifiers: Diabetes mellitus type: type 2 Glycemic state: with hyperglycemia Qualified Code(s): E11.65 - Type 2 diabetes mellitus with hyperglycemia Is this a current diagnosis for this admission?: Yes Plan: Uncontrolled. Hemoglobin A1c 11%. Continue diabetic diet, sliding scale, correctional and long-acting insulin. Accu-Cheks. Hypoglycemic protocol. Not sure patient will be compliant with his insulin injection as outpatient as he has history of IV drug abuse. Even though patient has hemoglobin A1c of 11% his kidney function is WNL and he will benefit from a combination of oral hypoglycemics and insulin regimen in the hope of controlling his his diabetes with oral hypoglycemics only in the future. Continue metformin 1000 mg p.o. twice daily. Sitagliptin 50 mg p.o. twice daily. Glipizide 5 mg p.o. daily. Decrease Lantus dosage, adjust daily. 12/03/2019-patient's blood sugar today is 144. plan is to continue the present management. 12/03- Continue current diet and medications. Very good control of glucose - Time Time Spent with patient: Less than 15 minutes Medications reviewed and adjusted accordingly: Yes Anticipated Discharge Disposition: Home, Self Care Anticipated Discharge Timeframe: December 28
[2019-12-04 13:02] LABS: ABSOLUTE BASOPHILS # (AUTO) 0.1 10^3/uL (0.0-0.2); ABSOLUTE EOSINOPHILS # (AUTO) 0.3 10^3/uL (0.0-0.6); ABSOLUTE LYMPHOCYTES (AUTO) 2.3 10^3/uL (0.5-4.7); ABSOLUTE MONOCYTES (AUTO) 0.5 10^3/uL (0.1-1.4); ABSOLUTE NEUT (AUTO) 4.3 10^3/uL (1.7-8.2); BASOPHILS % (AUTO) 0.8 % (0-2); EOSINOPHILS % (AUTO) 3.5 % (0-6); HEMATOCRIT 38.3 % (37.9-51.0); MEAN CORPUSCULAR HEMOGLOBIN 29.8 pg (27.0-33.4); MEAN CORPUSCULAR HGB CONC 33.9 g/dL (32.0-36.0); MEAN CORPUSCULAR VOLUME 88 fl (80-97); MONOCYTES % (AUTO) 7.1 % (3-13); PLATELET COUNT 271 10^3/uL (150-450); RED BLOOD COUNT 4.36 10^6/uL (4.35-5.55); RED CELL DISTRIBUTION WIDTH 13.7 % (11.5-14.0); SEGMENTED NEUTROPHILS % (AUTO) 57.6 % (42-78); TOTAL CELLS COUNTED % (AUTO) 100 %; WHITE BLOOD COUNT 7.5 10^3/uL (4.0-10.5)
[2019-12-04 13:16] LABS: ALBUMIN 4.1 g/dL (3.5-5.0); ALKALINE PHOSPHATASE 99 U/L (38-126); ANION GAP 7 (5-19); ASPARTATE AMINO TRANSFERASE 105 U/L (17-59); BILIRUBIN,TOTAL 0.3 mg/dL (0.2-1.3); BLOOD UREA NITROGEN 18 mg/dL (7-20); C-REACTIVE PROTEIN 16.8 mg/L (<10.0); CALCIUM 9.6 mg/dL (8.4-10.2); CARBON DIOXIDE 30 mmol/L (22-30); CHLORIDE 100 mmol/L (98-107); CREATINE KINASE 98 U/L (55-170); GLUCOSE 195 mg/dL (75-110); POTASSIUM 4.7 mmol/L (3.6-5.0); TOTAL PROTEIN 8.3 g/dL (6.3-8.2)
[2019-12-04 13:38] LABS: ERYTHROCYTE SEDIMENTATION RATE 45 mm/hr (0-15)
[2019-12-04] MEDS: NORMAL SALINE IV SCH (17:05)
[2019-12-04] MEDS: DAPTOMYCIN IV SCH (17:05)
[2019-12-04] MEDS: INSULIN GLARGINE,HUM.REC.ANLOG 1,000 UNIT/10 ML VIAL SUBCUT SCH (22:18)
[2019-12-05] MEDS: IBUPROFEN 600 MG TABLET PO SCH ×3 (06:01→21:40)
[2019-12-05] MEDS: METFORMIN HCL 500 MG TABLET PO SCH ×2 (07:37→17:05)
[2019-12-05] MEDS: GLIPIZIDE 5 MG TABLET PO SCH ×2 (07:37→17:05)
[2019-12-05] MEDS: INSULIN REG, HUMAN 100 UNIT/ML 3 ML VIAL (PYX) SUBCUT SCH ×4 (07:38→21:34)
[2019-12-05] MEDS: FAMOTIDINE 20 MG TABLET PO SCH ×2 (10:05→21:40)
[2019-12-05] MEDS: ENOXAPARIN SODIUM INJ 40 MG/0.4 ML DISP.SYRIN SUBCUT SCH (10:05)
[2019-12-05] MEDS: DOCUSATE SODIUM 100 MG CAPSULE PO SCH (10:05)
[2019-12-05] MEDS: BUPRENORPHINE HCL 2 MG SUBLINGUAL TABLET SL SCH (10:05)
[2019-12-05] MEDS: SITAGLIPTIN PHOSPHATE 50 MG TABLET PO SCH (10:05)
[2019-12-05] MEDS: NORMAL SALINE 10 ML SDV (SCHEDULED) IV SCH ×2 (10:07→21:40)
--- NOTE | 2019-12-05 11:57 | PDOC PROGRESS REPORT ---
Subjective Progress Note for:: 12/05/19 Subjective:: 34 year old male past medical history of heroin abuse, uncontrolled diabetes, medication noncompliance, left upper extremity abscess, bacteremia, sepsis, pneumonia. Last admission here at [facility] on 09/27/2019, diagnosed with left arm abscess, Streptococcus pyogenes bacteremia was started on IV antibiotics but unfortunately left AMA on 10/02/2019. Last ED admission was 11/04/2019 for heroin overdose was sent home after receiving Narcan. Today he is presenting ED complaining of left-sided chest pain, productive cough and fever. Chest pain is left-sided, sharp, nonradiating, worse with breathing and movement, better with rest, 5/10 intensity scale. Denies any vision changes, headache, nausea, vomiting, abdominal pain, diarrhea, constipation, rash, dysuria, hematuria, joint pain, joint swelling, oral lesions or ulcers. In ED was noted to have leukocytosis, hyperglycemia, hyperkalemia, hyponatremia, with chest x-ray showing focal opacity in the left lung. 11/19/[id number]-old male IV drug abuser admitted for sepsis. Found to have endocarditis. Presently on a daptomycin as per ID recommendations. Repeat blood cultures are negative so far. Plan is to wait for the culture reports until tomorrow prior to arranging for PICC line. 11/20/2019-patient is receiving IV antibiotic therapy for endocarditis. Presently on IV daptomycin. Repeat blood cultures are negative at 72 hours. Plan is to arrange for a PICC line. Plan is to give IV antibiotic therapy for 6 weeks from the day of cultures negative. 11/21/2019-patient is receiving IV daptomycin for endocarditis. Is going for PICC line. He is going to receive IV antibiotic therapy for a total of 6 weeks while he was in the hospital. 11/22/2019-patient received PICC line. Patient has IV daptomycin on board. Patient stay here for completion of the IV antibiotic therapy. 11/23/19-patient is receiving IV daptomycin and he has a PICC line. No acute events in the last 24 hours. Afebrile. Plan is to continue the antibiotic therapy in the hospital. 11/24/2019-patient admitted with infective endocarditis VINAYAK confirmed it. As per ID recommendations patient is receiving IV daptomycin. He has a PICC line. Because of the history of IV drug abuse he needs to be in the hospital to comple te the antibiotic therapy course. 11/25/2019-patient is comfortably in the bed sleeping. Woke up and requesting double portion meals. No acute events in last 24 hours. Has a PICC line receiving IV daptomycin. Because of history of IV drug abuse he is going to be in the hospital to complete the antibiotic therapy. 12/03/[id number]-wnbn-old male with history of IV drug abuse receiving IV antibiotic therapy for endocarditis. Receiving IV daptomycin. Plan is to continue IV antibiotic therapy until December 28. 12/05/19-no acute events in the last 24 hours. Patient is walking around in the hallway. Plan is to continue the present management at this time. Reason For Visit: PNEUMONIA, HYPERKALEMIA, HYPERGLYCEMIA Physical Exam Vital Signs: Temp Pulse Resp BP Pulse Ox 98.2 F 89 18 129/77 H 100 12/05/19 07:34 12/05/19 07:34 12/05/19 07:34 12/05/19 07:34 12/05/19 07:34 Intake & Output 12/04/19 12/05/19 12/06/19 06:59 06:59 06:59 Intake Total 2715 2019 Output Total 2325 3000 Balance 390 -980 Weight 77.5 kg 77.5 kg General appearance: PRESENT: no acute distress, well-developed Head exam: PRESENT: atraumatic Eye exam: PRESENT: PERRLA Mouth exam: PRESENT: moist, tongue midline Neck exam: ABSENT: carotid bruit, JVD, lymphadenopathy, thyromegaly Respiratory exam: PRESENT: clear to auscultation fran. ABSENT: rales, rhonchi, wheezes Cardiovascular exam: PRESENT: RRR. ABSENT: diastolic murmur, rubs, systolic murmur GI/Abdominal exam: PRESENT: normal bowel sounds, soft. ABSENT: distended, guarding, mass, organolmegaly, rebound, tenderness Rectal exam: PRESENT: deferred Extremities exam: PRESENT: full ROM. ABSENT: calf tenderness, clubbing, pedal edema Neurological exam: PRESENT: alert, awake, oriented to person, oriented to place, oriented to time, oriented to situation, CN II-XII grossly intact. ABSENT: motor sensory deficit Skin exam: PRESENT: dry, intact, warm. ABSENT: cyanosis, rash Results Laboratory Results: 12/04/19 12:45 12/04/19 12:45 12/04/19 12/04/19 12:45 12:45 WBC 7.5 RBC 4.36 Hgb 13.0 L Hct 38.3 MCV 88 MCH 29.8 MCHC 33.9 RDW 13.7 Plt Count 271 Seg Neutrophils % 57.6 Sodium 136.5 L Potassium 4.7 Chloride 100 Carbon Dioxide 30 Anion Gap 7 BUN 18 Creatinine 0.68 Est GFR ( Amer) > 60 Glucose 195 H Calcium 9.6 Total Bilirubin 0.3 AST 105 H Alkaline Phosphatase 99 C-Reactive Protein 16.8 H Total Protein 8.3 H Albumin 4.1 11/07/19 11/07/19 11/14/19 22:19 22:19 14:56 Creatine Kinase 33 L 28 L CK-MB (CK-2) 0.28 Troponin I < 0.012 11/19/19 12/03/19 12/04/19 05:40 05:30 12:45 Creatine Kinase 26 L 77 98 CK-MB (CK-2) Troponin I Impressions: Chest CT 11/16/19 00:00 IMPRESSION: Small bilateral pleural effusions with suspected areas of loculation. Trace of pericardial fluid. Compared with the 2015 exam there has been significant improvement in multiple bilateral pulmonary nodules, some of which were cavitary. The largest residual nodule is in the lateral left lung base, as above measuring 2.2 x 2.1 cm. Some equivocal cavitation within this nodule. Findings could reflect septic emboli, with other etiologies including neoplastic, infectious/granulomatous/fungal disease also considered. TECHNICAL DOCUMENTATION: Quality ID # [id number]: Final reports with documentation of one or more dose reduction techniques (e.g., Automated exposure control, adjustment of the mA and/or kV according to patient size, use of iterative reconstruction technique) copyright 2011 [employer]- All Rights Reserved Chest X-Ray 11/16/19 00:00 IMPRESSION: Right pleural effusion. Patchy retrocardiac airspace opacities. PICC Line Insertion 11/21/19 00:00 IMPRESSION: SUCCESSFUL PLACEMENT OF A 5 FR DUAL LUMEN 39 CM PICC IN THE LEFT BRACHIAL VEIN. Assessment and Plan - Diagnosis (1) IV drug abuse Is this a current diagnosis for this admission?: Yes Plan: Per previous physician: "Continue buprenorphine 4 mg sublingual daily, patient continues to do well on this dose No signs of opioid withdrawal Today had a long discussion with patient regarding abstinence. Discussed lifestyle changes with patient as well as need for ongoing support once discharged from the hospital. Introduced concept of Narcotics Anonymous as well as ongoing buprenorphine therapy and a Suboxone program. Patient seems motivated. 11/19/2019-patient has history of chronic IV drug abuse. Counseling was prov ided. 11/20/2019-patient has history of chronic IV drug abuse admitted for endocarditis. 11/21/2019-patient is receiving IV antibiotic therapy daptomycin for endocarditis. He is going for PICC line today. 11/22/2019-patient has a PICC line and is receiving IV daptomycin. He is going to be here in the hospital for completion of the antibiotic therapy. 11/23/2019-patient is receiving daptomycin IV as per ID recommendations for endocarditis. Because of the history of IV drug abuse he is going to be in the hospital to complete the antibiotic therapy. 11/24/2019-patient history of IV drug abuse admitted with infective endocarditis. VINAYAK was done indicate you have tricuspid valve involvement. Receiving daptomycin as per ID. Plan is to continue the antibiotic therapy here in the hospital because of the history of IV drug abuse. He has a PICC line. 11/25/2019-patient is receiving IV daptomycin for endocarditis. He is going to be in the hospital to complete the IV antibiotic therapy." 11/26/2019 Extensively counseled on IV drug abuse cessation 12/03/2019-patient has history of IV drug abuse receiving IV daptomycin for endocarditis. Patient is going to complete antibiotic therapy on December 28. 12/03- Cause of endocarditis. Supportive care 12/04-patient is receiving IV daptomycin for endocarditis. Date of completion of the course is December 28. (2) MRSA bacteremia Is this a current diagnosis for this admission?: Yes Plan: His blood cultures drawn on 16 November were negative. His anticipated stop date for antibiotics is 28 December. 12/05/2019-anticipated stop date for the antibiotics is December 28. 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 crp, ck 12/05/2019-ESR is 45, CRP 16.8, CK is 98. Plan is to recheck the labs next week. 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 He is receiving IV daptomycin. Latest blood cultures are negative. Most likely to arrange for PICC line tomorrow. 11/24/2019-patient is receiving IV daptomycin plan is to keep him in the hospital to complete the antibiotic course. 12/03/2019-patient admitted for fevers found to have a tricuspid valve endocarditis with vegetation receiving daptomycin and plan is to complete the antibiotic therapy on December 28. He has a PICC line. 12/03- TR likely due to endocarditis (5) Uncontrolled diabetes mellitus Qualifiers: Diabetes mellitus type: type 2 Glycemic state: with hyperglycemia Qualified Code(s): E11.65 - Type 2 diabetes mellitus with hyperglycemia Is this a current diagnosis for this admission?: Yes Plan: Uncontrolled. Hemoglobin A1c 11%. Continue diabetic diet, sliding scale, correctional and long-acting insulin. Accu-Cheks. Hypoglycemic protocol. Not sure patient will be compliant with his insulin injection as outpatient as he has history of IV drug abuse. Even though patient has hemoglobin A1c of 11% his kidney function is WNL and he will benefit from a combination of oral hypoglycemics and insulin regimen in the hope of controlling his his diabetes with oral hypoglycemics only in the future. Continue metformin 1000 mg p.o. twice daily. Sitagliptin 50 mg p.o. twice daily. Glipizide 5 mg p.o. daily. Decrease Lantus dosage, adjust daily. 12/03/2019-patient's blood sugar today is 144. plan is to continue the present management. 12/03- Continue current diet and medications. Very good control of glucose - Time Anticipated Discharge Disposition: Home, Self Care Anticipated Discharge Timeframe: dec 28
[2019-12-05] MEDS: NORMAL SALINE IV SCH (18:05)
[2019-12-05] MEDS: DAPTOMYCIN IV SCH (18:05)
[2019-12-05] MEDS: INSULIN GLARGINE,HUM.REC.ANLOG 1,000 UNIT/10 ML VIAL SUBCUT SCH (21:41)
[2019-12-06] MEDS: IBUPROFEN 600 MG TABLET PO SCH ×3 (06:01→22:33)
[2019-12-06] MEDS: INSULIN REG, HUMAN 100 UNIT/ML 3 ML VIAL (PYX) SUBCUT SCH ×4 (08:40→22:33)
[2019-12-06] MEDS: METFORMIN HCL 500 MG TABLET PO SCH ×2 (08:40→17:00)
[2019-12-06] MEDS: GLIPIZIDE 5 MG TABLET PO SCH (08:46)
[2019-12-06] MEDS: FAMOTIDINE 20 MG TABLET PO SCH ×2 (10:17→22:34)
[2019-12-06] MEDS: ENOXAPARIN SODIUM INJ 40 MG/0.4 ML DISP.SYRIN SUBCUT SCH (10:17)
[2019-12-06] MEDS: BUPRENORPHINE HCL 2 MG SUBLINGUAL TABLET SL SCH (10:17)
[2019-12-06] MEDS: SITAGLIPTIN PHOSPHATE 50 MG TABLET PO SCH (10:17)
[2019-12-06] MEDS: DOCUSATE SODIUM 100 MG CAPSULE PO SCH (10:17)
[2019-12-06] MEDS: NORMAL SALINE 10 ML SDV (SCHEDULED) IV SCH (10:25)
[2019-12-06] MEDS ORDERED: GLIPIZIDE 5 MG TABLET PO SCH (16:00)
--- NOTE | 2019-12-06 16:14 | PDOC PROGRESS REPORT ---
Subjective Progress Note for:: 12/06/19 Subjective:: SUDHA BEGUM is a 34 year old male past medical history of heroin abuse, uncontrolled diabetes, medication noncompliance, left upper extremity abscess, bacteremia, sepsis, pneumonia. Last admission here at [facility] on 09/27/2019, diagnosed with left arm abscess, Strep tococcus pyogenes bacteremia was started on IV antibiotics but unfortunately left AMA on 10/02/2019. Last ED admission was 11/04/2019 for heroin overdose was sent home after receiving Narcan. Today he is presenting ED complaining of left-sided chest pain, productive cough and fever. Chest pain is left-sided, sharp, nonradiating, worse with breathing and movement, better with rest, 5/10 intensity scale. Denies any vision changes, headache, nausea, vomiting, abdominal pain, diarrhea, constipation, rash, dysuria, hematuria, joint pain, joint swelling, oral lesions or ulcers. In ED was noted to have leukocytosis, hyperglycemia, hyperkalemia, hyponatremia, with chest x-ray showing focal opacity in the left lung. 12/06/2019. No acute events overnight. After receiving no apparent distress. Denies any fever, chills, nausea, vomiting, diarrhea, constipation or any urinary symptoms. Ambulatory, having normal bowel and bowel movement. Reason For Visit: PNEUMONIA, HYPERKALEMIA, HYPERGLYCEMIA Physical Exam Vital Signs: Temp Pulse Resp BP Pulse Ox 97.6 F 98 16 99/75 L 98 12/06/19 12:00 12/06/19 12:00 12/06/19 12:00 12/06/19 12:00 12/06/19 12:00 Intake & Output 12/05/19 12/06/19 12/07/19 06:59 06:59 06:59 Intake Total 2019 1310 Output Total 3000 400 Balance -980 910 Weight 77.5 kg 77.5 kg General appearance: PRESENT: no acute distress, well-developed, well-nourished Head exam: PRESENT: atraumatic, normocephalic Respiratory exam: PRESENT: clear to auscultation fran. ABSENT: rales, rhonchi, wheezes Cardiovascular exam: PRESENT: RRR. ABSENT: diastolic murmur, rubs, systolic murmur GI/Abdominal exam: PRESENT: normal bowel sounds, soft. ABSENT: distended, guarding, mass, organolmegaly, rebound, tenderness Extremities exam: PRESENT: full ROM. ABSENT: calf tenderness, clubbing, pedal edema Neurological exam: PRESENT: alert, awake, oriented to person, oriented to place, oriented to time, oriented to situation, CN II-XII grossly intact. ABSENT: motor sensory deficit Results Laboratory Results: 12/04/19 12:45 12/04/19 12:45 11/07/19 11/07/19 11/14/19 22:19 22:19 14:56 Creatine Kinase 33 L 28 L CK-MB (CK-2) 0.28 Troponin I < 0.012 11/19/19 12/03/19 12/04/19 05:40 05:30 12:45 Creatine Kinase 26 L 77 98 CK-MB (CK-2) Troponin I Impressions: Chest CT 11/16/19 00:00 IMPRESSION: Small bilateral pleural effusions with suspected areas of loculation. Trace of pericardial fluid. Compared with the 2015 exam there has been significant improvement in multiple bilateral pulmonary nodules, some of which were cavitary. The largest residual nodule is in the lateral left lung base, as above measuring 2.2 x 2.1 cm. Some equivocal cavitation within this nodule. Findings could reflect septic emboli, with other etiologies including neoplastic, infectious/granulomatous/fungal disease also considered. TECHNICAL DOCUMENTATION: Quality ID # 436: Final reports with documentation of one or more dose reduction techniques (e.g., Automated exposure control, adjustment of the mA and/or kV according to patient size, use of iterative reconstruction technique) copyright 2011 [employer]- All Rights Reserved Chest X-Ray 11/16/19 00:00 IMPRESSION: Right pleural effusion. Patchy retrocardiac airspace opacities. PICC Line Insertion 11/21/19 00:00 IMPRESSION: SUCCESSFUL PLACEMENT OF A 5 FR DUAL LUMEN 39 CM PICC IN THE LEFT BRACHIAL VEIN. Assessment and Plan - Diagnosis (1) MRSA bacteremia Is this a current diagnosis for this admission?: Yes Plan: His blood cultures drawn on 16 November were negative. His anticipated stop date for antibiotics is 28 December. (2) Pneumonia Qualifiers: Pneumonia type: due to unspecified organism Laterality: left Lung location: unspecified part of lung Qualified Code(s): J18.9 - Pneumonia, unspecified organism Is this a current diagnosis for this admission?: Yes Plan: Resolved (3) Heroin abuse Is this a current diagnosis for this admission?: Yes Plan: Monitoring for signs of withdrawal, so far no such signs. Doing well on Subutex. (4) Hyponatremia Is this a current diagnosis for this admission?: Yes Plan: Resolved (5) Uncontrolled diabetes mellitus Qualifiers: Diabetes mellitus type: type 2 Glycemic state: with hyperglycemia Qualified Code(s): E11.65 - Type 2 diabetes mellitus with hyperglycemia Is this a current diagnosis for this admission?: Yes Plan: Much improved. History of uncontrolled. Hemoglobin A1c 11%. Continue diabetic diet, sliding scale, correctional and long-acting insulin. Accu-Cheks. Hypoglycemic protocol. Not sure patient will be compliant with his insulin injection as outpatient as he has history of IV drug abuse. Even though patient has hemoglobin A1c of 11% his kidney function is WNL and he will benefit from a combination of oral hypoglycemics and insulin regimen in the hope of controlling his his diabetes with oral hypoglycemics only in the future. Continue metformin 1000 mg p.o. twice daily. Sitagliptin 50 mg p.o. twice daily. Glipizide 10 mg p.o. daily. Decrease Lantus dosage, adjust daily. (6) Hyperkalemia Is this a current diagnosis for this admission?: Yes Plan: Resolved - Time Time Spent with patient: 25-34 minutes Medications reviewed and adjusted accordingly: Yes Anticipated Discharge Disposition: Home, Self Care Anticipated Discharge Timeframe: December 28
[2019-12-06] MEDS: GLIPIZIDE 10 MG TABLET PO SCH (17:00)
[2019-12-06] MEDS: NORMAL SALINE IV SCH (18:12)
[2019-12-06] MEDS: DAPTOMYCIN IV SCH (18:12)
[2019-12-07] MEDS: INSULIN GLARGINE,HUM.REC.ANLOG 1,000 UNIT/10 ML VIAL SUBCUT SCH ×2 (00:10→21:42)
[2019-12-07] MEDS: NORMAL SALINE 10 ML SDV (SCHEDULED) IV SCH ×3 (00:12→21:46)
[2019-12-07] MEDS: IBUPROFEN 600 MG TABLET PO SCH ×3 (05:23→21:41)
[2019-12-07] MEDS: DOCUSATE SODIUM 100 MG CAPSULE PO SCH (10:26)
[2019-12-07] MEDS: INSULIN REG, HUMAN 100 UNIT/ML 3 ML VIAL (PYX) SUBCUT SCH ×4 (10:26→21:42)
[2019-12-07] MEDS: NORMAL SALINE 10 ML SDV (AFTER EACH USE) IV PRN ×2 (10:33→18:42)
[2019-12-07] MEDS: BUPRENORPHINE HCL 2 MG SUBLINGUAL TABLET SL SCH (10:34)
[2019-12-07] MEDS: METFORMIN HCL 500 MG TABLET PO SCH ×2 (10:37→17:29)
[2019-12-07] MEDS: FAMOTIDINE 20 MG TABLET PO SCH ×2 (10:37→21:42)
[2019-12-07] MEDS: SITAGLIPTIN PHOSPHATE 50 MG TABLET PO SCH (10:38)
[2019-12-07] MEDS: GLIPIZIDE 10 MG TABLET PO SCH ×2 (10:40→17:30)
[2019-12-07] MEDS: ENOXAPARIN SODIUM INJ 40 MG/0.4 ML DISP.SYRIN SUBCUT SCH (10:40)
--- NOTE | 2019-12-07 13:52 | PDOC PROGRESS REPORT ---
Subjective Progress Note for:: 12/07/19 Subjective:: SUDHA BEGUM is a 34 year old male past medical history of heroin abuse, uncontrolled diabetes, medication noncompliance, left upper extremity abscess, bacteremia, sepsis, pneumonia. Last admission here at [facility] on 09/27/2019, diagnosed with left arm abscess, Strep tococcus pyogenes bacteremia was started on IV antibiotics but unfortunately left AMA on 10/02/2019. Last ED admission was 11/04/2019 for heroin overdose was sent home after receiving Narcan. Today he is presenting ED complaining of left-sided chest pain, productive cough and fever. Chest pain is left-sided, sharp, nonradiating, worse with breathing and movement, better with rest, 5/10 intensity scale. Denies any vision changes, headache, nausea, vomiting, abdominal pain, diarrhea, constipation, rash, dysuria, hematuria, joint pain, joint swelling, oral lesions or ulcers. In ED was noted to have leukocytosis, hyperglycemia, hyperkalemia, hyponatremia, with chest x-ray showing focal opacity in the left lung. 12/06/2019. No acute events overnight. After receiving no apparent distress. Denies any fever, chills, nausea, vomiting, diarrhea, constipation or any urinary symptoms. Ambulatory, having normal bowel and bowel movement. 12/07/2019. Yesterday any patient has been having diarrhea and abdominal upset otherwise denies any fever, chills, nausea, vomiting, abdominal pain, const ipation or any urinary symptoms. Pending C. difficile toxin. Reason For Visit: PNEUMONIA, HYPERKALEMIA, HYPERGLYCEMIA Physical Exam Vital Signs: Temp Pulse Resp BP Pulse Ox 98.2 F 95 20 107/72 95 12/07/19 12:00 12/07/19 12:00 12/07/19 12:00 12/07/19 12:12/07/19 12:00 Intake & Output 12/06/19 12/07/19 12/08/19 06:59 06:59 06:59 Intake Total 1310 780 Output Total 400 Balance 910 780 Weight 77.5 kg 79.9 kg General appearance: PRESENT: no acute distress, well-developed, well-nourished Head exam: PRESENT: atraumatic, normocephalic Respiratory exam: PRESENT: clear to auscultation fran. ABSENT: rales, rhonchi, wheezes Cardiovascular exam: PRESENT: RRR. ABSENT: diastolic murmur, rubs, systolic murmur GI/Abdominal exam: PRESENT: normal bowel sounds, soft. ABSENT: distended, guarding, mass, organolmegaly, rebound, tenderness Neurological exam: PRESENT: alert, awake, oriented to person, oriented to place, oriented to time, oriented to situation, CN II-XII grossly intact. ABSENT: motor sensory deficit Results Laboratory Results: 12/04/19 12:45 12/04/19 12:45 11/07/19 11/07/19 11/14/19 22:19 22:19 14:56 Creatine Kinase 33 L 28 L CK-MB (CK-2) 0.28 Troponin I < 0.012 11/19/19 12/03/19 12/04/19 05:40 05:30 12:45 Creatine Kinase 26 L 77 98 CK-MB (CK-2) Troponin I Impressions: Chest CT 11/16/19 00:00 IMPRESSION: Small bilateral pleural effusions with suspected areas of loculation. Trace of pericardial fluid. Compared with the 2015 exam there has been significant improvement in multiple bilateral pulmonary nodules, some of which were cavitary. The largest residual nodule is in the lateral left lung base, as above measuring 2.2 x 2.1 cm. Some equivocal cavitation within this nodule. Findings could reflect septic emboli, with other etiologies including neoplastic, infectious/granulomatous/fungal disease also considered. TECHNICAL DOCUMENTATION: Quality ID # [id number]: Final reports with documentation of one or more dose reduction techniques (e.g., Automated exposure control, adjustment of the mA and/or kV according to patient size, use of iterative reconstruction technique) copyright 2011 [employer]- All Rights Reserved Chest X-Ray 11/16/19 00:00 IMPRESSION: Right pleural effusion. Patchy retrocardiac airspace opacities. PICC Line Insertion 11/21/19 00:00 IMPRESSION: SUCCESSFUL PLACEMENT OF A 5 FR DUAL LUMEN 39 CM PICC IN THE LEFT BRACHIAL VEIN. Assessment and Plan - Diagnosis (1) MRSA bacteremia Is this a current diagnosis for this admission?: Yes Plan: His blood cultures drawn on 16 November were negative. His anticipated stop date for antibiotics is 28 December. (2) Pneumonia Qualifiers: Pneumonia type: due to unspecified organism Laterality: left Lung location: unspecified part of lung Qualified Code(s): J18.9 - Pneumonia, unspecified organism Is this a current diagnosis for this admission?: Yes Plan: Resolved (3) Heroin abuse Is this a current diagnosis for this admission?: Yes Plan: Monitoring for signs of withdrawal, so far no such signs. Doing well on Subutex. (4) Hyponatremia Is this a current diagnosis for this admission?: Yes Plan: Resolved (5) Uncontrolled diabetes mellitus Qualifiers: Diabetes mellitus type: type 2 Glycemic state: with hyperglycemia Qualified Code(s): E11.65 - Type 2 diabetes mellitus with hyperglycemia Is this a current diagnosis for this admission?: Yes Plan: Much improved. History of uncontrolled. Hemoglobin A1c 11%. Continue diabetic diet, sliding scale, correctional and long-acting insulin. Accu-Cheks. Hypoglycemic protocol. Not sure patient will be compliant with his insulin injection as outpatient as he has history of IV drug abuse. Even though patient has hemoglobin A1c of 11% his kidney function is WNL and he will benefit from a combination of oral hypoglycemics and insulin regimen in the hope of controlling his his diabetes with oral hypoglycemics only in the future. Continue metformin 1000 mg p.o. twice daily. Sitagliptin 50 mg p.o. twice daily. Glipizide 10 mg p.o. daily. Decrease Lantus dosage, adjust daily. (6) Hyperkalemia Is this a current diagnosis for this admission?: Yes Plan: Resolved - Time Time Spent with patient: 15-24 minutes Smoking Cessation Education: 3 to 10 minutes Anticipated Discharge Disposition: Home, Self Care Anticipated Discharge Timeframe: when bed available
[2019-12-07] MEDS: NORMAL SALINE IV SCH (17:31)
[2019-12-07] MEDS: DAPTOMYCIN IV SCH (17:31)
[2019-12-07 18:31] LABS: C DIFFICILE GDH NEGATIVE (NEGATIVE)
[2019-12-08] MEDS: BUPRENORPHINE HCL 2 MG SUBLINGUAL TABLET SL SCH (09:27)
[2019-12-08] MEDS: METFORMIN HCL 500 MG TABLET PO SCH ×2 (09:30→18:04)
[2019-12-08] MEDS: IBUPROFEN 600 MG TABLET PO SCH ×3 (09:31→22:40)
[2019-12-08] MEDS: DOCUSATE SODIUM 100 MG CAPSULE PO SCH (09:33)
[2019-12-08] MEDS: GLIPIZIDE 10 MG TABLET PO SCH ×2 (09:33→18:05)
[2019-12-08] MEDS: SITAGLIPTIN PHOSPHATE 50 MG TABLET PO SCH ×2 (09:34→18:05)
[2019-12-08] MEDS: NORMAL SALINE 10 ML SDV (SCHEDULED) IV SCH ×2 (09:36→22:46)
[2019-12-08] MEDS ORDERED: MAG HYDROX/AL HYDROX/SIMETH SUSP 30 ML UDCUP PO PRN (11:03)
--- NOTE | 2019-12-08 11:09 | PDOC PROGRESS REPORT ---
Subjective Progress Note for:: 12/08/19 Subjective:: SUDHA BEGUM is a 34 year old male past medical history of heroin abuse, uncontrolled diabetes, medication noncompliance, left upper extremity abscess, bacteremia, sepsis, pneumonia. Last admission here at [facility] on 09/27/2019, diagnosed with left arm abscess, Strep tococcus pyogenes bacteremia was started on IV antibiotics but unfortunately left AMA on 10/02/2019. Last ED admission was 11/04/2019 for heroin overdose was sent home after receiving Narcan. Today he is presenting ED complaining of left-sided chest pain, productive cough and fever. Chest pain is left-sided, sharp, nonradiating, worse with breathing and movement, better with rest, 5/10 intensity scale. Denies any vision changes, headache, nausea, vomiting, abdominal pain, diarrhea, constipation, rash, dysuria, hematuria, joint pain, joint swelling, oral lesions or ulcers. In ED was noted to have leukocytosis, hyperglycemia, hyperkalemia, hyponatremia, with chest x-ray showing focal opacity in the left lung. 12/06/2019. No acute events overnight. After receiving no apparent distress. Denies any fever, chills, nausea, vomiting, diarrhea, constipation or any urinary symptoms. Ambulatory, having normal bowel and bowel movement. 12/07/2019. Yesterday any patient has been having diarrhea and abdominal upset otherwise denies any fever, chills, nausea, vomiting, abdominal pain, const ipation or any urinary symptoms. Pending C. difficile toxin. 12/08/2019. No acute events overnight. Patient still complaining of having loose bowels and upset stomach, C. difficile toxin is negative, patient denies any fever or shortness of breath, denies any chills abdominal pain or any urinary s ymptoms. Reason For Visit: PNEUMONIA, HYPERKALEMIA, HYPERGLYCEMIA Physical Exam Vital Signs: Temp Pulse Resp BP Pulse Ox 97.7 F 82 16 120/80 100 12/08/19 00:00 12/08/19 00:00 12/08/19 00:00 12/08/19 00:00 12/08/19 00:00 Intake & Output 12/07/19 12/08/19 12/09/19 06:59 06:59 06:59 Intake Total 830 610 Balance 830 610 Weight 79.9 kg 79.8 kg General appearance: PRESENT: no acute distress, well-developed, well-nourished Head exam: PRESENT: atraumatic, normocephalic Respiratory exam: PRESENT: clear to auscultation fran. ABSENT: rales, rhonchi, wheezes Cardiovascular exam: PRESENT: RRR. ABSENT: diastolic murmur, rubs, systolic murmur GI/Abdominal exam: PRESENT: normal bowel sounds, soft. ABSENT: distended, guarding, mass, organolmegaly, rebound, tenderness Neurological exam: PRESENT: alert, awake, oriented to person, oriented to place, oriented to time, oriented to situation, CN II-XII grossly intact. ABSENT: motor sensory deficit Results Laboratory Results: 12/04/19 12:45 12/04/19 12:45 11/07/19 11/07/19 11/14/19 22:19 22:19 14:56 Creatine Kinase 33 L 28 L CK-MB (CK-2) 0.28 Troponin I < 0.012 11/19/19 12/03/19 12/04/19 05:40 05:30 12:45 Creatine Kinase 26 L 77 98 CK-MB (CK-2) Troponin I Impressions: Chest CT 11/16/19 00:00 IMPRESSION: Small bilateral pleural effusions with suspected areas of loculation. Trace of pericardial fluid. Compared with the 2015 exam there has been significant improvement in multiple bilateral pulmonary nodules, some of which were cavitary. The largest residual nodule is in the lateral left lung base, as above measuring 2.2 x 2.1 cm. Some equivocal cavitation within this nodule. Findings could reflect septic emboli, with other etiologies including neoplastic, infectious/granulomatous/fungal disease also considered. TECHNICAL DOCUMENTATION: Quality ID # [id number]: Final reports with documentation of one or more dose reduction techniques (e.g., Automated exposure control, adjustment of the mA and/or kV according to patient size, use of iterative reconstruction technique) copyright 2011 [employer]- All Rights Reserved Chest X-Ray 11/16/19 00:00 IMPRESSION: Right pleural effusion. Patchy retrocardiac airspace opacities. PICC Line Insertion 11/21/19 00:00 IMPRESSION: SUCCESSFUL PLACEMENT OF A 5 FR DUAL LUMEN 39 CM PICC IN THE LEFT BRACHIAL VEIN. Assessment and Plan - Diagnosis (1) Diarrhea Qualifiers: Diarrhea type: unspecified type Qualified Code(s): R19.7 - Diarrhea, unspecified Is this a current diagnosis for this admission?: Yes Plan: Complaining of abdominal upset and diarrhea. Likely gastroenteritis. C. difficile toxin negative. Afebrile. WBC WNL. Continue monitoring volume status, stool WBC, ova and parasite and Gram stain and culture. Maalox and H2 blockers. (2) MRSA bacteremia Is this a current diagnosis for this admission?: Yes Plan: His blood cultures drawn on 16 November were negative. His anticipated stop date for antibiotics is 28 December. (3) Uncontrolled diabetes mellitus Qualifiers: Diabetes mellitus type: type 2 Glycemic state: with hyperglycemia Qualified Code(s): E11.65 - Type 2 diabetes mellitus with hyperglycemia Is this a current diagnosis for this admission?: Yes Plan: Much improved. History of uncontrolled. Hemoglobin A1c 11%. Continue diabetic diet, sliding scale, correctional and long-acting insulin. Accu-Cheks. Hypoglycemic protocol. Not sure patient will be compliant with his insulin injection as outpatient as he has history of IV drug abuse. Even though patient has hemoglobin A1c of 11% his kidney function is WNL and he will benefit from a combination of oral hypoglycemics and insulin regimen in the hope of controlling his his diabetes with oral hypoglycemics only in the future. Continue metformin 1000 mg p.o. twice daily. Sitagliptin 50 mg p.o. twice daily. Glipizide 10 mg p.o. daily. Decrease Lantus dosage, adjust daily. (4) Pneumonia Qualifiers: Pneumonia type: due to unspecified organism Laterality: left Lung location: unspecified part of lung Qualified Code(s): J18.9 - Pneumonia, unspecified organism Is this a current diagnosis for this admission?: Yes Plan: Resolved (5) Heroin abuse Is this a current diagnosis for this admission?: Yes Plan: Monitoring for signs of withdrawal, so far no such signs. Doing well on Subutex. (6) Hyponatremia Is this a current diagnosis for this admission?: Yes Plan: Resolved (7) Hyperkalemia Is this a current diagnosis for this admission?: Yes Plan: Resolved - Time Time Spent with patient: 15-24 minutes Medications reviewed and adjusted accordingly: Yes Anticipated Discharge Disposition: Home, Self Care Anticipated Discharge Timeframe: when bed available
[2019-12-08] MEDS: FAMOTIDINE 20 MG TABLET PO SCH ×2 (11:48→22:40)
[2019-12-08] MEDS ORDERED: MAG HYDROX/AL HYDROX/SIMETH SUSP 30 ML UDCUP PO ONE (12:00)
[2019-12-08] MEDS ORDERED: LOPERAMIDE HCL 2 MG CAPSULE PO ONE (14:30)
[2019-12-08] MEDS: NORMAL SALINE IV SCH (18:09)
[2019-12-08] MEDS: DAPTOMYCIN IV SCH (18:09)
[2019-12-08] MEDS ORDERED: INSULIN GLARGINE,HUM.REC.ANLOG 1,000 UNIT/10 ML VIAL SUBCUT SCH (22:00)
[2019-12-09] MEDS: IBUPROFEN 600 MG TABLET PO SCH ×3 (06:12→21:34)
[2019-12-09] MEDS: GLIPIZIDE 10 MG TABLET PO SCH ×2 (08:34→17:42)
[2019-12-09] MEDS: METFORMIN HCL 500 MG TABLET PO SCH ×2 (08:34→17:42)
[2019-12-09] MEDS: NORMAL SALINE 10 ML SDV (SCHEDULED) IV SCH ×2 (10:40→21:34)
[2019-12-09] MEDS: FAMOTIDINE 20 MG TABLET PO SCH ×2 (10:40→21:32)
[2019-12-09] MEDS: SITAGLIPTIN PHOSPHATE 50 MG TABLET PO SCH ×2 (10:40→19:29)
[2019-12-09] MEDS: NORMAL SALINE 10 ML SDV (AFTER EACH USE) IV PRN (10:40)
[2019-12-09] MEDS: BUPRENORPHINE HCL 2 MG SUBLINGUAL TABLET SL SCH (10:40)
[2019-12-09] MEDS: DOCUSATE SODIUM 100 MG CAPSULE PO SCH (10:41)
--- NOTE | 2019-12-09 13:24 | PDOC PROGRESS REPORT ---
Subjective Progress Note for:: 12/09/19 Subjective:: SUDHA BEGUM is a 34 year old male past medical history of heroin abuse, uncontrolled diabetes, medication noncompliance, left upper extremity abscess, bacteremia, sepsis, pneumonia. Last admission here at [facility] on 09/27/2019, diagnosed with left arm abscess, Strep tococcus pyogenes bacteremia was started on IV antibiotics but unfortunately left AMA on 10/02/2019. Last ED admission was 11/04/2019 for heroin overdose was sent home after receiving Narcan. Today he is presenting ED complaining of left-sided chest pain, productive cough and fever. Chest pain is left-sided, sharp, nonradiating, worse with breathing and movement, better with rest, 5/10 intensity scale. Denies any vision changes, headache, nausea, vomiting, abdominal pain, diarrhea, constipation, rash, dysuria, hematuria, joint pain, joint swelling, oral lesions or ulcers. In ED was noted to have leukocytosis, hyperglycemia, hyperkalemia, hyponatremia, with chest x-ray showing focal opacity in the left lung. 12/06/2019. No acute events overnight. After receiving no apparent distress. Denies any fever, chills, nausea, vomiting, diarrhea, constipation or any urinary symptoms. Ambulatory, having normal bowel and bowel movement. 12/07/2019. Yesterday any patient has been having diarrhea and abdominal upset otherwise denies any fever, chills, nausea, vomiting, abdominal pain, const ipation or any urinary symptoms. Pending C. difficile toxin. 12/08/2019. No acute events overnight. Patient still complaining of having loose bowels and upset stomach, C. difficile toxin is negative, patient denies any fever or shortness of breath, denies any chills abdominal pain or any urinary s ymptoms. 12/09/2019. No acute events overnight. Comfortably sitting in bed enjoying his breakfast, nausea has improved, still complaining of abdominal upset, denies any fever, chills, vomiting, diarrhea, constipation or any urinary symptoms. Reason For Visit: PNEUMONIA, HYPERKALEMIA, HYPERGLYCEMIA Physical Exam Vital Signs: Temp Pulse Resp BP Pulse Ox 97.7 F 87 16 116/61 95 12/09/19 12:12/09/19 12:12/09/19 12:12/09/19 12:00 12/09/19 12:00 Intake & Output 12/08/19 12/09/19 12/10/19 06:59 06:59 06:59 Intake Total 610 350 Output Total 600 Balance 610 -250 Weight 79.8 kg 79.8 kg General appearance: PRESENT: no acute distress, well-developed, well-nourished Head exam: PRESENT: atraumatic, normocephalic Neck exam: ABSENT: carotid bruit, JVD, lymphadenopathy, thyromegaly Respiratory exam: PRESENT: clear to auscultation fran. ABSENT: rales, rhonchi, wheezes Cardiovascular exam: PRESENT: RRR. ABSENT: diastolic murmur, rubs, systolic murmur GI/Abdominal exam: PRESENT: normal bowel sounds, soft. ABSENT: distended, guarding, mass, organolmegaly, rebound, tenderness Neurological exam: PRESENT: alert, awake, oriented to person, oriented to place, oriented to time, oriented to situation, CN II-XII grossly intact. ABSENT: motor sensory deficit Results Laboratory Results: 12/04/19 12:45 12/04/19 12:45 12/08/19 12:30 Stool for White Cells NO WBCs SEEN 11/07/19 11/07/19 11/14/19 22:19 22:19 14:56 Creatine Kinase 33 L 28 L CK-MB (CK-2) 0.28 Troponin I < 0.012 11/19/19 12/03/19 12/04/19 05:40 05:30 12:45 Creatine Kinase 26 L 77 98 CK-MB (CK-2) Troponin I Impressions: Chest CT 11/16/19 00:00 IMPRESSION: Small bilateral pleural effusions with suspected areas of loculation. Trace of pericardial fluid. Compared with the 2015 exam there has been significant improvement in multiple bilateral pulmonary nodules, some of which were cavitary. The largest residual nodule is in the lateral left lung base, as above measuring 2.2 x 2.1 cm. Some equivocal cavitation within this nodule. Findings could reflect septic emboli, with other etiologies including neoplastic, infectious/granulomatous/fungal disease also considered. TECHNICAL DOCUMENTATION: Quality ID # 436: Final reports with documentation of one or more dose reduction techniques (e.g., Automated exposure control, adjustment of the mA and/or kV according to patient size, use of iterative reconstruction technique) copyright 2011 [employer]- All Rights Reserved Chest X-Ray 11/16/19 00:00 IMPRESSION: Right pleural effusion. Patchy retrocardiac airspace opacities. PICC Line Insertion 11/21/19 00:00 IMPRESSION: SUCCESSFUL PLACEMENT OF A 5 FR DUAL LUMEN 39 CM PICC IN THE LEFT BRACHIAL VEIN. Assessment and Plan - Diagnosis (1) Diarrhea Qualifiers: Diarrhea type: unspecified type Qualified Code(s): R19.7 - Diarrhea, unspecified Is this a current diagnosis for this admission?: Yes Plan: Improving. C. difficile toxin negative. Stool WBC negative. Pending ova and parasite. Likely gastroenteritis. Afebrile. WBC WNL. Continue monitoring volume status. Follow-up ova and parasite and Gram stain and culture. Maalox and H2 blockers. (2) MRSA bacteremia Is this a current diagnosis for this admission?: Yes Plan: His blood cultures drawn on 16 November were negative. His anticipated stop date for antibiotics is 28 December. (3) Uncontrolled diabetes mellitus Qualifiers: Diabetes mellitus type: type 2 Glycemic state: with hyperglycemia Qualified Code(s): E11.65 - Type 2 diabetes mellitus with hyperglycemia Is this a current diagnosis for this admission?: Yes Plan: Much improved. History of uncontrolled. Hemoglobin A1c 11%. Continue diabetic diet, sliding scale, correctional and long-acting insulin. Accu-Cheks. Hypoglycemic protocol. Not sure patient will be compliant with his insulin injection as outpatient as he has history of IV drug abuse. Even though patient has hemoglobin A1c of 11% his kidney function is WNL and he will benefit from a combination of oral hypoglycemics and insulin regimen in the hope of controlling his his diabetes with oral hypoglycemics only in the future. Continue metformin 1000 mg p.o. twice daily. Sitagliptin 50 mg p.o. twice daily. Glipizide 10 mg p.o. daily. Decrease Lantus dosage, adjust daily. (4) Pneumonia Qualifiers: Pneumonia type: due to unspecified organism Laterality: left Lung location: unspecified part of lung Qualified Code(s): J18.9 - Pneumonia, unspecified organism Is this a current diagnosis for this admission?: Yes Plan: Resolved (5) Heroin abuse Is this a current diagnosis for this admission?: Yes Plan: Monitoring for signs of withdrawal, so far no such signs. Doing well on Subutex. (6) Hyponatremia Is this a current diagnosis for this admission?: Yes Plan: Resolved (7) Hyperkalemia Is this a current diagnosis for this admission?: Yes Plan: Resolved - Time Time Spent with patient: 15-24 minutes Medications reviewed and adjusted accordingly: Yes Anticipated Discharge Disposition: Home, Self Care Anticipated Discharge Timeframe: when bed available
[2019-12-09 14:45] LABS: ANION GAP 7 (5-19); BLOOD UREA NITROGEN 20 mg/dL (7-20); CALCIUM 9.3 mg/dL (8.4-10.2); CARBON DIOXIDE 28 mmol/L (22-30); CHLORIDE 100 mmol/L (98-107); GLUCOSE 106 mg/dL (75-110); POTASSIUM 4.2 mmol/L (3.6-5.0)
[2019-12-09] MEDS: DAPTOMYCIN IV SCH (17:42)
[2019-12-09] MEDS: NORMAL SALINE IV SCH (17:42)
[2019-12-10] MEDS: IBUPROFEN 600 MG TABLET PO SCH ×3 (06:53→21:28)
[2019-12-10] MEDS: DOCUSATE SODIUM 100 MG CAPSULE PO SCH (09:28)
[2019-12-10] MEDS: BUPRENORPHINE HCL 2 MG SUBLINGUAL TABLET SL SCH (10:35)
[2019-12-10] MEDS: METFORMIN HCL 500 MG TABLET PO SCH ×2 (10:35→17:30)
[2019-12-10] MEDS: NORMAL SALINE 10 ML SDV (SCHEDULED) IV SCH ×2 (10:35→21:30)
[2019-12-10] MEDS: SITAGLIPTIN PHOSPHATE 50 MG TABLET PO SCH ×2 (10:35→17:30)
[2019-12-10] MEDS: FAMOTIDINE 20 MG TABLET PO SCH ×2 (13:09→21:24)
--- NOTE | 2019-12-10 14:05 | PDOC PROGRESS REPORT ---
Subjective Progress Note for:: 12/10/19 Subjective:: SUDHA BEGUM is a 34 year old male past medical history of heroin abuse, uncontrolled diabetes, medication noncompliance, left upper extremity abscess, bacteremia, sepsis, pneumonia. Last admission here at [facility] on 09/27/2019, diagnosed with left arm abscess, Strep tococcus pyogenes bacteremia was started on IV antibiotics but unfortunately left AMA on 10/02/2019. Last ED admission was 11/04/2019 for heroin overdose was sent home after receiving Narcan. Today he is presenting ED complaining of left-sided chest pain, productive cough and fever. Chest pain is left-sided, sharp, nonradiating, worse with breathing and movement, better with rest, 5/10 intensity scale. Denies any vision changes, headache, nausea, vomiting, abdominal pain, diarrhea, constipation, rash, dysuria, hematuria, joint pain, joint swelling, oral lesions or ulcers. In ED was noted to have leukocytosis, hyperglycemia, hyperkalemia, hyponatremia, with chest x-ray showing focal opacity in the left lung. 12/06/2019. No acute events overnight. After receiving no apparent distress. Denies any fever, chills, nausea, vomiting, diarrhea, constipation or any urinary symptoms. Ambulatory, having normal bowel and bowel movement. 12/07/2019. Yesterday any patient has been having diarrhea and abdominal upset otherwise denies any fever, chills, nausea, vomiting, abdominal pain, const ipation or any urinary symptoms. Pending C. difficile toxin. 12/08/2019. No acute events overnight. Patient still complaining of having loose bowels and upset stomach, C. difficile toxin is negative, patient denies any fever or shortness of breath, denies any chills abdominal pain or any urinary s ymptoms. 12/09/2019. No acute events overnight. Comfortably sitting in bed enjoying his breakfast, nausea has improved, still complaining of abdominal upset, denies any fever, chills, vomiting, diarrhea, constipation or any urinary symptoms. 12/10/2019. No acute events overnight. Patient still complaining of diarrhea, noted to have blood glucose level in high 70s, likely due to sulfonylurea, work- up for infectious diarrhea has been ruled out, denies any fever, chills, abdominal pain, constipation or any urinary symptoms. Reason For Visit: PNEUMONIA, HYPERKALEMIA, HYPERGLYCEMIA Physical Exam Vital Signs: Temp Pulse Resp BP Pulse Ox 98.4 F 106 H 20 124/74 100 12/10/19 11:14 12/10/19 11:14 12/10/19 11:14 12/10/19 11:14 12/10/19 11:14 Intake & Output 12/09/19 12/10/19 12/11/19 06:59 06:59 06:59 Intake Total 350 980 240 Output Total 600 Balance -250 980 240 Weight 79.8 kg 78.9 kg General appearance: PRESENT: no acute distress, well-developed, well-nourished Head exam: PRESENT: atraumatic, normocephalic Respiratory exam: PRESENT: clear to auscultation fran. ABSENT: rales, rhonchi, wheezes GI/Abdominal exam: PRESENT: normal bowel sounds, soft. ABSENT: distended, guarding, mass, organolmegaly, rebound, tenderness Neurological exam: PRESENT: alert, awake, oriented to person, oriented to place, oriented to time, oriented to situation, CN II-XII grossly intact. ABSENT: motor sensory deficit Results Laboratory Results: 12/04/19 12:45 12/09/19 13:55 12/09/19 12/09/19 13:55 13:55 Sodium 135.4 L Potassium 4.2 Chloride 100 Carbon Dioxide 28 Anion Gap 7 BUN 20 Creatinine 0.65 Est GFR ( Amer) > 60 Glucose 106 Lactic Acid 1.2 Calcium 9.3 11/07/19 11/07/19 11/14/19 22:19 22:19 14:56 Creatine Kinase 33 L 28 L CK-MB (CK-2) 0.28 Troponin I < 0.012 11/19/19 12/03/19 12/04/19 05:40 05:30 12:45 Creatine Kinase 26 L 77 98 CK-MB (CK-2) Troponin I 12/10/19 06:20 Creatine Kinase CK-MB (CK-2) 0.35 Troponin I Impressions: Chest CT 11/16/19 00:00 IMPRESSION: Small bilateral pleural effusions with suspected areas of loculation. Trace of pericardial fluid. Compared with the 2014 exam there has been significant improvement in multiple bilateral pulmonary nodules, some of which were cavitary. The largest residual nodule is in the lateral left lung base, as above measuring 2.2 x 2.1 cm. Some equivocal cavitation within this nodule. Findings could reflect septic emboli, with other etiologies including neoplastic, infectious/granulomatous/fungal disease also considered. TECHNICAL DOCUMENTATION: Quality ID # [id number]: Final reports with documentation of one or more dose reduction techniques (e.g., Automated exposure control, adjustment of the mA and/or kV according to patient size, use of iterative reconstruction technique) copyright 2011 [employer]- All Rights Reserved Chest X-Ray 11/16/19 00:00 IMPRESSION: Right pleural effusion. Patchy retrocardiac airspace opacities. PICC Line Insertion 11/21/19 00:00 IMPRESSION: SUCCESSFUL PLACEMENT OF A 5 FR DUAL LUMEN 39 CM PICC IN THE LEFT BRACHIAL VEIN. Assessment and Plan - Diagnosis (1) Diarrhea Qualifiers: Diarrhea type: unspecified type Qualified Code(s): R19.7 - Diarrhea, unspecified Is this a current diagnosis for this admission?: Yes Plan: Improving. [place] side effect of sulfonylurea or gastroenteritis. Afebrile. WBC WNL. C. difficile toxin negative. Stool WBC negative. Pending ova and parasite. Continue monitoring volume status. DC glipizide, switch to glipizide at lower dose. Follow-up ova and parasite and Gram stain and culture. Maalox and H2 blockers. (2) MRSA bacteremia Is this a current diagnosis for this admission?: Yes Plan: His blood cultures drawn on 16 November were negative. His anticipated stop date for antibiotics is 28 December. (3) Uncontrolled diabetes mellitus Qualifiers: Diabetes mellitus type: type 2 Glycemic state: with hyperglycemia Qualified Code(s): E11.65 - Type 2 diabetes mellitus with hyperglycemia Is this a current diagnosis for this admission?: Yes Plan: Blood glucose level in high 70s. Patient is developing diarrhea after being started on glipizide. History of uncontrolled. Hemoglobin A1c 11%. Continue diabetic diet, sliding scale, correctional and long-acting insulin. Accu-Cheks. Hypoglycemic protocol. Not sure patient will be compliant with his insulin injection as outpatient as he has history of IV drug abuse. Even though patient has hemoglobin A1c of 11% his kidney function is WNL and he will benefit from a combination of oral hypoglycemics and insulin regimen in the hope of controlling his his diabetes with oral hypoglycemics only in the future. Insulin regimen has been DC since 12/09/2019. Continue metformin 1000 mg p.o. twice daily. Sitagliptin 50 mg p.o. twice daily. DC glipizide 10 mg p.o. daily. Start on glimepiride 1 mg p.o. daily. (4) Pneumonia Qualifiers: Pneumonia type: due to unspecified organism Laterality: left Lung location: unspecified part of lung Qualified Code(s): J18.9 - Pneumonia, unspecified organism Is this a current diagnosis for this admission?: Yes Plan: Resolved (5) Heroin abuse Is this a current diagnosis for this admission?: Yes Plan: Monitoring for signs of withdrawal, so far no such signs. Doing well on Subutex. (6) Hyponatremia Is this a current diagnosis for this admission?: Yes Plan: Resolved (7) Hyperkalemia Is this a current diagnosis for this admission?: Yes Plan: Resolved - Time Time Spent with patient: 25-34 minutes Medications reviewed and adjusted accordingly: Yes Anticipated Discharge Disposition: Home, Self Care Anticipated Discharge Timeframe: when bed available
[2019-12-10] MEDS: GLIPIZIDE 10 MG TABLET PO SCH (15:19)
[2019-12-10] MEDS ORDERED: GLIPIZIDE 5 MG TABLET PO SCH (16:00)
[2019-12-10] MEDS: NORMAL SALINE IV SCH (17:30)
[2019-12-10] MEDS: DAPTOMYCIN IV SCH (17:30)
[2019-12-11] MEDS: IBUPROFEN 600 MG TABLET PO SCH ×3 (06:44→22:15)
[2019-12-11] MEDS ORDERED: GLIMEPIRIDE 1 MG TABLET PO SCH (08:00)
[2019-12-11] MEDS: BUPRENORPHINE HCL 2 MG SUBLINGUAL TABLET SL SCH (09:45)
[2019-12-11] MEDS: METFORMIN HCL 500 MG TABLET PO SCH ×2 (09:46→17:41)
[2019-12-11] MEDS: SITAGLIPTIN PHOSPHATE 50 MG TABLET PO SCH ×2 (09:46→17:41)
[2019-12-11] MEDS: FAMOTIDINE 20 MG TABLET PO SCH (09:46)
[2019-12-11] MEDS: NORMAL SALINE 10 ML SDV (SCHEDULED) IV SCH ×2 (09:46→22:17)
[2019-12-11] MEDS: DOCUSATE SODIUM 100 MG CAPSULE PO SCH (10:01)
--- NOTE | 2019-12-11 13:37 | PDOC PROGRESS REPORT ---
Subjective Progress Note for:: 12/11/19 Subjective:: SUDHA BEGUM is a 34 year old male past medical history of heroin abuse, uncontrolled diabetes, medication noncompliance, left upper extremity abscess, bacteremia, sepsis, pneumonia. Last admission here at [facility] on 09/27/2019, diagnosed with left arm abscess, Strep tococcus pyogenes bacteremia was started on IV antibiotics but unfortunately left AMA on 10/02/2019. Last ED admission was 11/04/2019 for heroin overdose was sent home after receiving Narcan. Today he is presenting ED complaining of left-sided chest pain, productive cough and fever. Chest pain is left-sided, sharp, nonradiating, worse with breathing and movement, better with rest, 5/10 intensity scale. Denies any vision changes, headache, nausea, vomiting, abdominal pain, diarrhea, constipation, rash, dysuria, hematuria, joint pain, joint swelling, oral lesions or ulcers. In ED was noted to have leukocytosis, hyperglycemia, hyperkalemia, hyponatremia, with chest x-ray showing focal opacity in the left lung. 12/06/2019. No acute events overnight. After receiving no apparent distress. Denies any fever, chills, nausea, vomiting, diarrhea, constipation or any urinary symptoms. Ambulatory, having normal bowel and bowel movement. 12/07/2019. Yesterday any patient has been having diarrhea and abdominal upset otherwise denies any fever, chills, nausea, vomiting, abdominal pain, const ipation or any urinary symptoms. Pending C. difficile toxin. 12/08/2019. No acute events overnight. Patient still complaining of having loose bowels and upset stomach, C. difficile toxin is negative, patient denies any fever or shortness of breath, denies any chills abdominal pain or any urinary s ymptoms. 12/09/2019. No acute events overnight. Comfortably sitting in bed enjoying his breakfast, nausea has improved, still complaining of abdominal upset, denies any fever, chills, vomiting, diarrhea, constipation or any urinary symptoms. 12/10/2019. No acute events overnight. Patient still complaining of diarrhea, noted to have blood glucose level in high 70s, likely due to sulfonylurea, work- up for infectious diarrhea has been ruled out, denies any fever, chills, abdominal pain, constipation or any urinary symptoms. 12/11/2019. No acute events overnight. Yesterday evening patient had one episode of nonbloody nonbilious vomiting, stating that he is feeling much better since then, has not had any more diarrhea, denies any fever, chills, nausea, vomiting, diarrhea, constipation or any urinary symptoms. P.o. tolerant. Ambulatory. Having normal bowel and bladder movements. Reason For Visit: PNEUMONIA, HYPERKALEMIA, HYPERGLYCEMIA Physical Exam Vital Signs: Temp Pulse Resp BP Pulse Ox 98.0 F 88 18 110/69 100 12/11/19 11:40 12/11/19 11:40 12/11/19 11:40 12/11/19 11:40 12/11/19 11:40 Intake & Output 12/10/19 12/11/19 12/12/19 06:59 06:59 06:59 Intake Total 1030 890 Balance 1030 890 Weight 78.9 kg 78.6 kg General appearance: PRESENT: no acute distress, well-developed, well-nourished Head exam: PRESENT: atraumatic, normocephalic Respiratory exam: PRESENT: clear to auscultation fran. ABSENT: rales, rhonchi, wheezes Cardiovascular exam: PRESENT: RRR. ABSENT: diastolic murmur, rubs, systolic murmur Pulses: PRESENT: normal dorsalis pedis pul Extremities exam: PRESENT: full ROM. ABSENT: calf tenderness, clubbing, pedal edema Results Laboratory Results: 12/04/19 12:45 12/09/19 13:55 12/08/19 12:30 Stool - Stool - Final 11/07/19 11/07/19 11/14/19 22:19 22:19 14:56 Creatine Kinase 33 L 28 L CK-MB (CK-2) 0.28 Troponin I < 0.012 11/19/19 12/03/19 12/04/19 05:40 05:30 12:45 Creatine Kinase 26 L 77 98 CK-MB (CK-2) Troponin I 12/10/19 06:20 Creatine Kinase CK-MB (CK-2) 0.35 Troponin I Impressions: Chest CT 11/16/19 00:00 IMPRESSION: Small bilateral pleural effusions with suspected areas of loculation. Trace of pericardial fluid. Compared with the 2014 exam there has been significant improvement in multiple bilateral pulmonary nodules, some of which were cavitary. The largest residual nodule is in the lateral left lung base, as above measuring 2.2 x 2.1 cm. Some equivocal cavitation within this nodule. Findings could reflect septic emboli, with other etiologies including neoplastic, infectious/granulomatous/fungal disease also considered. TECHNICAL DOCUMENTATION: Quality ID # 436: Final reports with documentation of one or more dose reduction techniques (e.g., Automated exposure control, adjustment of the mA and/or kV according to patient size, use of iterative reconstruction technique) copyright 2011 [employer]- All Rights Reserved Chest X-Ray 11/16/19 00:00 IMPRESSION: Right pleural effusion. Patchy retrocardiac airspace opacities. PICC Line Insertion 11/21/19 00:00 IMPRESSION: SUCCESSFUL PLACEMENT OF A 5 FR DUAL LUMEN 39 CM PICC IN THE LEFT BRACHIAL VEIN. Assessment and Plan - Diagnosis (1) Diarrhea Qualifiers: Diarrhea type: unspecified type Qualified Code(s): R19.7 - Diarrhea, unspecified Is this a current diagnosis for this admission?: Yes Plan: Resolved. Likely side effect of sulfonylurea or gastroenteritis. Afebrile. WBC WNL. C. difficile toxin negative. Stool WBC negative. Pending ova and parasite. Continue monitoring volume status. DC glipizide, switch to glimepiride. Follow-up ova and parasite and Gram stain and culture. Maalox and H2 blockers. (2) MRSA bacteremia Is this a current diagnosis for this admission?: Yes Plan: His blood cultures drawn on 16 November were negative. His anticipated stop date for antibiotics is 28 December. (3) Uncontrolled diabetes mellitus Qualifiers: Diabetes mellitus type: type 2 Glycemic state: with hyperglycemia Qualified Code(s): E11.65 - Type 2 diabetes mellitus with hyperglycemia Is this a current diagnosis for this admission?: Yes Plan: Blood glucose level in high 70s. Glipizide had to be switched to glimepiride as he was becoming hypoglycemic and developing diarrhea. History of uncontrolled. Hemoglobin A1c 11%. Continue diabetic diet, sliding scale, correctional and long-acting insulin. Accu-Cheks. Hypoglycemic protocol. Not sure patient will be compliant with his insulin injection as outpatient as he has history of IV drug abuse. Even though patient has hemoglobin A1c of 11% his kidney function is WNL and he will benefit from a combination of oral hypoglycemics and insulin regimen in the hope of controlling his his diabetes with oral hypoglycemics only in the future. Insulin regimen has been DC since 12/09/2019. Continue metformin 1000 mg p.o. twice daily. Sitagliptin 50 mg p.o. twice daily. Glimepiride 1 mg p.o. daily. (4) Pneumonia Qualifiers: Pneumonia type: due to unspecified organism Laterality: left Lung location: unspecified part of lung Qualified Code(s): J18.9 - Pneumonia, unspecified organism Is this a current diagnosis for this admission?: Yes Plan: Resolved (5) Heroin abuse Is this a current diagnosis for this admission?: Yes Plan: Monitoring for signs of withdrawal, so far no such signs. Doing well on Subutex. (6) Hyponatremia Is this a current diagnosis for this admission?: Yes Plan: Resolved (7) Hyperkalemia Is this a current diagnosis for this admission?: Yes Plan: Resolved - Time Time Spent with patient: 15-24 minutes Medications reviewed and adjusted accordingly: Yes Anticipated Discharge Disposition: Home, Self Care Anticipated Discharge Timeframe: when bed available
[2019-12-11] MEDS: DAPTOMYCIN IV SCH (17:41)
[2019-12-11] MEDS: NORMAL SALINE IV SCH (17:41)
[2019-12-11] MEDS ORDERED: FAMOTIDINE 20 MG TABLET ONE (23:01)
--- NOTE | 2019-12-12 00:36 | Left Against Medical Advice ---
Against Medical Advice Admission Date/Time: 11/08/19 01:39 Primary Care Provider: Date of Patient Emigration: 12/12/19 - Diagnosis: (1) MRSA bacteremia Is this a current diagnosis for this admission?: Yes (2) Type 2 diabetes mellitus, uncontrolled Is this a current diagnosis for this admission?: Yes (3) Hyperkalemia Is this a current diagnosis for this admission?: Yes (4) Hyponatremia Is this a current diagnosis for this admission?: Yes (5) Heroin abuse Is this a current diagnosis for this admission?: Yes (6) Tobacco abuse Is this a current diagnosis for this admission?: Yes (7) Nonadherence to medication Is this a current diagnosis for this admission?: Yes - Summary: Summary: Please see Admission and Progress Notes as well. SUDHA BEGUM is a 34 M, who LEFT AGAINST MEDICAL ADVICE. The Patient was admitted on 11/08/19 01:39.
[2019-12-12 00:43] VITALS: BP 124/84
== END 2019-12-12 00:38 | disposition left against medical advice (07) | DRG 288 ==
LOC: ER 22:00 → EH 11-08 01:39 → 4N 11-08 04:08
PROVIDERS: ADMIT Internal Medicine; ATTEND Internal Medicine
PROC: B24BZZZ Ultrasonography of Heart with Aorta (ICD-10-PCS; 2019-11-11)
PROC: 02HV33Z Insertion of Infusion Device into Superior Vena Cava, Percutaneous Approach (ICD-10-PCS; principal; 2019-11-21)
PROC: B548ZZA Ultrasonography of Superior Vena Cava, Guidance (ICD-10-PCS; 2019-11-21)
DX: I33.0 Acute and subacute infective endocarditis (principal); J18.9 Pneumonia, unspecified organism; E87.1 Hypo-osmolality and hyponatremia; R78.81 Bacteremia; B95.61 Methicillin susceptible Staphylococcus aureus infection as the cause of diseases classified elsewhere; E11.65 Type 2 diabetes mellitus with hyperglycemia; F11.10 Opioid abuse, uncomplicated; F12.10 Cannabis abuse, uncomplicated; E87.5 Hyperkalemia; I36.1 Nonrheumatic tricuspid (valve) insufficiency; F32.9 Major depressive disorder, single episode, unspecified; D72.829 Elevated white blood cell count, unspecified; B95.62 Methicillin resistant Staphylococcus aureus infection as the cause of diseases classified elsewhere; D64.9 Anemia, unspecified; D47.3 Essential (hemorrhagic) thrombocythemia; Z88.6 Allergy status to analgesic agent; Z91.19 Patient's noncompliance with other medical treatment and regimen; Z91.14 Patient's other noncompliance with medication regimen; Z79.84 Long term (current) use of oral hypoglycemic drugs; R19.7 Diarrhea, unspecified
CPT/HCPCS: 36415; 36573; 71045; 71046; 71250; 80048; 80053; 80061; 80202; 80307; 81001; 82550; 82553; 82565; 82803; 82962; 83036; 83605; 83735; 84484; 85025; 85027; 85652; 86140; 87040; 87045; 87077; 87150; 87177; 87186; 87205; 87324; 87449; 89055; 93005; 93010; 93306; 94667; 94668; 94799; 96361; 96365; 96368; 96375; 99285; J0456; J0571; J0696; J0878; J1642; J1650; J1815; J1885; J2060; J2405; J2543; J3370; J3490; J7030; J7050; J7060

== ENCOUNTER 2019-12-25 22:42 | Emergency (ER) | payer OTHER ==
[2019-12-25 23:03] VITALS: BP 128/84
--- NOTE | 2019-12-26 09:49 | EKG REPORT ---
SEVERITY:- OTHERWISE NORMAL ECG - SINUS TACHYCARDIA : Confirmed by: Rainer Negron 26-Dec-2019 09:49:06
== END 2019-12-26 02:00 | disposition left against medical advice (07) ==
LOC: ER 22:42
DX: Z53.21 Procedure and treatment not carried out due to patient leaving prior to being seen by health care provider (principal)

== ENCOUNTER 2020-01-06 11:01 | Inpatient (IN) | payer OTHER ==
--- NOTE | 2020-01-06 11:10 | ER Document Report ---
ED General - General Stated Complaint: BLOOD SUGAR ISSUES Time Seen by Provider: 01/06/20 11:08 TRAVEL OUTSIDE OF THE [place] IN LAST 30 DAYS: No - HPI Notes: 34-year-old male presents via EMS for hyperglycemia. Patient is a known d iabetic and has a long history of noncompliance with medication regimens. Patient shrugs his shoulders when asked about the last time he took insulin then states it has been at least a week. Patient is not very forthcoming with information, therefore HPI is limited. He does state that he does heroin and occasionally meth, he states it is been several days since he has last use, he typically injects drugs, states he is feeling dope sick. He reports chronic pain to his upper chest which he says is from endocarditis. - Related Data Allergies/Adverse Reactions: acetaminophen Adverse Reaction (Verified 11/07/19 22:39) Past Medical History - General Information source: Patient - Social History Smoking Status: Current Every Day Smoker Drug Abuse: Heroin, Methamphetamine Family History: DM Endocrine Medical History: Reports: Hx Diabetes Mellitus Type 2 Renal/ Medical History: Denies: Hx Peritoneal Dialysis GI Medical History: Reports: Hx Hepatitis Musculoskeletal Medical History: Reports Hx Musculoskeletal Trauma - Clavicle Psychiatric Medical History: Reports: Hx Depression Traumatic Medical History: Reports: Hx Fractures - Clavicle, nose Infectious Medical History: Reports: Hx Hepatitis Past Surgical History: Reports: Hx Nose Surgery, Other - Arm abscess I&D in the OR - Immunizations Hx Diphtheria, Pertussis, Tetanus Vaccination: No Hx Pneumococcal Vaccination: 06/04/14 Review of Systems - Review of Systems Notes: Limitation in ROS due to patient participation Constitutional: denies: Fever Respiratory: denies: Cough Gastrointestinal: denies: Abdominal pain Physical Exam - Vital signs Vitals: Temp Resp BP 97.4 F 27 H 146/94 H 01/06/20 11:15 01/06/20 11:15 01/06/20 11:15 - General General appearance: Alert Notes: Chronically ill-appearing - HEENT Head: Normocephalic, Atraumatic Eyes: No: Scleral icterus Extraocular movements intact: Yes Pupils: PERRL Mouth/Lips: Caries Mucous membranes: Dry Neck: Supple. No: Lymphadenopathy - Respiratory Respiratory status: Tachypnea, Other - Kussmaul respirations Breath sounds: Normal - Cardiovascular Rhythm: Tachycardia Heart sounds: Normal auscultation Normal capillary refill: Yes - Abdominal Distension: No distension Bowel sounds: Normal Tenderness: Nontender - Extremities General upper extremity: Normal ROM General lower extremity: Normal ROM - Neurological Neuro grossly intact: Yes Cognition: Normal Orientation: AAOx4 Notes: Moves all extremities, able to follow commands - Skin Skin Temperature: Warm Notes: Multiple track ghosh across all of his extremities Course - Re-evaluation Re-evalutation: 34-year-old male noncompliant with insulin here for hyperglycemia. I am highly concerned for DKA, he exhibits Kussmaul respirations. Remarkably he is neurologically intact and able to follow commands and converse state. Has a long history of intravenous drug abuse, was admitted a few months ago for endocarditis. He currently does not have a fever and is otherwise denying infectious-like symptoms, though he is not as forthcoming with information. Heroin withdrawal a possibility as well. Will start with 2 L of LR while we await labs. Laboratory evaluation is consistent with DKA. His pH is 7.14, bicarb is less than 5. Potassium is actually within normal limits. Insulin infusion has been ordered. 01/06/20 13:33 In to check on patient, he remains alert and able to converse eat. We are working on getting additional vascular access. I attempted to place an external jugular IV and was unsuccessful. 01/06/20 13:42 Patient to be admitted to the hospitalist service for further management of DKA. 01/06/20 13:52 Chest x-ray revealed, there is a rounded opacity in the right upper lobe. I have ordered a chest CT to further evaluate. - Vital Signs Vital signs: Temp Pulse Resp BP Pulse Ox 97.4 F 29 H 141/93 H 100 01/06/20 11:38 01/06/20 12:00 01/06/20 12:00 01/06/20 12:00 - Laboratory Result Diagrams: 01/06/20 11:35 01/06/20 11:35 Laboratory results interpreted by me: 01/06/20 01/06/20 01/06/20 11:10 11:16 11:35 WBC 23.8 H Hgb 12.7 L MCHC 29.6 L RDW 15.2 H Plt Count 654 H Seg Neuts % (Manual) 85 H Lymphocytes % (Manual) 7 L Abs Neuts (Manual) 20.9 H VBG pH VBG pCO2 VBG HCO3 Sodium Chloride Carbon Dioxide BUN Glucose POC Glucose 510 H* 548 H* Alkaline Phosphatase Urine Glucose (UA) Urine Ketones Urine Blood 01/06/20 01/06/20 01/06/20 11:35 11:35 11:45 WBC Hgb MCHC RDW Plt Count Seg Neuts % (Manual) Lymphocytes % (Manual) Abs Neuts (Manual) VBG pH 7.14 L* VBG pCO2 19.6 L* VBG HCO3 6.4 L Sodium 134.9 L Chloride 94 L Carbon Dioxide < 5 L* BUN 24 H Glucose 630 H* POC Glucose Alkaline Phosphatase 182 H Urine Glucose (UA) >=500 H Urine Ketones 80 H Urine Blood SMALL H - Diagnostic Test Radiology reviewed: Image reviewed, Reports reviewed - EKG Interpretation by Me Additional EKG results interpreted by me: EKG is interpreted by me. Sinus tachycardia, rate 104. Narrow QRS, QTC within normal limits. No hyperacute T waves. Discharge - Discharge Clinical Impression: Heroin abuse DKA (diabetic ketoacidoses) Qualifiers: Diabetes mellitus type: type 1 Diabetes mellitus complication detail: without coma Qualified Code(s): E10.10 - Type 1 diabetes mellitus with ketoacidosis without coma Disposition: ADMITTED INPATIENT Admitting Provider: Alex (Hospitalist) Unit Admitted: [facility]
[2020-01-06] MEDS: RINGERS SOLUTION,LACTATED 1,000 ML IV PRN ×2 (11:51→13:50)
[2020-01-06 11:56] LABS: HEMOGLOBIN 12.7 g/dL (13.5-17.0); MEAN CORPUSCULAR HEMOGLOBIN 28.1 pg (27.0-33.4); MEAN CORPUSCULAR HGB CONC 29.6 g/dL (32.0-36.0); MEAN CORPUSCULAR VOLUME 95 fl (80-97); RED BLOOD COUNT 4.52 10^6/uL (4.35-5.55); RED CELL DISTRIBUTION WIDTH 15.2 % (11.5-14.0); WHITE BLOOD COUNT 23.8 10^3/uL (4.0-10.5)
[2020-01-06 12:00] LABS: VENOUS BLOOD BASE EXCESS -20.7 mmol/L; VENOUS BLOOD HCO3 6.4 mmol/L (20-32)
[2020-01-06 12:03] LABS: VENOUS BLOOD PCO2 19.6 mmHg (35-63); VENOUS BLOOD PH 7.14 (7.30-7.42)
[2020-01-06 12:12] LABS: ALBUMIN 3.5 g/dL (3.5-5.0); ALKALINE PHOSPHATASE 182 U/L (38-126); ASPARTATE AMINO TRANSFERASE 24 U/L (17-59); BILIRUBIN,DIRECT 0.4 mg/dL (0.0-0.4); BILIRUBIN,TOTAL 0.5 mg/dL (0.2-1.3); BLOOD UREA NITROGEN 24 mg/dL (7-20); CALCIUM 9.3 mg/dL (8.4-10.2); CHLORIDE 94 mmol/L (98-107); POTASSIUM 4.7 mmol/L (3.6-5.0)
[2020-01-06 12:15] LABS: APPEARANCE,URINE CLEAR; BILIRUBIN,URINE NEGATIVE (NEGATIVE); COLOR,URINE STRAW; GLUCOSE, URINE >=500 mg/dL (NEGATIVE); KETONES,URINE 80 mg/dL (NEGATIVE); LEUKOCYTE ESTERASE,URINE NEGATIVE (NEGATIVE); NITRITE,URINE NEGATIVE (NEGATIVE); PROTEIN,URINE NEGATIVE (NEGATIVE); URINE SPECIFIC GRAVITY 1.025; UROBILINOGEN,URINE NEGATIVE mg/dL (<2.0)
[2020-01-06 12:31] LABS: ABSOLUTE LYMPHOCYTES# (MANUAL) 1.9 10^3/uL (0.5-4.7); ANISOCYTOSIS SLIGHT; BAND NEUTROPHILS % (MANUAL) 3 % (3-5); BASOPHILS % (MANUAL) 0 % (0-2); EOSINOPHILS % (MANUAL) 0 % (0-6); LYMPHOCYTES % (MANUAL) 7 % (13-45); MONOCYTES % (MANUAL) 4 % (3-13); SEGMENTED NEUTROPHILS % (MAN) 85 % (42-78); TOTAL CELLS COUNTED 100
[2020-01-06 12:35] LABS: PLATELET CLUMPS PRESENT; PLATELET COMMENT INCREASED; POLYCHROMASIA 1+
[2020-01-06 12:37] LABS: PLATELET COUNT 654 10^3/uL (150-450)
[2020-01-06 12:39] LABS: GLUCOSE 630 mg/dL (75-110)
[2020-01-06 12:40] LABS: CARBON DIOXIDE < 5 mmol/L (22-30)
[2020-01-06] MEDS ORDERED: INSULIN REG, HUMAN 100 UNIT/ML 3 ML VIAL (PYX) IV ONE ×2 (12:47→14:21)
--- NOTE | 2020-01-06 12:55 | RADIOLOGY REPORT (SQ) ---
EXAM DESCRIPTION: CHEST SINGLE VIEW IMAGES COMPLETED DATE/TIME: 01/06/2020 12:40 pm REASON FOR STUDY: eval consolidation COMPARISON: 11/16/2019 EXAM PARAMETERS: NUMBER OF VIEWS: One view. TECHNIQUE: Single frontal radiographic view of the chest acquired. RADIATION DOSE: NA LIMITATIONS: None. FINDINGS: LUNGS AND PLEURA: New 5.5 cm rounded opacity overlies right upper lung. Unremarkable left hemithorax. No pneumothorax. No additional pleural fluid. MEDIASTINUM AND HILAR STRUCTURES: No masses. Contour normal. HEART AND VASCULAR STRUCTURES: Heart normal in size. Normal vasculature. BONES: No acute findings. HARDWARE: None in the chest. OTHER: No other significant finding. IMPRESSION: New 5.5 cm rounded opacity overlies right lung apex, possibly focal consolidation, locul ated apical effusion or overlying mass. Two view radiograph or CT could be considered for more defin itive localization. TECHNICAL DOCUMENTATION: JOB ID: [id number] 2010 [employer]- All Rights Reserved Reading location - IP/workstation name: [email or web address]
[2020-01-06] MEDS ORDERED: INSULIN REG, HUMAN 100 UNIT/ML 3 ML VIAL (PYX) ONE (14:10)
[2020-01-06] MEDS ORDERED: NORMAL SALINE 1000 ML 1,000 ML IV ONE ×3 (14:20→14:21)
[2020-01-06] MEDS ORDERED: NORMAL SALINE 1000 ML 1,000 ML IV PRN (14:21)
[2020-01-06] MEDS ORDERED: BUPRENORPHINE HCL 2 MG SUBLINGUAL TABLET SL ONE (14:25)
[2020-01-06] MEDS ORDERED: DEXTROSE 50%-WATER 25 GM/50 ML DISP.SYRIN IV PRN ×4 (14:32→14:43)
[2020-01-06] MEDS ORDERED: PROMETHAZINE HCL INJ 25 MG/1 ML VIAL IV PRN (14:32)
[2020-01-06] MEDS ORDERED: ALBUTEROL SULFATE 0.083% NEB 2.5 MG/3 ML AMPUL NEB PRN (14:32)
[2020-01-06] MEDS ORDERED: ACETAMINOPHEN 650 MG SUPP.RECT PR PRN (14:32)
[2020-01-06] MEDS ORDERED: GLUCAGON,HUMAN RECOMB 1 MG INJ SUBCUT PRN (14:32)
[2020-01-06] MEDS ORDERED: MAG HYDROX/AL HYDROX/SIMETH SUSP 30 ML UDCUP PO PRN (14:32)
[2020-01-06] MEDS ORDERED: DEXTROSE 40% GEL 15 GM TUBE PO PRN ×4 (14:32→14:43)
--- NOTE | 2020-01-06 14:34 | RADIOLOGY REPORT (SQ) ---
EXAM DESCRIPTION: CT CHEST WITHOUT IMAGES COMPLETED DATE/TIME: 01/06/2020 2:06 pm REASON FOR STUDY: RUL consolidaion on CXR COMPARISON: 11/16/2019, same day radiograph TECHNIQUE: CT scan performed of the chest without intravenous contrast. Images reviewed with lung, soft tissue and bone windows. Reconstructed coronal and sagittal MPR images reviewed. All images st ored on PACS. All CT scanners at this facility use dose modulation, iterative reconstruction, and/or weight based d osing when appropriate to reduce radiation dose to as low as reasonably achievable (ALARA). [facility]: Dose Right [facility]: CareDose [facility]: Dose Right [facility]: Teradose 4D [facility]: Smart [facility] RADIATION DOSE: CT Rad equipment meets quality standard of care and radiation dose reduction techniq ues were employed. CTDIvol: 6.6 mGy. DLP: 260 mGy-cm. mGy. LIMITATIONS: No technical limitations. FINDINGS: LUNGS AND PLEURA: Low-density (Hounsfield units -2) lesion along the anterior right upper lobe measuring approximately 5.6 x 4.2 cm which demonstrates broad connection with the pleural surfac e (series 3, image 17). There are scattered gas foci with internally. Pulmonary parenchyma demonstr ates no additional areas of consolidation. No discrete nodules or masses. No pneumothorax. No carrie tional pleural fluid identified. HILAR AND MEDIASTINAL STRUCTURES: No identified masses or abnormal nodes. No obvious aneurysm. HEART AND VASCULAR STRUCTURES: No aneurysm. No pericardial effusion. UPPER ABDOMEN: Fluid and gas distended stomach. No additional acute findings. THYROID AND OTHER SOFT TISSUES: No masses. No adenopathy. BONES: There is abnormal soft tissue thickening seen around the sternomanubrial joint and along the i nferior sternum (series 602, image 45). Additionally, there is irregular lucent lesion centered at t he sternomanubrial joint suggestive of osteomyelitis. No additional acute bony abnormality. HARDWARE: None in the chest. OTHER: No other significant findings. IMPRESSION: 1. There is abnormal soft tissues thickening and stranding around the sternomanubrial sanju int with irregular lucent lesions at the joint suggestive of osteomyelitis. Additional abnormal soft tissue at the inferior sternum. 5.6 x 4.2 cm low-density pleural-based lesion along the right uppe r lobe with scattered foci of gas internally which likely represent extrapleural fluid collection eben ginating from the above findings. 2. Remaining pulmonary parenchyma is unremarkable. TECHNICAL DOCUMENTATION: JOB ID: [id number] Quality ID # [id number]: Final reports with documentation of one or more dose reduction techniques (e.g., Au tomated exposure control, adjustment of the mA and/or kV according to patient size, use of iterative reconstruction technique) 2010 [employer]- All Rights Reserved Reading location - IP/workstation name: [email or web address]
[2020-01-06] MEDS ORDERED: GLUCAGON,HUMAN RECOMB 1 MG INJ IM PRN (14:43)
[2020-01-06] MEDS ORDERED: NORMAL SALINE 100 ML with INSULIN REGULAR, HUMAN 100 UNIT IV PRN ×2 (14:43)
[2020-01-06 15:13] LABS: URINE AMPHETAMINES SCREEN NEGATIVE; URINE BARBITURATES SCREEN NEGATIVE; URINE BENZODIAZEPINES SCREEN NEGATIVE; URINE COCAINE SCREEN NEGATIVE; URINE MARIJUANA (THC) SCREEN NEGATIVE; URINE METHADONE SCREEN NEGATIVE; URINE PHENCYCLIDINE SCREEN NEGATIVE
[2020-01-06 15:30] LABS: ARTERIAL BLOOD BASE EXCESS -20.8 mmol/L; ARTERIAL BLOOD H2CO3 0.28 mmol/L (1.05-1.35); ARTERIAL BLOOD HCO3 3.7 mmol/L (20-24); ARTERIAL BLOOD O2 SATURATION 98.1 % (94-98); ARTERIAL BLOOD PH 7.22 (7.35-7.45)
[2020-01-06 15:33] LABS: ARTERIAL BLOOD FIO2 ROOM AIR; ARTERIAL BLOOD PCO2 9.3 mmHg (35-45)
--- NOTE | 2020-01-06 15:45 | PDOC H&P ---
History of Present Illness Admission Date/PCP: 01/06/20 14:09 Patient complains of: dka History of Present Illness: SUDHA BEGUM is a 34 year old male with a past medical history significant for uncontrolled diabetes mellitus, frequent admission for DKA, substance abuse with continuous use, and recent admission for MSSA bacteremia/endocarditis (incomplete treatment; patient left AGAINST MEDICAL ADVICE week #4 of 6) Who presented to the emergency department today with a complaint of uncontrolled blood sugars. Evaluation emergency department revealed hypertension, tachycardia, leukocytosis (WBC is 23.8), thrombocytosis (654), DKA with bicarb less than 5, nonreportable anion gap, glucose 630, VBG with pH 7.1, urinalysis positive for glucose, ketones, blood, and a negative UDS. EKG showed sinus tachycardia with a borderline elevated QTC. Chest CT revealed soft tissue thickening and stranding along the sternal mandibular joint with irregular lucent lesions to the joint suggestive of osteomyelitis with an additional soft tissue formation inferior to the sternum with numerous foci of gas). Difficulty obtaining IV access; ED provider attempted EJ x2. Currently w/ PIV to right foot. Patient was provided 2 L LR bolus and referred to the hospitalist service for further evaluation and management. Discussed with Dr. Prieto who will assist in obtaining access via central line placement. Past Medical History Cardiac Medical History: Reports: Other - Endocarditis Pulmonary Medical History: Reports: None EENT Medical History: Reports: None Neurological Medical History: Reports: None Endocrine Medical History: Reports: Diabetes Mellitus Type 2 GI Medical History: Reports: Hepatitis Musculoskeltal Medical History: Reports: None Skin Medical History: Reports: None Psychiatric Medical History: Reports: Depression, Substance Abuse, Tobacco Dependency Traumatic Medical History: Reports: None Hematology: Reports: None Social History Information Source: Patient, [facility] Records Lives with: Parents Smoking Status: Current Every Day Smoker Electronic Cigarette use?: No Frequency of Alcohol Use: None Hx Recreational Drug Use: Yes Drugs: Heroin, Marijuana, Methadone, Other Hx Prescription Drug Abuse: No - Advance Directive Resuscitation Status: Full Code Family History Family History: DM Parental Family History Reviewed: Yes Children Family History Reviewed: Yes Sibling(s) Family History Reviewed.: Yes Medication/Allergy Home Medications: No Home Medications 11/08/19 Allergies/Adverse Reactions: acetaminophen Adverse Reaction (Verified 11/07/19 22:39) Review of Systems Constitutional: PRESENT: fatigue, headache(s). ABSENT: chills, fever(s), weight gain, weight loss Eyes: ABSENT: visual disturbances Ears: ABSENT: hearing changes Cardiovascular: ABSENT: chest pain, dyspnea on exertion, edema, orthropnea, palpitations Respiratory: ABSENT: cough, hemoptysis Gastrointestinal: PRESENT: abdominal pain, nausea, vomiting. ABSENT: constip ation, diarrhea, hematemesis, hematochezia Genitourinary: ABSENT: dysuria, hematuria Musculoskeletal: ABSENT: joint swelling Integumentary: ABSENT: rash, wounds Neurological: ABSENT: abnormal gait, abnormal speech, confusion, dizziness, focal weakness, syncope Psychiatric: ABSENT: anxiety, depression, homidical ideation, suicidal ideation Endocrine: PRESENT: polydipsia, polyuria. ABSENT: cold intolerance, heat intolerance, polyphagia Hematologic/Lymphatic: ABSENT: easy bleeding, easy bruising Physical Exam Vital Signs: Temp Pulse Resp BP Pulse Ox 97.4 F 25 H 144/88 H 100 01/06/20 11:38 01/06/20 14:31 01/06/20 14:31 01/06/20 13:48 Intake & Output 01/05/20 01/06/20 01/07/20 06:59 06:59 06:59 Intake Total 2000 Output Total 3000 Balance -1000 Weight 67.2 kg General appearance: PRESENT: mild distress, well-developed, well-nourished, other - Acutely ill-appearing Head exam: PRESENT: atraumatic, normocephalic Eye exam: PRESENT: conjunctiva pink, EOMI, PERRLA. ABSENT: scleral icterus Mouth exam: PRESENT: dry mucosa, tongue midline Respiratory exam: PRESENT: clear to auscultation fran, symmetrical, tachypnea, other - Kussmaul. ABSENT: rales, rhonchi, wheezes Cardiovascular exam: PRESENT: RRR, +S1, +S2, tachycardia. ABSENT: diastolic murmur, rubs, systolic murmur Pulses: PRESENT: normal dorsalis pedis pul Vascular exam: PRESENT: normal capillary refill GI/Abdominal exam: PRESENT: normal bowel sounds, soft. ABSENT: distended, guarding, mass, organolmegaly, rebound, tenderness Rectal exam: PRESENT: deferred Extremities exam: PRESENT: full ROM. ABSENT: calf tenderness, clubbing, pedal edema Neurological exam: PRESENT: alert, awake, oriented to person, oriented to place, oriented to time, oriented to situation, CN II-XII grossly intact, other - lethargic; arousable.. ABSENT: motor sensory deficit Skin exam: PRESENT: dry, warm, other - Multiple track ghosh; abscess to left forearm is well-healed. ABSENT: cyanosis, rash Results Laboratory Results: 01/06/20 11:35 01/06/20 11:35 01/06/20 01/06/20 01/06/20 11:35 11:35 11:35 WBC 23.8 H RBC 4.52 Hgb 12.7 L Hct 43.0 MCV 95 MCH 28.1 MCHC 29.6 L RDW 15.2 H Plt Count 654 H Seg Neutrophils % Not Reportable VBG pH 7.14 L* VBG pCO2 19.6 L* VBG HCO3 6.4 L VBG Base Excess -20.7 Sodium 134.9 L Potassium 4.7 Chloride 94 L Carbon Dioxide < 5 L* Anion Gap Not Reportable BUN 24 H Creatinine 1.07 Est GFR ( Amer) > 60 Glucose 630 H* Calcium 9.3 Magnesium Total Bilirubin 0.5 AST 24 Alkaline Phosphatase 182 H Total Protein 8.0 Albumin 3.5 Urine Color Urine Appearance Urine pH Ur Specific [place] Urine Protein Urine Glucose (UA) Urine Ketones Urine Blood Urine Nitrite Ur Leukocyte Esterase Urine WBC (Auto) Urine RBC (Auto) 01/06/20 01/06/20 11:35 11:45 WBC RBC Hgb Hct MCV MCH MCHC RDW Plt Count Seg Neutrophils % VBG pH VBG pCO2 VBG HCO3 VBG Base Excess Sodium Potassium Chloride Carbon Dioxide Anion Gap BUN Creatinine Est GFR ( Amer) Glucose Calcium Magnesium 2.5 H Total Bilirubin AST Alkaline Phosphatase Total Protein Albumin Urine Color STRAW Urine Appearance CLEAR Urine pH 5.0 Ur Specific [place] 1.025 Urine Protein NEGATIVE Urine Glucose (UA) >=500 H Urine Ketones 80 H Urine Blood SMALL H Urine Nitrite NEGATIVE Ur Leukocyte Esterase NEGATIVE Urine WBC (Auto) 1 Urine RBC (Auto) 3 Impressions: Chest CT 01/06/20 13:51 IMPRESSION: 1. There is abnormal soft tissues thickening and stranding around the sternomanubrial joint with irregular lucent lesions at the joint suggestive of osteomyelitis. Additional abnormal soft tissue at the inferior sternum. 5.6 x 4.2 cm low-density pleural-based lesion along the right upper lobe with scattered foci of gas internally which likely represent extrapleural fluid collection originating from the above findings. 2. Remaining pulmonary parenchyma is unremarkable. Assessment and Plan - Diagnosis (1) DKA (diabetic ketoacidoses) Qualifiers: Diabetes mellitus type: type 1 Diabetes mellitus complication detail: without coma Qualified Code(s): E10.10 - Type 1 diabetes mellitus with ketoacidosis without coma Is this a current diagnosis for this admission?: Yes Plan: ABG reveals metabolic acidosis with pH 7.22, PCO2 9.3, HCO3 3.7. Anion gap is not reportable. Glucose in the 600s. Has received 2 L bolus by ED provider. Discussed with unarmed security guard, Dr. Pulliam; patient does not meet ICU criteria at this time. Will assist as needed. Patient is admitted to [facility] on continuous cardiac telemetry. He is provided an additional 3 L normal saline bolus followed by generous IV fluids. He is provided 10 units insulin IV bolus followed by insulin drip per protocol. N.p.o. with ice chips only. Antiemetics as needed. Repeat ABG in 1 hour. Serial chemistries every 4. 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 He was on week #4 of 6 of treatment for MSSA endocarditis with daptomycin. Blood cultures pending. Resume daptomycin. We will need infectious disease consult to guide length of therapy. Patient has had additional IV drug use since he left. (3) Osteomyelitis Qualifiers: Osteomyelitis type: other acute Osteomyelitis location: other site Qualified Code(s): M86.18 - Other acute osteomyelitis, other site Is this a current diagnosis for this admission?: Yes Plan: CT imaging revealed abnormal soft tissue thickening and stranding along the righ t sternal manubrial joint with irregular lucent lesions concerning for osteomyelitis with an additional soft tissue density inferior to the sternum along the right upper lobe with scattered foci of gas which likely represents an extrapleural fluid collection originating from the osteomyelitis. Discussed with Dr. Cardenas, cardiothoracic surgery at [facility]. He recommends initial attention to DKA with follow-up imaging in 48 hours. He advised that repeat CT will guide decision regarding potential need for surgical intervention. Remaining management as above. (4) Bacteremia Is this a current diagnosis for this admission?: Yes Plan: High suspicion. Evaluation and management as above. (5) Uncontrolled diabetes mellitus Qualifiers: Diabetes mellitus type: type 2 Glycemic state: with hyperglycemia Qualified Code(s): E11.65 - Type 2 diabetes mellitus with hyperglycemia Is this a current diagnosis for this admission?: Yes Plan: Hemoglobin A1c 12.6% Currently in DKA. N.p.o. status. Insulin drip per protocol. Hypoglycemia protocol in place. (6) Substance abuse Is this a current diagnosis for this admission?: Yes Plan: Patient with history of IV heroin, methadone, marijuana drug use. During prior admission, his withdrawal symptoms abated rapidly with use of Subutex. We will resume prior dose; Subutex 4 mg daily. Monitor for evidence of withdrawal. (7) IV drug user Is this a current diagnosis for this admission?: Yes Plan: As above. - Time Time Spent with patient: 35 or more minutes Medications reviewed and adjusted accordingly: Yes Anticipated Discharge Disposition: Tertiary Anticipated Discharge Timeframe: >72 hrs
[2020-01-06 15:51] LABS: BLOOD UREA NITROGEN 28 mg/dL (7-20); CALCIUM 8.8 mg/dL (8.4-10.2); CHLORIDE 98 mmol/L (98-107); POTASSIUM 4.5 mmol/L (3.6-5.0)
[2020-01-06] MEDS ORDERED: DAPTOMYCIN 400 MG in NORMAL SALINE 50 ML IV SCH (16:00)
[2020-01-06 16:03] LABS: GLUCOSE 606 mg/dL (75-110)
[2020-01-06 16:04] LABS: CARBON DIOXIDE < 5 mmol/L (22-30)
--- NOTE | 2020-01-06 16:12 | Operative Report ---
Operative Report DATE OF SURGERY: 01/06/20 PREOPERATIVE DIAGNOSIS: Poor peripheral veins for IV access POSTOPERATIVE DIAGNOSIS: Same OPERATION: Placement of right internal jugular catheter under ultrasound guidance SURGEON: JOSEFA SANTANA ANESTHESIA: Local TISSUE REMOVED OR ALTERED: None COMPLICATIONS: None ESTIMATED BLOOD LOSS: 5 cc QUANTITATIVE BLOOD LOSS: 5 INTRAOPERATIVE FINDINGS: Normal right internal jugular vein PROCEDURE: After informed consent was obtained patient was placed in slight Trendelenburg position and the right neck and infraclavicular area were then prepped and draped in the usual sterile fashion. With the use of the ultrasound the right internal jugular vein was identified and local anesthesia infiltrated over the skin overlying the vein. The vein was then punctured and guidewire placed through the needle towards the area of superior vena cava. Initial backflow was dark and nonpulsatile. The puncture site was then dilated and a triple-lumen catheter inserted through the guidewire to a distance of about 17 cm. The catheter was then anchored to the skin with 3-0 silk. Biopatch placed at the insertion site and a transparent sterile dressing placed over the Biopatch and catheter. A chest x-ray will be obtained for placement. All the 3 ports aspirated blood easily and instilled saline easily. Patient tolerated procedure well.
--- NOTE | 2020-01-06 16:37 | RADIOLOGY REPORT (SQ) ---
EXAM DESCRIPTION: CHEST SINGLE VIEW IMAGES COMPLETED DATE/TIME: 01/06/2020 2:29 pm REASON FOR STUDY: Central line placement COMPARISON: 01/06/2020. CT chest 01/06/2020. CT chest 10/17/2019. EXAM PARAMETERS: NUMBER OF VIEWS: One view. TECHNIQUE: Single frontal radiographic view of the chest acquired. RADIATION DOSE: NA LIMITATIONS: None. FINDINGS: LUNGS AND PLEURA: Rounded mass in the right upper lung apex with associated pleural thicke lauren, stable from prior. No new consolidation or pneumothorax. MEDIASTINUM AND HILAR STRUCTURES: No masses. Contour normal. HEART AND VASCULAR STRUCTURES: Heart normal in size. Normal vasculature. BONES: No acute findings. HARDWARE: New right IJ central venous catheter with tip in the right atrium. OTHER: No other significant finding. IMPRESSION: New right central venous catheter with tip in the right atrium. No pneumothorax. No si gnificant interval change. TECHNICAL DOCUMENTATION: JOB ID: [id number] 2010 [employer]- All Rights Reserved Reading location - IP/workstation name: [email or web address]
[2020-01-06 17:39] LABS: BLOOD UREA NITROGEN 27 mg/dL (7-20); CALCIUM 7.6 mg/dL (8.4-10.2); GLUCOSE 384 mg/dL (75-110); POTASSIUM 3.8 mmol/L (3.6-5.0)
[2020-01-06 18:10] LABS: ARTERIAL BLOOD H2CO3 0.76 mmol/L (1.05-1.35); ARTERIAL BLOOD HCO3 9.5 mmol/L (20-24); ARTERIAL BLOOD O2 SATURATION 95.9 % (94-98); ARTERIAL BLOOD PCO2 25.2 mmHg (35-45); ARTERIAL BLOOD PO2 95.7 mmHg (80-100); ARTERIAL BLOOD TOTAL CO2 10.3 mmol/L (23-27)
--- NOTE | 2020-01-06 18:20 | EKG REPORT ---
SEVERITY:- ABNORMAL ECG - SINUS TACHYCARDIA PROBABLE LEFT ATRIAL ABNORMALITY PROBABLE POSTERIOR INFARCT BORDERLINE PROLONGED QT INTERVAL : Confirmed by: Quintin Mcallister MD 06-Jan-2020 18:19:04
[2020-01-06 18:39] LABS: CHLORIDE 109 mmol/L (98-107)
[2020-01-06 18:41] LABS: ARTERIAL BLOOD FIO2 21%; ARTERIAL BLOOD PH 7.19 (7.35-7.45)
[2020-01-06 18:41] LABS: ANION GAP 21 (5-19); CARBON DIOXIDE 7 mmol/L (22-30)
[2020-01-06 19:09] LABS: ALBUMIN 2.5 g/dL (3.5-5.0); ALKALINE PHOSPHATASE 119 U/L (38-126); ANION GAP 17 (5-19); ASPARTATE AMINO TRANSFERASE 18 U/L (17-59); BILIRUBIN,DIRECT 0.4 mg/dL (0.0-0.4); BILIRUBIN,TOTAL 0.4 mg/dL (0.2-1.3); BLOOD UREA NITROGEN 27 mg/dL (7-20); CALCIUM 7.6 mg/dL (8.4-10.2); CARBON DIOXIDE 11 mmol/L (22-30); CHLORIDE 110 mmol/L (98-107); GLUCOSE 317 mg/dL (75-110); POTASSIUM 4.1 mmol/L (3.6-5.0); TOTAL PROTEIN 6.3 g/dL (6.3-8.2)
[2020-01-06] MEDS ORDERED: DEXTROSE 5%-NORMAL SALINE 1,000 ML IV PRN (20:16)
[2020-01-06] MEDS: HEPARIN SOD (PORCINE) 5,000 UNIT/ML 1 ML VIAL SUBCUT SCH (21:48)
[2020-01-06] MEDS: FAMOTIDINE INJ/PF 20 MG/2 ML SDV IV SCH (21:48)
[2020-01-07 00:54] LABS: ANION GAP 8 (5-19); BLOOD UREA NITROGEN 19 mg/dL (7-20); CALCIUM 7.8 mg/dL (8.4-10.2); CARBON DIOXIDE 20 mmol/L (22-30); CHLORIDE 115 mmol/L (98-107); GLUCOSE 175 mg/dL (75-110); POTASSIUM 3.3 mmol/L (3.6-5.0)
[2020-01-07] MEDS ORDERED: POTASSI CL 20 MEQ/50 ML RIDER 20 MEQ/50 ML RTUPB IV ONE (04:55)
[2020-01-07 05:01] LABS: ABSOLUTE BASOPHILS # (AUTO) 0.1 10^3/uL (0.0-0.2); ABSOLUTE LYMPHOCYTES (AUTO) 0.8 10^3/uL (0.5-4.7); ABSOLUTE MONOCYTES (AUTO) 1.2 10^3/uL (0.1-1.4); ABSOLUTE NEUT (AUTO) 11.9 10^3/uL (1.7-8.2); BASOPHILS % (AUTO) 0.6 % (0-2); EOSINOPHILS % (AUTO) 0.1 % (0-6); HEMATOCRIT 33.4 % (37.9-51.0); HEMOGLOBIN 10.9 g/dL (13.5-17.0); MEAN CORPUSCULAR HEMOGLOBIN 27.7 pg (27.0-33.4); MEAN CORPUSCULAR HGB CONC 32.8 g/dL (32.0-36.0); MONOCYTES % (AUTO) 8.6 % (3-13); PLATELET COUNT 537 10^3/uL (150-450); RED BLOOD COUNT 3.95 10^6/uL (4.35-5.55); RED CELL DISTRIBUTION WIDTH 13.8 % (11.5-14.0); SEGMENTED NEUTROPHILS % (AUTO) 84.7 % (42-78); TOTAL CELLS COUNTED % (AUTO) 100 %
[2020-01-07 05:02] LABS: MEAN CORPUSCULAR VOLUME 85 fl (80-97)
[2020-01-07 05:13] LABS: ANION GAP 5 (5-19); BLOOD UREA NITROGEN 16 mg/dL (7-20); CALCIUM 8.1 mg/dL (8.4-10.2); CARBON DIOXIDE 21 mmol/L (22-30); CHLORIDE 118 mmol/L (98-107); GLUCOSE 94 mg/dL (75-110); POTASSIUM 3.2 mmol/L (3.6-5.0)
[2020-01-07] MEDS ORDERED: INSULIN GLARGINE,HUM.REC.ANLOG 1,000 UNIT/10 ML VIAL SUBCUT ONE (05:15)
[2020-01-07] MEDS ORDERED: INSULIN GLARGINE,HUM.REC.ANLOG 1,000 UNIT/10 ML VIAL (PYX) SUBCUT ONE ×2 (05:15→10:00)
[2020-01-07] MEDS: HEPARIN SOD (PORCINE) 5,000 UNIT/ML 1 ML VIAL SUBCUT SCH ×3 (05:50→21:54)
[2020-01-07] MEDS: BUPRENORPHINE HCL 2 MG SUBLINGUAL TABLET SL SCH (09:54)
[2020-01-07] MEDS: DOCUSATE SODIUM 100 MG CAPSULE PO SCH (09:54)
[2020-01-07] MEDS: POTASSI CL 20 MEQ/50 ML RIDER 20 MEQ/50 ML RTUPB IV SCH ×2 (09:54→12:56)
[2020-01-07] MEDS: FAMOTIDINE INJ/PF 20 MG/2 ML SDV IV SCH ×2 (09:54→21:54)
[2020-01-07] MEDS: INSULIN LISPRO 100 UNIT/ML 3 ML VIAL SUBCUT SCH ×3 (09:58→18:18)
[2020-01-07] MEDS: INSULIN REG, HUMAN 100 UNIT/ML 3 ML VIAL (PYX) SUBCUT SCH ×3 (12:55→21:48)
[2020-01-07] MEDS ORDERED: DAPTOMYCIN 400 MG in NORMAL SALINE 50 ML IV SCH (14:00)
[2020-01-07 15:46] LABS: C-REACTIVE PROTEIN 180.6 mg/L (<10.0)
--- NOTE | 2020-01-07 18:19 | Progress Note ---
Provider Note Provider Note: [facility] ID Telephone Advice Consultation Chart reviewed. Patient is a 34-year-old man with active IVDU who was recently admitted to the hospital in September due to Streptococcus pyogenes bacteremia associated with an arm abscess that was drained and superficial thrombophlebitis surrounding the abscess. Patient left AMA before completion of antibiotics (5 days of treatment). He returned to the hospital with chest pain. He was found bacteremic with MRSA, a TTE with possible vegetation in TV and chest imaging with a left lung opacity likely septic emboli or edema. He was on daptomycin for TVE with septic pulmonary emboli (requiring up to 5g of vancomycin) for which he received 4 weeks, but left AMA. He was now readmitted on 01/05 due to DKA. Blood glucose was 630, WBC 23k, platelets 654. A CXR showed a subpleural opacity in right lung apex that may be loculated. CT of the chest showed possible septic arthritis of the sternomanubrial joint with osteomyelitis. Blood cultures on admission both sets positive for MRSA. He had a right IJ placed due to lack of iv access. ID consulted for recommendations. PMH: DM IVDU GAS bacteremia Left arm abscess and SVT MRSA TVE 11/2019 PSH: I&D arm Allergies: acetaminophen Adverse Reaction (Verified 11/07/19 22:39) Medications: No Home Medications 11/08/19 Vital Signs: Temp Pulse Resp BP Pulse Ox 98.0 F 109 H 16 128/78 H 99 01/07/20 12:31 01/07/20 14:00 01/07/20 12:31 01/07/20 12:31 01/07/20 12:31 Intake & Output 01/06/20 01/07/20 01/08/20 06:59 06:59 06:59 Intake Total 5646 3113 Output Total 4460 1300 Balance 1186 1813 Weight 69.3 kg Weight/Height Weight 69.3 kg Height 5 ft 7 in Laboratories: 01/07/20 04:35 01/07/20 04:35 MCV 85 fl (80-97) D 01/07/20 04:35 MCH 27.7 pg (27.0-33.4) 01/07/20 04:35 MCHC 32.8 g/dL (32.0-36.0) 01/07/20 04:35 RDW 13.8 % (11.5-14.0) 01/07/20 04:35 Seg Neutrophils % 84.7 % (42-78) H 01/07/20 04:35 Carbonic Acid 0.76 mmol/L (1.05-1.35) L 01/06/20 17:48 HCO3/H2CO3 Ratio 12:1 01/06/20 17:48 ABG pH 7.19 (7.35-7.45) L* 01/06/20 17:48 ABG pCO2 25.2 mmHg (35-45) L 01/06/20 17:48 ABG pO2 95.7 mmHg (80-100) 01/06/20 17:48 ABG HCO3 9.5 mmol/L (20-24) L 01/06/20 17:48 ABG O2 Saturation 95.9 % (94-98) 01/06/20 17:48 ABG Base Excess -17.0 mmol/L 01/06/20 17:48 VBG pH 7.14 (7.30-7.42) L* 01/06/20 11:35 VBG pCO2 19.6 mmHg (35-63) L* 01/06/20 11:35 VBG HCO3 6.4 mmol/L (20-32) L 01/06/20 11:35 VBG Base Excess -20.7 mmol/L 01/06/20 11:35 FiO2 21% 01/06/20 17:48 Chloride 118 mmol/L (98-107) H 01/07/20 04:35 Carbon Dioxide 21 mmol/L (22-30) L 01/07/20 04:35 Anion Gap 5 (5-19) 01/07/20 04:35 Est GFR ( Amer) > 60 (>60) 01/07/20 04:35 Glucose 94 mg/dL (75-110) 01/07/20 04:35 Calcium 8.1 mg/dL (8.4-10.2) L 01/07/20 04:35 Magnesium 2.5 mg/dL (1.6-2.3) H 01/06/20 11:35 Total Bilirubin 0.4 mg/dL (0.2-1.3) 01/06/20 18:11 AST 18 U/L (17-59) 01/06/20 18:11 Alkaline Phosphatase 119 U/L (38-126) 01/06/20 18:11 C-Reactive Protein 180.6 mg/L (<10.0) H 01/07/20 14:10 Total Protein 6.3 g/dL (6.3-8.2) 01/06/20 18:11 Albumin 2.5 g/dL (3.5-5.0) L 01/06/20 18:11 Urine Color STRAW 01/06/20 11:45 Urine Appearance CLEAR 01/06/20 11:45 Urine pH 5.0 (5.0-9.0) 01/06/20 11:45 Ur Specific [place] 1.025 01/06/20 11:45 Urine Protein NEGATIVE mg/dL (NEGATIVE) 01/06/20 11:45 Urine Glucose (UA) >=500 mg/dL (NEGATIVE) H 01/06/20 11:45 Urine Ketones 80 mg/dL (NEGATIVE) H 01/06/20 11:45 Urine Blood SMALL (NEGATIVE) H 01/06/20 11:45 Urine Nitrite NEGATIVE (NEGATIVE) 01/06/20 11:45 Ur Leukocyte Esterase NEGATIVE (NEGATIVE) 01/06/20 11:45 Urine WBC (Auto) 1 /HPF 01/06/20 11:45 Urine RBC (Auto) 3 /HPF 01/06/20 11:45 01/06/20 15:30 Blood Blood Culture (PCR) - Final Staphylococcus Aureus 01/06/20 16:48 Blood Blood Culture (PCR) - Final Staphylococcus Aureus 01/07/20 14:10 Creatine Kinase 45 L Radiology: Chest CT 01/06/20 13:51 IMPRESSION: 1. There is abnormal soft tissues thickening and stranding around the sternomanubrial joint with irregular lucent lesions at the joint suggestive of osteomyelitis. Additional abnormal soft tissue at the inferior sternum. 5.6 x 4.2 cm low-density pleural-based lesion along the right upper lobe with scattered foci of gas internally which likely represent extrapleural fluid collection originating from the above findings. 2. Remaining pulmonary parenchyma is unremarkable. Chest X-Ray 01/06/20 14:43 IMPRESSION: New right central venous catheter with tip in the right atrium. No pneumothorax. No significant interval change. Assessment and Recommendations: Patient admitted with MRSA bacteremia, probable TV endocarditis (incomplete treatment in December) with sternomanubrial septic arthritis possible osteomyelitis. He is an active IVDU at risk for bacteremia, it is unclear about the status of the TV vegetation that was present in November. A TTE is recommended. There is a loculated fluid collection that seems to be in the pleural space connecting with this sternomanubrial process, CT surgery evaluation vs IR for drainage/aspiration recommended. In terms of antibiotic therapy, daptomycin 8mg/kg for now. If there are any respiratoty symptoms supicious for pneumonia may add linezolif 600 mg po bid for 5-7 days to cover for pneumonia. Otherwise, daptomycin should suffice. The right IJ placed for access should be exchanged at some point once he clears the bacteremia. Will recommend baseline ESR and CRP, monitor CK as well. Can repeat blood cultures in 40-72 hr to document clearance of bacteremia. He will likely need 6 weeks of antibiotics from negative blood cultures due to sternal OM. Flaca Manzo MD [facility] ID [phone]
--- NOTE | 2020-01-07 19:36 | PDOC PROGRESS REPORT ---
Subjective Progress Note for:: 01/07/20 Subjective:: Paul Hardin is a 34-year-old male past medical history of uncontrolled diabetes frequent admissions for DKA, IV drug use, and recent admission for MSSA bacteremia/endocarditis and completed treatment left AGAINST MEDICAL ADVICE on a week 4 of a 6 week treatment. Who was admitted in the emergency room with complaints of uncontrolled blood glucose. In the ED blood glucose noted to be 630 bicarb less than 5. Was noted to have leukocytosis of 23.8. Chest CT revealed soft tissue thickening and stranding along the sternal mandibular joint with irregular lucent lesions to the joint suggestive of osteomyelitis, with an additional soft tissue formation inferior to the sternum with numerous foci of gas. Central line was placed due to difficult IV access. He was given IV fluids and was started on an insulin drip per DKA protocol. BMP monitored every 4 hours with eventual closing of anion gap. Daptomycin was resumed for possible suspected endocarditis. D2 hospital stay 01/07/20. Was seen and examined at bedside denies any chest pain shortness of breath. Has nausea, no vomiting. Appetite fair. Blood culture preliminary result showed MRSA. Currently on daptomycin. Denies any fever Reason For Visit: DKA Physical Exam Vital Signs: Temp Pulse Resp BP Pulse Ox 98.0 F 96 18 128/73 H 100 01/07/20 17:34 01/07/20 17:34 01/07/20 17:34 01/07/20 17:34 01/07/20 17:34 Intake & Output 01/06/20 01/07/20 01/08/20 06:59 06:59 06:59 Intake Total 5646 4243 Output Total 4460 1860 Balance 1186 2383 Weight 69.3 kg General appearance: PRESENT: no acute distress, cooperative, thin Head exam: PRESENT: atraumatic, normocephalic Eye exam: PRESENT: EOMI, PERRLA Ear exam: PRESENT: normal external ear exam Mouth exam: PRESENT: moist Neck exam: PRESENT: full ROM. ABSENT: JVD, meningismus Respiratory exam: PRESENT: clear to auscultation fran, symmetrical, unlabored. ABSENT: crackles, rales, wheezes Cardiovascular exam: PRESENT: RRR, +S1, +S2. ABSENT: diastolic murmur, systolic murmur Pulses: PRESENT: normal radial pulses Vascular exam: PRESENT: normal capillary refill GI/Abdominal exam: PRESENT: normal bowel sounds, soft. ABSENT: distended, tenderness Extremities exam: PRESENT: full ROM. ABSENT: calf tenderness, joint swelling, pedal edema Musculoskeletal exam: PRESENT: full ROM Neurological exam: PRESENT: alert, awake, oriented to person, oriented to place, oriented to time Psychiatric exam: PRESENT: normal mood Skin exam: PRESENT: other - No Osler's nodes noted, no splinter hemorrhage Results Laboratory Results: 01/07/20 04:35 01/07/20 04:35 01/06/20 01/07/20 01/07/20 18:11 00:10 04:35 WBC 14.0 H RBC 3.95 L Hgb 10.9 L Hct 33.4 L MCV 85 D MCH 27.7 MCHC 32.8 RDW 13.8 Plt Count 537 H Seg Neutrophils % 84.7 H Sodium 137.5 142.5 Potassium 4.1 3.3 L Chloride 110 H 115 H Carbon Dioxide 11 L 20 L Anion Gap 17 8 BUN 27 H 19 Creatinine 0.58 0.45 L Est GFR ( Amer) > 60 > 60 Glucose 317 H 175 H Calcium 7.6 L 7.8 L Total Bilirubin 0.4 AST 18 Alkaline Phosphatase 119 C-Reactive Protein Total Protein 6.3 Albumin 2.5 L 01/07/20 01/07/20 04:35 14:10 WBC RBC Hgb Hct MCV MCH MCHC RDW Plt Count Seg Neutrophils % Sodium 144.1 Potassium 3.2 L Chloride 118 H Carbon Dioxide 21 L Anion Gap 5 BUN 16 Creatinine 0.42 L Est GFR ( Amer) > 60 Glucose 94 Calcium 8.1 L Total Bilirubin AST Alkaline Phosphatase C-Reactive Protein 180.6 H Total Protein Albumin 01/06/20 15:30 Blood Blood Culture (PCR) - Final Staphylococcus Aureus 01/06/20 16:48 Blood Blood Culture (PCR) - Final Staphylococcus Aureus 01/07/20 14:10 Creatine Kinase 45 L Impressions: Chest CT 01/06/20 13:51 IMPRESSION: 1. There is abnormal soft tissues thickening and stranding around the sternomanubrial joint with irregular lucent lesions at the joint suggestive of osteomyelitis. Additional abnormal soft tissue at the inferior sternum. 5.6 x 4.2 cm low-density pleural-based lesion along the right upper lobe with scattered foci of gas internally which likely represent extrapleural fluid collection originating from the above findings. 2. Remaining pulmonary parenchyma is unremarkable. Chest X-Ray 01/06/20 14:43 IMPRESSION: New right central venous catheter with tip in the right atrium. No pneumothorax. No significant interval change. Assessment and Plan - Diagnosis (1) DKA (diabetic ketoacidoses) Qualifiers: Diabetes mellitus type: type 1 Diabetes mellitus complication detail: without coma Qualified Code(s): E10.10 - Type 1 diabetes mellitus with ketoacidosis without coma Is this a current diagnosis for this admission?: Yes Plan: - RESOLVED. 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 -He was on week #4 of 6 of treatment for MSSA endocarditis with daptomycin. -Blood cultures growing MRSA. - plan to repeat CT tomorrow - repeat TTE ordered -Repeat blood culture in 2 days -Plan for PICC line once blood culture is clear - Resumed daptomycin. - ESR CRP pending - ID on board. recommend baseline CK, ESR, CRP - (3) Osteomyelitis Qualifiers: Osteomyelitis type: other acute Osteomyelitis location: other site Qualified Code(s): M86.18 - Other acute osteomyelitis, other site Is this a current diagnosis for this admission?: Yes Plan: - CT imaging revealed abnormal soft tissue thickening and stranding along the right sternal manubrial joint with irregular lucent lesions concerning for osteomyelitis with an additional soft tissue density inferior to the sternum along the right upper lobe with scattered foci of gas which likely represents an extrapleural fluid collection originating from the osteomyelitis. - LAURO Cui Discussed with Dr. Cardenas, cardiothoracic surgery at [facility]. He recommends initial attention to DKA with follow-up imaging in 48 hours. He advised that repeat CT will guide decision regarding potential need for surgical intervention. Remaining management as above. - continue Daptomycin for now - ID following (4) Bacteremia Is this a current diagnosis for this admission?: Yes Plan: -Culture positive for MRSA -Currently on daptomycin -Blood culture in 2 days. (5) Type 2 diabetes mellitus, uncontrolled Qualifiers: Glycemic state: with hyperglycemia Qualified Code(s): E11.65 - Type 2 diabetes mellitus with hyperglycemia Is this a current diagnosis for this admission?: Yes Plan: -Hemoglobin A1c 12.6 -Currently on basal bolus insulin - accucheck - hypoglycemia protocol (6) Substance abuse Is this a current diagnosis for this admission?: Yes Plan: Patient with history of IV heroin, methadone, marijuana drug use. During prior admission, his withdrawal symptoms abated rapidly with use of Subutex. We will resume prior dose; Subutex 4 mg daily. Monitor for evidence of withdrawal. (7) IV drug abuse Is this a current diagnosis for this admission?: Yes Plan: -history of IV drug use last use 6 days prior to admission - Time Time Spent with patient: 25-34 minutes Medications reviewed and adjusted accordingly: Yes Anticipated Discharge Disposition: Home, Self Care Anticipated Discharge Timeframe: to Be determined
[2020-01-07] MEDS: RINGERS SOLUTION,LACTATED 1,000 ML IV PRN (20:20)
[2020-01-07] MEDS ORDERED: INSULIN GLARGINE,HUM.REC.ANLOG 1,000 UNIT/10 ML VIAL SUBCUT SCH (22:00)
[2020-01-08] MEDS: HEPARIN SOD (PORCINE) 5,000 UNIT/ML 1 ML VIAL SUBCUT SCH ×3 (05:44→21:28)
[2020-01-08 06:14] LABS: HEMATOCRIT 31.5 % (37.9-51.0); HEMOGLOBIN 10.6 g/dL (13.5-17.0); MEAN CORPUSCULAR HEMOGLOBIN 28.4 pg (27.0-33.4); MEAN CORPUSCULAR HGB CONC 33.7 g/dL (32.0-36.0); MEAN CORPUSCULAR VOLUME 84 fl (80-97); PLATELET COUNT 414 10^3/uL (150-450); RED BLOOD COUNT 3.73 10^6/uL (4.35-5.55); RED CELL DISTRIBUTION WIDTH 13.9 % (11.5-14.0); WHITE BLOOD COUNT 13.6 10^3/uL (4.0-10.5)
[2020-01-08 06:40] LABS: ALBUMIN 2.2 g/dL (3.5-5.0); ALKALINE PHOSPHATASE 94 U/L (38-126); ANION GAP 8 (5-19); ASPARTATE AMINO TRANSFERASE 21 U/L (17-59); BILIRUBIN,DIRECT 0.4 mg/dL (0.0-0.4); BILIRUBIN,TOTAL 0.4 mg/dL (0.2-1.3); BLOOD UREA NITROGEN 9 mg/dL (7-20); CALCIUM 7.6 mg/dL (8.4-10.2); CARBON DIOXIDE 27 mmol/L (22-30); CHLORIDE 100 mmol/L (98-107); GLUCOSE 147 mg/dL (75-110); POTASSIUM 3.3 mmol/L (3.6-5.0); TOTAL PROTEIN 5.7 g/dL (6.3-8.2)
[2020-01-08 07:24] LABS: ABSOLUTE LYMPHOCYTES# (MANUAL) 2.7 10^3/uL (0.5-4.7); BASOPHILS % (MANUAL) 0 % (0-2); EOSINOPHILS % (MANUAL) 0 % (0-6); LYMPHOCYTES % (MANUAL) 18 % (13-45); MONOCYTES % (MANUAL) 7 % (3-13); RBC MORPHOLOGY COMMENT NORMO-CYTIC/CHROMIC; SEGMENTED NEUTROPHILS % (MAN) 73 % (42-78); TOTAL CELLS COUNTED 100
[2020-01-08 07:25] LABS: PLATELET COMMENT ADEQUATE
[2020-01-08] MEDS: FAMOTIDINE INJ/PF 20 MG/2 ML SDV IV SCH ×2 (09:18→21:28)
[2020-01-08] MEDS: DOCUSATE SODIUM 100 MG CAPSULE PO SCH (09:18)
[2020-01-08] MEDS: INSULIN LISPRO 100 UNIT/ML 3 ML VIAL SUBCUT SCH ×3 (09:19→17:54)
[2020-01-08] MEDS: BUPRENORPHINE HCL 2 MG SUBLINGUAL TABLET SL SCH (09:19)
[2020-01-08] MEDS: INSULIN REG, HUMAN 100 UNIT/ML 3 ML VIAL (PYX) SUBCUT SCH ×4 (09:20→21:27)
[2020-01-08] MEDS ORDERED: POTASSIUM CHLORIDE 20 MEQ PACKET PO ONE (09:30)
[2020-01-08] MEDS ORDERED: INSULIN GLARGINE,HUM.REC.ANLOG 1,000 UNIT/10 ML VIAL SUBCUT SCH (10:00)
[2020-01-08] MEDS: INSULIN GLARGINE,HUM.REC.ANLOG 1,000 UNIT/10 ML VIAL SUBCUT SCH ×2 (10:01→21:27)
[2020-01-08] MEDS: DAPTOMYCIN IV SCH (16:28)
[2020-01-08] MEDS: NORMAL SALINE IV SCH (16:28)
[2020-01-08] MEDS: RINGERS SOLUTION,LACTATED 1,000 ML IV PRN (17:56)
--- NOTE | 2020-01-08 19:18 | PDOC PROGRESS REPORT ---
Subjective Progress Note for:: 01/08/20 Subjective:: Paul Hardin is a 34-year-old male past medical history of uncontrolled diabetes frequent admissions for DKA, IV drug use, and recent admission for MSSA bacteremia/endocarditis and completed treatment left AGAINST MEDICAL ADVICE on a week 4 of a 6 week treatment. Who was admitted in the emergency room with complaints of uncontrolled blood glucose. In the ED blood glucose noted to be 630 bicarb less than 5. Was noted to have leukocytosis of 23.8. Chest CT revealed soft tissue thickening and stranding along the sternal mandibular joint with irregular lucent lesions to the joint suggestive of osteomyelitis, with an additional soft tissue formation inferior to the sternum with numerous foci of gas. Central line was placed due to difficult IV access. He was given IV fluids and was started on an insulin drip per DKA protocol. BMP monitored every 4 hours with eventual closing of anion gap. Daptomycin was resumed for possible suspected endocarditis. D2 hospital stay 01/07/20. Was seen and examined at bedside denies any chest pain shortness of breath. Has nausea, no vomiting. Appetite fair. Blood culture preliminary result showed MRSA. Currently on daptomycin. Denies any fever. D3 hospital stay 01/08/20. he was seen and examined at bedside. He seems comfortable, denies any chest pain or shortness of breath or abdominal pain. Afebrile. I discussed with him the findings on the CT chest and the need for prolonged antibiotics at least 6 weeks depending on repeat CT chest and blood cultures. Reason For Visit: DKA Physical Exam Vital Signs: Temp Pulse Resp BP Pulse Ox 98.4 F 118 H 18 105/67 97 01/08/20 16:40 01/08/20 16:40 01/08/20 16:40 01/08/20 16:40 01/08/20 16:40 Intake & Output 01/07/20 01/08/20 01/09/20 06:59 06:59 06:59 Intake Total 5646 7127 1513 Output Total 4455 1750 1500 Balance 1186 4404 13 Weight 69.3 kg 71.7 kg General appearance: PRESENT: no acute distress, cooperative Head exam: PRESENT: atraumatic, normocephalic, other Eye exam: PRESENT: EOMI, PERRLA Mouth exam: PRESENT: moist Neck exam: PRESENT: full ROM, other - Central line noted on right neck area Respiratory exam: PRESENT: clear to auscultation fran, symmetrical, unlabored. ABSENT: crackles, rales Cardiovascular exam: PRESENT: RRR, +S1, +S2 Pulses: PRESENT: +2 pedal pulses bilateral Vascular exam: PRESENT: normal capillary refill GI/Abdominal exam: PRESENT: normal bowel sounds, soft. ABSENT: guarding, tenderness Rectal exam: PRESENT: deferred Extremities exam: PRESENT: full ROM. ABSENT: clubbing, joint swelling, +2 edema Musculoskeletal exam: PRESENT: ambulatory, full ROM Neurological exam: PRESENT: alert, awake, oriented to person, oriented to place, oriented to time, oriented to situation Psychiatric exam: PRESENT: normal mood Results Laboratory Results: 01/08/20 05:55 01/08/20 05:55 01/08/20 01/08/20 05:55 05:55 WBC 13.6 H RBC 3.73 L Hgb 10.6 L Hct 31.5 L MCV 84 MCH 28.4 MCHC 33.7 RDW 13.9 Plt Count 414 Seg Neutrophils % Not Reportable Sodium 134.8 L Potassium 3.3 L Chloride 100 Carbon Dioxide 27 Anion Gap 8 BUN 9 Creatinine 0.39 L Est GFR ( Amer) > 60 Glucose 147 H Calcium 7.6 L Total Bilirubin 0.4 AST 21 Alkaline Phosphatase 94 Total Protein 5.7 L Albumin 2.2 L 01/06/20 16:48 Blood Blood Culture (PCR) - Final Staphylococcus Aureus 01/06/20 15:30 Blood Blood Culture (PCR) - Final Staphylococcus Aureus 01/07/20 14:10 Creatine Kinase 45 L Impressions: Chest CT 01/06/20 13:51 IMPRESSION: 1. There is abnormal soft tissues thickening and stranding around the sternomanubrial joint with irregular lucent lesions at the joint suggestive of osteomyelitis. Additional abnormal soft tissue at the inferior sternum. 5.6 x 4.2 cm low-density pleural-based lesion along the right upper lobe with scattered foci of gas internally which likely represent extrapleural fluid collection originating from the above findings. 2. Remaining pulmonary parenchyma is unremarkable. Chest X-Ray 01/06/20 14:43 IMPRESSION: New right central venous catheter with tip in the right atrium. No pneumothorax. No significant interval change. 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 -He was on week #4 of 6 of treatment for MSSA endocarditis with daptomycin. -Blood cultures growing MRSA. - plan to repeat CT tomorrow - Echo done awaiting results -Repeat blood culture tomorrow -Plan for PICC line once blood culture is clear - Resumed daptomycin. - ESR CRP elevated - ID on board (2) DKA (diabetic ketoacidoses) Qualifiers: Diabetes mellitus type: type 1 Diabetes mellitus complication detail: without coma Qualified Code(s): E10.10 - Type 1 diabetes mellitus with ketoacidosis without coma Is this a current diagnosis for this admission?: Yes Plan: - RESOLVED. AG closed - BG 182 - K 3.3 replaced - off insulin drip - transitioned to lantus 15 u BID, Humalog 10 with meals and SSI. Insulin adjusted due to borderline low BG readings - accucheck ACHS - on carb controlled diet (3) Osteomyelitis Qualifiers: Osteomyelitis type: other acute Osteomyelitis location: other site Qualified Code(s): M86.18 - Other acute osteomyelitis, other site Is this a current diagnosis for this admission?: Yes Plan: - CT imaging revealed abnormal soft tissue thickening and stranding along the right sternal manubrial joint with irregular lucent lesions concerning for osteomyelitis with an additional soft tissue density inferior to the sternum along the right upper lobe with scattered foci of gas which likely represents an extrapleural fluid collection originating from the osteomyelitis. - LAURO Cui Discussed with Dr. Cardenas, cardiothoracic surgery at [facility]. He recommends initial attention to DKA with follow-up imaging in 48 hours. He advised that repeat CT will guide decision regarding potential need for surgical intervention. Remaining management as above. - repeat CT chest tomorrow. Depending on result will re discuss with Dr. cardenas if he needs to be transferred for abscess drainage - repeat cultures tomorrow - continue Daptomycin for now - ID following (4) Bacteremia Is this a current diagnosis for this admission?: Yes Plan: -Culture positive for MRSA -Currently on daptomycin -Blood culture tomorrow (5) Type 2 diabetes mellitus, uncontrolled Qualifiers: Glycemic state: with hyperglycemia Qualified Code(s): E11.65 - Type 2 diabetes mellitus with hyperglycemia Is this a current diagnosis for this admission?: Yes Plan: -Hemoglobin A1c 12.6 -Currently on basal bolus insulin - accucheck - hypoglycemia protocol (6) Substance abuse Is this a current diagnosis for this admission?: Yes Plan: Patient with history of IV heroin, methadone, marijuana drug use. During prior admission, his withdrawal symptoms abated rapidly with use of Subutex. We will resume prior dose; Subutex 4 mg daily. Monitor for evidence of withdrawal. (7) IV drug abuse Is this a current diagnosis for this admission?: Yes Plan: -history of IV drug use last use 6 days prior to admission - Time Time Spent with patient: 25-34 minutes Medications reviewed and adjusted accordingly: Yes Anticipated Discharge Disposition: Home, Self Care Anticipated Discharge Timeframe: to be determined
[2020-01-08] MEDS: ACETAMINOPHEN 325 MG TABLET PO PRN (21:39)
[2020-01-09] MEDS: ACETAMINOPHEN 325 MG TABLET PO PRN ×3 (04:08→20:51)
[2020-01-09] MEDS: RINGERS SOLUTION,LACTATED 1,000 ML IV PRN ×2 (04:09→13:28)
[2020-01-09] MEDS: HEPARIN SOD (PORCINE) 5,000 UNIT/ML 1 ML VIAL SUBCUT SCH ×3 (05:13→22:26)
[2020-01-09 08:15] LABS: ABSOLUTE LYMPHOCYTES (AUTO) 1.7 10^3/uL (0.5-4.7); ABSOLUTE MONOCYTES (AUTO) 0.8 10^3/uL (0.1-1.4); ABSOLUTE NEUT (AUTO) 10.7 10^3/uL (1.7-8.2); BASOPHILS % (AUTO) 0.1 % (0-2); EOSINOPHILS % (AUTO) 0.2 % (0-6); HEMATOCRIT 29.9 % (37.9-51.0); MEAN CORPUSCULAR HEMOGLOBIN 28.1 pg (27.0-33.4); MEAN CORPUSCULAR HGB CONC 33.5 g/dL (32.0-36.0); MEAN CORPUSCULAR VOLUME 84 fl (80-97); MONOCYTES % (AUTO) 6.3 % (3-13); PLATELET COUNT 345 10^3/uL (150-450); RED BLOOD COUNT 3.57 10^6/uL (4.35-5.55); SEGMENTED NEUTROPHILS % (AUTO) 80.4 % (42-78); TOTAL CELLS COUNTED % (AUTO) 100 %; WHITE BLOOD COUNT 13.3 10^3/uL (4.0-10.5)
[2020-01-09 08:33] LABS: ALBUMIN 1.9 g/dL (3.5-5.0); ALKALINE PHOSPHATASE 87 U/L (38-126); ANION GAP 6 (5-19); ASPARTATE AMINO TRANSFERASE 21 U/L (17-59); BILIRUBIN,DIRECT 0.3 mg/dL (0.0-0.4); BILIRUBIN,TOTAL 0.5 mg/dL (0.2-1.3); BLOOD UREA NITROGEN 11 mg/dL (7-20); CALCIUM 7.6 mg/dL (8.4-10.2); CARBON DIOXIDE 31 mmol/L (22-30); CHLORIDE 96 mmol/L (98-107); GLUCOSE 255 mg/dL (75-110); POTASSIUM 3.3 mmol/L (3.6-5.0)
--- NOTE | 2020-01-09 08:46 | RADIOLOGY REPORT (SQ) ---
EXAM DESCRIPTION: CT CHEST WITHOUT IMAGES COMPLETED DATE/TIME: 01/09/2020 7:53 am REASON FOR STUDY: repeat CT chest to assess prior findings COMPARISON: 01/06/2020 TECHNIQUE: CT scan performed of the chest without intravenous contrast. Images reviewed with lung, soft tissue and bone windows. Reconstructed coronal and sagittal MPR images reviewed. All images st ored on PACS. All CT scanners at this facility use dose modulation, iterative reconstruction, and/or weight based d osing when appropriate to reduce radiation dose to as low as reasonably achievable (ALARA). [facility]: Dose Right [facility]: CareDose [facility]: Dose Right [facility]: Teradose 4D [facility]: Icinetic RADIATION DOSE: CT Rad equipment meets quality standard of care and radiation dose reduction techniq ues were employed. CTDIvol: 6.5 mGy. DLP: 265 mGy-cm. mGy. LIMITATIONS: No technical limitations. FINDINGS: Anterior right apical gas fluid collection has increased to 5.4 x 7.2 cm from 4.2 x 5.6 cm . Interval development of trace right pleural effusion. The appearance is otherwise not significant ly changed. IMPRESSION: Slight increase in size of right apical gas fluid collection. TECHNICAL DOCUMENTATION: JOB ID: [id number] Quality ID # [id number]: Final reports with documentation of one or more dose reduction techniques (e.g., Au tomated exposure control, adjustment of the mA and/or kV according to patient size, use of iterative reconstruction technique) 2010 [employer]- All Rights Reserved Reading location - IP/workstation name: [email or web address]
[2020-01-09] MEDS: FAMOTIDINE INJ/PF 20 MG/2 ML SDV IV SCH (09:38)
[2020-01-09] MEDS: BUPRENORPHINE HCL 2 MG SUBLINGUAL TABLET SL SCH (09:39)
[2020-01-09] MEDS: INSULIN REG, HUMAN 100 UNIT/ML 3 ML VIAL (PYX) SUBCUT SCH ×4 (09:39→22:50)
[2020-01-09] MEDS: DOCUSATE SODIUM 100 MG CAPSULE PO SCH (09:39)
[2020-01-09] MEDS: INSULIN GLARGINE,HUM.REC.ANLOG 1,000 UNIT/10 ML VIAL SUBCUT SCH ×2 (09:40→22:24)
[2020-01-09] MEDS: INSULIN LISPRO 100 UNIT/ML 3 ML VIAL SUBCUT SCH ×3 (09:40→17:21)
[2020-01-09] MEDS: DAPTOMYCIN IV SCH (15:40)
[2020-01-09] MEDS: NORMAL SALINE IV SCH (15:40)
--- NOTE | 2020-01-09 16:08 | XCELERA REPORT ---
[address] [address] Transthoracic Echocardiogram Report Name: SUDHA BEGUM Age: 34 yrs Gender: Male : 1985 Patient Status: Inpatient Patient Location: [address] [place] [address] Study Date: 01/07/2020 07:37 PM Height: 67 in Weight: 152 lb BSA: 1.8 m2 Procedure: A two-dimensional transthoracic echocardiogram with color flow and Doppler was performed. Study Quality: Fair. Reason For Study: hx of endocarditis History: Endocarditis. Ordering Physician: IRENE HOYT Performed By: Catherine Del Real Interpretation Summary No evidence of endocarditis.Recommmend VINAYAK if clinical suspicion is high. Endocarditis The left ventricle is normal in size. There is normal left ventricular wall thickness. LV EF is 65% Left ventricular systolic function is normal. Doppler measurements suggest normal left ventricular diastolic function The left ventricular wall motion is normal. There is no thrombus. No ASD,VSD,or PFO seen. The right ventricle is normal in size and function. The right atrium is normal. The left atrial size is normal. There is no evidence of mitral valve prolapse. There is no vegetation seen on the mitral valve. There is no mitral valve stenosis. There is a trace amount of mitral regurgitation There is no aortic valvular vegetation. There is no aortic valve stenosis There is no LVOT obstruction. No aortic regurgitation is present. There is no tricuspid stenosis. There is a trace amount of tricuspid regurgitation Right ventricular systolic pressure is normal. RVSP is 14 to 19 mm of Hg , with RA mean of 5 to 10. There is no vegetation on the pulmonic valve. There is no pulmonic valvular stenosis. There is no pulmonic valvular regurgitation. The aortic root is normal size. The inferior vena cava appeared normal and decreased > 50% with respiration (RAP 5-10 mmHg) There is no pericardial effusion. No evidence of endocarditis.Recommmend VINAYAK if clinical suspicion is high. MMode/2D Measurements & Calculations RVDd: 3.2 cm LVIDd: 4.9 cm FS: 34.4 % Ao root diam: 3.0 cm IVSd: 0.98 cm LVIDs: 3.2 cm EDV(Teich): 114.4 ml Ao root area: 7.2 cm2 LVPWd: 0.97 cm ESV(Teich): 42.0 ml LA dimension: 3.8 cm EF(Teich): 63.3 % Doppler Measurements & Calculations MV E max yohana: MV P1/2t max yohana: Ao V2 max: LV V1 max P.1 cm/sec 71.9 cm/sec 152.0 cm/sec 5.7 mmHg MV A max yohana: MV P1/2t: 86.6 msec Ao max P.2 mmHg LV V1 max: 53.4 cm/sec MVA(P1/2t): 2.5 cm2 119.5 cm/sec MV E/A: 1.3 MV dec slope: 243.3 cm/sec2 MV dec time: 0.20 sec PA V2 max: TR max yohana: MV P1/2t-pr_phl: 93.8 cm/sec 148.6 cm/sec 86.6 msec PA max PG: TR max P.8 mmHg 3.5 mmHg Left Ventricle The left ventricle is normal in size. There is normal left ventricular wall thickness. LV EF is 65%. Left ventricular systolic function is normal. Doppler measurements suggest normal left ventricular diastolic function. The left ventricular wall motion is normal. There is no thrombus. No ASD,VSD,or PFO seen. Right Ventricle The right ventricle is normal in size and function. The right ventricle is not well visualized secondary to technical limitations. Atria The right atrium is normal. The left atrial size is normal. Mitral Valve There is no evidence of mitral valve prolapse. There is no vegetation seen on the mitral valve. There is no mitral valve stenosis. There is a trace amount of mitral regurgitation. Aortic Valve There is no aortic valvular vegetation. There is no aortic valve stenosis. There is no LVOT obstruction. No aortic regurgitation is present. Tricuspid Valve There is no tricuspid stenosis. There is a trace amount of tricuspid regurgitation. Right ventricular systolic pressure is normal. RVSP is 14 to 19 mm of Hg , with RA mean of 5 to 10. Pulmonic Valve There is no vegetation on the pulmonic valve. There is no pulmonic valvular stenosis. There is no pulmonic valvular regurgitation. Great Vessels The aortic root is normal size. The inferior vena cava appeared normal and decreased > 50% with respiration (RAP 5-10 mmHg). Effusions There is no pericardial effusion. : IRENE HOYT Lakshmi
--- NOTE | 2020-01-09 16:31 | PDOC PROGRESS REPORT ---
Subjective Progress Note for:: 01/09/20 Subjective:: Paul Hardin is a 34-year-old male past medical history of uncontrolled diabetes frequent admissions for DKA, IV drug use, and recent admission for MSSA bacteremia/endocarditis and completed treatment left AGAINST MEDICAL ADVICE on a week 4 of a 6 week treatment. Who was admitted in the emergency room with complaints of uncontrolled blood glucose. In the ED blood glucose noted to be 630 bicarb less than 5. Was noted to have leukocytosis of 23.8. Chest CT revealed soft tissue thickening and stranding along the sternal mandibular joint with irregular lucent lesions to the joint suggestive of osteomyelitis, with an additional soft tissue formation inferior to the sternum with numerous foci of gas. Central line was placed due to difficult IV access. He was given IV fluids and was started on an insulin drip per DKA protocol. BMP monitored every 4 hours with eventual closing of anion gap. Daptomycin was resumed for possible suspected endocarditis. D2 hospital stay 01/07/20. Was seen and examined at bedside denies any chest pain shortness of breath. Has nausea, no vomiting. Appetite fair. Blood culture preliminary result showed MRSA. Currently on daptomycin. Denies any fever. D3 hospital stay 01/08/20. he was seen and examined at bedside. He seems comfortable, denies any chest pain or shortness of breath or abdominal pain. Afebrile. I discussed with him the findings on the CT chest and the need for prolonged antibiotics at least 6 weeks depending on repeat CT chest and blood cultures. D4 hospital stay 01/09/20. He was seen and examined at bedside. He denies any chest pain, SOB, afebrile. I was informed by the nurse that his central line noted to have discharge around insertion site. Patient is a difficult IV stick, advised the nurse to insert a peripheral IV. Cannot put a PICC line yet since he still has bacteremia. Repeat CT chest to follow up previously noted gas fluid collection showed interval increase to 5.4x7.2 cm from 4.2x5.6 cm with interval development of trace right pleural effusion. He remains afebrile, WBC count 13.3, repeat blood cultures pending. Echo result pending. He is D3 of Daptomycin. TRISHA consult reviewed his chart and recommend CT surgery consult to drain abscess. Reason For Visit: DKA Physical Exam Vital Signs: Temp Pulse Resp BP Pulse Ox 97.6 F 109 H 21 H 106/58 L 100 01/09/20 11:48 01/09/20 11:48 01/09/20 08:14 01/09/20 11:48 01/09/20 11:48 Intake & Output 01/08/20 01/09/20 01/10/20 06:59 06:59 06:59 Intake Total 7130 3176 932 Output Total 1320 2450 Balance 4404 726 932 Weight 71.7 kg 72.9 kg General appearance: PRESENT: no acute distress, cooperative Head exam: PRESENT: atraumatic, normocephalic Eye exam: PRESENT: EOMI, PERRLA Mouth exam: PRESENT: moist Neck exam: PRESENT: full ROM, other - right IJ central line access. ABSENT: JVD Respiratory exam: PRESENT: chest wall tenderness, clear to auscultation fran, symmetrical, unlabored. ABSENT: crackles, rales Cardiovascular exam: PRESENT: RRR, +S1, +S2 Pulses: PRESENT: +2 pedal pulses bilateral Vascular exam: PRESENT: normal capillary refill GI/Abdominal exam: PRESENT: normal bowel sounds, soft. ABSENT: distended, tenderness Rectal exam: PRESENT: deferred Extremities exam: PRESENT: full ROM. ABSENT: joint swelling Musculoskeletal exam: PRESENT: full ROM Neurological exam: PRESENT: alert, awake, oriented to person, oriented to place, oriented to time, oriented to situation Psychiatric exam: PRESENT: normal mood Skin exam: PRESENT: normal color Results Laboratory Results: 01/09/20 07:30 01/09/20 07:30 01/09/20 01/09/20 07:30 07:30 WBC 13.3 H RBC 3.57 L Hgb 10.0 L Hct 29.9 L MCV 84 MCH 28.1 MCHC 33.5 RDW 14.0 Plt Count 345 Seg Neutrophils % 80.4 H Sodium 132.6 L Potassium 3.3 L Chloride 96 L Carbon Dioxide 31 H Anion Gap 6 BUN 11 Creatinine 0.35 L Est GFR ( Amer) > 60 Glucose 255 H Calcium 7.6 L Total Bilirubin 0.5 AST 21 Alkaline Phosphatase 87 Total Protein 5.0 L Albumin 1.9 L 01/06/20 16:48 Blood Blood Culture (PCR) - Final Staphylococcus Aureus 01/06/20 16:48 Blood Blood Culture - Final Mrsa (Meth Resis Staph Aureus) 01/06/20 15:30 Blood Blood Culture (PCR) - Final Staphylococcus Aureus 01/06/20 15:30 Blood Blood Culture - Final Mrsa (Meth Resis Staph Aureus) 01/07/20 14:10 Creatine Kinase 45 L Impressions: Chest X-Ray 01/06/20 14:43 IMPRESSION: New right central venous catheter with tip in the right atrium. No pneumothorax. No significant interval change. Chest CT 01/09/20 08:00 IMPRESSION: Slight increase in size of right apical gas fluid collection. 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 -He was on week #4 of 6 of treatment for MSSA endocarditis with daptomycin. - CT chest done 01/06/20 anterior right upper lobe lesion measuring 5.6 x 4.2 cm noted scattered gas foci. Abnormal soft tissue thickening and stranding around the sternomanubrial joint with irregular lucent lesions at the joint suggestive of osteomyelitis - repeat Chest CT 01/09/20 showed anterior right apical gas/fluid collection has increased to 5.4 x 7.2 cm from 4.2 x 5.6 cm. With interval development of trace right pleural effusion. - TTE done showed no evidence of endocarditis LVEF of 65%, normal LV systolic function -repeat blood culture drawn today awaiting result. Last Bcx 01/05 positive for MRSA -Plan for PICC line once blood culture is clear - Resumed daptomycin D3 - ESR CRP elevated - ID on board (2) Pleural abscess Is this a current diagnosis for this admission?: Yes Plan: - CT chest done 01/06/20 anterior right upper lobe lesion measuring 5.6 x 4.2 cm noted scattered gas foci. Abnormal soft tissue thickening and stranding around the sternomanubrial joint with irregular lucent lesions at the joint suggestive of osteomyelitis - repeat Chest CT 01/09/20 showed anterior right apical gas/fluid collection has increased to 5.4 x 7.2 cm from 4.2 x 5.6 cm. With interval development of trace right pleural effusion. - LAURO Brock discussed the case with Dr. Cardenas [facility], on the date of admission who recommended to repeat CT chest in 2 days when his DKA has reso lved. Repeat CT done result as above. Patient will need transfer for assessment and management of pleural abscess. Reached out to [facility] to transfer. - plan to continue Daptomycin D3 - discussed case with Dr. Jovany ALVAREZ who recommended to add Linezolid to dapto to cover the Lung abscess since dapto does not penetrate lung tissue (3) Osteomyelitis Qualifiers: Osteomyelitis type: other acute Osteomyelitis location: other site Qualified Code(s): M86.18 - Other acute osteomyelitis, other site Is this a current diagnosis for this admission?: Yes Plan: - CT imaging revealed abnormal soft tissue thickening and stranding along the right sternal manubrial joint with irregular lucent lesions concerning for osteomyelitis with an additional soft tissue density inferior to the sternum along the right upper lobe with scattered foci of gas which likely represents an extrapleural fluid collection originating from the osteomyelitis. - repeat cultures today - continue Daptomycin D3 - started on linezolid as well for pleural abscess - will need PICC line once cleared of bacteremia - ID following (4) DKA (diabetic ketoacidoses) Qualifiers: Diabetes mellitus type: type 1 Diabetes mellitus complication detail: without coma Qualified Code(s): E10.10 - Type 1 diabetes mellitus with ketoacidosis without coma Is this a current diagnosis for this admission?: Yes Plan: - RESOLVED. AG closed - BG 182 - K 3.3 replaced - off insulin drip - transitioned to lantus 15 u BID, Humalog 13 with meals and SSI. Insulin adjusted due to borderline low BG readings - accucheck ACHS - on carb controlled diet (5) Bacteremia Is this a current diagnosis for this admission?: Yes Plan: -Culture positive for MRSA -Currently on daptomycin D3 -started on linezolid -Blood culture 01/05 +ve MRSA - Blood culture 01/08 pending (6) Type 2 diabetes mellitus, uncontrolled Qualifiers: Glycemic state: with hyperglycemia Qualified Code(s): E11.65 - Type 2 diabetes mellitus with hyperglycemia Is this a current diagnosis for this admission?: Yes Plan: -Hemoglobin A1c 12.6 -Currently on basal bolus insulin - accucheck - hypoglycemia protocol (7) Substance abuse Is this a current diagnosis for this admission?: Yes Plan: Patient with history of IV heroin, methadone, marijuana drug use. During prior admission, his withdrawal symptoms abated rapidly with use of Subutex. We will resume prior dose; Subutex 4 mg daily. Monitor for evidence of withdrawal. (8) IV drug abuse Is this a current diagnosis for this admission?: Yes Plan: -history of IV drug use last use 6 days prior to admission - Time Time Spent with patient: 35 or more minutes Medications reviewed and adjusted accordingly: Yes Anticipated Discharge Disposition: to be determined Anticipated Discharge Timeframe: to be determined
[2020-01-09] MEDS: FAMOTIDINE 20 MG TABLET PO SCH (22:24)
[2020-01-09] MEDS: LINEZOLID 600 MG/300 ML RTUPB IV SCH (22:24)
[2020-01-10] MEDS: ACETAMINOPHEN 325 MG TABLET PO PRN ×4 (03:10→21:18)
[2020-01-10] MEDS: RINGERS SOLUTION,LACTATED 1,000 ML IV PRN ×2 (04:50→23:22)
[2020-01-10] MEDS: HEPARIN SOD (PORCINE) 5,000 UNIT/ML 1 ML VIAL SUBCUT SCH ×3 (05:13→21:33)
[2020-01-10 06:46] LABS: ABSOLUTE EOSINOPHILS # (AUTO) 0.1 10^3/uL (0.0-0.6); ABSOLUTE LYMPHOCYTES (AUTO) 1.5 10^3/uL (0.5-4.7); ABSOLUTE MONOCYTES (AUTO) 0.9 10^3/uL (0.1-1.4); ABSOLUTE NEUT (AUTO) 9.1 10^3/uL (1.7-8.2); BASOPHILS % (AUTO) 0.1 % (0-2); EOSINOPHILS % (AUTO) 0.4 % (0-6); HEMATOCRIT 28.4 % (37.9-51.0); HEMOGLOBIN 9.6 g/dL (13.5-17.0); LYMPHOCYTES % (AUTO) 13.1 % (13-45); MEAN CORPUSCULAR HEMOGLOBIN 28.2 pg (27.0-33.4); MEAN CORPUSCULAR HGB CONC 33.8 g/dL (32.0-36.0); MEAN CORPUSCULAR VOLUME 84 fl (80-97); MONOCYTES % (AUTO) 7.7 % (3-13); PLATELET COUNT 350 10^3/uL (150-450); RED CELL DISTRIBUTION WIDTH 13.8 % (11.5-14.0); SEGMENTED NEUTROPHILS % (AUTO) 78.7 % (42-78); TOTAL CELLS COUNTED % (AUTO) 100 %; WHITE BLOOD COUNT 11.6 10^3/uL (4.0-10.5)
[2020-01-10 07:08] LABS: ALBUMIN 1.9 g/dL (3.5-5.0); ALKALINE PHOSPHATASE 78 U/L (38-126); ANION GAP 5 (5-19); ASPARTATE AMINO TRANSFERASE 19 U/L (17-59); BILIRUBIN,DIRECT 0.3 mg/dL (0.0-0.4); BILIRUBIN,TOTAL 0.5 mg/dL (0.2-1.3); BLOOD UREA NITROGEN 6 mg/dL (7-20); CALCIUM 7.5 mg/dL (8.4-10.2); CARBON DIOXIDE 36 mmol/L (22-30); CHLORIDE 93 mmol/L (98-107); GLUCOSE 239 mg/dL (75-110); TOTAL PROTEIN 4.9 g/dL (6.3-8.2)
[2020-01-10] MEDS: INSULIN REG, HUMAN 100 UNIT/ML 3 ML VIAL (PYX) SUBCUT SCH ×4 (08:29→21:54)
[2020-01-10] MEDS: INSULIN LISPRO 100 UNIT/ML 3 ML VIAL SUBCUT SCH ×3 (08:30→18:36)
[2020-01-10] MEDS: POTASSI CL 20 MEQ/50 ML RIDER 20 MEQ/50 ML RTUPB IV SCH ×3 (08:30→12:27)
[2020-01-10] MEDS: BUPRENORPHINE HCL 2 MG SUBLINGUAL TABLET SL SCH (09:44)
[2020-01-10] MEDS: FAMOTIDINE 20 MG TABLET PO SCH ×2 (09:44→21:19)
[2020-01-10] MEDS: INSULIN GLARGINE,HUM.REC.ANLOG 1,000 UNIT/10 ML VIAL SUBCUT SCH ×2 (09:44→21:32)
[2020-01-10] MEDS: DOCUSATE SODIUM 100 MG CAPSULE PO SCH (09:44)
[2020-01-10] MEDS: LINEZOLID 600 MG/300 ML RTUPB IV SCH ×2 (09:49→21:18)
[2020-01-10] MEDS: DAPTOMYCIN IV SCH (14:53)
[2020-01-10] MEDS: NORMAL SALINE IV SCH (14:53)
--- NOTE | 2020-01-10 16:47 | PDOC PROGRESS REPORT ---
Subjective Progress Note for:: 01/10/20 Subjective:: Paul Hardin is a 34-year-old male past medical history of uncontrolled diabetes frequent admissions for DKA, IV drug use, and recent admission for MSSA bacteremia/endocarditis and completed treatment left AGAINST MEDICAL ADVICE on a week 4 of a 6 week treatment. Who was admitted in the emergency room with complaints of uncontrolled blood glucose. In the ED blood glucose noted to be 630 bicarb less than 5. Was noted to have leukocytosis of 23.8. Chest CT revealed soft tissue thickening and stranding along the sternal mandibular joint with irregular lucent lesions to the joint suggestive of osteomyelitis, with an additional soft tissue formation inferior to the sternum with numerous foci of gas. Central line was placed due to difficult IV access. He was given IV fluids and was started on an insulin drip per DKA protocol. BMP monitored every 4 hours with eventual closing of anion gap. Daptomycin was resumed for possible suspected endocarditis. D2 hospital stay 01/07/20. Was seen and examined at bedside denies any chest pain shortness of breath. Has nausea, no vomiting. Appetite fair. Blood culture preliminary result showed MRSA. Currently on daptomycin. Denies any fever. D3 hospital stay 01/08/20. he was seen and examined at bedside. He seems comfortable, denies any chest pain or shortness of breath or abdominal pain. Afebrile. I discussed with him the findings on the CT chest and the need for prolonged antibiotics at least 6 weeks depending on repeat CT chest and blood cultures. D4 hospital stay 01/09/20. He was seen and examined at bedside. He denies any chest pain, SOB, afebrile. I was informed by the nurse that his central line noted to have discharge around insertion site. Patient is a difficult IV stick, advised the nurse to insert a peripheral IV. Cannot put a PICC line yet since he still has bacteremia. Repeat CT chest to follow up previously noted gas fluid collection showed interval increase to 5.4x7.2 cm from 4.2x5.6 cm with interval development of trace right pleural effusion. He remains afebrile, WBC count 13.3, repeat blood cultures pending. Echo result pending. He is D3 of Daptomycin. TRISHA consult reviewed his chart and recommend CT surgery consult to drain abscess. D5 hospital stay 01/10/20: He was seen and examined at bedside. Looks comfortable, denies any fever, chest pain, SOB. I was able to speak to Dr. Hall from [facility] about his case and transfer. They had accepted him for transfer but have no bed available. I was told to call back everyday to check bed availability. He is D4 of daptomycin, D2 of linezolid which was added yesterday to cover for lung abscess. TTE did not show any findings concerning for endocarditis. Blood culture drawn 01/09/20 still positive for MRSA. Reason For Visit: DKA Physical Exam Vital Signs: Temp Pulse Resp BP Pulse Ox 98.1 F 97 20 99/62 L 99 01/10/20 10:56 01/10/20 10:56 01/10/20 10:56 01/10/20 10:56 01/10/20 10:56 Intake & Output 01/09/20 01/10/20 01/11/20 06:59 06:59 06:59 Intake Total 3176 4642 534 Output Total 2450 3650 450 Balance 726 992 84 Weight 72.9 kg 74.9 kg General appearance: PRESENT: no acute distress, cooperative Head exam: PRESENT: atraumatic, normocephalic Eye exam: PRESENT: EOMI, PERRLA Ear exam: PRESENT: normal external ear exam Mouth exam: PRESENT: moist Neck exam: PRESENT: full ROM. ABSENT: JVD, meningismus Respiratory exam: PRESENT: clear to auscultation fran, symmetrical, unlabored Cardiovascular exam: PRESENT: RRR, +S1, +S2 Pulses: PRESENT: +2 pedal pulses bilateral GI/Abdominal exam: PRESENT: normal bowel sounds, soft. ABSENT: rebound, tenderness Extremities exam: PRESENT: full ROM. ABSENT: +2 edema Musculoskeletal exam: PRESENT: full ROM Neurological exam: PRESENT: alert, awake, oriented to person, oriented to place, oriented to time Psychiatric exam: PRESENT: normal mood Results Laboratory Results: 01/10/20 06:30 01/10/20 06:30 01/10/20 01/10/20 06:30 06:30 WBC 11.6 H RBC 3.40 L Hgb 9.6 L Hct 28.4 L MCV 84 MCH 28.2 MCHC 33.8 RDW 13.8 Plt Count 350 Seg Neutrophils % 78.7 H Sodium 134.2 L Potassium 3.0 L* Chloride 93 L Carbon Dioxide 36 H Anion Gap 5 BUN 6 L Creatinine 0.37 L Est GFR ( Amer) > 60 Glucose 239 H Calcium 7.5 L Total Bilirubin 0.5 AST 19 Alkaline Phosphatase 78 Total Protein 4.9 L Albumin 1.9 L 01/09/20 07:30 Blood Blood Culture (PCR) - Final Staphylococcus Aureus 01/09/20 08:50 Blood Blood Culture (PCR) - Final Staphylococcus Aureus 01/07/20 14:10 Creatine Kinase 45 L Impressions: Chest X-Ray 01/06/20 14:43 IMPRESSION: New right central venous catheter with tip in the right atrium. No pneumothorax. No significant interval change. Chest CT 01/09/20 08:00 IMPRESSION: Slight increase in size of right apical gas fluid collection. 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 -He was on week #4 of 6 of treatment for MSSA endocarditis with daptomycin. - TTE done showed no evidence of endocarditis LVEF of 65%, normal LV systolic function -Blood culture 01/09/20 +ve MRSA -Plan for PICC line once blood culture is clear - on daptomycin D4 - Linezolid Day 2 added for Lung abscess - ESR CRP elevated - ID on board (2) Pleural abscess Is this a current diagnosis for this admission?: Yes Plan: - CT chest done 01/06/20 anterior right upper lobe lesion measuring 5.6 x 4.2 cm noted scattered gas foci. Abnormal soft tissue thickening and stranding around the sternomanubrial joint with irregular lucent lesions at the joint suggestive of osteomyelitis - repeat Chest CT 01/09/20 showed anterior right apical gas/fluid collection has increased to 5.4 x 7.2 cm from 4.2 x 5.6 cm. With interval development of trace right pleural effusion. - plan to continue Daptomycin D4 - Spoke to Dr. Cardenas from [facility] and updated him of latest CT findings. He accepted him for transfer however no beds are currently available. Was told to call back daily for availability. Called today, no bed available yet. - discussed case with Dr. Jovany ALVAREZ who recommended to add Linezolid to dapto to cover the Lung abscess since dapto does not penetrate lung tissue (3) Osteomyelitis Qualifiers: Osteomyelitis type: other acute Osteomyelitis location: other site Qualified Code(s): M86.18 - Other acute osteomyelitis, other site Is this a current diagnosis for this admission?: Yes Plan: - CT imaging revealed abnormal soft tissue thickening and stranding along the right sternal manubrial joint with irregular lucent lesions concerning for osteomyelitis with an additional soft tissue density inferior to the sternum along the right upper lobe with scattered foci of gas which likely represents an extrapleural fluid collection originating from the osteomyelitis. - cultures 01/08 still positive for MRSA - continue Daptomycin D4 - continue Linezolid day 2 - will need PICC line once cleared of bacteremia - ID following (4) DKA (diabetic ketoacidoses) Qualifiers: Diabetes mellitus type: type 1 Diabetes mellitus complication detail: without coma Qualified Code(s): E10.10 - Type 1 diabetes mellitus with ketoacidosis without coma Is this a current diagnosis for this admission?: Yes Plan: - RESOLVED. AG closed - K 3.0 replaced - off insulin drip - transitioned to lantus and Humalog with meals and SSI. - accucheck ACHS - on carb controlled diet (5) Bacteremia Is this a current diagnosis for this admission?: Yes Plan: -Culture positive for MRSA -Currently on daptomycin D3 -on linezolid D2 -Blood culture 01/05 +ve MRSA - Blood culture 01/08 pending (6) Type 2 diabetes mellitus, uncontrolled Qualifiers: Glycemic state: with hyperglycemia Qualified Code(s): E11.65 - Type 2 diabetes mellitus with hyperglycemia Is this a current diagnosis for this admission?: Yes Plan: -Hemoglobin A1c 12.6 -Currently on basal bolus insulin - accucheck - hypoglycemia protocol (7) Substance abuse Is this a current diagnosis for this admission?: Yes Plan: Patient with history of IV heroin, methadone, marijuana drug use. During prior admission, his withdrawal symptoms abated rapidly with use of Subutex. We will resume prior dose; Subutex 4 mg daily. Monitor for evidence of withdrawal. (8) IV drug abuse Is this a current diagnosis for this admission?: Yes Plan: -history of IV drug use last use 6 days prior to admission (9) Hypokalemia Is this a current diagnosis for this admission?: Yes Plan: -K 3.0 replaced - monitor with daily CMP - Time Time Spent with patient: 25-34 minutes Medications reviewed and adjusted accordingly: Yes Anticipated Discharge Disposition: to be determined Anticipated Discharge Timeframe: to be determined
[2020-01-11 02:48] LABS: ABSOLUTE BASOPHILS # (AUTO) 0.1 10^3/uL (0.0-0.2); ABSOLUTE EOSINOPHILS # (AUTO) 0.1 10^3/uL (0.0-0.6); ABSOLUTE NEUT (AUTO) 7.8 10^3/uL (1.7-8.2); BASOPHILS % (AUTO) 1.2 % (0-2); EOSINOPHILS % (AUTO) 0.9 % (0-6); HEMATOCRIT 27.5 % (37.9-51.0); HEMOGLOBIN 9.2 g/dL (13.5-17.0); LYMPHOCYTES % (AUTO) 18.4 % (13-45); MEAN CORPUSCULAR HEMOGLOBIN 28.6 pg (27.0-33.4); MEAN CORPUSCULAR HGB CONC 33.7 g/dL (32.0-36.0); MEAN CORPUSCULAR VOLUME 85 fl (80-97); MONOCYTES % (AUTO) 8.9 % (3-13); PLATELET COUNT 395 10^3/uL (150-450); RED BLOOD COUNT 3.23 10^6/uL (4.35-5.55); RED CELL DISTRIBUTION WIDTH 14.2 % (11.5-14.0); SEGMENTED NEUTROPHILS % (AUTO) 70.6 % (42-78); TOTAL CELLS COUNTED % (AUTO) 100 %; WHITE BLOOD COUNT 11.1 10^3/uL (4.0-10.5)
[2020-01-11 03:02] LABS: ALBUMIN 1.9 g/dL (3.5-5.0); ALKALINE PHOSPHATASE 81 U/L (38-126); ASPARTATE AMINO TRANSFERASE 22 U/L (17-59); BILIRUBIN,DIRECT 0.3 mg/dL (0.0-0.4); BILIRUBIN,TOTAL 0.4 mg/dL (0.2-1.3); BLOOD UREA NITROGEN 8 mg/dL (7-20); CALCIUM 7.7 mg/dL (8.4-10.2); GLUCOSE 268 mg/dL (75-110); POTASSIUM 3.5 mmol/L (3.6-5.0)
[2020-01-11 03:07] LABS: ANION GAP 6 (5-19); CARBON DIOXIDE 34 mmol/L (22-30); CHLORIDE 94 mmol/L (98-107)
[2020-01-11] MEDS: ACETAMINOPHEN 325 MG TABLET PO PRN ×4 (03:50→22:26)
[2020-01-11] MEDS: HEPARIN SOD (PORCINE) 5,000 UNIT/ML 1 ML VIAL SUBCUT SCH ×3 (05:24→22:25)
--- NOTE | 2020-01-11 06:57 | PDOC PROGRESS REPORT ---
Subjective Progress Note for:: 01/11/20 Subjective:: Paul Hardin is a 34-year-old male past medical history of uncontrolled diabetes frequent admissions for DKA, IV drug use, and recent admission for MSSA bacteremia/endocarditis and completed treatment left AGAINST MEDICAL ADVICE on a week 4 of a 6 week treatment. Who was admitted in the emergency room with complaints of uncontrolled blood glucose. In the ED blood glucose noted to be 630 bicarb less than 5. Was noted to have leukocytosis of 23.8. Chest CT revealed soft tissue thickening and stranding along the sternal mandibular joint with irregular lucent lesions to the joint suggestive of osteomyelitis, with an additional soft tissue formation inferior to the sternum with numerous foci of gas. Central line was placed due to difficult IV access. He was given IV fluids and was started on an insulin drip per DKA protocol. BMP monitored every 4 hours with eventual closing of anion gap. Daptomycin was resumed for possible suspected endocarditis. D2 hospital stay 01/07/20. Was seen and examined at bedside denies any chest pain shortness of breath. Has nausea, no vomiting. Appetite fair. Blood culture preliminary result showed MRSA. Currently on daptomycin. Denies any fever. D3 hospital stay 01/08/20. he was seen and examined at bedside. He seems comfortable, denies any chest pain or shortness of breath or abdominal pain. Afebrile. I discussed with him the findings on the CT chest and the need for prolonged antibiotics at least 6 weeks depending on repeat CT chest and blood cultures. D4 hospital stay 01/09/20. He was seen and examined at bedside. He denies any chest pain, SOB, afebrile. I was informed by the nurse that his central line noted to have discharge around insertion site. Patient is a difficult IV stick, advised the nurse to insert a peripheral IV. Cannot put a PICC line yet since he still has bacteremia. Repeat CT chest to follow up previously noted gas fluid collection showed interval increase to 5.4x7.2 cm from 4.2x5.6 cm with interval development of trace right pleural effusion. He remains afebrile, WBC count 13.3, repeat blood cultures pending. Echo result pending. He is D3 of Daptomycin. TRISHA consult reviewed his chart and recommend CT surgery consult to drain abscess. D5 hospital stay 01/10/20: He was seen and examined at bedside. Looks comfortable, denies any fever, chest pain, SOB. I was able to speak to Dr. Hall from [facility] about his case and transfer. They had accepted him for transfer but have no bed available. I was told to call back everyday to check bed availability. He is D4 of daptomycin, D2 of linezolid which was added yesterday to cover for lung abscess. TTE did not show any findings concerning for endocarditis. Blood culture drawn 01/09/20 still positive for MRSA. D6 hospital stay 01/11/20. He was seen and examined at bedside. Sleeping comfortably. Afebrile with good appetite. Denies chest pain, SOB, palpitations. Currently D5 Dapto, D2 linezolid. Awaiting acceptance at [facility], will call again today. Awaiting clearance of bacteremia for PICC line placement. Blood cx drawn 01/10 awaiting result. Reason For Visit: DKA Physical Exam Vital Signs: Temp Pulse Resp BP Pulse Ox 97.9 F 99 12 122/65 92 01/11/20 03:44 01/11/20 03:44 01/11/20 03:44 01/11/20 03:44 01/11/20 03:44 Intake & Output 01/09/20 01/10/20 01/11/20 06:59 06:59 06:59 Intake Total 3176 4642 3470 Output Total 2450 3650 3525 Balance 726 992 -55 Weight 72.9 kg 74.9 kg 76.5 kg General appearance: PRESENT: no acute distress, cooperative Head exam: PRESENT: atraumatic, normocephalic Eye exam: PRESENT: EOMI, PERRLA Mouth exam: PRESENT: moist Neck exam: PRESENT: full ROM. ABSENT: JVD, meningismus Cardiovascular exam: PRESENT: RRR, +S1, +S2. ABSENT: diastolic murmur, systolic murmur Pulses: PRESENT: +2 pedal pulses bilateral GI/Abdominal exam: PRESENT: normal bowel sounds, soft. ABSENT: distended, rebound, tenderness Extremities exam: PRESENT: full ROM. ABSENT: joint swelling Neurological exam: PRESENT: alert, awake, oriented to person, oriented to place, oriented to time Psychiatric exam: PRESENT: normal mood Skin exam: PRESENT: normal color Results Laboratory Results: 01/11/20 02:30 01/11/20 02:30 01/10/20 01/10/20 01/11/20 06:30 06:30 02:30 WBC 11.6 H 11.1 H RBC 3.40 L 3.23 L Hgb 9.6 L 9.2 L Hct 28.4 L 27.5 L MCV 84 85 MCH 28.2 28.6 MCHC 33.8 33.7 RDW 13.8 14.2 H Plt Count 350 395 Seg Neutrophils % 78.7 H 70.6 Sodium 134.2 L Potassium 3.0 L* Chloride 93 L Carbon Dioxide 36 H Anion Gap 5 BUN 6 L Creatinine 0.37 L Est GFR ( Amer) > 60 Glucose 239 H Calcium 7.5 L Total Bilirubin 0.5 AST 19 Alkaline Phosphatase 78 Total Protein 4.9 L Albumin 1.9 L 01/11/20 02:30 WBC RBC Hgb Hct MCV MCH MCHC RDW Plt Count Seg Neutrophils % Sodium 133.6 L Potassium 3.5 L Chloride 94 L Carbon Dioxide 34 H Anion Gap 6 BUN 8 Creatinine 0.44 L Est GFR ( Amer) > 60 Glucose 268 H Calcium 7.7 L Total Bilirubin 0.4 AST 22 Alkaline Phosphatase 81 Total Protein 5.0 L Albumin 1.9 L 01/09/20 07:30 Blood Blood Culture (PCR) - Final Staphylococcus Aureus 01/09/20 08:50 Blood Blood Culture (PCR) - Final Staphylococcus Aureus 01/07/20 14:10 Creatine Kinase 45 L Impressions: Chest X-Ray 01/06/20 14:43 IMPRESSION: New right central venous catheter with tip in the right atrium. No pneumothorax. No significant interval change. Chest CT 01/09/20 08:00 IMPRESSION: Slight increase in size of right apical gas fluid collection. 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 -He was on week #4 of 6 of treatment for MSSA endocarditis with daptomycin. -TTE done showed no evidence of endocarditis LVEF of 65%, normal LV systolic function -Blood culture 01/09/20 +ve MRSA -awaiting Blood culture 01/11/20 -Plan for PICC line once blood culture is clear - on daptomycin D4 - Linezolid Day 3 added for Lung abscess - ESR CRP elevated - ID on board (2) Pleural abscess Is this a current diagnosis for this admission?: Yes Plan: - CT chest done 01/06/20 anterior right upper lobe lesion measuring 5.6 x 4.2 cm noted scattered gas foci. Abnormal soft tissue thickening and stranding around the sternomanubrial joint with irregular lucent lesions at the joint suggestive of osteomyelitis - repeat Chest CT 01/09/20 showed anterior right apical gas/fluid collection has increased to 5.4 x 7.2 cm from 4.2 x 5.6 cm. With interval development of trace right pleural effusion. - plan to continue Daptomycin D5 - Spoke to Dr. Cardenas from [facility] and updated him of latest CT findings. He accepted him for transfer however no beds are currently available. Was told to call back daily for availability. Called today, no bed available yet. - Called [place] as well no bed availability - discussed case with Dr. Jovany ALVAREZ who recommended to add Linezolid to dapto to cover the Lung abscess since dapto does not penetrate lung tissue (3) Osteomyelitis Qualifiers: Osteomyelitis type: other acute Osteomyelitis location: other site Qualified Code(s): M86.18 - Other acute osteomyelitis, other site Is this a current diagnosis for this admission?: Yes Plan: - CT imaging revealed abnormal soft tissue thickening and stranding along the right sternal manubrial joint with irregular lucent lesions concerning for osteomyelitis with an additional soft tissue density inferior to the sternum along the right upper lobe with scattered foci of gas which likely represents an extrapleural fluid collection originating from the osteomyelitis. - cultures 01/08 still positive for MRSA - continue Daptomycin D4 - continue Linezolid D3 - will need PICC line once cleared of bacteremia - ID following (4) DKA (diabetic ketoacidoses) Qualifiers: Diabetes mellitus type: type 1 Diabetes mellitus complication detail: without coma Qualified Code(s): E10.10 - Type 1 diabetes mellitus with ke toacidosis without coma Is this a current diagnosis for this admission?: Yes Plan: - RESOLVED. AG closed - off insulin drip - transitioned to lantus and Humalog with meals and SSI. - accucheck ACHS - on carb controlled diet (5) Bacteremia Is this a current diagnosis for this admission?: Yes Plan: -Culture positive for MRSA -Currently on daptomycin D5 -on linezolid D3 -Blood culture 01/05 +ve MRSA - Blood culture 01/08 MRSA positive (6) Type 2 diabetes mellitus, uncontrolled Qualifiers: Glycemic state: with hyperglycemia Qualified Code(s): E11.65 - Type 2 diabetes mellitus with hyperglycemia Is this a current diagnosis for this admission?: Yes Plan: -Hemoglobin A1c 12.6 -Currently on basal bolus insulin - accucheck - hypoglycemia protocol (7) Substance abuse Is this a current diagnosis for this admission?: Yes Plan: Patient with history of IV heroin, methadone, marijuana drug use. During prior admission, his withdrawal symptoms abated rapidly with use of Subutex. We will resume prior dose; Subutex 4 mg daily. Monitor for evidence of withdrawal. (8) IV drug abuse Is this a current diagnosis for this admission?: Yes Plan: -history of IV drug use last use 6 days prior to admission (9) Hypokalemia Is this a current diagnosis for this admission?: Yes Plan: -K 3.0>3.5 replaced - monitor with daily CMP - Time Time Spent with patient: 25-34 minutes Anticipated Discharge Disposition: to be determined Anticipated Discharge Timeframe: to be determined
[2020-01-11] MEDS: INSULIN REG, HUMAN 100 UNIT/ML 3 ML VIAL (PYX) SUBCUT SCH ×4 (08:37→22:10)
[2020-01-11] MEDS: INSULIN LISPRO 100 UNIT/ML 3 ML VIAL SUBCUT SCH ×3 (08:37→17:20)
[2020-01-11] MEDS: BUPRENORPHINE HCL 2 MG SUBLINGUAL TABLET SL SCH (09:10)
[2020-01-11] MEDS: INSULIN GLARGINE,HUM.REC.ANLOG 1,000 UNIT/10 ML VIAL SUBCUT SCH ×2 (09:10→22:24)
[2020-01-11] MEDS: DOCUSATE SODIUM 100 MG CAPSULE PO SCH (09:10)
[2020-01-11] MEDS: FAMOTIDINE 20 MG TABLET PO SCH ×2 (09:10→22:25)
[2020-01-11] MEDS: LINEZOLID 600 MG/300 ML RTUPB IV SCH ×2 (09:16→22:23)
[2020-01-11] MEDS: DAPTOMYCIN IV SCH (16:19)
[2020-01-11] MEDS: NORMAL SALINE IV SCH (16:19)
[2020-01-12 05:33] LABS: ABSOLUTE EOSINOPHILS # (AUTO) 0.1 10^3/uL (0.0-0.6); ABSOLUTE LYMPHOCYTES (AUTO) 1.8 10^3/uL (0.5-4.7); ABSOLUTE MONOCYTES (AUTO) 1.3 10^3/uL (0.1-1.4); ABSOLUTE NEUT (AUTO) 8.4 10^3/uL (1.7-8.2); BASOPHILS % (AUTO) 0.2 % (0-2); EOSINOPHILS % (AUTO) 0.5 % (0-6); HEMATOCRIT 30.3 % (37.9-51.0); LYMPHOCYTES % (AUTO) 15.9 % (13-45); MEAN CORPUSCULAR HEMOGLOBIN 28.1 pg (27.0-33.4); MEAN CORPUSCULAR VOLUME 85 fl (80-97); MONOCYTES % (AUTO) 11.1 % (3-13); PLATELET COUNT 522 10^3/uL (150-450); RED BLOOD COUNT 3.56 10^6/uL (4.35-5.55); RED CELL DISTRIBUTION WIDTH 14.4 % (11.5-14.0); SEGMENTED NEUTROPHILS % (AUTO) 72.3 % (42-78); TOTAL CELLS COUNTED % (AUTO) 100 %; WHITE BLOOD COUNT 11.6 10^3/uL (4.0-10.5)
[2020-01-12] MEDS: HEPARIN SOD (PORCINE) 5,000 UNIT/ML 1 ML VIAL SUBCUT SCH ×2 (05:39→15:12)
[2020-01-12 06:18] LABS: ALBUMIN 2.2 g/dL (3.5-5.0); ALKALINE PHOSPHATASE 117 U/L (38-126); ANION GAP 5 (5-19); ASPARTATE AMINO TRANSFERASE 43 U/L (17-59); BILIRUBIN,DIRECT 0.3 mg/dL (0.0-0.4); BILIRUBIN,TOTAL 0.3 mg/dL (0.2-1.3); BLOOD UREA NITROGEN 9 mg/dL (7-20); CALCIUM 8.1 mg/dL (8.4-10.2); CARBON DIOXIDE 36 mmol/L (22-30); CHLORIDE 95 mmol/L (98-107); CREATINE KINASE 51 U/L (55-170); GLUCOSE 253 mg/dL (75-110); POTASSIUM 4.1 mmol/L (3.6-5.0); TOTAL PROTEIN 5.9 g/dL (6.3-8.2)
[2020-01-12 06:33] LABS: C-REACTIVE PROTEIN 206.8 mg/L (<10.0)
[2020-01-12 07:23] LABS: ERYTHROCYTE SEDIMENTATION RATE 87 mm/hr (0-15)
[2020-01-12] MEDS: INSULIN LISPRO 100 UNIT/ML 3 ML VIAL SUBCUT SCH ×3 (08:21→16:54)
[2020-01-12] MEDS: INSULIN REG, HUMAN 100 UNIT/ML 3 ML VIAL (PYX) SUBCUT SCH ×3 (08:22→16:52)
[2020-01-12] MEDS: ACETAMINOPHEN 325 MG TABLET PO PRN (08:24)
[2020-01-12] MEDS: BUPRENORPHINE HCL 2 MG SUBLINGUAL TABLET SL SCH (10:19)
[2020-01-12] MEDS: INSULIN GLARGINE,HUM.REC.ANLOG 1,000 UNIT/10 ML VIAL SUBCUT SCH (10:19)
[2020-01-12] MEDS: FAMOTIDINE 20 MG TABLET PO SCH (10:19)
[2020-01-12] MEDS: DOCUSATE SODIUM 100 MG CAPSULE PO SCH (10:19)
[2020-01-12] MEDS: LINEZOLID 600 MG/300 ML RTUPB IV SCH (10:20)
--- NOTE | 2020-01-12 14:40 | PDOC PROGRESS REPORT ---
Subjective Progress Note for:: 01/12/20 Subjective:: Paul Hardin is a 34-year-old male past medical history of uncontrolled diabetes frequent admissions for DKA, IV drug use, and recent admission for MSSA bacteremia/endocarditis and completed treatment left AGAINST MEDICAL ADVICE on a week 4 of a 6 week treatment. Who was admitted in the emergency room with complaints of uncontrolled blood glucose. In the ED blood glucose noted to be 630 bicarb less than 5. Was noted to have leukocytosis of 23.8. Chest CT revealed soft tissue thickening and stranding along the sternal mandibular joint with irregular lucent lesions to the joint suggestive of osteomyelitis, with an additional soft tissue formation inferior to the sternum with numerous foci of gas. Central line was placed due to difficult IV access. He was given IV fluids and was started on an insulin drip per DKA protocol. BMP monitored every 4 hours with eventual closing of anion gap. Daptomycin was resumed for possible suspected endocarditis. D2 hospital stay 01/07/20. Was seen and examined at bedside denies any chest pain shortness of breath. Has nausea, no vomiting. Appetite fair. Blood culture preliminary result showed MRSA. Currently on daptomycin. Denies any fever. D3 hospital stay 01/08/20. he was seen and examined at bedside. He seems comfortable, denies any chest pain or shortness of breath or abdominal pain. Afebrile. I discussed with him the findings on the CT chest and the need for prolonged antibiotics at least 6 weeks depending on repeat CT chest and blood cultures. D4 hospital stay 01/09/20. He was seen and examined at bedside. He denies any chest pain, SOB, afebrile. I was informed by the nurse that his central line noted to have discharge around insertion site. Patient is a difficult IV stick, advised the nurse to insert a peripheral IV. Cannot put a PICC line yet since he still has bacteremia. Repeat CT chest to follow up previously noted gas fluid collection showed interval increase to 5.4x7.2 cm from 4.2x5.6 cm with interval development of trace right pleural effusion. He remains afebrile, WBC count 13.3, repeat blood cultures pending. Echo result pending. He is D3 of Daptomycin. TRISHA consult reviewed his chart and recommend CT surgery consult to drain abscess. D5 hospital stay 01/10/20: He was seen and examined at bedside. Looks comfortable, denies any fever, chest pain, SOB. I was able to speak to Dr. Hall from [facility] about his case and transfer. They had accepted him for transfer but have no bed available. I was told to call back everyday to check bed availability. He is D4 of daptomycin, D2 of linezolid which was added yesterday to cover for lung abscess. TTE did not show any findings concerning for endocarditis. Blood culture drawn 01/09/20 still positive for MRSA. D6 hospital stay 01/11/20. He was seen and examined at bedside. Sleeping comfortably. Afebrile with good appetite. Denies chest pain, SOB, palpitations. Currently D5 Dapto, D3 linezolid. Awaiting acceptance at [facility], will call again today. Awaiting clearance of bacteremia for PICC line placement. Blood cx drawn 01/10 awaiting result. D7 hospital stay 01/12/20. He was seen and examined at bedside. looks comfortable. D6 dapto, D3 linezolid. Spoke to [facility] CT surgery who reviewed his case and he was put on a waitlist. [place] cx 01/11/20 +ve MRSA. Afebrile since admission. No complains of chest pain, SOB. Reason For Visit: DKA Physical Exam Vital Signs: Temp Pulse Resp BP Pulse Ox 98.1 F 84 20 179/164 H 94 01/12/20 12:21 01/12/20 12:21 01/12/20 12:21 01/12/20 12:21 01/12/20 12:21 Intake & Output 01/11/20 01/12/20 01/13/20 06:59 06:59 06:59 Intake Total 3770 4341 570 Output Total 3525 4100 300 Balance 245 241 270 Weight 76.5 kg 77.1 kg General appearance: PRESENT: no acute distress, cooperative Head exam: PRESENT: atraumatic, normocephalic Eye exam: PRESENT: EOMI, PERRLA Mouth exam: PRESENT: moist Neck exam: PRESENT: full ROM Respiratory exam: PRESENT: clear to auscultation fran, symmetrical, unlabored. ABSENT: rales Cardiovascular exam: PRESENT: RRR, +S1, +S2 Pulses: PRESENT: normal radial pulses GI/Abdominal exam: PRESENT: normal bowel sounds, soft. ABSENT: rebound, tenderness Extremities exam: PRESENT: full ROM. ABSENT: +2 edema Musculoskeletal exam: PRESENT: full ROM Neurological exam: PRESENT: alert, awake, oriented to person, oriented to place, oriented to time Psychiatric exam: PRESENT: normal mood Results Laboratory Results: 01/12/20 04:46 01/12/20 04:46 01/12/20 01/12/20 04:46 04:46 WBC 11.6 H RBC 3.56 L Hgb 10.0 L Hct 30.3 L MCV 85 MCH 28.1 MCHC 33.0 RDW 14.4 H Plt Count 522 H Seg Neutrophils % 72.3 Sodium 135.7 L Potassium 4.1 Chloride 95 L Carbon Dioxide 36 H Anion Gap 5 BUN 9 Creatinine 0.53 Est GFR ( Amer) > 60 Glucose 253 H Calcium 8.1 L Total Bilirubin 0.3 AST 43 Alkaline Phosphatase 117 C-Reactive Protein 206.8 H Total Protein 5.9 L Albumin 2.2 L 01/11/20 03:52 Blood Blood Culture (PCR) - Final Staphylococcus Aureus 01/11/20 02:30 Blood Blood Culture (PCR) - Final Staphylococcus Aureus 01/07/20 01/12/20 14:10 04:46 Creatine Kinase 45 L 51 L Impressions: Chest X-Ray 01/06/20 14:43 IMPRESSION: New right central venous catheter with tip in the right atrium. No pneumothorax. No significant interval change. Chest CT 01/09/20 08:00 IMPRESSION: Slight increase in size of right apical gas fluid collection. 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 -He was on week #4 of 6 of treatment for MSSA endocarditis with daptomycin. -TTE done showed no evidence of endocarditis LVEF of 65%, normal LV systolic function -Blood culture 01/09/20 +ve MRSA -Blood culture 01/11/20 +ve MRSA -will repeat 01/13/20 -Plan for PICC line once blood culture is clear - on daptomycin D6 - Linezolid Day 3 added for Lung abscess - ESR CRP elevated - ID on board (2) Pleural abscess Is this a current diagnosis for this admission?: Yes Plan: - CT chest done 01/06/20 anterior right upper lobe lesion measuring 5.6 x 4.2 cm noted scattered gas foci. Abnormal soft tissue thickening and stranding around the sternomanubrial joint with irregular lucent lesions at the joint suggestive of osteomyelitis - repeat Chest CT 01/09/20 showed anterior right apical gas/fluid collection has increased to 5.4 x 7.2 cm from 4.2 x 5.6 cm. With interval development of trace right pleural effusion. - plan to continue Daptomycin D6 - Spoke to Dr. Cardenas from [facility] and updated him of latest CT findings. He accepted him for transfer however no beds are currently available. Called again today and was able to speak to Dr. Cardenas who has a bed available today. - [facility] called as well - Called [facility] as well no bed availability - discussed case with Dr. Jovany ALVAREZ who recommended to add Linezolid to dapto to cover the Lung abscess since dapto does not penetrate lung tissue (3) Osteomyelitis Qualifiers: Osteomyelitis type: other acute Osteomyelitis location: other site Qualified Code(s): M86.18 - Other acute osteomyelitis, other site Is this a current diagnosis for this admission?: Yes Plan: - CT imaging revealed abnormal soft tissue thickening and stranding along the right sternal manubrial joint with irregular lucent lesions concerning for osteomyelitis with an additional soft tissue density inferior to the sternum along the right upper lobe with scattered foci of gas which likely represents an extrapleural fluid collection originating from the osteomyelitis. - cultures 01/08 still positive for MRSA - cultures 01/10 positive for MRSA - continue Daptomycin D6 - continue Linezolid D3 - will need PICC line once cleared of bacteremia - ID following (4) DKA (diabetic ketoacidoses) Qualifiers: Diabetes mellitus type: type 1 Diabetes mellitus complication detail: without coma Qualified Code(s): E10.10 - Type 1 diabetes mellitus with ketoacidosis without coma Is this a current diagnosis for this admission?: Yes Plan: - RESOLVED. AG closed - off insulin drip - transitioned to lantus and Humalog with meals and SSI. - accucheck ACHS - on carb controlled diet (5) Bacteremia Is this a current diagnosis for this admission?: Yes Plan: -Culture positive for MRSA -Currently on daptomycin D6 -on linezolid D3 -Blood culture 01/05 +ve MRSA - Blood culture 01/08 MRSA positive - blood culture 9/5 MRSA positive (6) Type 2 diabetes mellitus, uncontrolled Qualifiers: Glycemic state: with hyperglycemia Qualified Code(s): E11.65 - Type 2 diabetes mellitus with hyperglycemia Is this a current diagnosis for this admission?: Yes Plan: -Hemoglobin A1c 12.6 -Currently on basal bolus insulin - accucheck - hypoglycemia protocol (7) Substance abuse Is this a current diagnosis for this admission?: Yes Plan: Patient with history of IV heroin, methadone, marijuana drug use. During prior admission, his withdrawal symptoms abated rapidly with use of Subutex. We will resume prior dose; Subutex 4 mg daily. Monitor for evidence of withdrawal. (8) IV drug abuse Is this a current diagnosis for this admission?: Yes Plan: -history of IV drug use last use 6 days prior to admission (9) Hypokalemia Is this a current diagnosis for this admission?: Yes Plan: -K 3.0>3.5 replaced - monitor with daily CMP - Time Time Spent with patient: 35 or more minutes Anticipated Discharge Disposition: to be determined Anticipated Discharge Timeframe: to be determined
--- NOTE | 2020-01-12 15:00 | PDOC TRANSFER SUMMARY ---
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 -TTE on November 10 showed normal LV systolic function, ejection fraction 55 to 60%, possible vegetation seen on tricuspid valve, no pericardial effusion - TTE on January 06 showed no evidence of endocarditis. Left ventricle is normal in size. Ejection fraction 65%. Trace amount of tricuspid regurgitation. -On day 6 of daptomycin -On day 3 of linezolid -Blood culture 01/11/20 still positive for MRSA (2) Pleural abscess Is this a current diagnosis for this admission?: Yes Diagnosis Summary: -CT chest done January 06, 2020 showed anterior right upper lobe lesion measuring 5.6 x 4.2 cm noted scattered gas foci. Abnormal soft tissue thickening and stranding around the sternomanubrial joint with irregular lucent lesions at the joint suggestive of osteomyelitis. -Repeat CT chest January 09, 2020, showed anterior right apical callus/fluid collection has increased to 5.4 x 7.2 cm from 4.2 x 5.6 cm with interval development of trace right pleural effusion -Case discussed with Dr. Manzo infectious disease who recommended to add linezolid top of daptomycin since daptomycin does not penetrate lung tissue (3) Osteomyelitis Is this a current diagnosis for this admission?: Yes Diagnosis Summary: -CT chest findings consistent with sternomanubrial osteomyelitis -Blood cultures continue to be positive for MRSA -We will need a PICC line once cleared of bacteremia -On daptomycin and linezolid (4) DKA (diabetic ketoacidoses) Is this a current diagnosis for this admission?: Yes Diagnosis Summary: -Uncontrolled diabetes with an A1c of 12.6 -DKA has resolved anion gap is closed, has been off insulin drip for 5 days -Transition to Lantus 20 units twice daily Humalog 16 units with meals and sliding scale insulin -Accu-Cheks with meals and at bedtime -On carb controlled diet (5) Bacteremia Is this a current diagnosis for this admission?: Yes Diagnosis Summary: as above (6) Type 2 diabetes mellitus, uncontrolled Is this a current diagnosis for this admission?: Yes Diagnosis Summary: as above (7) Substance abuse Is this a current diagnosis for this admission?: Yes Diagnosis Summary: Last use was 6 days prior to admission on January 05 (8) IV drug abuse Is this a current diagnosis for this admission?: Yes (9) Hypokalemia Is this a current diagnosis for this admission?: Yes Diagnosis Summary: resolved - Transfer Medications Home Medications: No Home Medications 11/08/19 Transfer Medications: Current Medications Acetaminophen (Tylenol 325 Mg Tablet) 650 mg PO Q4HP PRN PRN Reason: FOR PAIN OR TEMP Stop: 02/05/20 14:31 Last Admin: 01/12/20 08:24 Dose: 650 mg Documented by: Acetaminophen (Tylenol 650 Mg Supp) 650 mg NC Q4HP PRN PRN Reason: FEVER >101 Stop: 02/05/20 14:31 Al Hydrox/Mg Hydrox/Simethicone (Maalox Plus Susp 30 Udcup) 30 ml PO Q6HP PRN PRN Reason: HEARTBURN Stop: 02/05/20 14:31 Albuterol (Ventolin 0.083% Neb 2.5 Mg/3 Ml Ampul) 2.5 mg NEB RTQ4HP PRN PRN Reason: SHORTNESS OF BREATH Stop: 02/05/20 14:31 Buprenorphine HCl (Subutex 2 Mg Sl Tablet) 4 mg SL DAILY [facility]MA Stop: 01/14/20 09:59 Last Admin: 01/12/20 10:19 Dose: 4 mg Documented by: Dextrose (Dextrose Inj 50% Syringe (25 Gm/50 Ml)) 12.5 gm IV PRN PRN; Protocol PRN Reason: FOR BG 50-69 IN ALERT PATIENT Stop: 02/05/20 14:42 Dextrose (Dextrose Inj 50% Syringe (25 Gm/50 Ml)) 25 gm IV PRN PRN; Protocol PRN Reason: PER PROTOCOL Stop: 02/05/20 14:42 Docusate Sodium (Colace 100 Mg Capsule) 100 mg PO DAILY ISMA Stop: 02/06/20 09:59 Last Admin: 01/12/20 10:19 Dose: Not Given Documented by: Famotidine (Pepcid 20 Mg Tablet) 20 mg PO Q12 [facility] Stop: 02/08/20 21:59 Last Admin: 01/12/20 10:19 Dose: 20 mg Documented by: Glucagon (Glucagen Inj 1 Mg Vial) 1 mg IM PRN PRN; Protocol PRN Reason: Evaluate for BG < 70 Stop: 02/05/20 14:42 Glucose (Glutose 40% Gel 15 Gm Tube) 30 gm PO PRN PRN; Protocol PRN Reason: FOR BG < 50 IN ALERT PATIENT Stop: 02/05/20 14:42 Glucose (Glutose 40% Gel 15 Gm Tube) 15 gm PO PRN PRN; Protocol PRN Reason: FOR BG 50-69 IN ALERT PATIENT Stop: 02/05/20 14:42 Heparin Sodium (Porcine) (Heparin Inj 5,000 Units/Ml 1 Ml Vial) 5,000 unit SUBCUT Q8 [facility] Stop: 02/05/20 21:59 Last Admin: 01/12/20 05:39 Dose: 5,000 unit Documented by: Daptomycin 575 mg/ Sodium (Chloride) 50 mls @ 100 mls/hr IV DAILY@1500 [facility] Stop: 01/15/20 14:59 Last Infusion: 01/11/20 17:15 Dose: Infused Documented by: Linezolid (Zyvox Rtu 600 Mg/300 Ml Premixed) 600 mg in 300 mls @ 300 mls/hr IV Q12 [facility] Stop: 01/16/20 21:59 Last Admin: 01/12/20 10:20 Dose: 300 mls/hr Documented by: Insulin Glargine (Lantus Insulin 100 Unit/1 Ml 10 Ml) 24 unit SUBCUT Q12 [facility] Stop: 02/10/20 09:59 Last Admin: 01/12/20 10:19 Dose: 24 unit Documented by: Insulin Human Lispro (Humalog Insulin 100 Unit/1 Ml 3 Ml Vial) 16 unit SUBCUT AC [facility] Stop: 02/10/20 07:59 Last Admin: 01/12/20 12:03 Dose: 16 unit Documented by: Insulin Human Regular (Humulin R (Pyxis) Insulin 100 Unit/Ml 3ml) 0 - 12 unit SUBCUT [facility]; Protocol Stop: 02/06/20 10:59 Last Admin: 01/12/20 12:02 Dose: 6 unit Documented by: Promethazine HCl (Phenergan Inj 25 Mg/1 Ml Vial) 6.25 mg IV Q4HP PRN PRN Reason: FOR NAUSEA/VOMITING Stop: 02/05/20 14:31 - Allergies Allergies/Adverse Reactions: acetaminophen Adverse Reaction (Verified 11/07/19 22:39) Hospital Course Hospital Course: Paul Hardin is a 34-year-old male past medical history of uncontrolled diabetes frequent admissions for DKA, IV drug use, and recent admission for MRSA bacteremia/endocarditis and completed treatment left AGAINST MEDICAL ADVICE on a week 4 of a 6 week treatment. Who was admitted in the emergency room with complaints of uncontrolled blood glucose. In the ED blood glucose noted to be 630 bicarb less than 5. Was noted to have leukocytosis of 23.8. Chest CT revealed soft tissue thickening and stranding along the sternal mandibular joint with irregular lucent lesions to the joint suggestive of osteomyelitis, with an additional soft tissue formation inferior to the sternum with numerous foci of gas. Central line was placed due to difficult IV access. He was given IV fluids and was started on an insulin drip per DKA protocol. BMP monitored every 4 hours with eventual closing of anion gap. Daptomycin was resumed for possible suspected endocarditis. D2 hospital stay 01/07/20. Was seen and examined at bedside denies any chest pain shortness of breath. Has nausea, no vomiting. Appetite fair. Blood culture preliminary result showed MRSA. Currently on daptomycin. Denies any fever. D3 hospital stay 01/08/20. he was seen and examined at bedside. He seems comfortable, denies any chest pain or shortness of breath or abdominal pain. Afebrile. I discussed with him the findings on the CT chest and the need for prolonged antibiotics at least 6 weeks depending on repeat CT chest and blood cultures. D4 hospital stay 01/09/20. He was seen and examined at bedside. He denies any chest pain, SOB, afebrile. I was informed by the nurse that his central line noted to have discharge around insertion site. Patient is a difficult IV stick, advised the nurse to insert a peripheral IV. Cannot put a PICC line yet since he still has bacteremia. Repeat CT chest to follow up previously noted gas fluid collection showed interval increase to 5.4x7.2 cm from 4.2x5.6 cm with interval development of trace right pleural effusion. He remains afebrile, WBC count 13.3, repeat blood cultures pending. Echo result pending. He is D3 of Daptomycin. TRISHA consult reviewed his chart and recommend CT surgery consult to drain abscess. D5 hospital stay 01/10/20: He was seen and examined at bedside. Looks comfortable, denies any fever, chest pain, SOB. I was able to speak to Dr. Hall from [facility] at the [facility] about his case and transfer. They had accepted him for transfer but have no bed available. I was told to call back everyday to check bed availability. He is D4 of daptomycin, D2 of linezolid which was added yesterday to cover for lung abscess. TTE did not show any findings concerning for endocarditis. Blood culture drawn 01/09/20 still positive for MRSA. D6 hospital stay 01/11/20. He was seen and examined at bedside. Sleeping comfortably. Afebrile with good appetite. Denies chest pain, SOB, palpitations. Currently D5 Dapto, D3 linezolid. Awaiting acceptance at [facility], will call again today. Awaiting clearance of bacteremia for PICC line placement. Blood cx drawn 01/10 awaiting result. D7 hospital stay 01/12/20. He was seen and examined at bedside. looks comfortable. D6 dapto, D3 linezolid. Spoke to [facility] CT surgery who reviewed his case and he was put on a waitlist. [place] cx 01/11/20 +ve MRSA. Afebrile since admission. No complains of chest pain, SOB. Physical Exam Vital Signs: Temp Pulse Resp BP Pulse Ox 98.1 F 84 20 179/164 H 94 01/12/20 12:21 01/12/20 12:21 01/12/20 12:21 01/12/20 12:21 01/12/20 12:21 Intake & Output 01/11/20 01/12/20 01/13/20 06:59 06:59 06:59 Intake Total 3770 4341 570 Output Total 3525 4100 300 Balance 245 241 270 Weight 76.5 kg 77.1 kg General appearance: PRESENT: no acute distress, cooperative Head exam: PRESENT: atraumatic, normocephalic Eye exam: PRESENT: EOMI, PERRLA Mouth exam: PRESENT: moist Neck exam: PRESENT: full ROM. ABSENT: JVD, lymphadenopathy Cardiovascular exam: PRESENT: diastolic murmur, RRR, +S1, +S2, systolic murmur Pulses: PRESENT: +2 pedal pulses bilateral GI/Abdominal exam: PRESENT: normal bowel sounds, soft. ABSENT: rebound, tenderness Musculoskeletal exam: PRESENT: full ROM Neurological exam: PRESENT: alert, awake, oriented to person, oriented to place, oriented to time, oriented to situation Psychiatric exam: PRESENT: normal mood Results Laboratory Results: 01/12/20 04:46 01/12/20 04:46 01/12/20 01/12/20 04:46 04:46 WBC 11.6 H RBC 3.56 L Hgb 10.0 L Hct 30.3 L MCV 85 MCH 28.1 MCHC 33.0 RDW 14.4 H Plt Count 522 H Seg Neutrophils % 72.3 Sodium 135.7 L Potassium 4.1 Chloride 95 L Carbon Dioxide 36 H Anion Gap 5 BUN 9 Creatinine 0.53 Est GFR ( Amer) > 60 Glucose 253 H Calcium 8.1 L Total Bilirubin 0.3 AST 43 Alkaline Phosphatase 117 C-Reactive Protein 206.8 H Total Protein 5.9 L Albumin 2.2 L 01/11/20 03:52 Blood Blood Culture (PCR) - Final Staphylococcus Aureus 01/11/20 02:30 Blood Blood Culture (PCR) - Final Staphylococcus Aureus 01/07/20 01/12/20 14:10 04:46 Creatine Kinase 45 L 51 L Impressions: Chest X-Ray 01/06/20 14:43 IMPRESSION: New right central venous catheter with tip in the right atrium. No pneumothorax. No significant interval change. Chest CT 01/09/20 08:00 IMPRESSION: Slight increase in size of right apical gas fluid collection. Plan Discharge Plan: [facility]red [facility] to pleural abscess requiring possible drainage by CT surgery accepted by Dr. Cardenas Time Spent: Greater than 30 Minutes
[2020-01-12] MEDS: NORMAL SALINE IV SCH (15:13)
[2020-01-12] MEDS: DAPTOMYCIN IV SCH (15:13)
[2020-01-12 20:17] VITALS: BP 123/62
== END 2020-01-12 20:30 | disposition short-term general hospital (02) | DRG 288 ==
LOC: ER 11:01 → EH 14:09 → 3S 21:12
PROVIDERS: ADMIT Internal Medicine; ATTEND Internal Medicine
PROC: 02H633Z Insertion of Infusion Device into Right Atrium, Percutaneous Approach (ICD-10-PCS; principal; 2020-01-06)
PROC: B543ZZA Ultrasonography of Right Jugular Veins, Guidance (ICD-10-PCS; 2020-01-06)
DX: I33.0 Acute and subacute infective endocarditis (principal); E10.10 Type 1 diabetes mellitus with ketoacidosis without coma; J86.9 Pyothorax without fistula; R78.81 Bacteremia; M86.18 Other acute osteomyelitis, other site; E10.69 Type 1 diabetes mellitus with other specified complication; B95.62 Methicillin resistant Staphylococcus aureus infection as the cause of diseases classified elsewhere; E87.6 Hypokalemia; F32.9 Major depressive disorder, single episode, unspecified; F17.210 Nicotine dependence, cigarettes, uncomplicated; I87.2 Venous insufficiency (chronic) (peripheral); F11.90 Opioid use, unspecified, uncomplicated; F12.90 Cannabis use, unspecified, uncomplicated; Z79.899 Other long term (current) drug therapy; Z79.4 Long term (current) use of insulin; Z88.6 Allergy status to analgesic agent; Z75.1 Person awaiting admission to adequate facility elsewhere; Z83.3 Family history of diabetes mellitus; Z91.14 Patient's other noncompliance with medication regimen
CPT/HCPCS: 36415; 36600; 71045; 71250; 80053; 80307; 81001; 82550; 82803; 82947; 82962; 83036; 83735; 85025; 85652; 86140; 87040; 87070; 87077; 87150; 87186; 93005; 93010; 93306; 96361; 96374; 99285; J0571; J0878; J1644; J1815; J2020; J3480; J3490; J7030; J7042; J7120; S0028

== ENCOUNTER 2020-04-26 23:37 | Emergency (ER) | payer OTHER ==
[2020-04-27 01:38] LABS: APPEARANCE,URINE CLEAR; BILIRUBIN,URINE NEGATIVE (NEGATIVE); COLOR,URINE COLORLESS; GLUCOSE, URINE >=500 mg/dL (NEGATIVE); KETONES,URINE NEGATIVE (NEGATIVE); LEUKOCYTE ESTERASE,URINE NEGATIVE (NEGATIVE); NITRITE,URINE NEGATIVE (NEGATIVE); PROTEIN,URINE NEGATIVE (NEGATIVE); URINE SPECIFIC GRAVITY 1.033; UROBILINOGEN,URINE NEGATIVE mg/dL (<2.0)
--- NOTE | 2020-04-27 02:19 | RADIOLOGY REPORT (SQ) ---
CHEST X-RAY 1 VIEW on 04/27/2020 1:51 AM CLINICAL INDICATION: Shortness of breath COMPARISON: X-ray from 01/06/[address] from 01/09/2020 FINDINGS: There is improved right apical opacity with postsurgical suture line in the right upper lung and clips in the right hilum and medial right upper chest from likely resection of the prior right apical abscess. Residual right apical opacity may represent scar tissue now. There are areas of likely atelectasis and/or scarring in the medial right upper lung. Lungs are otherwise clear. Heart is within normal limits for size. Pulmonary vascularity is within normal limits. IMPRESSION: Favor all of the opacities in the right upper lung to be chronic and postsurgical related to the presumed resection of the prior abscess in the right lung apex. Otherwise no acute disease.
[2020-04-27 02:58] LABS: ABSOLUTE BASOPHILS # (AUTO) 0.1 10^3/uL (0.0-0.2); ABSOLUTE EOSINOPHILS # (AUTO) 0.1 10^3/uL (0.0-0.6); ABSOLUTE LYMPHOCYTES (AUTO) 2.5 10^3/uL (0.5-4.7); ABSOLUTE MONOCYTES (AUTO) 0.6 10^3/uL (0.1-1.4); ABSOLUTE NEUT (AUTO) 6.2 10^3/uL (1.7-8.2); BASOPHILS % (AUTO) 1.2 % (0-2); EOSINOPHILS % (AUTO) 0.9 % (0-6); HEMATOCRIT 34.9 % (37.9-51.0); HEMOGLOBIN 11.7 g/dL (13.5-17.0); LYMPHOCYTES % (AUTO) 26.3 % (13-45); MEAN CORPUSCULAR HEMOGLOBIN 28.7 pg (27.0-33.4); MEAN CORPUSCULAR HGB CONC 33.4 g/dL (32.0-36.0); MEAN CORPUSCULAR VOLUME 86 fl (80-97); MONOCYTES % (AUTO) 5.9 % (3-13); PLATELET COUNT 536 10^3/uL (150-450); RED BLOOD COUNT 4.06 10^6/uL (4.35-5.55); RED CELL DISTRIBUTION WIDTH 13.6 % (11.5-14.0); SEGMENTED NEUTROPHILS % (AUTO) 65.7 % (42-78); TOTAL CELLS COUNTED % (AUTO) 100 %; WHITE BLOOD COUNT 9.4 10^3/uL (4.0-10.5)
[2020-04-27 03:05] LABS: ALBUMIN 2.8 g/dL (3.5-5.0); ALKALINE PHOSPHATASE 123 U/L (38-126); ASPARTATE AMINO TRANSFERASE 26 U/L (17-59); BILIRUBIN,DIRECT 0.3 mg/dL (0.0-0.4); BILIRUBIN,TOTAL 0.4 mg/dL (0.2-1.3); BLOOD UREA NITROGEN 11 mg/dL (7-20); CALCIUM 8.7 mg/dL (8.4-10.2); CARBON DIOXIDE 32 mmol/L (22-30); CHLORIDE 95 mmol/L (98-107); POTASSIUM 4.7 mmol/L (3.6-5.0); TOTAL PROTEIN 6.6 g/dL (6.3-8.2)
[2020-04-27 03:08] LABS: ANION GAP 5 (5-19)
[2020-04-27 03:12] LABS: GLUCOSE 536 mg/dL (75-110)
[2020-04-27] MEDS ORDERED: NORMAL SALINE 1000 ML 1,000 ML IV PRN (04:12)
[2020-04-27] MEDS ORDERED: KETOROLAC TROMETHAMINE INJ/PF 30 MG/1 ML SDV IV ONE (04:12)
[2020-04-27] MEDS ORDERED: INSULIN REG, HUMAN 100 UNIT/ML 3 ML VIAL (PYX) SUBCUT ONE ×2 (04:13→04:31)
[2020-04-27] MEDS ORDERED: NORMAL SALINE 1000 ML 1,000 ML IV ONE (04:31)
--- NOTE | 2020-04-27 05:22 | ER Document Report ---
ED General - General Chief Complaint: Chest Pain Stated Complaint: CHEST PAIN/COVID + Time Seen by Provider: 04/27/20 04:11 Primary Care Provider: REESE RACHEL MD [HONORARY] - Follow up as needed TRAVEL OUTSIDE OF THE [place] IN LAST 30 DAYS: No - HPI Context: Chief Complaint: [Chest pain] [35-year-old male with history of type 1 diabetes, noncompliance, presents to the emergency department complaining of fatigue and chest pain. Patient tested positive on the rapid Covid screen test done by EMS. Patient is also complaining of shortness of breath. ] History obtained from [patient] Symptoms began:[1 day ago] Onset: [Gradual] Timing: [Gradual] Quality: [Sharp] Intensity: [Severe] Location: [Chest] Radiation: [Denies] [The pain does not migrate to a new location.] Aggravating factors: [none] Relieving factors: [none] Positive SOB [Denies] nausea [Denies] vomiting [Denies] sweats [Denies] fever [Denies] cough [Denies] calf or leg swelling or pain - Related Data Allergies/Adverse Reactions: No Known Allergies Allergy (Unverified 04/27/20 00:33) Home Medications: suboxone Past Medical History - General Information source: Patient - Social History Smoking Status: Current Every Day Smoker Frequency of alcohol use: None Family History: DM Endocrine Medical History: Reports: Hx Diabetes Mellitus Type 2 Renal/ Medical History: Denies: Hx Peritoneal Dialysis GI Medical History: Reports: Hx Hepatitis Musculoskeletal Medical History: Reports Hx Musculoskeletal Trauma - Clavicle Psychiatric Medical History: Reports: Hx Depression Traumatic Medical History: Reports: Hx Fractures - Clavicle, nose Infectious Medical History: Reports: Hx Hepatitis Past Surgical History: Reports: Hx Cardiac Surgery, Hx Nose Surgery, Other - Arm abscess I&D in the OR - Immunizations Hx Diphtheria, Pertussis, Tetanus Vaccination: No Hx Pneumococcal Vaccination: 06/04/14 Review of Systems - Review of Systems Notes: Review of systems as below unless otherwise stated in HPI. CONSTITUTIONAL [No] fever, [No] chills. EYES [No] eye pain. ENT [No] URI symptoms, [No] sore throat, [No] ear pain. CARDIOVASCULAR Positive chest pain, [No] palpitations, [No] edema. RESPIRATORY [No] Cough, positive SOB, [No] wheezing. GASTROINTESTINAL [No] abdominal pain, [No] nausea, [No] Diarrhea, [No] Vomiting, [No] con stipation, [No] melena, [No] rectal bleeding. GENITOURINARY [No] dysuria, [No] urinary frequency, [No] hematuria, [No] urinary urgency MUSCULOSKELETAL [No] Back pain. SKIN [No] Rash. NEUROLOGIC [No] Headache, [No] recent seizures, [No] paralysis,[No] parathesias. ENDOCRINE [No] polyuria. HEMO/LYMPATIC [No] easy brusing PSYCHIATRIC [No] depression. Physical Exam - Vital signs Vitals: Pulse Resp BP Pulse Ox 85 18 128/73 H 100 04/27/20 00:10 04/27/20 00:10 04/27/20 00:10 04/27/20 00:10 - Notes Notes: CONSTITUTIONAL [Vital signs reviewed, patient is sleeping as this MD enters the room. Patient is easily awoken and subsequently alert and oriented X 3, Normal stature. Patient has a nontoxic appearance. Patient is requesting a diet soda to drink] HEAD [Atraumatic, Normocephalic.] EYES [Eyes are normal to inspection, No discharge from eyes, Extraocular muscles intact, Sclera are normal, Conjunctiva are normal.] ENT [External ears normal to inspection, Nose examination normal, Mouth normal to inspection.] NECK [Normal ROM, No jugular venous distention, No meningeal signs, ] RESPIRATORY CHEST [Chest is nontender, Breath sounds normal, No respiratory distress.] CARDIOVASCULAR [RRR, No murmurs, Normal S1 S2, No rub, No gallop.] ABDOMEN [Abdomen is nontender, No pulsatile masses, No other masses, Bowel sounds normal, No distension, No peritoneal signs, No hernias.] BACK [There is no CVA Tenderness, There is no tenderness to palpation, Normal inspection.] UPPER EXTREMITY [Inspection normal, No cyanosis, No clubbing, No edema, LOWER EXTREMITY [Inspection normal, No cyanosis, No clubbing, No edema, No calf tenderness, NEURO [No focal motor deficits, No focal sensory deficits, Speech normal.] SKIN [Skin is warm, Skin is dry, Skin is normal color.] LYMPHATIC [No adenopathy in neck.] PSYCHIATRIC [Normal affect. ] Course - Re-evaluation Re-evalutation: 04/27/20 05:31 Patient is tolerating p.o. fluids and he is requesting something to eat. Results of ED MSE discussed with patient. All questions were answered prior to discharge. Emergency signs and symptoms, reasons to return to the emergency department discussed with patient. 04/27/20 05:35 Patient's fingerstick blood sugar is down to 327. - Vital Signs Vital signs: Temp Pulse Resp BP Pulse Ox 85 12 114/73 100 04/27/20 00:10 04/27/20 02:26 04/27/20 05:00 04/27/20 05:01 - Laboratory Results Result Diagrams: 04/27/20 02:36 04/27/20 02:36 Laboratory Results Interpreted: 04/27/20 04/27/20 04/27/20 01:20 02:36 02:36 RBC 4.06 L Hgb 11.7 L Hct 34.9 L Plt Count 536 H Sodium 131.1 L Chloride 95 L Carbon Dioxide 32 H Creatinine 0.49 L Glucose 536 H* POC Glucose Albumin 2.8 L Urine Glucose (UA) >=500 H 04/27/20 04:29 RBC Hgb Hct Plt Count Sodium Chloride Carbon Dioxide Creatinine Glucose POC Glucose 369 H Albumin Urine Glucose (UA) Critical Laboratory Results Reviewed: Yes Attending or Supervising Physician who Reviewed Labs: HUI TINEO IV - Patient's blood sugar is elevated - Radiology Results Critical Radiology Results Reviewed: No Critical Results Attending or Supervising Physician who Reviewed Radiology: HUI TINEO IV - Radiologist interpretation of x-ray states appearance looks chronic and postsurgical - EKG Interpretation by Me Additional EKG results interpreted by me: 04/27/20 05:33 EKG obtained on 04/27/2020 at 0118 hrs. was interpreted by this MD. Findings: Sinus bradycardia, rate 54, normal axis, DE interval appears to be within normal limits, P waves preceding QRS complexes, QRS complexes appear narrow, QTC is 379, there are no obvious patterns of ST segment elevation, depression or reciprocal changes seen to suggest acute myocardial ischemia or infarction. When compared to EKG from 01/06/2020 patient's rate is slower, otherwise there do not appear to be significant differences between the 2 EKGs. Impression: Sinus bradycardia with nonspecific ST segments. Discharge - Discharge Clinical Impression: Hyperglycemia, Noncompliance with medication regimen, COVID-19 virus detected Chest pain Qualifiers: Chest pain type: unspecified Qualified Code(s): R07.9 - Chest pain, unspecified Condition: Stable Disposition: HOME, SELF-CARE Additional Instructions: Return to the Emergency Department without delay if any worse. Current recommendations for patients with suspected COVID-19 infection and symptoms include the following: Vitamin C 500 mg twice a day Quercetin 250-500mg twice a day Melatonin 6 to 12 mg at bedtime Vitamin D3 2000 to 4000 units daily Aspirin 81 to 325 mg daily Famotidine (Pepcid) 40 mg twice a day HOME CARE INSTRUCTIONS & INFORMATION: Thank you for choosing us for your medical needs. We hope you're satisfied with the care you received. After you leave, you must properly care for your problem and, at the same time, observe its progress. Any condition can change. Some illnesses can change rapidly over hours or days. If your condition worsens, return to the Emergency Department or see your physician promptly. ABOUT YOUR X-RAYS AND EKG'S: If you had an EKG or X-rays taken, they have been read by the Emergency Physician. The X-rays and EKG's will also be read by a Radiologist or Hospice Manager within 24 hours. If discrepancies are noted, you will be notified by telephone. Please be certain the ED has a correct telephone number & address where you can be reached. Also, realize that some fractures or abnormalities do not show up on initial X-rays. If your symptoms continue, see your physician. ABOUT YOUR LABORATORY TEST: If you had laboratory tests, the results have been reviewed by the Emergency Physician. Some test results (for example cultures) may not be available for several days. You will be contacted if any test result shows you need additional treatment. Please be certain the ED has a correct telephone number and address where you can be reached. ABOUT YOUR MEDICATIONS: You will receive instructions on how to take your medicine on the prescription label you receive. Additional information may be provided by the Pharmacy. If you have questions afterwards, call the ED for clarification or further instructions. Some prescribed medications may cause drowsiness. Do not perform tasks such as driving a car or operating machinery without consulting your Pharmacist. If you feel you need a refill of pain medication, your condition will need re-evaluation. Please do not call for a refill of any medication. ABOUT YOUR SIGNATURE: Signature of this document acknowledges to followin. Understanding that you received emergency treatment and that you may be released before al medical problems are known or treated. Please be certain the ED has a correct phone number & address where you can be reached. 2. Acknowledgement that you will arrange for follow-up care as recommended. 3. Authorization for the Emergency Physician to provide information to your follow-up Physician in order to maximize your care. AT ANY TIME, IF YOUR SYMPTOMS CHANGE SIGNIFICANTLY OR WORSEN OR YOU DEVELOP NEW SYMPTOMS, RETURN TO THE EMERGENCY DEPARTMENT IMMEDIATELY FOR RE-EVALUATION. OUR GOAL IS TO PROVIDE EXCELLENT MEDICAL CARE! WE HOPE THAT WE HAVE MET YOUR EXPECTATIONS DURING YOUR EMERGENCY DEPARTMENT VISIT AND THAT YOU FEEL YOU HAVE RECEIVED EXCELLENT CARE! Referrals: REESE RACHEL MD [HONORARY] - Follow up as needed
[2020-04-27 05:25] VITALS: BP 114/73
--- NOTE | 2020-04-27 07:58 | EKG REPORT ---
SEVERITY:- NORMAL ECG - SINUS RHYTHM : Confirmed by: Quintin Mcallister MD 27-Apr-2020 07:57:14
== END 2020-04-27 06:08 | disposition home or self-care (01) ==
LOC: ER 23:37
DX: U07.1 COVID-19 (principal); R53.83 Other fatigue; R07.9 Chest pain, unspecified; R06.02 Shortness of breath; F17.200 Nicotine dependence, unspecified, uncomplicated; E11.65 Type 2 diabetes mellitus with hyperglycemia; Z91.14 Patient's other noncompliance with medication regimen; Z79.899 Other long term (current) drug therapy
CPT/HCPCS: 93005; 99285; 96361; 96374; 36415; 82962; 85025; 80053; 81001; 71045; 93010; J1885; J1815; J7030

== ENCOUNTER 2020-05-05 16:57 | Emergency (ER) | payer OTHER | END 2020-05-05 17:50 | disposition left against medical advice (07) | LOC: ER 16:57 | DX: Z53.21 Procedure and treatment not carried out due to patient leaving prior to being seen by health care provider (principal) ==

== ENCOUNTER 2020-05-18 00:07 | Emergency (ER) | payer SELFPAY ==
[2020-05-18 00:38] LABS: ABSOLUTE EOSINOPHILS # (AUTO) 0.2 10^3/uL (0.0-0.6); ABSOLUTE LYMPHOCYTES (AUTO) 2.6 10^3/uL (0.5-4.7); ABSOLUTE MONOCYTES (AUTO) 0.9 10^3/uL (0.1-1.4); ABSOLUTE NEUT (AUTO) 5.6 10^3/uL (1.7-8.2); BASOPHILS % (AUTO) 0.2 % (0-2); EOSINOPHILS % (AUTO) 2.2 % (0-6); HEMATOCRIT 33.5 % (37.9-51.0); HEMOGLOBIN 10.9 g/dL (13.5-17.0); LYMPHOCYTES % (AUTO) 28.1 % (13-45); MEAN CORPUSCULAR HEMOGLOBIN 27.8 pg (27.0-33.4); MEAN CORPUSCULAR HGB CONC 32.7 g/dL (32.0-36.0); MEAN CORPUSCULAR VOLUME 85 fl (80-97); MONOCYTES % (AUTO) 9.5 % (3-13); PLATELET COUNT 391 10^3/uL (150-450); RED BLOOD COUNT 3.93 10^6/uL (4.35-5.55); RED CELL DISTRIBUTION WIDTH 14.5 % (11.5-14.0); TOTAL CELLS COUNTED % (AUTO) 100 %; WHITE BLOOD COUNT 9.3 10^3/uL (4.0-10.5)
[2020-05-18 00:58] LABS: ALBUMIN 2.9 g/dL (3.5-5.0); ALKALINE PHOSPHATASE 151 U/L (38-126); ANION GAP 5 (5-19); ASPARTATE AMINO TRANSFERASE 17 U/L (17-59); BILIRUBIN,DIRECT 0.2 mg/dL (0.0-0.4); BILIRUBIN,TOTAL 0.2 mg/dL (0.2-1.3); BLOOD UREA NITROGEN 14 mg/dL (7-20); CALCIUM 8.9 mg/dL (8.4-10.2); CARBON DIOXIDE 30 mmol/L (22-30); CHLORIDE 93 mmol/L (98-107); CREATINE KINASE 97 U/L (55-170); TOTAL PROTEIN 6.4 g/dL (6.3-8.2)
[2020-05-18 01:07] LABS: GLUCOSE 659 mg/dL (75-110)
[2020-05-18 01:10] LABS: CREATINE KINASE MB 0.37 ng/mL (<4.55)
--- NOTE | 2020-05-18 01:10 | RADIOLOGY REPORT (SQ) ---
EXAM DESCRIPTION: X-ray single view chest. CLINICAL HISTORY: 35 years Male, chest pain COMPARISON: Chest x-ray performed on 04/27/[address] chest performed on 01/09/2020 TECHNIQUE: Single portable x-ray view of the chest performed on 05/18/2020 at 12:46 AM FINDINGS: The lungs are well expanded. There are postsurgical changes in the right upper lobe. There is mild volume loss in the right lung base with slight elevation of the right hemidiaphragm. The lungs are grossly clear. There is no evidence of a pneumothorax. The cardiac silhouette is normal in size and configuration. The mediastinal contours are normal. No acute osseous abnormality is identified. No acute soft tissue abnormalities are seen. Lines and tubes: None. IMPRESSION: 1. Postsurgical changes in the right upper lobe with volume loss in the right lung base and mild elevation of the right hemidiaphragm. 2. No definite acute intrathoracic disease.
[2020-05-18 01:11] LABS: TROPONIN I < 0.012 ng/mL
[2020-05-18] MEDS ORDERED: INSULIN REG, HUMAN 100 UNIT/ML 3 ML VIAL (PYX) SUBCUT ONE (01:18)
[2020-05-18] MEDS ORDERED: INSULIN REG, HUMAN 100 UNIT/ML 3 ML VIAL (PYX) IV ONE (01:19)
--- NOTE | 2020-05-18 01:20 | ER Document Report ---
ED General - General Chief Complaint: High Blood Sugar Stated Complaint: CHEST PAIN Time Seen by Provider: 05/18/20 01:13 Primary Care Provider: REESE RACHEL MD [HONORARY] - Follow up as needed TRAVEL OUTSIDE OF THE [place] IN LAST 30 DAYS: No - HPI Context: Chief Complaint: [Elevated blood sugar and chest pain] [35-year-old male with a history of diabetes mellitus, noncompliance with medications, substance abuse presents complaining of chest pain and elevated blood sugar. Patient states that he "left my insulin in my friend's car." ] History obtained from [patient] Symptoms began:[Yesterday] Onset: [Gradual per patient] Timing: [Gradual] Quality: [Sharp chest pain] Intensity: [5 out of 5] Location: [Chest] Radiation: [Denies] [The pain does not migrate to a new location.] Aggravating factors: [none] Relieving factors: [none] [Denies] SOB [Denies] nausea [Denies] vomiting [Denies] sweats [Denies] fever [Denies] cough [Denies] calf or leg swelling or pain - Related Data Allergies/Adverse Reactions: No Known Allergies Allergy (Unverified 04/27/20 00:33) Past Medical History - General Information source: Patient - Social History Smoking Status: Current Every Day Smoker Chew tobacco use (# tins/day): No Frequency of alcohol use: None Drug Abuse: Heroin, Marijuana Family History: DM Patient has homicidal ideation: No Endocrine Medical History: Reports: Hx Diabetes Mellitus Type 2 Renal/ Medical History: Denies: Hx Peritoneal Dialysis GI Medical History: Reports: Hx Hepatitis Musculoskeletal Medical History: Reports Hx Musculoskeletal Trauma - Clavicle Psychiatric Medical History: Reports: Hx Depression Traumatic Medical History: Reports: Hx Fractures - Clavicle, nose Infectious Medical History: Reports: Hx Hepatitis Past Surgical History: Reports: Hx Cardiac Surgery, Hx Nose Surgery, Other - Arm abscess I&D in the OR - Immunizations Hx Diphtheria, Pertussis, Tetanus Vaccination: No Hx Pneumococcal Vaccination: 06/04/14 Review of Systems - Review of Systems Notes: Review of systems as below unless otherwise stated in HPI. CONSTITUTIONAL [No] fever, [No] chills. EYES [No] eye pain. ENT [No] URI symptoms, [No] sore throat, [No] ear pain. CARDIOVASCULAR Positive chest pain, [No] palpitations, [No] edema. RESPIRATORY [No] Cough, [No] SOB, [No] wheezing. GASTROINTESTINAL [No] abdominal pain, [No] nausea, [No] Diarrhea, [No] Vomiting, [No] constipation, [No] melena, [No] rectal bleeding. GENITOURINARY [No] dysuria, [No] urinary frequency, [No] hematuria, [No] urinary urgency MUSCULOSKELETAL [No] Back pain. SKIN [No] Rash. NEUROLOGIC [No] Headache, [No] recent seizures, [No] paralysis,[No] parathesias. ENDOCRINE Positive polyuria. HEMO/LYMPATIC [No] easy brusing PSYCHIATRIC [No] depression. Physical Exam - Vital signs Vitals: Temp Resp BP Pulse Ox 98.5 F 18 120/66 100 05/18/20 00:07 05/18/20 00:07 05/18/20 00:07 05/18/20 00:07 - Notes Notes: CONSTITUTIONAL [Vital signs reviewed, Patient appears comfortable, Alert and oriented X 3, Normal stature.] HEAD [Atraumatic, Normocephalic.] EYES [Eyes are normal to inspection, No discharge from eyes, Extraocular muscles intact, Sclera are normal, Conjunctiva are normal.] ENT [External ears normal to inspection, Nose examination normal, Mouth normal to inspection.] NECK [Normal ROM, No jugular venous distention, No meningeal signs, ] RESPIRATORY CHEST [Chest is nontender, Breath sounds normal, No respiratory distress.] CARDIOVASCULAR [RRR, No murmurs, Normal S1 S2, No rub, No gallop.] ABDOMEN [Abdomen is nontender, No pulsatile masses, No other masses, Bowel sounds normal, No distension, No peritoneal signs, No hernias.] BACK [There is no CVA Tenderness, There is no tenderness to palpation, Normal inspection.] UPPER EXTREMITY [Inspection normal, No cyanosis, No clubbing, No edema, LOWER EXTREMITY [Inspection normal, No cyanosis, No clubbing, No edema, No calf tenderness, NEURO [No focal motor deficits, No focal sensory deficits, Speech normal.] SKIN [Skin is warm, Skin is dry, Skin is normal color.] LYMPHATIC [No adenopathy in neck.] PSYCHIATRIC [Normal affect. ] Course - Re-evaluation Re-evalutation: 05/18/20 09:11 Results of ED MSE discussed with patient. All questions were answered prior to discharge. Emergency signs and symptoms, reasons to return to the emergency department discussed with patient. When asked what type of insulin the patient use, he stated that he uses NPH insulin 10 units twice a day and also uses sliding scale insulin 4 times a day. This MD wrote prescriptions for both types of insulin for the patient prior to discharge. - Vital Signs Vital signs: Temp Pulse Resp BP Pulse Ox 98.5 F 21 H 116/79 100 05/18/20 05:51 05/18/20 05:51 05/18/20 05:51 05/18/20 05:51 - Laboratory Results Result Diagrams: 05/18/20 00:26 05/18/20 00:26 Laboratory Results Interpreted: 05/18/20 05/18/20 05/18/20 00:12 00:26 00:26 RBC 3.93 L Hgb 10.9 L Hct 33.5 L RDW 14.5 H Carbonic Acid ABG pH ABG pCO2 ABG HCO3 Sodium 127.9 L Chloride 93 L Glucose 659 H* POC Glucose > 550 H* Alkaline Phosphatase 151 H Albumin 2.9 L 05/18/20 05/18/20 05/18/20 01:39 03:05 04:34 RBC Hgb Hct RDW Carbonic Acid 1.04 L ABG pH 7.48 H ABG pCO2 34.5 L ABG HCO3 24.9 H Sodium Chloride Glucose POC Glucose 419 H* 319 H Alkaline Phosphatase Albumin 05/18/20 05:38 RBC Hgb Hct RDW Carbonic Acid ABG pH ABG pCO2 ABG HCO3 Sodium Chloride Glucose POC Glucose 327 H Alkaline Phosphatase Albumin Critical Laboratory Results Reviewed: Yes Attending or Supervising Physician who Reviewed Labs: HUI TINEO IV - Patient does not appear to be in DKA - Radiology Results Critical Radiology Results Reviewed: No Critical Results Attending or Supervising Physician who Reviewed Radiology: HUI TINEO IV - EKG Interpretation by Me Additional EKG results interpreted by me: 05/18/20 09:13 EKG obtained on 05/18/2020 at 00 20 hours was interpreted by this MD. Findings: Normal sinus rhythm, rate 96, normal axis, MA intervals appears to be within normal limits, P waves proceed QRS complexes, QRS complexes appear narrow, QTC is 415, there are no obvious patterns of ST segment elevation, depression or reciprocal changes seen to suggest acute myocardial ischemia or infarction. When compared with EKG from 04/27/2020 the overall morphology of the 2 EKGs appears similar. Impression normal sinus rhythm with nonspecific ST segments. Discharge - Discharge Clinical Impression: Hyperglycemia due to diabetes mellitus, Noncompliance Chest pain Qualifiers: Chest pain type: unspecified Qualified Code(s): R07.9 - Chest pain, unspecified Condition: Stable Disposition: HOME, SELF-CARE Additional Instructions: Return to the Emergency Department without delay if any worse. HOME CARE INSTRUCTIONS & INFORMATION: Thank you for choosing us for your medical needs. We hope you're satisfied with the care you received. After you leave, you must properly care for your problem and, at the same time, observe its progress. Any condition can change. Some illnesses can change rapidly over hours or days. If your condition worsens, return to the Emergency Department or see your physician promptly. ABOUT YOUR X-RAYS AND EKG'S: If you had an EKG or X-rays taken, they have been read by the Emergency Physician. The X-rays and EKG's will also be read by a Radiologist or Battery Vent Plug Inserter within 24 hours. If discrepancies are noted, you will be notified by telephone. Please be certain the ED has a correct telephone number & address where you can be reached. Also, realize that some fractures or abnormalities do not show up on initial X-rays. If your symptoms continue, see your physician. ABOUT YOUR LABORATORY TEST: If you had laboratory tests, the results have been reviewed by the Emergency Physician. Some test results (for example cultures) may not be available for several days. You will be contacted if any test result shows you need additional treatment. Please be certain the ED has a correct telephone number and address where you can be reached. ABOUT YOUR MEDICATIONS: You will receive instructions on how to take your medicine on the prescription label you receive. Additional information may be provided by the Pharmacy. If you have questions afterwards, call the ED for clarification or further instructions. Some prescribed medications may cause drowsiness. Do not perform tasks such as driving a car or operating machinery without consulting your Pharmacist. If you feel you need a refill of pain medication, your condition will need re-evaluation. Please do not call for a refill of any medication. ABOUT YOUR SIGNATURE: Signature of this document acknowledges to followin. Understanding that you received emergency treatment and that you may be released before al medical problems are known or treated. Please be certain the ED has a correct phone number & address where you can be reached. 2. Acknowledgement that you will arrange for follow-up care as recommended. 3. Authorization for the Emergency Physician to provide information to your follow-up Physician in order to maximize your care. AT ANY TIME, IF YOUR SYMPTOMS CHANGE SIGNIFICANTLY OR WORSEN OR YOU DEVELOP NEW SYMPTOMS, RETURN TO THE EMERGENCY DEPARTMENT IMMEDIATELY FOR RE-EVALUATION. OUR GOAL IS TO PROVIDE EXCELLENT MEDICAL CARE! WE HOPE THAT WE HAVE MET YOUR EXPECTATIONS DURING YOUR EMERGENCY DEPARTMENT VISIT AND THAT YOU FEEL YOU HAVE RECEIVED EXCELLENT CARE! Prescriptions: Insulin NPH Hum/Reg Insulin Hm [Humulin 70/30 Kwikpen] 10 unit SQ BID #1 [email or web address] Insulin Aspart [Novolog Insulin (Aspart) 100 unit/mL] 0 unit SUBCUT .SLD SCALE #10 ml Referrals: REESE RACHEL MD [HONORARY] - Follow up as needed
[2020-05-18] MEDS ORDERED: DEXTROSE 40% GEL 15 GM TUBE PO PRN ×2 (01:22)
[2020-05-18] MEDS ORDERED: GLUCAGON,HUMAN RECOMB 1 MG INJ IM PRN (01:22)
[2020-05-18] MEDS ORDERED: DEXTROSE 50%-WATER 25 GM/50 ML DISP.SYRIN IV PRN ×2 (01:22)
[2020-05-18] MEDS ORDERED: NORMAL SALINE 100 ML with INSULIN REGULAR, HUMAN 100 UNIT IV PRN ×2 (01:22)
[2020-05-18] MEDS ORDERED: INSULIN REG, HUMAN 100 UNIT/ML 3 ML VIAL (PYX) ONE (01:27)
[2020-05-18] MEDS: NORMAL SALINE 1000 ML 1,000 ML IV PRN ×2 (01:34→03:11)
[2020-05-18 03:32] LABS: ARTERIAL BLOOD BASE EXCESS 1.6 mmol/L; ARTERIAL BLOOD FIO2 ROOM AIR; ARTERIAL BLOOD H2CO3 1.04 mmol/L (1.05-1.35); ARTERIAL BLOOD HCO3 24.9 mmol/L (20-24); ARTERIAL BLOOD O2 SATURATION 97.8 % (94-98); ARTERIAL BLOOD PCO2 34.5 mmHg (35-45); ARTERIAL BLOOD PH 7.48 (7.35-7.45); ARTERIAL BLOOD PO2 97.5 mmHg (80-100); ARTERIAL BLOOD TOTAL CO2 25.9 mmol/L (23-27)
[2020-05-18 06:02] VITALS: BP 116/79
--- NOTE | 2020-05-18 07:35 | EKG REPORT ---
SEVERITY:- NORMAL ECG - SINUS RHYTHM : Confirmed by: Rainer Negron 18-May-2020 07:35:12
== END 2020-05-18 06:02 | disposition home or self-care (01) ==
LOC: ER 00:07
DX: E11.65 Type 2 diabetes mellitus with hyperglycemia (principal); T38.3X6A Underdosing of insulin and oral hypoglycemic [antidiabetic] drugs, initial encounter; Z91.128 Patient's intentional underdosing of medication regimen for other reason; Z91.14 Patient's other noncompliance with medication regimen; R07.9 Chest pain, unspecified; F17.200 Nicotine dependence, unspecified, uncomplicated; F11.10 Opioid abuse, uncomplicated; F12.10 Cannabis abuse, uncomplicated
CPT/HCPCS: 93005; 99285; 96365; 96366; 36415; 82553; 82962; 82803; 82550; 85025; 80053; 84484; 71045; 93010; J7030

== ENCOUNTER 2020-05-19 11:57 | Emergency (ER) | payer SELFPAY ==
[2020-05-19 13:52] LABS: ABSOLUTE EOSINOPHILS # (AUTO) 0.2 10^3/uL (0.0-0.6); ABSOLUTE LYMPHOCYTES (AUTO) 2.5 10^3/uL (0.5-4.7); ABSOLUTE MONOCYTES (AUTO) 0.7 10^3/uL (0.1-1.4); ABSOLUTE NEUT (AUTO) 7.7 10^3/uL (1.7-8.2); BASOPHILS % (AUTO) 0.4 % (0-2); EOSINOPHILS % (AUTO) 1.9 % (0-6); HEMATOCRIT 32.8 % (37.9-51.0); HEMOGLOBIN 10.9 g/dL (13.5-17.0); LYMPHOCYTES % (AUTO) 22.4 % (13-45); MEAN CORPUSCULAR HEMOGLOBIN 27.8 pg (27.0-33.4); MEAN CORPUSCULAR HGB CONC 33.3 g/dL (32.0-36.0); MEAN CORPUSCULAR VOLUME 84 fl (80-97); MONOCYTES % (AUTO) 6.2 % (3-13); PLATELET COUNT 384 10^3/uL (150-450); RED BLOOD COUNT 3.93 10^6/uL (4.35-5.55); SEGMENTED NEUTROPHILS % (AUTO) 69.1 % (42-78); TOTAL CELLS COUNTED % (AUTO) 100 %; WHITE BLOOD COUNT 11.2 10^3/uL (4.0-10.5)
[2020-05-19 14:18] LABS: ALBUMIN 3.2 g/dL (3.5-5.0); ALKALINE PHOSPHATASE 157 U/L (38-126); ANION GAP 7 (5-19); ASPARTATE AMINO TRANSFERASE 28 U/L (17-59); BILIRUBIN,DIRECT 0.4 mg/dL (0.0-0.4); BILIRUBIN,TOTAL 0.4 mg/dL (0.2-1.3); BLOOD UREA NITROGEN 10 mg/dL (7-20); CALCIUM 9.2 mg/dL (8.4-10.2); CARBON DIOXIDE 28 mmol/L (22-30); CHLORIDE 94 mmol/L (98-107); POTASSIUM 4.8 mmol/L (3.6-5.0)
--- NOTE | 2020-05-19 14:30 | ER Document Report ---
ED Blood Sugar Problem - General Chief Complaint: High Blood Sugar Stated Complaint: HIGH BLOOD SUGAR Time Seen by Provider: 05/19/20 12:45 Notes: Patient is a 35-year-old male who presents to the emergency department with high blood sugars. He went to the [facility] clinic to get help with his heroin use and they checked his blood sugar and his blood sugar was in the 500s. Patient states that he has not been taking his insulin and metformin. Patient states that he is a type II diabetic. States that the last time he used drugs was about 3 days ago. States that he is an IV drug user. Endorses weakness due to high blood sugar, but is able to move all extremities equally. TRAVEL OUTSIDE OF THE [place] IN LAST 30 DAYS: No - Related Data Allergies/Adverse Reactions: No Known Allergies Allergy (Unverified 04/27/20 00:33) Past Medical History - Social History Smoking Status: Unknown if Ever Smoked Drug Abuse: Heroin Family History: DM Endocrine Medical History: Reports: Hx Diabetes Mellitus Type 2 Renal/ Medical History: Denies: Hx Peritoneal Dialysis GI Medical History: Reports: Hx Hepatitis Musculoskeletal Medical History: Reports Hx Musculoskeletal Trauma - Clavicle Psychiatric Medical History: Reports: Hx Depression Traumatic Medical History: Reports: Hx Fractures - Clavicle, nose Infectious Medical History: Reports: Hx Hepatitis Past Surgical History: Reports: Hx Cardiac Surgery, Hx Nose Surgery, Other - Arm abscess I&D in the OR - Immunizations Hx Diphtheria, Pertussis, Tetanus Vaccination: No Hx Pneumococcal Vaccination: 06/04/14 Review of Systems - Review of Systems Notes: REVIEW OF SYSTEMS: CONSTITUTIONAL : Denies recent illness. Denies recent unintentional weight loss. Denies fever, chills, or sweats. EENT: Denies eye, ear, throat, or mouth pain, discharge, or symptoms. Denies nasal or sinus congestion. CARDIOVASCULAR: Denies chest pain. RESPIRATORY: Denies shortness of breath, cough, congestion, difficulty breathing, or wheezing. GASTROINTESTINAL: Denies nausea, vomiting, and diarrhea. Denies abdominal pain. Denies constipation. GENITOURINARY: Denies difficulty urinating, burning, blood in urine, urgency or frequency. MUSCULOSKELETAL: Denies neck and back pain. Denies joint pain or swelling. SKIN: Denies rash, itchiness, or lesions HEMATOLOGIC : Denies easy bruising or bleeding. LYMPHATIC: Denies swollen, painful, enlarged glands. NEUROLOGICAL: Denies no numbness or tingling. Denies headache. Denies altered mental status. Denies alteration in speech. See HPI. PSYCHIATRIC: Denies stress, anxiety, alteration in sleep patterns, or depre ssion. All other systems reviewed and negative. Physical Exam - Vital signs Vitals: Resp 14 05/19/20 12:00 - Notes Notes: PHYSICAL EXAMINATION: GENERAL: Appears thin, tired, no acute distress. HEAD: Normocephalic, atraumatic. EYES: PERRL, conjunctiva normal, all extraocular movements intact, sclera nonicteric ENT: Moist mucous membranes. NECK: Supple, no noticeable swelling, redness, rash. Normal range of motion. LUNGS: Equal breath sounds bilaterally and clear to auscultation. No wheezes rales or rhonchi. CARDIOVASCULAR: S1-S2, regular rate, regular rhythm. Radial pulses 2+, normal. ABDOMEN: Normoactive bowel sounds. Soft, nontender, no guarding, no rebound tenderness, and no masses palpated. EXTREMITIES: Normal strength and range of motion, no pitting or edema. No cyanosis. NEUROLOGICAL: Moves all extremities upon command. Strength 5/5 in all extremities. PSYCH: Normal mood, normal affect. SKIN: Warm, dry. No rash, lesions, ulcerations noted. Normal skin turgor. Course - Re-evaluation Re-evalutation: 05/19/20 16:49 The community seo specialist, Catherine spoke with me and I printed the patient's insulin prescriptions that he was supposed to get filled. She will take them to help patient get his insulin. Hematology shows a nonspecific 12,000 700,000 and urine. Hemoglobin is 10.9. This is the patient's normal. Venous blood gases normal. Sodium of 128 and a chloride of 94. Blood sugar was 417. Patient is currently on his second liter of IV fluids. We will recheck blood sugar after the secondary fluids is done. There is no evidence of diabetic ketoacidosis. 05/19/20 17:52 Patient's blood sugar is now 280. Urine does not show any ketones. At this time, I feel safe to discharge patient. Follow-up precautions were given. Verbal discharge instructions were given to the patient. They verbalized understanding. They are stable for discharge. - Vital Signs Vital signs: Temp Pulse Resp BP Pulse Ox 13 113/72 99 01/12/21 18:30 05/19/20 18:30 05/19/20 18:30 - Laboratory Results Result Diagrams: 05/19/20 13:29 05/19/20 13:29 Laboratory Results Interpreted: 05/19/20 05/19/20 05/19/20 12:07 13:29 13:29 WBC 11.2 H RBC 3.93 L Hgb 10.9 L Hct 32.8 L RDW 15.0 H Sodium 128.5 L Chloride 94 L Creatinine 0.50 L Glucose 417 H* POC Glucose 463 H* Alkaline Phosphatase 157 H Albumin 3.2 L Urine Glucose (UA) Ur Leukocyte Esterase 05/19/20 05/19/20 15:50 17:16 WBC RBC Hgb Hct RDW Sodium Chloride Creatinine Glucose POC Glucose 280 H Alkaline Phosphatase Albumin Urine Glucose (UA) >=500 H Ur Leukocyte Esterase TRACE H Critical Laboratory Results Reviewed: Yes Attending or Supervising Physician who Reviewed Labs: HEMANT GARDINER - Radiology Results Critical Radiology Results Reviewed: No Critical Results Discharge - Discharge Clinical Impression: Hyperglycemia Uncontrolled diabetes mellitus Qualifiers: Diabetes mellitus type: type 2 Glycemic state: with hyperglycemia Qualified Code(s): E11.65 - Type 2 diabetes mellitus with hyperglycemia Condition: Stable Disposition: HOME, SELF-CARE Additional Instructions: You were seen today in the emergency department for high blood sugars. Your sugars came down with IV fluids. Please get your prescription for your insulin filled. Follow-up with your primary care provider and the community paramedics. Prescriptions: Insulin NPH Hum/Reg Insulin Hm [Humulin 70/30 Kwikpen] 10 unit SQ BID #1 [email or web address] Insulin Aspart [Novolog Insulin (Aspart) 100 unit/mL] 0 unit SUBCUT .SLD SCALE #10 ml
[2020-05-19 14:42] LABS: GLUCOSE 417 mg/dL (75-110)
[2020-05-19 14:55] LABS: VENOUS BLOOD BASE EXCESS -0.1 mmol/L; VENOUS BLOOD HCO3 26.8 mmol/L (20-32); VENOUS BLOOD PCO2 53.9 mmHg (35-63); VENOUS BLOOD PH 7.31 (7.30-7.42)
[2020-05-19] MEDS ORDERED: NORMAL SALINE 1000 ML 2,000 ML IV ONE (14:59)
[2020-05-19] MEDS ORDERED: RINGERS SOLUTION,LACTATED 2,000 ML IV ONE (14:59)
[2020-05-19 16:00] LABS: APPEARANCE,URINE CLEAR; BILIRUBIN,URINE NEGATIVE (NEGATIVE); COLOR,URINE STRAW; GLUCOSE, URINE >=500 mg/dL (NEGATIVE); KETONES,URINE NEGATIVE (NEGATIVE); LEUKOCYTE ESTERASE,URINE TRACE (NEGATIVE); NITRITE,URINE NEGATIVE (NEGATIVE); PROTEIN,URINE NEGATIVE (NEGATIVE); URINE SPECIFIC GRAVITY 1.028; UROBILINOGEN,URINE NEGATIVE mg/dL (<2.0)
[2020-05-19 19:07] VITALS: BP 113/72
--- NOTE | 2020-05-19 19:17 | EKG REPORT ---
SEVERITY:- NORMAL ECG - SINUS RHYTHM : Confirmed by: Darlene Rosa MD 19-May-2020 19:16:25
== END 2020-05-19 19:07 | disposition home or self-care (01) ==
LOC: ER 11:57
DX: E11.65 Type 2 diabetes mellitus with hyperglycemia (principal); Z79.4 Long term (current) use of insulin; Z79.84 Long term (current) use of oral hypoglycemic drugs
CPT/HCPCS: 93005; 99284; 96360; 36415; 82962; 85025; 80053; 81001; 82803; 93010; J7030